=== PATIENT | female | born 1955 | race Two or more races ===

== ENCOUNTER → 2020-08-29 11:10 | Outpatient (BNVA) | payer OTHER, SELFPAY | PROVIDERS: PCP Internal Medicine; Referring Provider Internal Medicine; Visit Provider Dietitian, Registered | DX: Z76.89 Persons encountering health services in other specified circumstances (principal) ==

== ENCOUNTER 2020-09-28 12:53 | Outpatient (REF) | payer OTHER, SELFPAY | END 2020-09-28 12:54 | disposition home or self-care (01) | LOC: HO.LAB 12:53 | PROVIDERS: PCP Internal Medicine; Visit Provider Internal Medicine | DX: Z20.828 Contact with and (suspected) exposure to other viral communicable diseases (principal) | CPT/HCPCS: C9803; U0003 ==

== ENCOUNTER → 2020-12-04 12:40 | Outpatient (BNVA) | payer OTHER, SELFPAY | PROVIDERS: PCP Internal Medicine; Visit Provider Nurse Practitioner Gerontology | DX: E11.65 Type 2 diabetes mellitus with hyperglycemia (principal); E78.5 Hyperlipidemia, unspecified; I10 Essential (primary) hypertension | CPT/HCPCS: 82947; 99212 ==

== ENCOUNTER → 2020-12-29 12:22 | Outpatient (BNVA) | payer OTHER, SELFPAY | PROVIDERS: PCP Internal Medicine; Visit Provider Nurse Practitioner Gerontology | DX: E11.65 Type 2 diabetes mellitus with hyperglycemia (principal); E78.5 Hyperlipidemia, unspecified; I10 Essential (primary) hypertension; Z68.41 Body mass index [BMI] 40.0-44.9, adult; F17.200 Nicotine dependence, unspecified, uncomplicated; Z79.4 Long term (current) use of insulin; Z71.6 Tobacco abuse counseling; Z71.3 Dietary counseling and surveillance | CPT/HCPCS: 82947; 99212 ==

== ENCOUNTER 2021-01-16 10:32 | Outpatient (REF) | payer OTHER, SELFPAY ==
--- NOTE | ~2021-01-16 | MM_ITS ---
EXAMINATION: MM SCREENING DIGITAL BREAST TOMOSYNTHESIS, BILATERAL CLINICAL INFORMATION: Screening. Asymptomatic. The lifetime risk of breast cancer based on the Tyrer-Cuzick Model is 5%. COMPARISON: Mammography: 07/28/2019, 06/22/2018, 11/15/2016 TECHNIQUE: Digital breast tomosynthesis is performed in both the craniocaudal and mediolateral oblique views along with computer-aided detection (CAD). Synthesized 2D images are generated from the tomosynthesis. Additional bilateral CC views are provided. FINDINGS: The breasts are almost entirely fatty (ACR BI-RADS breast composition Category a). There are no significant masses, abnormal calcifications, or other abnormalities. Background stromal and fibroglandular densities are stable. The axilla and skin contours are unremarkable. MM/MM tomosynthesis screening BI IMPRESSION: No mammographic evidence of malignancy. ASSESSMENT: BI-RADS 1: Negative RECOMMENDATION: Routine annual mammography screening. This patient's information was entered into a reminder system with a target due date for their next mammogram.
== END 2021-01-16 10:33 | disposition home or self-care (01) ==
LOC: HO.MAMMO 10:32
PROVIDERS: PCP Internal Medicine; Visit Provider Internal Medicine
DX: Z12.31 Encounter for screening mammogram for malignant neoplasm of breast (principal)
CPT/HCPCS: 77063; 77067

== ENCOUNTER 2021-01-17 10:04 | Outpatient (REF) | payer OTHER, SELFPAY ==
[2021-01-17 10:58] LABS: Estimated Average Glucose 192 mg/dL; Hemoglobin A1c % 8.3 %
[2021-01-17 11:30] LABS: Alanine Aminotransferase 26 U/L (0-31); Albumin Level 4.4 g/dL (3.5-5.0); Alkaline Phosphatase 121 U/L (39-117); Anion Gap 18 (12-20); Aspartate Amino Transferase 23 U/L (5-31); Bilirubin Total 0.6 mg/dL (0.0-1.0); Blood Urea Nitrogen 34 mg/dL (9-16); Carbon Dioxide 30 mmol/L (22-29); Chloride 99 mmol/L (96-108); Cholesterol 197 mg/dL; Estimated Glomerular Filt Rate 37; Glucose Fasting 147 mg/dL (60-99); HDL Cholesterol 29 mg/dL; LDL Cholesterol Calculated 111 mg/dl; Potassium 4.5 mmol/L (3.3-5.1); Sodium 142 mmol/L (135-145); Total Protein 7.5 g/dL (6.5-8.0); Triglycerides 288 mg/dL
[2021-01-17 11:38] LABS: Vitamin D 25-OH Total 31.6 ng/mL (>30)
[2021-01-17 12:55] LABS: Creatinine Urine 233.28 mg/dL; Microalbum/Creatinine Ratio Ur 3.8 ug/mg cr
[2021-01-18 05:02] LABS: LDL Cholesterol Direct 126 mg/dL (<100)
[2021-01-19 12:12] LABS: PTT LA 32 sec (< OR = 40)
== END 2021-01-17 10:05 | disposition home or self-care (01) ==
LOC: HO.LAB 10:04
PROVIDERS: Nurse Practitioner Family; PCP Internal Medicine; Visit Provider Nurse Practitioner Gerontology
DX: Z01.818 Encounter for other preprocedural examination (principal); E11.65 Type 2 diabetes mellitus with hyperglycemia; E55.9 Vitamin D deficiency, unspecified
CPT/HCPCS: 36415; 80053; 80061; 82043; 82306; 83036; 83721; 85611; 85732

== ENCOUNTER 2021-01-23 12:44 | Outpatient (REF) | payer OTHER, SELFPAY ==
[2021-01-27 14:17] LABS: Alk.Phos Iso. Macrohepatic 0 % (<=0); Alk.Phos Isoenzymes Bone 23 % (28-66); Alk.Phos Isoenzymes Intest 14 % (1-24); Alk.Phos Isoenzymes Liver 63 % (25-69); Alk.Phos Isoenzymes Placental 0 % (<=0); Alk.Phos Isoenzymes Total 120 U/L (37-153)
== END 2021-01-23 12:45 | disposition home or self-care (01) ==
LOC: HO.LAB 12:44
PROVIDERS: PCP Internal Medicine; Visit Provider Nurse Practitioner Gerontology
DX: R74.8 Abnormal levels of other serum enzymes (principal)
CPT/HCPCS: 36415; 84080

== ENCOUNTER 2021-03-05 14:13 | Outpatient (REF) | payer OTHER, SELFPAY ==
[2021-03-05 13:35] VITALS: BP 161/77; PULSE 100; RESP 18; TEMP 36.6; O2SAT 97
[2021-03-05 13:43] VITALS: BMI 39.9
[2021-03-05 14:33] VITALS: BP 162/78; PULSE 100; RESP 20; O2SAT 96
== END 2021-03-05 14:14 | disposition home or self-care (01) ==
LOC: HO.MS 14:13
PROVIDERS: PCP Internal Medicine; Visit Provider Ophthalmology
PROC: (CPT 67840; principal; 2021-03-05 18:20)
DX: D23.111 Other benign neoplasm of skin of right upper eyelid, including canthus (principal); Z83.511 Family history of glaucoma; I10 Essential (primary) hypertension; E11.9 Type 2 diabetes mellitus without complications; J45.909 Unspecified asthma, uncomplicated; F17.210 Nicotine dependence, cigarettes, uncomplicated; Z79.84 Long term (current) use of oral hypoglycemic drugs; Z79.899 Other long term (current) drug therapy
CPT/HCPCS: 67840; 88305

== ENCOUNTER 2021-03-13 14:51 | Emergency (ER) | payer OTHER, SELFPAY ==
[2021-03-13 15:34] VITALS: BP 110/65; PULSE 97; RESP 17; TEMP 37.1; O2SAT 98; BMI 39.2
--- NOTE | 2021-03-13 16:04 | ED_ITS ---
HPI - General Adult General Chief complaint: General Medical Stated complaint: MULTI COMPLAINTS Time Seen by Provider: 03/13/21 16:04 Source: patient Mode of arrival: ambulatory Limitations: no limitations History of Present Illness HPI narrative: headache, neck and eye pain for 4 days. Denies fever but has chills Onset (ago): day(s) (4) Radiation: neck Severity: mild Pain Consistency: constant Related Data Home Medications Medication Instructions Recorded Confirmed albuterol sulfate 90 mcg/actuation 2 puff PO Q6H PRN 10/02/20 12/29/20 aerosol inhaler cholecalciferol (vitamin D3) 50 50 mcg PO DAILY 10/02/20 12/29/20 mcg (2,000 unit) tablet fenofibrate 54 mg tablet 54 mg PO DAILY 10/02/20 12/29/20 hydrochlorothiazide 25 mg tablet 25 mg PO DAILY 10/02/20 12/29/20 montelukast 10 mg tablet 10 mg PO DAILY 10/02/20 12/29/20 olmesartan 20 mg tablet 20 mg PO DAILY 12/04/20 12/29/20 prednisolone acetate 1 % eye drp OPHTHALMIC (EYE) ONCE ml 12/29/20 12/29/20 drops,suspension Previous Rx's Medication Instructions Recorded blood sugar diagnostic #50 ea 08/29/20 blood-glucose meter #1 ea 08/29/20 cyclobenzaprine 10 mg tablet 10 mg PO BEDTIME PRN 90 Days #90 10/03/20 tab albuterol sulfate 90 mcg/actuation 2 inh INHALATION Q4-6H PRN 30 Days 11/10/20 breath activated powder inhaler #1 ea insulin glargine 100 unit/mL (3 14 unit SUBCUT QPM 30 Days #15 ml 12/04/20 mL) subcutaneous pen metformin 500 mg tablet 500 mg PO BID #60 tab 12/04/20 pen needle, diabetic 32 gauge x #30 ea 12/04/20 atorvastatin 80 mg tablet 80 mg PO BEDTIME #30 tab 01/22/21 dulaglutide 1.5 mg/0.5 mL 1.5 mg SUBCUT QWEEK 28 Days #2 ml 01/23/21 subcutaneous pen injector naproxen 500 mg tablet 500 mg PO BID PRN #60 tab 02/09/21 meloxicam [Mobic] 15 mg PO DAILY #10 tab 03/13/21 Allergies Allergy/AdvReac Type Severity Reaction Status Date / Time amlodipine [AMLODIPINE] Allergy Unknown PALPITATION Verified 12/29/20 12:44 S lisinopril [LISINOPRIL] Allergy Unknown PALPITATIONS, Verified 12/29/20 12:44 palpitation Review of Systems Constitutional: Constitutional: Reports no additional constitutional complaints Eyes: Eyes: Reports no additional eye complaints ENT: Denies dizziness Cardiovascular: Cardiovascular: Reports no additional cardiovascular complaints Respiratory: Respiratory: Reports as per HPI Gastrointestinal: Gastrointestinal: Reports no additional gastrointestinal complaints Genitourinary: Genitourinary: Reports no additional female genitourinary complaints Musculoskeletal: Musculoskeletal: Reports no additional musculoskeletal complaints Integumentary/Breasts: Skin/Breast: Denies rash Neurologic: Reports system reviewed and no additional complaints, except as documented, Denies dizziness and Denies Sensory deficit (Neuro) Psychiatric: Psychiatric: Denies anxiety FOR[facility]LY [facility] Past Medical History Medical History Controlled diabetes mellitus without complication, without long-term current use of insulin Diabetes type 2, uncontrolled Essential hypertension Hyperlipidemia LDL goal <100 Hypovitaminosis D Mixed hyperlipidemia Pre-op exam Surgical History History of hernia repair History of myomectomy Family History Family History Father Medical history unknown Mother Hypertension Alzheimers disease Sister Hepatitis C Cirrhosis Sister Breast cancer Brother Diabetes Asthma Family/Other FH: mental illness Social History Social History Household Members: Family Alcohol intake: current Alcohol intake frequency: holidays/special occasions only Smoking Status: Current every day smoker Tobacco Type: Cigarette Packs Per Day: 1 Advance Directives: No Advance Directives Information Provided: Yes Patient : No Physical Exam Vital Signs: Vital Signs: Last Vital Signs Temp 98.7 F 03/13/21 15:34 Pulse 97 03/13/21 15:34 Resp 17 03/13/21 15:34 BP 110/65 03/13/21 15:34 Pulse Ox 98 03/13/21 15:34 Body Mass Index 39.2 Const: Other: obese female resting comfortably on her Iphone Nutritional Appearance: average body habitus Orientation/consciousness: oriented to person and patient oriented x3 Limitations: no limitations HENMT: Head: Yes normal to inspection Ears: external ears normal General nose exam: Normal external nose present Mouth: Normal oral and palatal mucosa present and oropharynx normal Throat: Yes posterior oropharynx normal Eyes: General: appearance normal, both eyes and all related structures Neck: Other: supple Neck: Yes normal visual inspection Chest: Chest palpation & inspection: normal inspection of the chest Resp: Auscultation: clear to auscultation bilaterally Cardio: Jugular venous distension: no JVD Rate: regular rate Rhythm: regular rhythm Heart sounds: S1 normal heart sound present and S2 normal heart sound present GI: Inspection: Yes normal to inspection Palpation (GI): Soft to palpation, nontender and No hepatosplenomegaly present Auscultation: normal bowel sounds : General: Yes no CVA tenderness Back/Spine/Pelvis: Back: no CVA tenderness Skin: General skin exam: no rashes or lesions noted Neuro: General: oriented to person and patient oriented x3 Cranial nerves: Yes CN's II-XII intact bilaterally Motor exam (neuro): 5/5 motor strength present throughout Sensory Exam: No Sensory deficit (Neuro) Extrem: General: Yes normal to inspection Psych: Appearance: grossly normal Discharge Plan Discharge Clinical Impression: Headache Qualifiers: Headache type: tension-type Headache chronicity pattern: chronic headache Intractability: intractable Qualified Code(s): G44.221 - Chronic tension-type headache, intractable Patient Disposition: Home, Self-Care Instructions: Tension Headache (ED) Prescriptions: New meloxicam [Mobic] 15 mg tablet 15 mg PO DAILY Qty: 10 RF: 0 No Action ProAir RespiClick 90 mcg/actuation aerosol powdr breath activated 2 inh inhalation Q4-6H PRN (Reason: shortness of breath or wheezing) 30 Days Qty: 1 RF: 6 atorvastatin 80 mg tablet 80 mg PO BEDTIME Qty: 30 RF: 6 Trulicity 1.5 mg/0.5 mL pen injector 1.5 mg subcut QWEEK 28 Days Qty: 2 RF: 1 naproxen 500 mg tablet 500 mg PO BID PRN (Reason: for pain) Qty: 60 RF: 3 cholecalciferol (vitamin D3) 50 mcg (2,000 unit) tablet 50 mcg PO DAILY RF: 0 albuterol sulfate 90 mcg/actuation HFA aerosol inhaler 2 puff PO Q6H PRNRF: 0 hydrochlorothiazide 25 mg tablet 25 mg PO DAILY RF: 0 montelukast 10 mg tablet 10 mg PO DAILY RF: 0 fenofibrate 54 mg tablet 54 mg PO DAILY RF: 0 cyclobenzaprine 10 mg tablet 10 mg PO BEDTIME PRN (Reason: muscle spasm) 90 Days Qty: 90 RF: 1 olmesartan 20 mg tablet 20 mg PO DAILY RF: 0 Lantus Solostar U-100 Insulin 100 unit/mL (3 mL) insulin pen 14 unit subcut QPM 30 Days Qty: 15 RF: 1 (DME) pen needle, diabetic [BD Ultra-Fine Audrey Pen Needle] 32 gauge x 5/32 needle See Rx Instructions .ROUTE .MEDSUPPLY Qty: 30 RF: 11 metformin 500 mg tablet 500 mg PO BID Qty: 60 RF: 3 (DME) blood-glucose meter [FreeStyle Lite Meter] Kit See Rx Instructions .ROUTE .MEDSUPPLY Qty: 1 RF: 0 (DME) FreeStyle Lite Strips Strip See Rx Instructions .ROUTE .MEDSUPPLY Qty: 50 RF: 11 prednisolone acetate 1 % drops,suspension ophthalmic (eye) ONCE RF: 0
[2021-03-13] MEDS: Ketorolac Tromethamine 60 MG/2 ML VIAL IM (16:23)
== END 2021-03-13 16:28 | disposition home or self-care (01) ==
PROVIDERS: Emergency Provider Emergency Medicine; PCP Internal Medicine
DX: G44.221 Chronic tension-type headache, intractable (principal); E11.22 Type 2 diabetes mellitus with diabetic chronic kidney disease; I12.9 Hypertensive chronic kidney disease with stage 1 through stage 4 chronic kidney disease, or unspecified chronic kidney disease; N18.9 Chronic kidney disease, unspecified; E78.2 Mixed hyperlipidemia; Z79.02 Long term (current) use of antithrombotics/antiplatelets; Z79.4 Long term (current) use of insulin; Z79.899 Other long term (current) drug therapy
CPT/HCPCS: 96372; 99283; 99284; J1885

== ENCOUNTER → 2021-04-04 11:16 | Outpatient (BNVA) | payer OTHER, SELFPAY | PROVIDERS: PCP Internal Medicine; Visit Provider Nurse Practitioner Gerontology | DX: E11.65 Type 2 diabetes mellitus with hyperglycemia (principal); E78.5 Hyperlipidemia, unspecified; I10 Essential (primary) hypertension | CPT/HCPCS: 82947; 99212 ==

== ENCOUNTER → 2021-05-25 10:57 | Outpatient (BNVA) | payer MEDICAID, SELFPAY | PROVIDERS: PCP Internal Medicine; Visit Provider Nurse Practitioner Gerontology | DX: E78.5 Hyperlipidemia, unspecified (principal); E11.42 Type 2 diabetes mellitus with diabetic polyneuropathy; I10 Essential (primary) hypertension; Z68.41 Body mass index [BMI] 40.0-44.9, adult | CPT/HCPCS: 82947; 99212 ==

== ENCOUNTER → 2021-09-27 13:28 | Outpatient (BNVA) | payer MEDICAID, SELFPAY | PROVIDERS: PCP Internal Medicine; Visit Provider Nurse Practitioner Gerontology | DX: E11.42 Type 2 diabetes mellitus with diabetic polyneuropathy (principal); E78.5 Hyperlipidemia, unspecified; E55.9 Vitamin D deficiency, unspecified; E66.09 Other obesity due to excess calories; I10 Essential (primary) hypertension | CPT/HCPCS: 82947; 83036; 99212 ==

== ENCOUNTER 2021-10-03 09:59 | Emergency (ER) | payer MEDICAID, SELFPAY ==
--- NOTE | ~2021-10-03 | XR_ITS ---
EXAMINATION: XR CHEST CLINICAL INFORMATION: Cough COMPARISON: 06/14/2020 TECHNIQUE: Frontal view of the chest was obtained. FINDINGS: The lungs are well expanded. There is no focal consolidation, edema, or effusion. No pneumothorax. The cardiomediastinal silhouette is within normal limits. No acute osseous abnormality. XR/XR chest 1V IMPRESSION: No acute pulmonary finding.
[2021-10-03 11:05] VITALS: BP 169/88; PULSE 94; RESP 18; TEMP 36.2; O2SAT 98; BMI 34.2
[2021-10-03 13:20] LABS: MANUAL DIFF FLAG NO
[2021-10-03 13:31] LABS: Basophils Absolute Auto 0.1 X10*3/uL (0.0-0.2); Basophils Percent Auto 0.4 % (0-2); Eosinophils Absolute Auto 0.4 X10*3/uL (0.0-0.4); Eosinophils Percent Auto 3.5 % (0-4); Hematocrit 41.2 % (37.0-47.0); Hemoglobin 13.9 g/dl (12.0-16.0); Imm Gran Abs Auto 0.06 X10*3/uL (0.00-0.03); Imm Gran Pct Auto 0.5 % (0.0-0.4); Lymphocytes Absolute Auto 3.4 X10*3/uL (1.2-4.9); Lymphocytes Percent Auto 30.2 % (20-40); Mean Corpuscular HGB Conc 33.7 g/dl (31.0-35.0); Mean Corpuscular Hemoglobin 28.9 pg (27.0-33.0); Mean Corpuscular Volume 85.7 fL (80.0-98.0); Mean Platelet Volume 10.2 fL (9.4-12.3); Monocytes Absolute Auto 0.9 X10*3/uL (0.1-1.2); Monocytes Percent Auto 7.9 % (2-11); Neutrophils Absolute Auto 6.5 x10*3/uL (2.0-8.3); Neutrophils Percent Auto 57.5 % (45-73); Platelet Count 244 X10*3/uL (160-400); Red Blood Count 4.81 X10*6/uL (4.20-5.50); White Blood Count 11.4 X10*3/uL (4.8-10.8)
[2021-10-03 13:35] LABS: Anion Gap 15 (12-20); Blood Urea Nitrogen 20 mg/dL (9-16); Calcium 10.3 mg/dL (8.4-10.2); Carbon Dioxide 25 mmol/L (22-29); Chloride 104 mmol/L (96-108); Creatinine Clr Calc Pharmacy 56.5; Estimated Glomerular Filt Rate 49; Glucose Random 101 mg/dL (60-115); Potassium 3.7 mmol/L (3.3-5.1); Sodium 140 mmol/L (135-145)
[2021-10-03 13:37] LABS: COVID-19 Test Negative (Negative); IDNOW Serial# 08D9AD1C
--- NOTE | 2021-10-03 15:27 | ED.GENADULT ---
HPI - General Adult General Chief complaint: General Medical Stated complaint: back pain/rib pain Time Seen by Provider: 10/03/21 15:24 Source: patient Mode of arrival: ambulatory History of Present Illness HPI narrative: 66-year-old female with a past medical history of diabetes, hypertension, hyperlipidemia, obesity, polyneuropathy, presenting to the ED complaining of diffuse body myalgias, back pain, neck pain, chest wall pain and knuckle pain x weeks. Denies known injury/trauma or fall. Denies fever, chills, SOB/CP, abdominal pain, nausea/vomiting, urinary incontinence/retention. Onset (ago): day(s) Related Data Home Medications Medication Instructions Recorded Confirmed prednisolone acetate 1 % eye drp OPHTHALMIC (EYE) ONCE ml 12/29/20 09/27/21 drops,suspension amitriptyline 10 mg tablet 10 mg PO BEDTIME 09/27/21 09/27/21 citalopram 10 mg tablet 10 mg PO DAILY 09/27/21 09/27/21 famotidine 20 mg tablet 20 mg PO DAILY 09/27/21 09/27/21 gabapentin 300 mg capsule 300 mg PO TID 09/27/21 09/27/21 prazosin 2 mg capsule 2 mg PO BEDTIME 09/27/21 09/27/21 propranolol 40 mg tablet 40 mg PO ONCE tab 09/27/21 09/27/21 zolpidem 5 mg tablet 5 mg PO BEDTIME PRN 09/27/21 09/27/21 Previous Rx's Medication Instructions Recorded blood-glucose meter (FreeStyle #1 ea 08/29/20 Lite Meter) albuterol sulfate 90 mcg/actuation 2 inh INHALATION Q4-6H PRN 30 Days 11/10/20 breath activated powder inhaler #1 ea (ProAir RespiClick) naproxen 500 mg tablet 500 mg PO BID PRN #60 tab 02/09/21 lancets 28 gauge (FreeStyle #100 ea 04/04/21 Lancets) montelukast 10 mg tablet 10 mg PO DAILY #30 tab 05/08/21 blood sugar diagnostic (FreeStyle #100 ea 07/09/21 Lite Strips) cholecalciferol (vitamin D3) 50 50 mcg PO DAILY 90 Days #90 tab 07/09/21 mcg (2,000 unit) tablet cyclobenzaprine 10 mg tablet 10 mg PO BEDTIME PRN 90 Days #90 07/09/21 tab pen needle, diabetic 32 gauge x #30 ea 07/09/21 (BD Ultra-Fine Audrey Pen Needle) gabapentin 100 mg capsule 100 mg PO DAILY #30 cap 08/21/21 metformin 500 mg tablet 500 mg PO BID #60 tab 09/04/21 olmesartan 20 mg tablet 20 mg PO DAILY #30 tab 09/27/21 rosuvastatin 40 mg tablet 40 mg PO DAILY #30 tab 10/02/21 acetaminophen 500 mg tablet 500 mg PO Q6H PRN #20 tab 10/03/21 (Tylenol Extra Strength) dulaglutide 3 mg/0.5 mL 3 mg (0.5 mL) SUBCUT QWEEK 28 Days 10/03/21 subcutaneous pen injector #2 ml (Trulicity) lidocaine 5 % topical patch 1 patch TOPICAL DAILY PRN #30 ea 10/03/21 (Lidoderm) MDD remove after 12 hours Allergies Allergy/AdvReac Type Severity Reaction Status Date / Time amlodipine [AMLODIPINE] Allergy Intermediate PALPITATION Verified 10/03/21 11:05 S lisinopril [LISINOPRIL] Allergy Intermediate PALPITATIONS, Verified 10/03/21 11:05 palpitation Review of Systems Review of Systems: Constitutional: No Fever, No Chills ENT/Mouth: No Ear Pain, No Nasal Congestion,No sore throat, No Rhinorrhea, No Swallowing Difficulty Cardiovascular: + Chest wall Pain, No SOB Respiratory: No Cough, No Sputum, No Wheezing Gastrointestinal: No Nausea, No Vomiting, No Abdominal pain Genitourinary: No Dysuria, No Urinary Frequency, No Hematuria, No Urinary Incontinence/retention, No Flank Pain Musculoskeletal: + joint pain, + Myalgias, No Joint Swelling Skin: No Skin Lesions, No rash Neuro: No Weakness, No Numbness, No Paresthesias Yes all other systems are reviewed and are negative [facility] Past Medical History Attestation statement: The following information was validated with the patient. Medical History COVID-19 Diabetes type 2, uncontrolled Essential hypertension Hyperlipidemia LDL goal <100 Hypovitaminosis D Mixed hyperlipidemia Obesity due to excess calories Pre-op exam Type 2 diabetes mellitus with diabetic polyneuropathy Surgical History History of hernia repair History of myomectomy Family History Family History Father Medical history unknown Mother Hypertension Alzheimers disease Sister Hepatitis C Cirrhosis Sister Breast cancer Brother Diabetes Asthma Family/Other FH: mental illness Social History Social History Household Members: Family Alcohol intake: current Alcohol intake frequency: holidays/special occasions only Patient Tobacco Use Status: Current everyday Tobacco user Cigarette Packs Per Day: 1 Advance Directives: No Advance Directives Information Provided: No Physical Exam Vital Signs: Vital Signs: Last Vital Signs Temp 97.2 F 10/03/21 11:05 Pulse 94 10/03/21 11:05 Resp 18 10/03/21 11:05 BP 169/88 H 10/03/21 11:05 Pulse Ox 98 10/03/21 11:05 BMI result Body Mass Index 34.2 Const: General: cooperative, healthy appearing and no acute distress Orientation/consciousness: patient oriented x3 Limitations: no limitations HENMT: Head: Yes normal to inspection Ears: hearing grossly normal bilaterally General nose exam: Normal external nose present Face and sinus: Yes normal facial exam Eyes: General: appearance normal, both eyes and all related structures EOM: EOMs intact bilaterally Neck: Neck: Yes normal visual inspection, Yes no meningeal signs and Yes supple Chest: Other: Diffuse bilateral chest wall ttp Chest palpation & inspection: normal inspection of the chest and no crepitus Resp: Effort & Inspection: normal respiratory effort Auscultation: clear to auscultation bilaterally, no rales, no rhonchi and no wheezes Cardio: Rate: regular rate Heart sounds: S1 normal heart sound present and S2 normal heart sound present GI: Inspection: Yes normal to inspection Palpation (GI): Soft to palpation, nontender, no guarding and not rigid : General: Yes no CVA tenderness Back/Spine/Pelvis: Other: No midline thoracic/lumbar spinous tenderness/step-off or deformity Back: no CVA tenderness Skin: Rashes: no rashes Wounds: no wounds Neuro: General: patient oriented x3, gait normal, tone normal, moves all extremities, no meningeal signs and no focal motor deficits Gait exam (Neuro): Normal gait present Motor exam (neuro): 5 motor strength present throughout and no tremor noted Extrem: Other: Diffuse joint tenderness to palpation. No appreciable deformity/erythema. No warmth General: Yes normal to inspection, Yes no joint enlargement and Yes no pedal edema Course Course Course Narrative: XR chest 1V IMPRESSION: No acute pulmonary finding. -1528--mild leukocytosis of 11.4, labs otherwise unremarkable -COVID-19 negative >> discussed results with patient. Patient is in a ruiz to be discharged at this time. Discussed she needs to follow-up with her PCP and with rheumatology for further workup. States she already takes Naproxen, Flexeril, Tylenol, and Tramadol at home with no relief. Medical Decision Making MDM Narrative Medical decision making narrative: 66-year-old female with a past medical history of diabetes, hypertension, hyperlipidemia, obesity, polyneuropathy, presenting to the ED complaining of diffuse body myalgias, back pain, neck pain, chest wall pain and knuckle pain x weeks. On exam vital signs stable, and 80/nontoxic, physical exam as above. Concern for COVID-19/viral illness vs arthritis vs ?Rhabdo or autoimmune etiology Plan: COVID-19 testing, labs, CXR Lab Data Result diagrams: 10/03/21 13:11 10/03/21 13:11 Labs: Lab Results 10/03/21 10/03/21 10/03/21 Range/Units 13:11 13:11 13:11 WBC 11.4 H (4.8-10.8) X10*3/uL RBC 4.81 (4.20-5.50) X10*6/uL Hgb 13.9 (12.0-16.0) g/dl Hct 41.2 (37.0-47.0) % MCV 85.7 (80.0-98.0) fL MCH 28.9 (27.0-33.0) pg MCHC 33.7 (31.0-35.0) g/dl RDW 14.0 (11.0-16.0) % Plt Count 244 (160-400) X10*3/uL MPV 10.2 (9.4-12.3) fL Immature Gran % (Auto) 0.5 H (0.0-0.4) % Neut % (Auto) 57.5 (45-73) % Lymph % (Auto) 30.2 (20-40) % [place] % (Auto) 7.9 (2-11) % Eos % (Auto) 3.5 (0-4) % Baso % (Auto) 0.4 (0-2) % Lymph # (Auto) 3.4 (1.2-4.9) X10*3/uL [place] # (Auto) 0.9 (0.1-1.2) X10*3/uL Eos # (Auto) 0.4 (0.0-0.4) X10*3/uL Baso # (Auto) 0.1 (0.0-0.2) X10*3/uL Abs Immat Gran (auto) 0.06 H (0.00-0.03) X10*3/uL Absolute Neuts (auto) 6.5 (2.0-8.3) x10*3/uL Absolute Nucleated RBC 0.000 (0.0-0.012) X10*3/uL Nucleated RBC % (auto) 0.0 (0.0-0.2) /100WBC Sodium 140 (135-145) mmol/L Potassium 3.7 (3.3-5.1) mmol/L Chloride 104 (96-108) mmol/L Carbon Dioxide 25 (22-29) mmol/L Anion Gap 15 (12-20) BUN 20 H (9-16) mg/dL Creatinine 1.12 (0.5-1.4) mg/dL Estim Creat Clear Calc 56.5 Estimated GFR 49 Random Glucose 101 (60-115) mg/dL Calcium 10.3 H (8.4-10.2) mg/dL COVID-19 (RICKEY) Negative (Negative) COVID-19 Clin Com See Note Discharge Plan Discharge Clinical Impression: Myalgia Patient Disposition: Home, Self-Care Instructions: Musculoskeletal Pain (ED) Additional Instructions: Your blood work was reassuring today in the emergency department Your COVID-19 was negative Her chest x-ray was negative Please follow-up with her doctor, please also follow-up with Rheumatology, continue all home prescribed medications if your symptoms persist or worsen you develop fevers, shortness of breath, or chest pain please return to the emergency department Prescriptions: New acetaminophen [Tylenol Extra Strength] 500 mg tablet 500 mg PO Q6H PRN (Reason: pain or fever) Qty: 20 RF: 0 lidocaine [Lidoderm] 5 % adhesive patch,medicated 1 patch topical DAILY MDD remove after 12 hours PRN (Reason: pain) Qty: 30 RF: 0 No Action ProAir RespiClick 90 mcg/actuation aerosol powdr breath activated 2 inh inhalation Q4-6H PRN (Reason: shortness of breath or wheezing) 30 Days Qty: 1 RF: 6 naproxen 500 mg tablet 500 mg PO BID PRN (Reason: for pain) Qty: 60 RF: 3 montelukast 10 mg tablet 10 mg PO DAILY Qty: 30 RF: 8 cyclobenzaprine 10 mg tablet 10 mg PO BEDTIME PRN (Reason: muscle spasm) 90 Days Qty: 90 RF: 1 (DME) FreeStyle Lite Strips Strip See Rx Instructions .ROUTE .MEDSUPPLY Qty: 100 RF: 11 cholecalciferol (vitamin D3) 50 mcg (2,000 unit) tablet 50 mcg PO DAILY 90 Days Qty: 90 RF: 1 (DME) pen needle, diabetic [BD Ultra-Fine Audrey Pen Needle] 32 gauge x 5/32 needle See Rx Instructions .ROUTE .MEDSUPPLY Qty: 30 RF: 11 gabapentin 100 mg capsule 100 mg PO DAILY Qty: 30 RF: 6 metformin 500 mg tablet 500 mg PO BID Qty: 60 RF: 4 rosuvastatin 40 mg tablet 40 mg PO DAILY Qty: 30 RF: 4 Trulicity 3 mg/0.5 mL pen injector 3 mg subcut QWEEK 28 Days Qty: 2 RF: 6 propranolol 40 mg tablet 40 mg PO ONCE RF: 0 citalopram 10 mg tablet 10 mg PO DAILY RF: 0 famotidine 20 mg tablet 20 mg PO DAILY RF: 0 prazosin 2 mg capsule 2 mg PO BEDTIME RF: 0 amitriptyline 10 mg tablet 10 mg PO BEDTIME RF: 0 zolpidem 5 mg tablet 5 mg PO BEDTIME PRNRF: 0 gabapentin 300 mg capsule 300 mg PO TID RF: 0 olmesartan 20 mg tablet 20 mg PO DAILY Qty: 30 RF: 11 (DME) blood-glucose meter [FreeStyle Lite Meter] Kit See Rx Instructions .ROUTE .MEDSUPPLY Qty: 1 RF: 0 prednisolone acetate 1 % drops,suspension ophthalmic (eye) ONCE RF: 0 (DME) lancets [FreeStyle Lancets] 28 gauge misc See Rx Instructions .ROUTE .MEDSUPPLY Qty: 100 RF: 11 Referrals: Cira Stuart MD [Physician] - 2 days Johanna Vasquez DO [Physician] - 2 days
[2021-10-03 16:53] LABS: Erythrocyte Sedimentation Rate 28 MM/HR (0-20)
== END 2021-10-03 16:18 | disposition home or self-care (01) ==
PROVIDERS: Physician Assistant; Emergency Provider Emergency Medicine Emergency Medical Services
DX: M79.10 Myalgia, unspecified site (principal); E11.9 Type 2 diabetes mellitus without complications; I10 Essential (primary) hypertension; Z20.822 Contact with and (suspected) exposure to COVID-19
CPT/HCPCS: 36415; 71045; 80048; 82550; 85025; 85652; 86140; 87635; 99283

== ENCOUNTER 2022-03-12 07:34 | Outpatient (REF) | payer MEDICARE, MEDICAID, SELFPAY ==
[2022-03-12 08:48] LABS: Alanine Aminotransferase 32 U/L (0-31); Albumin Level 3.9 g/dL (3.5-5.0); Alkaline Phosphatase 112 U/L (39-117); Anion Gap 11 (12-20); Aspartate Amino Transferase 22 U/L (5-31); Bilirubin Total 0.3 mg/dL (0.0-1.0); Blood Urea Nitrogen 17 mg/dL (9-16); Carbon Dioxide 32 mmol/L (22-29); Chloride 105 mmol/L (96-108); Cholesterol 230 mg/dL; Estimated Glomerular Filt Rate 48; Glucose Fasting 108 mg/dL (60-99); HDL Cholesterol 37 mg/dL; LDL Cholesterol Calculated 136 mg/dl; Potassium 4.4 mmol/L (3.3-5.1); Sodium 144 mmol/L (135-145); Total Protein 6.9 g/dL (6.5-8.0); Triglycerides 285 mg/dL
[2022-03-12 09:24] LABS: Creatinine Urine 123.25 mg/dL; Microalbum/Creatinine Ratio Ur 5.6 ug/mg cr
[2022-03-14 00:20] LABS: LDL Cholesterol Direct 170 mg/dL (<100)
== END 2022-03-12 07:35 | disposition home or self-care (01) ==
LOC: HO.LAB 07:34
PROVIDERS: Visit Provider Nurse Practitioner Gerontology
DX: E11.42 Type 2 diabetes mellitus with diabetic polyneuropathy (principal); E55.9 Vitamin D deficiency, unspecified
CPT/HCPCS: 36415; 80053; 80061; 82043; 82306; 83721

== ENCOUNTER → 2022-03-15 11:26 | Outpatient (BNVA) | payer MEDICARE, MEDICAID, SELFPAY | PROVIDERS: Visit Provider Nurse Practitioner Gerontology | DX: E11.42 Type 2 diabetes mellitus with diabetic polyneuropathy (principal); E78.5 Hyperlipidemia, unspecified; E55.9 Vitamin D deficiency, unspecified; E66.09 Other obesity due to excess calories; I10 Essential (primary) hypertension; Z79.84 Long term (current) use of oral hypoglycemic drugs; Z68.37 Body mass index [BMI] 37.0-37.9, adult | CPT/HCPCS: 82947; 83036; 99212 ==

== ENCOUNTER 2023-01-10 09:18 | Outpatient (REF) | payer OTHER, SELFPAY ==
[2023-01-10 11:05] LABS: MANUAL DIFF FLAG NO
[2023-01-10 11:51] LABS: Basophils Percent Auto 0.4 % (0-2); Eosinophils Absolute Auto 0.9 X10*3/uL (0.0-0.4); Eosinophils Percent Auto 8.2 % (0-4); Hematocrit 41.1 % (37.0-47.0); Hemoglobin 13.8 g/dl (12.0-16.0); Imm Gran Abs Auto 0.05 X10*3/uL (0.00-0.03); Imm Gran Pct Auto 0.4 % (0.0-0.4); Lymphocytes Absolute Auto 2.1 X10*3/uL (1.2-4.9); Lymphocytes Percent Auto 18.9 % (20-40); Mean Corpuscular HGB Conc 33.6 g/dl (31.0-35.0); Mean Corpuscular Hemoglobin 29.5 pg (27.0-33.0); Mean Corpuscular Volume 87.8 fL (80.0-98.0); Mean Platelet Volume 11.1 fL (9.4-12.3); Monocytes Absolute Auto 1.1 X10*3/uL (0.1-1.2); Monocytes Percent Auto 9.4 % (2-11); Neutrophils Percent Auto 62.7 % (45-73); Platelet Count 202 X10*3/uL (160-400); Red Blood Count 4.68 X10*6/uL (4.20-5.50); Red Cell Distribution Width 13.9 % (11.0-16.0); White Blood Count 11.2 X10*3/uL (4.8-10.8)
[2023-01-10 12:06] LABS: Estimated Average Glucose 114 mg/dL; Hemoglobin A1c % 5.6 %
[2023-01-10 12:31] LABS: Alanine Aminotransferase 24 U/L (0-31); Albumin Level 4.2 g/dL (3.5-5.0); Alkaline Phosphatase 103 U/L (39-117); Anion Gap 12 (12-20); Aspartate Amino Transferase 20 U/L (5-31); Bilirubin Total 0.6 mg/dL (0.0-1.0); Blood Urea Nitrogen 14 mg/dL (9-16); Calcium 9.3 mg/dL (8.4-10.2); Carbon Dioxide 30 mmol/L (22-29); Chloride 102 mmol/L (96-108); Estimated Glomerular Filt Rate 41; Glucose Random 123 mg/dL (60-115); Sodium 140 mmol/L (135-145); Total Protein 7.1 g/dL (6.5-8.0)
[2023-01-10 14:05] LABS: Amphetamine Screen Urine Not Detected (Not Detect); Barbiturates, Urine Not Detected (Not Detect); Benzodiazepines Screen Urine POSITIVE (Not Detect); Cannabinoid Screen Urine Not Detected (Not Detect); Cocaine Screen Urine Not Detected (Not Detect); Fentanyl, urine Not Detected (Not Detect); Opiate Screen Urine Not Detected (Not Detect); Phencyclidine Screen Urine Not Detected (Not Detect)
[2023-01-17 23:58] LABS: Cotinine, U 1672 ng/mL; Nicotine, U 6805 ng/mL
== END 2023-01-10 09:19 | disposition home or self-care (01) ==
LOC: HO.LAB 09:18
PROVIDERS: PCP Nurse Practitioner Family; Visit Provider Surgery
DX: E66.09 Other obesity due to excess calories (principal); E11.42 Type 2 diabetes mellitus with diabetic polyneuropathy; E11.65 Type 2 diabetes mellitus with hyperglycemia; R74.8 Abnormal levels of other serum enzymes; E11.22 Type 2 diabetes mellitus with diabetic chronic kidney disease; I12.9 Hypertensive chronic kidney disease with stage 1 through stage 4 chronic kidney disease, or unspecified chronic kidney disease; N18.9 Chronic kidney disease, unspecified; E78.2 Mixed hyperlipidemia; K43.2 Incisional hernia without obstruction or gangrene; F17.210 Nicotine dependence, cigarettes, uncomplicated; Z71.6 Tobacco abuse counseling; F10.90 Alcohol use, unspecified, uncomplicated; Z65.8 Other specified problems related to psychosocial circumstances; Z76.5 Malingerer [conscious simulation]; Z79.899 Other long term (current) drug therapy
CPT/HCPCS: 80053; 80307; 80323; 83036; 84134; 85025; 99202

== ENCOUNTER 2023-01-31 16:22 | Outpatient (REF) | payer OTHER, SELFPAY ==
--- NOTE | ~2023-01-31 | CT_ITS ---
EXAMINATION: CT ABDOMEN AND PELVIS WITHOUT CONTRAST CLINICAL INFORMATION: Incisional hernia. COMPARISON: CT abdomen and pelvis 01/16/2017. TECHNIQUE: Multidetector volumetric imaging was performed from the superior aspect of the liver through the pubic symphysis. Sagittal and coronal reformatted images were obtained on the technologist's workstation. This CT examination was performed using dose optimization techniques as appropriate, variously including the following: *Automated exposure control *Adjustment of mA and/or kV according to patient size (this includes techniques or standardized protocols for targeted exams where dose is matched to indication/reason for exam; i.e. extremities or head) *Use of iterative reconstruction technique DLP: 630 mGy-cm FINDINGS: LUNG BASES: The visualized lung bases are unremarkable. LIVER, GALLBLADDER, AND BILIARY TREE: The liver is normal in size, shape, and attenuation. No focal hepatic lesion or biliary ductal dilatation is present. Cholecystectomy. PANCREAS: No discrete pancreatic mass. No ductal dilatation. No focal atrophy. SPLEEN: Normal. ADRENAL GLANDS: No adrenal mass. KIDNEYS AND URETERS: The kidneys are normal in size, shape, and attenuation. No hydronephrosis, hydroureter, or calculi seen. No perinephric stranding. BLADDER: Unremarkable. GASTROINTESTINAL TRACT: Small hiatal hernia. The small bowel is normal in caliber. A short segment of small bowel is contained within the ventral hernia sac but there is no evidence of obstruction. The large bowel is normal in caliber. There is mild diverticulosis without evidence of diverticulitis. 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 ABDOMINAL WALL: The patient has undergone ventral hernia repair with mesh. Just above the mesh in the midline there is a fat-containing hernia with a fascial defect measuring 8 x 7 mm and a sac measuring 3.5 x 3.1 cm. This appears larger than the prior study. Along the right superolateral margin of the mesh there is a small bowel containing hernia with a fascial defect measuring 2.8 x 1.3 cm and a sac measuring 3.7 x 3.4 cm. This appears stable compared to the prior study. There may be additional small fascial defects along the incision. LYMPH NODES: No lymphadenopathy. VASCULAR: No aortic aneurysm. Mild aortoiliac atherosclerotic disease. PELVIC VISCERA: Suspect supracervical hysterectomy. OSSEOUS STRUCTURES: Degenerative changes in the spine. CT/CT abdomen pelvis wo IV con IMPRESSION: Two measurable ventral abdominal wall hernias along the superior margin of the mesh as above. Fleischner guidelines were followed.
== END 2023-01-31 16:23 | disposition home or self-care (01) ==
LOC: HO.CT 16:22
PROVIDERS: PCP Nurse Practitioner Family; Visit Provider Surgery
DX: K43.2 Incisional hernia without obstruction or gangrene (principal)
CPT/HCPCS: 74176

== ENCOUNTER → 2023-02-11 14:28 | Outpatient (BNVA) | payer OTHER, SELFPAY | PROVIDERS: PCP Nurse Practitioner Family; Visit Provider Surgery ==

== ENCOUNTER → 2023-02-12 13:17 | Outpatient (BNVA) | payer OTHER, SELFPAY | PROVIDERS: PCP Nurse Practitioner Family; Visit Provider Surgery | DX: K43.2 Incisional hernia without obstruction or gangrene (principal); E78.5 Hyperlipidemia, unspecified; E78.2 Mixed hyperlipidemia; E11.9 Type 2 diabetes mellitus without complications; F17.210 Nicotine dependence, cigarettes, uncomplicated | CPT/HCPCS: 99212 ==

== ENCOUNTER 2023-08-08 | Outpatient (REF) | payer OTHER, SELFPAY | END 2023-08-08 00:01 | disposition home or self-care (01) | LOC: CF | PROVIDERS: PCP Nurse Practitioner Family; Visit Provider Physician Assistant Medical | DX: F17.210 Nicotine dependence, cigarettes, uncomplicated (principal); F12.90 Cannabis use, unspecified, uncomplicated; Z71.6 Tobacco abuse counseling | CPT/HCPCS: G0296 ==

== ENCOUNTER 2023-09-19 14:59 | Outpatient (REF) | payer OTHER, SELFPAY | END 2023-09-19 15:00 | disposition home or self-care (01) | LOC: HO.MAMMO 14:59 | PROVIDERS: PCP Nurse Practitioner Family; Visit Provider Nurse Practitioner Family | DX: Z12.31 Encounter for screening mammogram for malignant neoplasm of breast (principal) | CPT/HCPCS: 77063; 77067 ==

== ENCOUNTER → 2023-09-19 15:00 | Outpatient (BNV) | payer OTHER, SELFPAY | PROVIDERS: PCP Nurse Practitioner Family; Visit Provider Radiology Diagnostic Radiology | DX: Z12.31 Encounter for screening mammogram for malignant neoplasm of breast (principal) | CPT/HCPCS: 77063; 77067 ==

== ENCOUNTER 2023-11-19 16:14 | Outpatient (REF) | payer OTHER, SELFPAY ==
--- NOTE | ~2023-11-19 | CT_ITS ---
EXAMINATION: CT CHEST SCREENING CLINICAL INFORMATION: 68-year-old current smoker with 52 pack year history COMPARISON: None available. TECHNIQUE: Multidetector volumetric CT imaging of the chest is performed without contrast using low dose technique. Additional 2D coronal and sagittal reformatted images and axial 3D maximum intensity projection (MIP) images are generated on the CT workstation. This CT examination was performed using dose optimization techniques as appropriate, variously including the following: *Automated exposure control *Adjustment of mA and/or kV according to patient size (this includes techniques or standardized protocols for targeted exams where dose is matched to indication/reason for exam; i.e. extremities or head) *Use of iterative reconstruction technique DLP: 75 mGy-cm FINDINGS: AERIAL SURVEY TECHNICIAN: No acute cardiopulmonary disease. LUNGS: Trachea and bronchi are patent. MEDIASTINUM: Unremarkable thyroid. Nonspecific mediastinal lymph nodes. No pathologic lymphadenopathy. Small hiatal hernia. Nonenlarged heart. No pericardial effusion. Atherosclerotic calcifications nonaneurysmal aorta. Nonenlarged pulmonary arteries. CORONARY ARTERY CALCIFICATION: Mild. PLEURA: 5 mm fissural lymph node, 6:243. There is no pleural effusion. No pleural mass or thickening. AXILLA: No lymphadenopathy. UPPER ABDOMEN: Unremarkable OSSEOUS STRUCTURES: Sternomanubrial osteophytes. Degenerative changes thoracic spine. CT/CT lung screening IMPRESSION: Unremarkable examination. ASSESSMENT: Lung-RADS category 1: Negative RECOMMENDATION: Routine annual low-dose CT screening in 12 months.
== END 2023-11-19 16:15 | disposition home or self-care (01) ==
LOC: HO.CT 16:14
PROVIDERS: PCP Nurse Practitioner Family; Visit Provider Physician Assistant Medical
DX: F17.210 Nicotine dependence, cigarettes, uncomplicated (principal)
CPT/HCPCS: 71271

== ENCOUNTER 2024-02-13 13:44 | Emergency (ER) | payer OTHER, SELFPAY ==
--- NOTE | ~2024-02-13 | XR_ITS ---
EXAMINATION: XR CHEST CLINICAL INFORMATION: Chest pain COMPARISON: 10/03/2021 TECHNIQUE: 2 views of the chest were obtained. FINDINGS: No significant abnormality is noted involving the heart, lungs, mediastinum, or soft tissues. Degenerative changes. XR/XR chest 2V IMPRESSION: No acute cardiopulmonary disease or interval change
--- NOTE | 2024-02-13 13:56 | ECG_ITS ---
Test Reason : sob Blood Pressure : / mmHG Vent. Rate : 078 BPM Atrial Rate : 078 BPM P-R Int : 170 ms QRS Dur : 090 ms QT Int : 384 ms P-R-T Axes : 070 003 036 degrees QTc Int : 437 ms Normal sinus rhythm Inferior infarct , age undetermined Abnormal ECG When compared with ECG of 12-JUN-2020 10:07, No significant change was found Referred By: Bernardo Valentino Electronically Signed By:KARINA CONTE
--- NOTE | 2024-02-13 13:59 | ED.GENADULT ---
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 According to EMS they were called because the patient has been experiencing worsening shortness of breath over the past month and chest pain. Patient however reports that her main concern is right leg pain that is been ongoing for the past 12 days with radiation from the back down to the leg. Patient reports that she has been experiencing shortness of breath over the past month associated with cough, runny nose and that over the past 2 days she is being having chest pain, not exertional, intermittent, exacerbated by respirations. Patient denies chills or fever. Patient denies bloody stools or urinary incontinence She reports that the pain in her thigh is 9/10 in severity and that she is being using NSAIDs at home. Reports mild chest pain at the time of examination. Per EMS patient was wheezing on arrival and received 1 DuoNeb EN route. Her vital signs on arrival and EN route showed hypertension with systolic blood pressure on 170s but otherwise unremarkable. Related Data Home Medications ?Medication ?Instructions ?Recorded ?Confirmed amitriptyline 10 mg tablet 10 mg PO BEDTIME 09/27/21 02/12/23 citalopram 10 mg tablet 10 mg PO DAILY 09/27/21 02/12/23 famotidine 20 mg tablet 20 mg PO DAILY 09/27/21 02/12/23 gabapentin 300 mg capsule 300 mg PO TID 09/27/21 02/12/23 prazosin 2 mg capsule 2 mg PO BEDTIME 09/27/21 02/12/23 propranolol 40 mg tablet 40 mg PO ONCE 09/27/21 02/12/23 zolpidem 5 mg tablet 5 mg PO BEDTIME PRN 09/27/21 02/12/23 Previous Rx's ?Medication ?Instructions ?Recorded albuterol sulfate 90 mcg/actuation 2 inh inhalation Q4-6H PRN 11/10/20 breath activated powder inhaler shortness of breath or wheezing 30 (ProAir RespiClick) days #1 ea naproxen 500 mg tablet 500 mg PO BID PRN for pain #60 tabs 02/09/21 cholecalciferol (vitamin D3) 50 50 mcg PO DAILY 90 days #90 tabs 07/09/21 mcg (2,000 unit) tablet acetaminophen 500 mg tablet 500 mg PO Q6H PRN pain or fever 10/03/21 (Tylenol Extra Strength) #20 tabs blood-glucose meter (FreeStyle #1 ea 11/27/21 Lite Meter kit) rosuvastatin 40 mg tablet 40 mg PO DAILY #30 tabs 03/15/22 lancets 28 gauge (FreeStyle #100 ea 04/17/22 Lancets) montelukast 10 mg tablet 10 mg PO DAILY #30 tabs 04/17/22 dulaglutide 3 mg/0.5 mL 3 mg (0.5 mL) subcut QWEEK 28 days 04/30/22 subcutaneous pen injector #2 mL ([employer]) blood-glucose meter (FreeStyle #1 ea 07/17/22 Lite Meter kit) olmesartan 20 mg tablet 20 mg PO DAILY #30 tabs 10/02/22 cyclobenzaprine 10 mg tablet 10 mg PO BEDTIME PRN muscle spasm 12/25/22 90 days #90 tabs blood sugar diagnostic (FreeStyle #100 ea 08/30/23 Lite Strips) Allergies Allergy/AdvReac Type Severity Reaction Status Date / Time amlodipine [AMLODIPINE] Allergy Intermediate PALPITATION Verified 02/13/24 14:52 S lisinopril [LISINOPRIL] Allergy Intermediate PALPITATIONS, Verified 02/13/24 14:52 palpitation Review of Systems Review of Systems: Yes all other systems are reviewed and are negative [facility] Past Medical History Medical History (Updated 02/13/24 @ 15:48 by Bernardo Valentino MD) Nicotine dependence, cigarettes, uncomplicated Obesity due to excess calories Type 2 diabetes mellitus with diabetic polyneuropathy Essential hypertension Hypovitaminosis D Mixed hyperlipidemia Surgical History (Updated 08/08/23 @ 11:39 by Danika Villalobos PA-C) History of hemorrhoidectomy History of colonoscopy History of hernia repair History of myomectomy Family History Family History Father Medical history unknown Mother Hypertension Alzheimers disease Sister Hepatitis C Cirrhosis Sister Breast cancer Brother Diabetes Asthma Family/Other FH: mental illness Social History Social History (Updated 08/08/23 @ 11:39 by Danika Villalobos PA-C) Household Members: Family Alcohol intake: current Alcohol intake frequency: holidays/special occasions only Patient Tobacco Use Status: Current everyday Tobacco user Tobacco use type: Cigarette Cigarette Packs Per Day: 1 Years Smoked: onset 17yo, 1ppd x 53yrs, 50pyh Advance Directives: No Advance Directives Information Provided: Yes Physical Exam ED Vital Signs: Vital Signs - 24 hr 02/13/24 14:50 Temperature 97.9 F Pulse Rate 75 Respiratory Rate 16 Blood Pressure 135/59 L Pulse Oximetry 97 Oxygen Delivery Method Room Air BMI result Body Mass Index 39.1 General: Alert, Not in Distress Skin: No rash, warm HEENT: Atraumatic, No Exudate or Pharyngeal Erythema Resp: mild wheezing bilaterally at end of expiration Cardio: Regular rate and Rhythm, Normal S1, S2 ABD: Abd soft, non tender, no guarding or rebound. Normal Bowel sounds. : No cva tenderness Neuro: Alert, oriented x4, PERRL Strenght 5/5 on all extremities Sensation is preserved in both lower and upper extremities Index to nose: normal Cranial Nerves II-XII grossly intact No dysarthria, or aphasia No neglet. Visual wiggins are normal bilaterally Psych: Cooperative, NO SI MSK: pain with straight leg raise on dinorah R side. Strenght is 5?5 on all extremity on saddle anesthesia Course Reevaluation(s) Reevaluation #1: Patient CBC is unremarkable, pending troponin Patient feels better able to ambulate in the emergency room. No chest pain at this time. Patient requests to be discharged against medical advice. 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 I explained to her that I would like to keep her until troponin is back to rule out cardiogenic source for symptoms however patient who has capacity, understands the risks, still would prefer to be discharged. Will DC patient home Time: 15:45 Medications Administered Discontinued Medications Generic Name Dose Route Start Last Admin Trade Name Freq PRN Reason Stop Dose Admin Acetaminophen 975 mg 02/13/24 13:56 02/13/24 15:33 Acetaminophen 325 Mg Tablet PO 02/13/24 13:57 975 mg ONCE ONE Administration Ketorolac Tromethamine 30 mg 02/13/24 15:14 02/13/24 15:33 Ketorolac Tromethamine 30 Mg/Ml Vial IM 02/13/24 15:15 30 mg ONCE ONE Administration Lidocaine 1 patch 02/13/24 13:56 02/13/24 15:42 Lidocaine 4 % Patch Adh..Patch TRANSDERMA 02/13/24 13:57 Not Given ONCE ONE Protocol Medical Decision Making Medical Decision Making [facility] Narrative: Patient presents emergency room for multiple complaints. Regarding her chest pain and shortness of breath it is possible that he has an asthma exacerbation, physical exam showed some wheezing at the end of expiration. Her vital signs at this time are stable and if lab work and workup is unremarkable I think she can be started on steroids for a few days As for the chest pain possible differential diagnosis include, pneumonia, less likely ACS. Plan EKG, troponin, CBC, BMP Chest x-ray As for the right leg pain likely musculoskeletal, no red flags for cauda equina, no trauma At this time I do not think imaging would ion exchange operator of the case. Likely sciatica Plan Analgesia and reassess Lab Data [facility] Lab Attestation statement: I reviewed the patient's lab results. CBC is unremarkable BNP and troponin are pending 02/13/24 15:23 02/13/24 15:23 Labs: Lab Results 02/13/24 Range/Units 15:23 WBC 6.9 (4.8-10.8) X10*3/uL RBC 4.28 (4.20-5.50) X10*6/uL Hgb 12.8 (12.0-16.0) g/dl Hct 37.8 (37.0-47.0) % MCV 88.3 (80.0-98.0) fL MCH 29.9 (27.0-33.0) pg MCHC 33.9 (31.0-35.0) g/dl RDW 13.4 (11.0-16.0) % Plt Count 172 (160-400) X10*3/uL MPV 11.0 (9.4-12.3) fL Immature Gran % (Auto) 0.3 (0.0-0.4) % Neut % (Auto) 46.3 (45-73) % Lymph % (Auto) 38.2 (20-40) % Jennings % (Auto) 7.8 (2-11) % Eos % (Auto) 6.8 H (0-4) % Baso % (Auto) 0.6 (0-2) % Lymph # (Auto) 2.6 (1.2-4.9) X10*3/uL Jennings # (Auto) 0.5 (0.1-1.2) X10*3/uL Eos # (Auto) 0.5 H (0.0-0.4) X10*3/uL Baso # (Auto) 0.0 (0.0-0.2) X10*3/uL Abs Immat Gran (auto) 0.02 (0.00-0.03) X10*3/uL Absolute Neuts (auto) 3.2 (2.0-8.3) x10*3/uL Absolute Nucleated RBC 0.000 (0.0-0.012) X10*3/uL Nucleated RBC % (auto) 0.0 (0.0-0.2) /100WBC Independent Interpretation I performed an independent interpretation of an: EKG (I personally reviewed the patient's EKG: No STEMI, sinus rhythm) and Plain X-Ray (Clear chest x-ray I personally reviewed and interpreted images) Discharge Plan Discharge Clinical Impression: Sciatic leg pain, Chest pain, Asthma Patient Disposition: Left Against Medical Advice Additional Instructions: Please return to the emergency room in case your symptoms worsen. At home for pain control you can use ibuprofen 400 mg up to 3 times a day for no longer than 5 days You can also use Lidoderm patch once a day Follow-up with your primary care physician within a week. Prescriptions: No Action ProAir RespiClick 90 mcg/actuation aerosol powdr breath activated 2 inh inhalation Q4-6H PRN (Reason: shortness of breath or wheezing) 30 Days Qty: 1 6RF naproxen 500 mg tablet 500 mg PO BID PRN (Reason: for pain) Qty: 60 3RF cholecalciferol (vitamin D3) 50 mcg (2,000 unit) tablet 50 mcg PO DAILY 90 Days Qty: 90 1RF (DME) blood-glucose meter [FreeStyle Lite Meter] Kit See Rx Instructions .ROUTE .MEDSUPPLY Qty: 1 0RF Rx Instructions: As directed (DME) lancets [FreeStyle Lancets] 28 gauge misc See Rx Instructions .ROUTE .MEDSUPPLY Qty: 100 11RF Rx Instructions: three time a day montelukast 10 mg tablet 10 mg PO DAILY Qty: 30 8RF Trulicity 3 mg/0.5 mL pen injector 3 mg subcut QWEEK 28 Days Qty: 2 6RF (DME) blood-glucose meter [FreeStyle Lite Meter] Kit See Rx Instructions .ROUTE .MEDSUPPLY Qty: 1 0RF Rx Instructions: As directed 3x/day olmesartan 20 mg tablet 20 mg PO DAILY Qty: 30 0RF cyclobenzaprine 10 mg tablet 10 mg PO BEDTIME PRN (Reason: muscle spasm) 90 Days Qty: 90 1RF (DME) FreeStyle Lite Strips Strip See Rx Instructions .ROUTE .MEDSUPPLY Qty: 100 11RF Rx Instructions: 3x/day acetaminophen [Tylenol Extra Strength] 500 mg tablet 500 mg PO Q6H PRN (Reason: pain or fever) Qty: 20 0RF propranolol 40 mg tablet 40 mg PO ONCE citalopram 10 mg tablet 10 mg PO DAILY famotidine 20 mg tablet 20 mg PO DAILY prazosin 2 mg capsule 2 mg PO BEDTIME amitriptyline 10 mg tablet 10 mg PO BEDTIME zolpidem 5 mg tablet 5 mg PO BEDTIME PRN gabapentin 300 mg capsule 300 mg PO TID rosuvastatin 40 mg tablet 40 mg PO DAILY Qty: 30 6RF Stand Alone Forms: Against Medical Advice Print Language: Sinhala
[2024-02-13 14:50] VITALS: BP 135/59; PULSE 75; RESP 16; TEMP 36.6; O2SAT 97; BMI 39.1
[2024-02-13 15:30] LABS: MANUAL DIFF FLAG NO
[2024-02-13 15:33] LABS: Basophils Percent Auto 0.6 % (0-2); Eosinophils Absolute Auto 0.5 X10*3/uL (0.0-0.4); Eosinophils Percent Auto 6.8 % (0-4); Hematocrit 37.8 % (37.0-47.0); Hemoglobin 12.8 g/dl (12.0-16.0); Imm Gran Abs Auto 0.02 X10*3/uL (0.00-0.03); Imm Gran Pct Auto 0.3 % (0.0-0.4); Lymphocytes Absolute Auto 2.6 X10*3/uL (1.2-4.9); Lymphocytes Percent Auto 38.2 % (20-40); Mean Corpuscular HGB Conc 33.9 g/dl (31.0-35.0); Mean Corpuscular Hemoglobin 29.9 pg (27.0-33.0); Mean Corpuscular Volume 88.3 fL (80.0-98.0); Monocytes Absolute Auto 0.5 X10*3/uL (0.1-1.2); Monocytes Percent Auto 7.8 % (2-11); Neutrophils Absolute Auto 3.2 x10*3/uL (2.0-8.3); Neutrophils Percent Auto 46.3 % (45-73); Platelet Count 172 X10*3/uL (160-400); Red Blood Count 4.28 X10*6/uL (4.20-5.50); Red Cell Distribution Width 13.4 % (11.0-16.0); White Blood Count 6.9 X10*3/uL (4.8-10.8)
[2024-02-13] MEDS: Acetaminophen 325 MG TABLET 975 MG PO (15:33)
[2024-02-13] MEDS: Ketorolac Tromethamine 30 MG/ML VIAL IM (15:33)
--- NOTE | 2024-02-13 15:53 | PC.NURSE ---
patient left AMA
[2024-02-13 15:57] LABS: Anion Gap 11 (12-20); Blood Urea Nitrogen 21 mg/dL (9-16); Calcium 9.7 mg/dL (8.4-10.2); Carbon Dioxide 27 mmol/L (22-29); Chloride 106 mmol/L (96-108); Creatinine Clr Calc Pharmacy 62.4; Estimated Glomerular Filt Rate 52; Glucose Random 105 mg/dL (60-115); Sodium 140 mmol/L (135-145)
[2024-02-13 16:12] LABS: Troponin-I High Sensitivity < 2.7 ng/L (<3.5-17.0)
[2024-02-13 16:21] LABS: Influenza A PCR NEGATIVE (Negative); Influenza B PCR NEGATIVE (Negative); Resp Syncy Virus RNA Qual PCR NEGATIVE (Negative); SARS COV2 PCR INHOUSE NEGATIVE (Negative)
== END 2024-02-13 15:53 | disposition left against medical advice (07) ==
PROVIDERS: Emergency Provider Student in an Organized Health Care Education/Training Program; PCP Nurse Practitioner Family
DX: R07.9 Chest pain, unspecified (principal); M54.31 Sciatica, right side; J45.909 Unspecified asthma, uncomplicated; R06.02 Shortness of breath; E11.22 Type 2 diabetes mellitus with diabetic chronic kidney disease; I12.9 Hypertensive chronic kidney disease with stage 1 through stage 4 chronic kidney disease, or unspecified chronic kidney disease; N18.9 Chronic kidney disease, unspecified
CPT/HCPCS: 0241U; 36415; 71046; 80048; 84484; 85025; 93005; 96372; 99283; 99284; J1885

== ENCOUNTER → 2024-02-13 13:56 | Outpatient (BNV) | payer OTHER, SELFPAY | PROVIDERS: Emergency Provider Student in an Organized Health Care Education/Training Program; PCP Nurse Practitioner Family; Visit Provider Internal Medicine | DX: R94.31 Abnormal electrocardiogram [ECG] [EKG] (principal); R06.02 Shortness of breath | CPT/HCPCS: 93010 ==

== ENCOUNTER 2024-02-16 12:57 | Outpatient (REF) | payer OTHER, SELFPAY ==
[2024-02-16 16:39] LABS: Alanine Aminotransferase 21 U/L (0-31); Albumin Level 4.8 g/dL (3.5-5.0); Alkaline Phosphatase 96 U/L (39-117); Anion Gap 14 (12-20); Aspartate Amino Transferase 25 U/L (5-31); Bilirubin Total 0.4 mg/dL (0.0-1.0); Blood Urea Nitrogen 18 mg/dL (9-16); Calcium 10.5 mg/dL (8.4-10.2); Carbon Dioxide 24 mmol/L (22-29); Chloride 107 mmol/L (96-108); Cholesterol 217 mg/dL (<200); Estimated Glomerular Filt Rate 51; Glucose Random 87 mg/dL (60-115); HDL Cholesterol 47 mg/dL (>40); LDL Cholesterol Calculated 137 mg/dL (<100); Potassium 4.3 mmol/L (3.3-5.1); Sodium 141 mmol/L (135-145); Total Protein 8.5 g/dL (6.5-8.0); Triglycerides 168 mg/dL (<150)
== END 2024-02-16 12:58 | disposition home or self-care (01) ==
LOC: HO.HHCL 12:57
PROVIDERS: Visit Provider Nurse Practitioner Family
DX: E11.00 Type 2 diabetes mellitus with hyperosmolarity without nonketotic hyperglycemic-hyperosmolar coma (NKHHC) (principal)
CPT/HCPCS: 36415; 80053; 80061

== ENCOUNTER 2024-03-10 06:09 | Emergency (ER) | payer OTHER, SELFPAY ==
[2024-03-10 06:13] VITALS: BP 160/100; PULSE 121; O2SAT 98
[2024-03-10 06:17] VITALS: BP 113/71; PULSE 106; RESP 18; TEMP 36.6; O2SAT 97; BMI 33.3
--- OUTSIDE RECORDS SUMMARY | 2024-03-10 11:31 | XMS_ITS | Continuity of Care Document ---
Author Organization [facility] Address [address] [place] [id number]- Care Team Providers Care Program Director Substance Abuse Name Role Phone Canelo CRANE, [place] Primary Care Physician [phone] [facility] [place] Date(s): 06/28/20 - 08/03/20 [facility] [address] [id number]- [facility] Attending Physician: Alessandra Mcleod MD Admitting Physician: Alessandra Mcleod MD Referring Physician: Brandt PEDRO MD, Antonio
--- OUTSIDE RECORDS SUMMARY | 2024-03-10 11:31 | XMS_ITS | Continuity of Care Document ---
Author Organization [facility] Address [address] [place] [id number]- Care Team Providers Care Equipment Planner Name Role Phone Juan Razo MD, Sonia [place] Primary Care Physician Encounter [facility] [place] Date(s): 11/29/20 - 11/29/[address] [address] Discharge Disposition: A-D/C Home Attending Physician: Ernst Porter MD Admitting Physician: Ernst Porter MD Referring Physician: Ernst Porter MD Allergies, Adverse Reactions, Alerts Substance Reaction Severity Status NKA Active Medications Albuterol (Eqv-ProAir HFA) Inhalation, Every 6 hours, 0 Refills, Maintenance, 11/20/20 17:51:00 EST, Partial fill upon patientrequest if the prescription is for a schedule II opioid drug. Start Date: 11/20/20 Status: Ordered atorvastatin 40 mg oral tablet 1 tablet = 40 mg, By Mouth, Daily, 0 Refills, Maintenance, 11/20/20 17:49:00 EST, Partial fill uponpatient request if the prescription is for a schedule II opioid drug. Start Date: 11/20/20 Status: Ordered cyclobenzaprine 10 mg oral tablet 10 mg, 1, tablet, By Mouth, Daily, Refills 0, Maintenance, 11/20/20 17:32:00 EST, Partial fill uponpatient request if the prescription is for a schedule II opioid drug. Start Date: 11/20/20 Status: Ordered fenofibrate 54 mg oral tablet 1 tablet = 54 mg, By Mouth, Daily, 0 Refills, Maintenance, 11/20/20 17:51:00 EST, Partial fill uponpatient request if the prescription is for a schedule II opioid drug. Start Date: 11/20/20 Status: Ordered hydrochlorothiazide 25 mg oral tablet 25 mg, 1, tablet, By Mouth, Daily, Refills 0, Maintenance, 11/20/20 17:18:00 EST, Partial fill uponpatient request if the prescription is for a schedule II opioid drug. Start Date: 11/20/20 Status: Ordered metFORMIN 500 mg oral tablet 1 tablet = 500 mg, By Mouth, Daily, 0 Refills, Maintenance, 11/20/20 17:30:00 EST, Partial fill upon patient request if the prescription is for a schedule II opioid drug. Start Date: 11/20/20 Status: Ordered naproxen 500 mg oral tablet 1 tablet = 500 mg, By Mouth, Daily, 0 Refills, Maintenance, 11/20/20 17:50:00 EST, Partial fill upon patient request if the prescription is for a schedule II opioid drug. Start Date: 11/20/20 Status: Ordered olmesartan 20 mg oral tablet 1 tablet = 20 mg, By Mouth, Daily, 0 Refills, Maintenance, 11/20/20 17:48:00 EST, Partial fill uponpatient request if the prescription is for a schedule II opioid drug. Start Date: 11/20/20 Status: Ordered ProAir HFA 90 mcg/inh inhalation aerosol 2 puffs, Inhalation, Every 6 hours, 0 Refills, Maintenance, 11/20/20 17:51:00 EST, Partial fill upon patient request if the prescription is for a schedule II opioid drug. Start Date: 11/20/20 Status: Ordered Singulair 10 mg oral tablet 10 mg, 1, tablet, By Mouth, Daily, Refills 0, Maintenance, 11/20/20 17:50:00 EST, Partial fill uponpatient request if the prescription is for a schedule II opioid drug. Start Date: 11/20/20 Status: Ordered Vitamin D3 By Mouth, Daily, 0 Refills, Maintenance, 11/20/20 17:48:00 EST, Partial fill upon patient request if the prescription is for a schedule II opioid drug. Start Date: 11/20/20 Status: Ordered Problem List Condition Effective Dates Status Health Status Inform ant Latent tuberculosis by blood test(Confirmed) 1 Active 1no show to TB clinic x 2- case closed Vital Signs Most recent to oldest [Reference Range]: 1 2 3 Height 165.10 cm (11/29/20 3:25 PM) 165.10 cm (11/20/20 6:14 PM) Weight 118.20 kg (11/29/20 3:25 PM) 118.20 kg (11/20/20 6:14 PM) Oxygen Saturation [94-100 %] 96 % (11/29/20 6:00 PM) 100 % (11/29/20 5:25 PM) 100 % (11/29/20 5:20 PM) Pulse Rate [55-90 bpm] 96 bpm *H* (11/29/20 3:25 PM) Body Mass Index [18.5-24.99] 43.36 *>HHI* (11/29/20 3:25 PM) 43.36 *>HHI* (11/20/20 6:14 PM) Blood Pressure [90-138/55-84 mm Hg] 160/89mm Hg *H* (11/29/20 6:00 PM) 159/110mm Hg *H* (11/29/20 5:25 PM) 153/75mm Hg *H* (11/29/20 5:20 PM) Respiratory Rate [16-30 br/min] 21 br/min (11/29/20 6:00 PM) 21 br/min (11/29/20 5:25 PM) 16 br/min (11/29/20 5:20 PM) Temperature [96.8-100.4 DegF] 97.1 DegF (11/29/20 6:00 PM) 97.0 DegF (11/29/20 3:25 PM) Liters per Minute 3 L/min (11/29/20 5:25 PM) 3 L/min (11/29/20 5:20 PM) Mode of Delivery (Oxygen) Room air (11/29/20 6:00 PM) Nasal cannula (11/29/20 5:25 PM) Nasal cannula (11/29/20 5:20 PM) Blood pressure sites Arm, right (11/29/20 6:00 PM) Temperature Route Temporal (11/29/20 6:00 PM) Femoral (11/29/20 3:25 PM) Dry Weight 117.3 kg (11/29/20 3:25 PM) 118.20 kg (11/20/20 6:14 PM) Weight Obtained Via Patient/family state d (11/20/20 6:14 PM) Dry Weight Obtained Via Standing scale (11/29/20 3:25 PM)
== END 2024-03-10 11:36 | disposition left against medical advice (07) ==
PROVIDERS: Emergency Provider Emergency Medicine
DX: R52 Pain, unspecified (principal); Z53.21 Procedure and treatment not carried out due to patient leaving prior to being seen by health care provider
CPT/HCPCS: 99281

== ENCOUNTER 2024-03-12 13:17 | Emergency (ER) | payer OTHER, SELFPAY ==
--- NOTE | 2024-03-12 13:47 | ED.GENADULT ---
HPI - General Adult General Chief complaint: Extremity Problem Stated complaint: R LEG PAIN Time Seen by Provider: 03/12/24 14:03 Related Data Home Medications ?Medication ?Instructions ?Recorded ?Confirmed amitriptyline 10 mg tablet 10 mg PO BEDTIME 09/27/21 02/12/23 citalopram 10 mg tablet 10 mg PO DAILY 09/27/21 02/12/23 famotidine 20 mg tablet 20 mg PO DAILY 09/27/21 02/12/23 gabapentin 300 mg capsule 300 mg PO TID 09/27/21 02/12/23 prazosin 2 mg capsule 2 mg PO BEDTIME 09/27/21 02/12/23 propranolol 40 mg tablet 40 mg PO ONCE 09/27/21 02/12/23 zolpidem 5 mg tablet 5 mg PO BEDTIME PRN 09/27/21 02/12/23 Previous Rx's ?Medication ?Instructions ?Recorded albuterol sulfate 90 mcg/actuation 2 inh inhalation Q4-6H PRN 11/10/20 breath activated powder inhaler shortness of breath or wheezing 30 (ProAir RespiClick) days #1 ea naproxen 500 mg tablet 500 mg PO BID PRN for pain #60 tabs 02/09/21 cholecalciferol (vitamin D3) 50 50 mcg PO DAILY 90 days #90 tabs 07/09/21 mcg (2,000 unit) tablet acetaminophen 500 mg tablet 500 mg PO Q6H PRN pain or fever 10/03/21 (Tylenol Extra Strength) #20 tabs blood-glucose meter (FreeStyle #1 ea 11/27/21 Lite Meter kit) rosuvastatin 40 mg tablet 40 mg PO DAILY #30 tabs 03/15/22 lancets 28 gauge (FreeStyle #100 ea 04/17/22 Lancets) montelukast 10 mg tablet 10 mg PO DAILY #30 tabs 04/17/22 dulaglutide 3 mg/0.5 mL 3 mg (0.5 mL) subcut QWEEK 28 days 04/30/22 subcutaneous pen injector #2 mL ([facility]) blood-glucose meter (FreeStyle #1 ea 07/17/22 Lite Meter kit) olmesartan 20 mg tablet 20 mg PO DAILY #30 tabs 10/02/22 cyclobenzaprine 10 mg tablet 10 mg PO BEDTIME PRN muscle spasm 12/25/22 90 days #90 tabs blood sugar diagnostic (FreeStyle #100 ea 08/30/23 Lite Strips) Allergies Allergy/AdvReac Type Severity Reaction Status Date / Time amlodipine [AMLODIPINE] Allergy Intermediate PALPITATION Verified 03/12/24 13:49 S lisinopril [LISINOPRIL] Allergy Intermediate PALPITATIONS, Verified 03/12/24 13:49 palpitation PMFSH Past Medical History Medical History (Updated 03/15/24 @ 15:47 by WILLIAM Soliz) Nicotine dependence, cigarettes, uncomplicated Obesity due to excess calories Type 2 diabetes mellitus with diabetic polyneuropathy Essential hypertension Hypovitaminosis D Mixed hyperlipidemia Surgical History (Updated 08/08/23 @ 11:39 by Danika Villalobos PA-C) History of hemorrhoidectomy History of colonoscopy History of hernia repair History of myomectomy Family History Family History Father Medical history unknown Mother Hypertension Alzheimers disease Sister Hepatitis C Cirrhosis Sister Breast cancer Brother Diabetes Asthma Family/Other FH: mental illness Social History Social History (Updated 08/08/23 @ 11:39 by Danika Villalobos PA-C) Household Members: Family Alcohol intake: current Alcohol intake frequency: holidays/special occasions only Patient Tobacco Use Status: Current everyday Tobacco user Tobacco use type: Cigarette Cigarette Packs Per Day: 1 Years Smoked: onset 17yo, 1ppd x 53yrs, 50pyh Advance Directives: No Do you have a plan to hurt others: No Plan Physical Exam ED Vital Signs: BMI result Body Mass Index 33.3 Course Course Course Narrative: This is an RME done by WILLIAM Tee: Additional HPI, ROS, PE not included below will be deferred to primary provider. 68 year old female presents w/ htn, hld, dm, nicotine dependence, obesity presents w/ r sided leg and r sided body pain x 2 months thinks its sciatica. Reports shes been wrapping her RLE in kerlex because its sensative to the sheets in her bed. Hasnt been able to see her PCP has been seen multiple times for this and noone helps Appearance: Alert.? Oriented X3.? No acute cardiopulmonary distress distress.?Grunting due to pain Head: Normocephalic, atraumatic, no step-offs or deformities Neck: Normal inspection.? Neck supple.? CVS: Pulses normal.? Respiratory: No respiratory distress.? Skin: ? Normal skin color. Extremities: Global weakness. No focal neuro deficitis. RLE wrapped in dressing reports her entire extremity hurts w/ palpation. Neuro: Oriented X 3.? No motor deficit.? No sensory deficit. Discharge Plan Discharge Clinical Impression: Eloped from emergency department Patient Disposition: Left W/O Completing Treatment Prescriptions: No Action ProAir RespiClick 90 mcg/actuation aerosol powdr breath activated 2 inh inhalation Q4-6H PRN (Reason: shortness of breath or wheezing) 30 Days Qty: 1 6RF naproxen 500 mg tablet 500 mg PO BID PRN (Reason: for pain) Qty: 60 3RF cholecalciferol (vitamin D3) 50 mcg (2,000 unit) tablet 50 mcg PO DAILY 90 Days Qty: 90 1RF (DME) blood-glucose meter [FreeStyle Lite Meter] Kit See Rx Instructions .ROUTE .MEDSUPPLY Qty: 1 0RF Rx Instructions: As directed (DME) lancets [FreeStyle Lancets] 28 gauge misc See Rx Instructions .ROUTE .MEDSUPPLY Qty: 100 11RF Rx Instructions: three time a day montelukast 10 mg tablet 10 mg PO DAILY Qty: 30 8RF Trulicity 3 mg/0.5 mL pen injector 3 mg subcut QWEEK 28 Days Qty: 2 6RF (DME) blood-glucose meter [FreeStyle Lite Meter] Kit See Rx Instructions .ROUTE .MEDSUPPLY Qty: 1 0RF Rx Instructions: As directed 3x/day olmesartan 20 mg tablet 20 mg PO DAILY Qty: 30 0RF cyclobenzaprine 10 mg tablet 10 mg PO BEDTIME PRN (Reason: muscle spasm) 90 Days Qty: 90 1RF (DME) FreeStyle Lite Strips Strip See Rx Instructions .ROUTE .MEDSUPPLY Qty: 100 11RF Rx Instructions: 3x/day acetaminophen [Tylenol Extra Strength] 500 mg tablet 500 mg PO Q6H PRN (Reason: pain or fever) Qty: 20 0RF propranolol 40 mg tablet 40 mg PO ONCE citalopram 10 mg tablet 10 mg PO DAILY famotidine 20 mg tablet 20 mg PO DAILY prazosin 2 mg capsule 2 mg PO BEDTIME amitriptyline 10 mg tablet 10 mg PO BEDTIME zolpidem 5 mg tablet 5 mg PO BEDTIME PRN gabapentin 300 mg capsule 300 mg PO TID rosuvastatin 40 mg tablet 40 mg PO DAILY Qty: 30 6RF Discharge Date/Time: 03/12/24 16:26
[2024-03-12 13:48] VITALS: BP 191/74; PULSE 94; RESP 18; TEMP 36.4; O2SAT 99; BMI 33.3
== END 2024-03-12 16:26 | disposition left against medical advice (07) ==
PROVIDERS: Emergency Provider Emergency Medicine
DX: M54.9 Dorsalgia, unspecified (principal); M79.604 Pain in right leg
CPT/HCPCS: 99281

== ENCOUNTER 2024-04-28 09:43 | Outpatient (REF) | payer OTHER, SELFPAY ==
--- NOTE | ~2024-04-28 | XR_ITS ---
EXAM: X-RAY CERVICAL SPINE X-RAY BILATERAL HIPS X-RAY LUMBAR SPINE CLINICAL INFORMATION: Pain neck, hips, back. COMPARISON: Cervical spine and lumbar 08/23/2016. TECHNIQUE: 3 views lumbar spine, 2 views of each hip, 3 view cervical spine. FINDINGS: Cervical spine: Diffuse demineralization. Bilateral cervical soft tissue calcifications, possibly vascular. Straightening of the normal cervical lordosis. There is radiopaque structure, likely an earring, which overlies and obscures a portion of C2. Severely limited visualization of C4-C5 disc space level as well as poor visualization of C5, C6 and C7 due to overlying bony and soft tissue structures. Minimal anterolisthesis of C2 on C3. Cervical spondylosis with loss of disc space height at C2-C3, C3-C4, and likely at C4-C5, allowing for limited visualization. Lumbar spine: Mild rightward curvature of the lumbar spine. Facet arthritis in the lower lumbar spine. Atherosclerotic aortoiliac calcifications. Surgical coils overlie the pelvis. Advanced multilevel lumbar spondylosis with multilevel loss of disc space height most notable at L4-L5 and L5-S1. Approximately 1.5 cm anterolisthesis of L4 on L5 likely spondylolysis. Bilateral hips: Bilateral hips: Diffuse demineralization. Moderate degenerative changes in the bilateral hips with joint space narrowing and hypertrophic change. Degenerative changes on limited images of the bilateral sacroiliac joints. XR/XR lumbar spine 2-3V IMPRESSION: 1. Multilevel cervical spondylosis, most notable at C2-C3, C3-C4 and likely at C4-C5. 2. Advanced multilevel lumbar spondylosis most notable at L4-L5 and L5-S1. 3. Moderate degenerative changes bilateral hips. 4. Diffuse demineralization. 5. Limited visualization particularly severe in the [id number] cervical spine as detailed above. Additional imaging with CT scan or MRI recommended if there is clinical concern for fracture or other underlying pathology.
--- NOTE | ~2024-04-28 | XR_ITS ---
EXAM: X-RAY CERVICAL SPINE X-RAY BILATERAL HIPS X-RAY LUMBAR SPINE CLINICAL INFORMATION: Pain neck, hips, back. COMPARISON: Cervical spine and lumbar 08/23/2016. TECHNIQUE: 3 views lumbar spine, 2 views of each hip, 3 view cervical spine. FINDINGS: Cervical spine: Diffuse demineralization. Bilateral cervical soft tissue calcifications, possibly vascular. Straightening of the normal cervical lordosis. There is radiopaque structure, likely an earring, which overlies and obscures a portion of C2. Severely limited visualization of C4-C5 disc space level as well as poor visualization of C5, C6 and C7 due to overlying bony and soft tissue structures. Minimal anterolisthesis of C2 on C3. Cervical spondylosis with loss of disc space height at C2-C3, C3-C4, and likely at C4-C5, allowing for limited visualization. Lumbar spine: Mild rightward curvature of the lumbar spine. Facet arthritis in the lower lumbar spine. Atherosclerotic aortoiliac calcifications. Surgical coils overlie the pelvis. Advanced multilevel lumbar spondylosis with multilevel loss of disc space height most notable at L4-L5 and L5-S1. Approximately 1.5 cm anterolisthesis of L4 on L5 likely spondylolysis. Bilateral hips: Bilateral hips: Diffuse demineralization. Moderate degenerative changes in the bilateral hips with joint space narrowing and hypertrophic change. Degenerative changes on limited images of the bilateral sacroiliac joints. XR/XR cervical spine 3V IMPRESSION: 1. Multilevel cervical spondylosis, most notable at C2-C3, C3-C4 and likely at C4-C5. 2. Advanced multilevel lumbar spondylosis most notable at L4-L5 and L5-S1. 3. Moderate degenerative changes bilateral hips. 4. Diffuse demineralization. 5. Limited visualization particularly severe in the [id number] cervical spine as detailed above. Additional imaging with CT scan or MRI recommended if there is clinical concern for fracture or other underlying pathology.
--- NOTE | ~2024-04-28 | XR_ITS ---
EXAM: X-RAY CERVICAL SPINE X-RAY BILATERAL HIPS X-RAY LUMBAR SPINE CLINICAL INFORMATION: Pain neck, hips, back. COMPARISON: Cervical spine and lumbar 08/23/2016. TECHNIQUE: 3 views lumbar spine, 2 views of each hip, 3 view cervical spine. FINDINGS: Cervical spine: Diffuse demineralization. Bilateral cervical soft tissue calcifications, possibly vascular. Straightening of the normal cervical lordosis. There is radiopaque structure, likely an earring, which overlies and obscures a portion of C2. Severely limited visualization of C4-C5 disc space level as well as poor visualization of C5, C6 and C7 due to overlying bony and soft tissue structures. Minimal anterolisthesis of C2 on C3. Cervical spondylosis with loss of disc space height at C2-C3, C3-C4, and likely at C4-C5, allowing for limited visualization. Lumbar spine: Mild rightward curvature of the lumbar spine. Facet arthritis in the lower lumbar spine. Atherosclerotic aortoiliac calcifications. Surgical coils overlie the pelvis. Advanced multilevel lumbar spondylosis with multilevel loss of disc space height most notable at L4-L5 and L5-S1. Approximately 1.5 cm anterolisthesis of L4 on L5 likely spondylolysis. Bilateral hips: Bilateral hips: Diffuse demineralization. Moderate degenerative changes in the bilateral hips with joint space narrowing and hypertrophic change. Degenerative changes on limited images of the bilateral sacroiliac joints. XR/XR hips DENG min 3V IMPRESSION: 1. Multilevel cervical spondylosis, most notable at C2-C3, C3-C4 and likely at C4-C5. 2. Advanced multilevel lumbar spondylosis most notable at L4-L5 and L5-S1. 3. Moderate degenerative changes bilateral hips. 4. Diffuse demineralization. 5. Limited visualization particularly severe in the [id number] cervical spine as detailed above. Additional imaging with CT scan or MRI recommended if there is clinical concern for fracture or other underlying pathology.
[2024-04-28 12:35] LABS: Rheumatoid Factor < 13.0 IU/mL (<15.0)
[2024-05-03 15:12] LABS: Anti Nuclear Antibody Screen NEGATIVE (NEGATIVE)
== END 2024-04-28 09:44 | disposition home or self-care (01) ==
LOC: HO.HOSX 09:43
PROVIDERS: Visit Provider Physical Medicine & Rehabilitation
DX: M79.18 Myalgia, other site (principal); M54.2 Cervicalgia; M54.41 Lumbago with sciatica, right side; G89.29 Other chronic pain; M54.16 Radiculopathy, lumbar region; M25.559 Pain in unspecified hip
CPT/HCPCS: 36415; 72040; 72100; 73522; 86038; 86431; 99202

== ENCOUNTER 2024-04-28 09:43 | Outpatient (AMB) | payer OTHER, SELFPAY ==
--- NOTE | 2024-04-28 09:45 | MHC.OFFVIS ---
Vital Signs 04/28/24 09:59 Height 5 ft 5 in Weight 200 lb BMI 33.3 Intake Visit Reasons: N/P lumbar radiculopathy. Intake Note: Sharita is a 68 year old female who presents today as a new patient with complaints of low back pain. Patient reports she has been having on going pains that started 3 months ago. She is having extreme pains, she states she feels like she has stabbing pains that radiates from her neck down to her lower back and into her legs and feet. She expresses her pain is so bad her blood pressure goes up and she states to sweat from the pain. She would like to lose weight and begin exercising but she is unable to due to her pains. 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 States Tylenol, Motrin, and topical gels did not provide relief. She has a history of falls due to feeling unstable with ambulation in the past but states she has no history of falling on her back. Material Hauler Required: Yes Material Hauler Language: Dev Ops Engineer Name: [id number] Allergies amlodipine [AMLODIPINE] Allergy (Intermediate, Verified 04/28/24 09:56) PALPITATIONS lisinopril [LISINOPRIL] Allergy (Intermediate, Verified 04/28/24 09:56) PALPITATIONS, palpitation Medication List - Last Reconciled 04/28/24 by Eloisa Fregoso MD acetaminophen (Tylenol Extra Strength) 500 mg PO Q6H PRN albuterol sulfate 90 mcg/actuation (ProAir RespiClick) 2 inhalations inhalation Q4-6H PRN 30 days amitriptyline 10 mg PO BEDTIME blood sugar diagnostic (FreeStyle Lite Strips) 3x/day blood-glucose meter (FreeStyle Lite Meter kit) As directed blood-glucose meter (FreeStyle Lite Meter kit) As directed 3x/day cholecalciferol (vitamin D3) 50 mcg PO DAILY 90 days citalopram 10 mg PO DAILY dulaglutide (Trulicity) 3 mg (0.5 mL) subcut QWEEK 28 days famotidine 20 mg PO DAILY lancets (FreeStyle Lancets) three time a day montelukast 10 mg PO DAILY naproxen 500 mg PO BID PRN olmesartan 20 mg PO DAILY prazosin 2 mg PO BEDTIME propranolol 40 mg PO ONCE rosuvastatin 40 mg PO DAILY zolpidem 5 mg PO BEDTIME PRN HPI Comments Details: History of diabetes, 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 Has been to ED twice at least this year. 03/12/24 presented with back and leg pain right sided but left before being seen. 02/13/24 presented/treated for asthma and complained of right leg pain. She confirms today that she is here for the same right leg pain. She says pain does not start in the same area. She says pain is most commonly on the right buttocks area, pointing to gluteus. She has neck pain as well. Right numbness and cramping on right arm and leg/foot. Feels weakness on right leg. Right arm also feels heavy. Left side would hurt if she lies down on that side. But denies weakness on left side. No PT yet. Medication list - gabapentin, flexeril. Gabapentin and flexeril caused side effects that she fell. I've taken these off from her list. She does take motrin, advil and alleve. She mentions nurse home visit, received some type of injection for pain. Back in [place], she was told history of cervical and lumbar disc, shoulder injury and bilateral CTS. [facility] Medical History (Updated 04/28/24 @ 10:39 by Eloisa Fregoso MD) Right lumbar radiculitis Back pain Neck pain Musculoskeletal pain Nicotine dependence, cigarettes, uncomplicated Obesity due to excess calories Type 2 diabetes mellitus with diabetic polyneuropathy Essential hypertension Hypovitaminosis D Mixed hyperlipidemia Surgical History History of hemorrhoidectomy History of colonoscopy History of hernia repair History of myomectomy Family History Father Medical history unknown Mother Hypertension Alzheimers disease Sister Hepatitis C Cirrhosis Sister Breast cancer Brother Diabetes Asthma Family/Other FH: mental illness Social History Household Members: Family Alcohol intake: current Alcohol intake frequency: holidays/special occasions only Patient Tobacco Use Status: Current everyday Tobacco user Tobacco use type: Cigarette Cigarette Packs Per Day: 1 Years Smoked: onset 17yo, 1ppd x 53yrs, 50pyh Current occupational status: employed 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 Patient was appropriately conversant and oriented. Good historian. MSK: Inspection reveals appropriate head and neck positioning. Cervical ROM was full. Spurling's sign negative. Bilateral shoulder, elbow and wrist ROM WNL. No ligamentous laxity or crepitance. No increased effusion. No specific abnormalities or instability found on inspection and palpation of the spine and extremities. Lumbar ROM was full. Most of her tenderness is over right SI joint, gluteus, greater trochanter. But also tender to touch on trapezius and quadratus lumborum. Strength is 5/5 in all muscle groups tested. No increased tone noted. Neurological: Neurologic examination of the upper and lower extremities was nonfocal with intact sensation, muscle stretch reflexes and without focal motor deficits . Rojas?s negative bilaterally. Babinski was down going bilaterally. Clonus was negative. Gait is non-antalgic without loss of balance. Results Reviewed Results Reviewed: I reviewed records from the following: ER notes Assessment & Plan Assessment & Plan (1) Musculoskeletal pain: Code(s): M79.18 - Myalgia, other site Category: Medical (2) Neck pain: Code(s): M54.2 - Cervicalgia Category: Medical (3) Back pain: Code(s): M54.9 - Dorsalgia, unspecified Category: Medical Qualifiers: Back pain location: low back pain Chronicity: chronic Sciatica presence: with sciatica Sciatica laterality: sciatica of right side Back pain laterality: right Qualified Code(s): M54.41 - Lumbago with sciatica, right side; G89.29 - Other chronic pain (4) Right lumbar radiculitis: Code(s): M54.16 - Radiculopathy, lumbar region Category: Medical Plan She has multiple pain areas, chronic, without signs of myelopathy or neurologic deficit. Appears to have right sided leg pain, suggestive of right L5-S1 distribution. She has history of DM, possiblyi has neuropathy, history of CTS as well. Been told to have disc herniation cervical and lumbar back in [place]. Will check xrays here, cervical, lumbar and hips/pelvis. Will check WANDER and RF due to multiple pain/joint pain. Referring to PT. Advised to avoid taking multiple NSAIDs as same time, discussed side effects/complications. However avoiding sedating medications as poor experience with gabapentin and flexeril. Assessment and plan discussed with patient, and patient was agreeable. All questions were answered thoroughly. Follow up 6 weeks. Eloisa Fregoso MD, FUENTES Board Certified, [place] Board [employer] Medicine and Rehabilitation (ABPMR) Board Certified, [place] Board [employer] Electrodiagnostic Medicine (ABEM) Orders: Orders WANDER Reflex Titer and Pattern Today M79.18 - Myalgia, other site Rheumatoid Factor Today M79.18 - Myalgia, other site PT Evaluation and Treatment Today M54.16 - Radiculopathy, lumbar region, M54.2 - Cervicalgia, M54.9 - Dorsalgia, unspecified, M79.18 - Myalgia, other site XR cervical spine 3V Today M54.2 - Cervicalgia XR lumbar spine 2-3V Today M54.9 - Dorsalgia, unspecified XR hips DENG min 3V Today M25.559 - Pain in unspecified hip Medications: Discontinued cyclobenzaprine Discontinued Reason: Patient Completed Course 10 mg PO BEDTIME PRN 90 tabs 1RF muscle spasm 90 days Coding Level of Care Code New Pt Level 4 (73872) Diagnoses Musculoskeletal pain M79.18 Neck pain M54.2 Chronic right-sided low back pain with right-sided sciatica M54.41; G89.29 Back pain location: low back pain Chronicity: chronic Sciatica presence: with sciatica Sciatica laterality: sciatica of right side Back pain laterality: right Right lumbar radiculitis M54.16
[2024-04-28 09:59] VITALS: BMI 33.3
== END 2024-04-28 10:36 | disposition home or self-care (01) ==
PROVIDERS: Visit Provider Physical Medicine & Rehabilitation
DX: M79.18 Myalgia, other site (principal); M54.2 Cervicalgia; M54.41 Lumbago with sciatica, right side; G89.29 Other chronic pain; M54.16 Radiculopathy, lumbar region
CPT/HCPCS: 99204

== ENCOUNTER 2024-06-03 11:29 | Outpatient (AMB) | payer OTHER, SELFPAY ==
--- NOTE | 2024-06-03 11:33 | A.OFFVIS_ITS ---
Vital Signs 06/03/24 11:48 Height 5 ft 5 in Weight 200 lb BMI 33.3 Intake Visit Reasons: OV - lumbar radiculopathy 6 wk f/u Intake Note: Sharita is a 68 year old female who presents to the office today for lumbar radiculopathy 6 week follow up. Lumbar spine, cervical spine, and hip xray done 04/28/24. Patient states she is having horrible pains in her spine that continues to radiate up her neck and now into her head. She is unable to sleep from her pains. She bought a special orthopedic pillow to help her try to sleep better. She has difficulty getting comfortable with it but states when she is able to get comfortable she gets some rest. She has tried tramadol and naproxen but finds no relief. She is unable to take too much medications due to stomach issues. Transportation Operations Manager Required: Yes Transportation Operations Manager Name: [id number] Allergies amlodipine [AMLODIPINE] Allergy (Intermediate, Verified 06/03/24 11:44) PALPITATIONS lisinopril [LISINOPRIL] Allergy (Intermediate, Verified 06/03/24 11:44) PALPITATIONS, palpitation Medication List - Last Reconciled 06/03/24 by Eloisa Fregoso MD acetaminophen (Tylenol Extra Strength) 500 mg PO Q6H PRN albuterol sulfate 90 mcg/actuation (ProAir RespiClick) 2 inhalations inhalation Q4-6H PRN 30 days amitriptyline 10 mg PO BEDTIME blood sugar diagnostic (FreeStyle Lite Strips) 3x/day blood-glucose meter (FreeStyle Lite Meter kit) As directed blood-glucose meter (FreeStyle Lite Meter kit) As directed 3x/day cholecalciferol (vitamin D3) 50 mcg PO DAILY 90 days citalopram 10 mg PO DAILY dulaglutide (Trulicity) 3 mg (0.5 mL) subcut QWEEK 28 days famotidine 20 mg PO DAILY lancets (FreeStyle Lancets) three time a day montelukast 10 mg PO DAILY naproxen 500 mg PO BID PRN olmesartan 20 mg PO DAILY prazosin 2 mg PO BEDTIME propranolol 40 mg PO ONCE rosuvastatin 40 mg PO DAILY zolpidem 5 mg PO BEDTIME PRN HPI Comments Details: History of diabetes, 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 Has been to ED twice at least this year. 03/12/24 presented with back and leg pain right sided but left before being seen. 02/13/24 presented/treated for asthma and complained of right leg pain. She confirms today that she is here for the same right leg pain. She says pain does not start in the same area. She says pain is most commonly on the right buttocks area, pointing to gluteus. She has neck pain as well. Right numbness and cramping on right arm and leg/foot. Feels weakness on right leg. Right arm also feels heavy. Left side would hurt if she lies down on that side. But denies weakness on left side. No PT yet. Medication list - gabapentin, flexeril. Gabapentin and flexeril caused side effects that she fell. I've taken these off from her list. She does take motrin, advil and alleve. She mentions nurse home visit, received some type of injection for pain. Back in [place], she was told history of cervical and lumbar disc, shoulder injury and bilateral CTS. Xrays done in the office did show cervical and lumbar spondylosis; hip DJD. WANDER and RF were both negative. She has not gone to PT since last visit because her mother last month. I asked her today to prioritize where her pain is the worst. She says the worst issue is the right leg pain. But when she asked where it stems from, she says it starts from neck pain. [facility] Medical History Right lumbar radiculitis Back pain Neck pain Musculoskeletal pain Nicotine dependence, cigarettes, uncomplicated Obesity due to excess calories Type 2 diabetes mellitus with diabetic polyneuropathy Essential hypertension Hypovitaminosis D Mixed hyperlipidemia Surgical History History of hemorrhoidectomy History of colonoscopy History of hernia repair History of myomectomy Family History Father Medical history unknown Mother Hypertension Alzheimers disease Sister Hepatitis C Cirrhosis Sister Breast cancer Brother Diabetes Asthma Family/Other FH: mental illness Social History Household Members: Family Alcohol intake: current Alcohol intake frequency: holidays/special occasions only Patient Tobacco Use Status: Current everyday Tobacco user Tobacco use type: Cigarette Cigarette Packs Per Day: 1 Years Smoked: onset 17yo, 1ppd x 53yrs, 50pyh Current occupational status: employed 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 Patient was appropriately conversant and oriented. Good historian. MSK: Inspection reveals appropriate head and neck positioning. Diffusely tender to palpation upper and lower back. Cervical ROM was full. Spurling's sign ? Indicates pain both sides. Strength is 5/5 in all muscle groups tested. No increased tone noted. Neurological: Neurologic examination of the upper and lower extremities was nonfocal with intact sensation, muscle stretch reflexes and without focal motor deficits . Rojas?s negative bilaterally. Babinski was down going bilaterally. Clonus was negative. Gait is antalgic without loss of balance. Results Reviewed Results Reviewed: Ordering Physician: Eloisa Banerjee Date of Service: 04/28/24 Procedure(s): XR lumbar spine 2-3V Accession Number(s): [id number] cc: Physician,Unknown ; Eloisa Banerjee~ EXAM: X-RAY CERVICAL SPINE X-RAY BILATERAL HIPS X-RAY LUMBAR SPINE CLINICAL INFORMATION: Pain neck, hips, back. COMPARISON: Cervical spine and lumbar 08/23/2016. TECHNIQUE: 3 views lumbar spine, 2 views of each hip, 3 view cervical spine. FINDINGS: Cervical spine: Diffuse demineralization. Bilateral cervical soft tissue calcifications, possibly vascular. Straightening of the normal cervical lordosis. There is radiopaque structure, likely an earring, which overlies and obscures a portion of C2. Severely limited visualization of C4-C5 disc space level as well as poor visualization of C5, C6 and C7 due to overlying bony and soft tissue structures. Minimal anterolisthesis of C2 on C3. Cervical spondylosis with loss of disc space height at C2-C3, C3-C4, and likely at C4-C5, allowing for limited visualization. Lumbar spine: Mild rightward curvature of the lumbar spine. Facet arthritis in the lower lumbar spine. Atherosclerotic aortoiliac calcifications. Surgical coils overlie the pelvis. Advanced multilevel lumbar spondylosis with multilevel loss of disc space height most notable at L4-L5 and L5-S1. Approximately 1.5 cm anterolisthesis of L4 on L5 likely spondylolysis. Bilateral hips: Bilateral hips: Diffuse demineralization. Moderate degenerative changes in the bilateral hips with joint space narrowing and hypertrophic change. Degenerative changes on limited images of the bilateral sacroiliac joints. XR/XR lumbar spine 2-3V IMPRESSION: 1. Multilevel cervical spondylosis, most notable at C2-C3, C3-C4 and likely at C4-C5. 2. Advanced multilevel lumbar spondylosis most notable at L4-L5 and L5-S1. 3. Moderate degenerative changes bilateral hips. 4. Diffuse demineralization. 5. Limited visualization particularly severe in the [id number]-[id number]-dhanm cervical spine as detailed above. Additional imaging with CT scan or MRI recommended if there is clinical concern for fracture or other underlying pathology. Assessment & Plan Assessment & Plan (1) Right lumbar radiculitis: Code(s): M54.16 - Radiculopathy, lumbar region Category: Medical (2) Degenerative joint disease of right hip: Code(s): M16.11 - Unilateral primary osteoarthritis, right hip Category: Medical Qualifiers: Osteoarthritis type: primary Qualified Code(s): M16.11 - Unilateral primary osteoarthritis, right hip (3) Neck pain: Code(s): M54.2 - Cervicalgia Category: Medical (4) Back pain: Code(s): M54.9 - Dorsalgia, unspecified Category: Medical Qualifiers: Back pain location: low back pain Chronicity: chronic Back pain laterality: right Sciatica presence: with sciatica Sciatica laterality: sciatica of right side Qualified Code(s): M54.41 - Lumbago with sciatica, right side; G89.29 - Other chronic pain Plan Diffuse pain, chronic, but I think we can localize to at least 2 pain generators. 1. referring to orthopedics for consideration of hip replacement 2. obtaining cervical MRI to rule out spinal stenosis that could be causing the right arm and leg paresthesias and pain 3. she is looking for chronic pain medication management which I am not able to do for her. She has requested referral to pain management. Assessment and plan discussed with patient, and patient was agreeable. All questions were answered thoroughly. Eloisa Fregoso MD, FUENTES Board Certified, [place] Board [employer] and Rehabilitation (ABPMR) Board Certified, [place] Board [employer] Electrodiagnostic [employer] (ABEM) Orders: Orders MR cervical spine wo con Today M54.12 - Radiculopathy, cervical region Referrals Pain Management Referral G89.29 - Other chronic pain, M16.11 - Unilateral primary osteoarthritis, right hip, M54.16 - Radiculopathy, lumbar region, M54.2 - Cervicalgia, M54.41 - Lumbago with sciatica, right side Coding Level of Care Code Est Pt Level 4 (15597) Diagnoses Right lumbar radiculitis M54.16 Primary osteoarthritis of right hip M16.11 Osteoarthritis type: primary Neck pain M54.2 Chronic right-sided low back pain with right-sided sciatica M54.41; G89.29 Back pain location: low back pain Chronicity: chronic Back pain laterality: right Sciatica presence: with sciatica Sciatica laterality: sciatica of right side
[2024-06-03 11:48] VITALS: BMI 33.3
== END 2024-06-03 12:05 | disposition home or self-care (01) ==
PROVIDERS: Visit Provider Physical Medicine & Rehabilitation
DX: M54.16 Radiculopathy, lumbar region (principal); M16.11 Unilateral primary osteoarthritis, right hip; M54.2 Cervicalgia; M54.41 Lumbago with sciatica, right side; G89.29 Other chronic pain
CPT/HCPCS: 99214

== ENCOUNTER → 2024-06-03 11:29 | Outpatient (BNVA) | payer OTHER, SELFPAY | PROVIDERS: Visit Provider Physical Medicine & Rehabilitation | DX: M54.16 Radiculopathy, lumbar region (principal); M16.11 Unilateral primary osteoarthritis, right hip; M54.2 Cervicalgia; M54.41 Lumbago with sciatica, right side; G89.29 Other chronic pain | CPT/HCPCS: 99212 ==

== ENCOUNTER 2024-06-11 10:20 | Outpatient (REF) | payer OTHER, SELFPAY ==
[2024-06-13 22:09] LABS: TS Negative Control Passed; TS Panel A 2; TS Panel B 0; TS Positive Control Passed; TSpotTB Negative (Negative)
== END 2024-06-11 10:21 | disposition home or self-care (01) ==
LOC: HO.HHCL 10:20
PROVIDERS: Visit Provider Nurse Practitioner Family
DX: Z13.89 Encounter for screening for other disorder (principal)
CPT/HCPCS: 36415; 86481

== ENCOUNTER 2024-06-22 13:24 | Outpatient (AMB) | payer OTHER, SELFPAY ==
--- NOTE | 2024-06-22 13:26 | MHC.OFFVIS ---
Vital Signs 06/22/24 13:33 Height 5 ft 5 in Weight 220 lb BMI 36.6 BP 140/93 H Blood Pressure Location Rt brachial Position Sitting Pulse 92 Pulse Source Pulse Oximeter Pulse Oximetry (%) 97 Oxygen Delivery Method Room Air Intake Visit Reasons: RIGHT HIP PAIN Intake Note: Pain today 06/05 Software Engineer Developer Required: Yes Software Engineer Developer Language: Monorail Operator Services: Software Engineer Developer Present Software Engineer Developer Name: Sandra Accompanied by: Self / Same As Patient Allergies amlodipine [AMLODIPINE] Allergy (Intermediate, Verified 06/22/24 13:29) PALPITATIONS lisinopril [LISINOPRIL] Allergy (Intermediate, Verified 06/22/24 13:29) PALPITATIONS, palpitation HPI HPI RIGHT HIP PAIN: Details: Patient is a 68 years old Mohawk speaking female with a history of diabetes, 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 Denies any recent trauma, injury or falls. She was referred to our office by a Physiatry provider for potential medical management for chronic low back pain and right hip pain. Back pain is axial and easily reproduced with lumbar extension and minimally reproduced his forward flexion or bending. Patient reports back pain radiates to her lateral hips and right groin. Patient has significant right hip pain with range of motion, weight-bearing or movements. We have reviewed her most recent imaging and this is noted below. I have informed patient I do not offer opioid program at this time. Patient also reports risky behaviors of participating in frequent marijuana vaping parties with her friends and states taking taking 4 tablets of neighbors oxycodone which provided her significant pain relief. Patient reports she is not aware if her friends are obtaining marijuana at local dispensaries or streets and continues to use it as this provides her good sleep and some pain relief. She also smokes 1 pack a day of cigarettes and is not interested or motivated to quit at this time. Patient denies previous spine or hip surgery. She reports she received an injection by [facility] staff in her right lateral hip about a month ago with minimal pain relief. Patient is very hesitant to worse interventional treatments but will consider right hip intra-articular steroidal injection under sedation. She is also interested to pursue physical therapy after right hip injection. Pain affects her daily activities and functioning, mobility, sleep and social interactions. Denies any fever, chills, abdominal pain, footdrop, weakness, bladder or bowel dysfunction or saddle anesthesia. Location: Right hip, lower back pain Duration: Chronic pain for many years Characteristics of symptom or complaint: Aching, sharp, sore, heavy, stabbing, shooting, throbbing Aggravating or associated factors: Weight-bearing, changing positions, walking, standing, sleeping on R side Relieving factors: all pills, neighbor's oxycodone, marijuana Treatment: Hip injection [facility] Medical History Right lumbar radiculitis Back pain Neck pain Musculoskeletal pain Nicotine dependence, cigarettes, uncomplicated Obesity due to excess calories Type 2 diabetes mellitus with diabetic polyneuropathy Essential hypertension Hypovitaminosis D Mixed hyperlipidemia Surgical History History of hemorrhoidectomy History of colonoscopy History of hernia repair History of myomectomy Family History Father Medical history unknown Mother Hypertension Alzheimers disease Sister Hepatitis C Cirrhosis Sister Breast cancer Brother Diabetes Asthma Family/Other FH: mental illness Social History (Updated 06/22/24 @ 13:35 by Leelee Lopez) Household Members: Family Alcohol intake: current Alcohol intake frequency: a few times a month Patient Tobacco Use Status: Current everyday Tobacco user Tobacco use type: Cigarette Cigarette Packs Per Day: 1 Years Smoked: onset 17yo, 1ppd x 53yrs, 50pyh Current occupational status: employed Current occupation: [employer] Review of Systems Const All systems reviewed & are unremarkable except as noted in HPI and below Physical Exam Vital Signs: Last Vital Signs Pulse 92 06/22/24 13:33 BP 140/93 H 06/22/24 13:33 Pulse Ox 97 06/22/24 13:33 Oxygen Delivery Method Room Air 06/22/24 13:33 BMI result Body Mass Index 36.6 General: Appears afebrile. No acute distress. Alert and oriented. Mood and affect appropriate. Follows and participates in conversation appropriately. Respiratory effort is unlabored. No cough. Able to transition from sit to stand unassisted. Ambulates with bilaterally normal heel strike and toe off. General: Yes no CVA tenderness Back/Spine/Pelvis Other: Limited lumbar ROM due to pain. Antalgic gait with mild limping. Lumbar extension reproduces significant pain, bending forward reproduces mild symptoms. Demonstrates 5/5 left and 4/5 right due to pain strength of quadriceps bilaterally as well as flexion/dorsiflexion of bilateral feet against resistance. 2+ pedal pulses bilaterally. Seated straight leg rise with dorsiflexion negative bilaterally. +1 patellar and achilles reflexes bilaterally. Facet loading test positive bilaterally. Limited Everett's test reproduces bilateral hip and lower back pain. Right groin pain with I/E right hip rotations, no groin pain on the left. Valsalva maneuver negative. Back: no CVA tenderness Cervical Spine: loss of normal cervical lordosis, cervical muscular tenderness, pain with cervical ROM and No Cervical spine tenderness Thoracic/Lumbar Spine: thoracic and lumbar spine normal to inspection, No Thoracic/lumbar spine scar(s), Lasegue's sign negative, straight leg raise negative bilaterally, pain with thoraco-lumbar ROM, paraspinal muscle tenderness, thoraco-lumbar ROM limited, No thoracic spinal tenderness and lumbar spinal tenderness (L3-S1) Sacroiliac joints: bilaterally tender to palpation Results Reviewed Results Reviewed: X-RAY CERVICAL SPINE X-RAY BILATERAL HIPS X-RAY LUMBAR SPINE 04/28/24 CLINICAL INFORMATION: Pain neck, hips, back. COMPARISON: Cervical spine and lumbar 08/23/2016. FINDINGS: Cervical spine: Diffuse demineralization. Bilateral cervical soft tissue calcifications, possibly vascular. Straightening of the normal cervical lordosis. There is radiopaque structure, likely an earring, which overlies and obscures a portion of C2. Severely limited visualization of C4-C5 disc space level as well as poor visualization of C5, C6 and C7 due to overlying bony and soft tissue structures. Minimal anterolisthesis of C2 on C3. Cervical spondylosis with loss of disc space height at C2-C3, C3-C4, and likely at C4-C5, allowing for limited visualization. Lumbar spine: Mild rightward curvature of the lumbar spine. Facet arthritis in the lower lumbar spine. Atherosclerotic aortoiliac calcifications. Surgical coils overlie the pelvis. Advanced multilevel lumbar spondylosis with multilevel loss of disc space height most notable at L4-L5 and L5-S1. Approximately 1.5 cm anterolisthesis of L4 on L5 likely spondylolysis. Bilateral hips: Bilateral hips: Diffuse demineralization. Moderate degenerative changes in the bilateral hips with joint space narrowing and hypertrophic change. Degenerative changes on limited images of the bilateral sacroiliac joints. IMPRESSION: 1. Multilevel cervical spondylosis, most notable at C2-C3, C3-C4 and likely at C4-C5. 2. Advanced multilevel lumbar spondylosis most notable at L4-L5 and L5-S1. 3. Moderate degenerative changes bilateral hips. 4. Diffuse demineralization. 5. Limited visualization particularly severe in the [id number] cervical spine as detailed above. Additional imaging with CT scan or MRI recommended if there is clinical concern for fracture or other underlying pathology. Assessment & Plan Assessment & Plan (1) Degenerative joint disease of right hip: Code(s): M16.11 - Unilateral primary osteoarthritis, right hip Category: Medical Qualifiers: Osteoarthritis type: primary Qualified Code(s): M16.11 - Unilateral primary osteoarthritis, right hip (2) Right lumbar radiculitis: Code(s): M54.16 - Radiculopathy, lumbar region Category: Medical (3) Musculoskeletal pain: Code(s): M79.18 - Myalgia, other site Category: Medical (4) Neck pain: Code(s): M54.2 - Cervicalgia Category: Medical (5) Right hip pain: Code(s): M25.551 - Pain in right hip Category: Medical (6) Current tobacco use: Code(s): Z72.0 - Tobacco use Category: Social Hx (7) Lumbosacral spondylosis: Code(s): M47.817 - Spondylosis without myelopathy or radiculopathy, lumbosacral region Category: Medical (8) Sacroiliitis: Code(s): M46.1 - Sacroiliitis, not elsewhere classified Category: Medical Plan Schedule right intra-articular hip steroidal injection under sedation and fluoroscopy. Expectations, risks and benefits were reviewed. Patient is aware she will be contacted to schedule this procedure. We also discussed interventional treatments for facetogenic, discogenic low back pain and sacroiliac joint pain. Patient is not interested in diagnostic local injections in her back due to significant needle phobia. Patient encouraged to start physical therapy after right hip injection. Script provided today. Script provided for topical applications for lower back, neck and hip painful areas. I have informed patient I do not offer opioid program at this time. Patient is aware of potential medical and legal risks with street marijuana use and will verify with her friends that they are obtaining marijuana from local dispensaries. She is encouraged to quit smoking or decrease current consumption of tobacco use. Patient reports she is not motivated or interested to quit smoking at this time. All questions and concerns have been answered and patient agreed with the treatment plan. Follow-up after an injection and sooner as needed. Orders: Orders PT Evaluation and Treatment 06/22/24 G89.29 - Other chronic pain, M16.11 - Unilateral primary osteoarthritis, right hip, M25.551 - Pain in right hip, M54.16 - Radiculopathy, lumbar region, M54.2 - Cervicalgia, M54.41 - Lumbago with sciatica, right side, M79.18 - Myalgia, other site Medications: New diclofenac sodium 1% (Arthritis Pain (diclofenac)) 4 grams topical QID 100 grams 0RF pain G89.29 - Other chronic pain, M25.551 - Pain in right hip, M54.2 - Cervicalgia, M54.41 - Lumbago with sciatica, right side camphor-methyl salicyl-menthol 3.1-15-10 % (Salonpas Deep Relieving) 1 ea topical BID 30 days 78 grams 1RF pain G89.29 - Other chronic pain, M54.2 - Cervicalgia, M54.41 - Lumbago with sciatica, right side Coding Level of Care Code New Pt Level 4 (17281) Diagnoses Primary osteoarthritis of right hip M16.11 Osteoarthritis type: primary Right lumbar radiculitis M54.16 Musculoskeletal pain M79.18 Neck pain M54.2 Right hip pain M25.551 Current tobacco use Z72.0 Lumbosacral spondylosis M47.817 Sacroiliitis M46.1
[2024-06-22 13:33] VITALS: BP 140/93; PULSE 92; O2SAT 97; BMI 36.6
== END 2024-06-22 13:55 | disposition home or self-care (01) ==
PROVIDERS: Referring Provider Physical Medicine & Rehabilitation; Visit Provider Nurse Practitioner Family
DX: M16.11 Unilateral primary osteoarthritis, right hip (principal); M54.16 Radiculopathy, lumbar region; M79.18 Myalgia, other site; M54.2 Cervicalgia; M25.551 Pain in right hip; Z72.0 Tobacco use; M47.817 Spondylosis without myelopathy or radiculopathy, lumbosacral region; M46.1 Sacroiliitis, not elsewhere classified
CPT/HCPCS: 99204

== ENCOUNTER → 2024-06-22 13:24 | Outpatient (BNVA) | payer OTHER, SELFPAY | PROVIDERS: Referring Provider Physical Medicine & Rehabilitation; Visit Provider Nurse Practitioner Family | DX: M16.11 Unilateral primary osteoarthritis, right hip (principal); M47.817 Spondylosis without myelopathy or radiculopathy, lumbosacral region; M54.16 Radiculopathy, lumbar region; M79.18 Myalgia, other site; M54.2 Cervicalgia; M46.1 Sacroiliitis, not elsewhere classified; G89.29 Other chronic pain; E66.9 Obesity, unspecified | CPT/HCPCS: 99202 ==

== ENCOUNTER 2024-08-13 12:34 | Outpatient (RCR) | payer OTHER, SELFPAY ==
[2024-08-13 12:57] VITALS: BP 166/79; PULSE 92
--- NOTE | 2024-08-13 14:13 | MHC.PT.EP ---
[facility] [place] Office [place] Office [place] Office [address] [phone] F: [phone] F: [phone] F: [phone] F: [phone] Physical Therapy Plan of Care Date of Evaluation: 08/13/24 Date of Surgery: NA Diagnosis: Unilateral primary OA of R hip, lumbago with sciatica, R side Other chronic pain Assessment: Sharita is a 69 year old female who is referred to PT for Unilateral primary OA of R hip, lumbago with sciatica, R side, other chronic pain . She reports of having h/o pain in multiple parts of her body for several years however her back has been hurting her more. She reports of having several falls of unknown origin. On PT examination she presents with TTP all over lumbar paraspinals and spinous process, 10/10 constant pain which is worse with prolonged sitting, standing and walking, decreased trunk ROM, decreased B hip ROM, decreased muscle strength, altered posture, and gait. She lives alone and is independent with ADLS but has pain with them. She is unemployed. She would benefit from skilled PT to address the aforementioned impairments and improve tolerance to functional activities. Frequency and Duration: The patient will be seen 2/week for 4 weeks Short Term Goals: 1. Pt will demonstrate initiation of HEP in 2 weeks. 2. Pt will have 50% decrease in pain in her back which will enable her to sleep through the night in 3 weeks [facility] Goals: 1. Pt will be able to move her trunk through full plane of motion with a pain no more than 3/10 which will enable her to dress her lower body in 4 weeks. 2. Pt will be independent with HEP for symptom management and maintenance following d/c in 4 weeks. Treatment Plan: Modalities to reduce pain, spasms and effusion. Manual therapy to restore motion and function. Therapeutic exercise to improve strength and flexibility. Neuromuscular re-education for posture and balance. Therapeutic activities to return to functional activities of daily living. Electronically signed by: Karen Cisse PT DPT Please sign and return to therapist. Thank you for your referral.
--- NOTE | 2024-08-23 13:49 | MHC.PT.DC ---
[facility] [place] Office [place] Office [place] Office [address] Dian Torres [address] [phone] F: [phone] F: [phone] F: [phone] F: [phone] Physical Therapy Discharge Report Diagnosis: Unilateral primary OA of R hip, lumbago with sciatica, R side Other chronic pain Date of Surgery: NA Date of Evaluation: 08/13/24 Date of Discharge: 08/23/24 Treatments to Date: 1 Cancellations to Date: 0 No Shows to Date: 2 Discharge Status: Visit Non-compliance Discharge Summary: Sharita made only 2 appointments after evaluation and no showed for both of them. She is therefore being d/c from PT. Electronically signed by: Karen Cisse PT DPT Please sign and return to therapist. Thank you for your referral.
== END 2024-08-23 13:50 | disposition home or self-care (01) ==
LOC: HO.PT 12:34
PROVIDERS: PCP Internal Medicine; Visit Provider Nurse Practitioner Family
DX: M16.11 Unilateral primary osteoarthritis, right hip (principal); M54.41 Lumbago with sciatica, right side; G89.29 Other chronic pain
CPT/HCPCS: 97110; 97162

== ENCOUNTER 2024-08-13 14:11 | Outpatient (AMB) | payer MEDICARE, MEDICAID, SELFPAY ==
[2024-08-13 14:21] VITALS: BP 138/88; PULSE 100; O2SAT 97; BMI 39.4
--- NOTE | 2024-08-13 14:21 | A.OFFVIS_ITS ---
Vital Signs 08/13/24 14:21 Height 5 ft 5 in Weight 236 lb 15.951 oz BMI 39.4 BP 138/88 Blood Pressure Location Lt brachial Position Sitting Pulse 100 Pulse Source Doppler Pulse Oximetry (%) 97 Oxygen Delivery Method Room Air Intake Visit Reasons: asthma Tax Services Specialist Required: Yes Tax Services Specialist Name: Jaja Ashley Rafael Allergies amlodipine [AMLODIPINE] Allergy (Intermediate, Verified 08/13/24 14:28) PALPITATIONS lisinopril [LISINOPRIL] Allergy (Intermediate, Verified 08/13/24 14:28) PALPITATIONS, palpitation HPI HPI asthma: Details: 69-year-old lady, active 30+ pack-year smoker with underlying likely COPD referred for pulmonary evaluation. Patient does complain of sensation or chest tightness. She is only using albuterol MDI. Patient is also complaining of right-sided musculoskeletal chest pain. She was evaluated by pain management and is not interested in further procedures. Patient does have family history of lung cancer in her maternal aunt who was a heavy smoker. Patient did have lung cancer screening CT chest in October of 2023 that did not show worrisome pulmonary nodules. [facility] Medical History Right lumbar radiculitis Back pain Neck pain Musculoskeletal pain Nicotine dependence, cigarettes, uncomplicated Obesity due to excess calories Type 2 diabetes mellitus with diabetic polyneuropathy Essential hypertension Hypovitaminosis D Mixed hyperlipidemia Surgical History History of hemorrhoidectomy History of colonoscopy History of hernia repair History of myomectomy Family History Father Medical history unknown Mother Hypertension Alzheimers disease Sister Hepatitis C Cirrhosis Sister Breast cancer Brother Diabetes Asthma Family/Other FH: mental illness Social History Household Members: Family Alcohol intake: current Alcohol intake frequency: a few times a month Patient Tobacco Use Status: Current everyday Tobacco user Tobacco use type: Cigarette Cigarette Packs Per Day: 1 Years Smoked: onset 17yo, 1ppd x 53yrs, 50pyh Current occupational status: employed Current occupation: [employer] Review of Systems Const Denies daytime sleepiness, Denies excessive sweating, Denies fatigue, Denies fever(s), Denies lethargy, Denies malaise, Denies night sweats, Denies snoring and Denies weight loss Eyes Denies blurry vision and Denies itchy eyes ENT Denies nasal congestion, Denies post nasal drip, Denies sinus pain, Denies sinus pressure and Denies other ( Thrush) Card Denies chest pain, Denies pedal edema, Denies dyspnea, Reports dyspnea on exertion, Denies orthopnea and Denies paroxysmal nocturnal dyspnea Resp Denies cough, Denies hemoptysis, Denies excessive phlegm production, Denies dyspnea, Reports dyspnea on exertion, Denies snoring and Denies wheezing GI Denies abdominal pain and Denies heartburn Musc Denies myalgias, Denies arthralgias and Denies joint swelling Skin/Breast Denies rash Neuro Denies memory loss and Denies seizure-like activity Psych Denies abnormal sleep pattern, Denies anxiety and Denies memory loss Endo Denies excessive sweating, Denies fatigue and Denies heat intolerance Kike/Lymph Denies easy bruising Aller/Immun Denies itchy eyes, Denies seasonal rhinorrhea and Denies wheezing Physical Exam Vital Signs: Last Vital Signs Pulse 100 08/13/24 14:21 BP 138/88 08/13/24 14:21 Pulse Ox 97 08/13/24 14:21 Oxygen Delivery Method Room Air 08/13/24 14:21 BMI result Body Mass Index 39.4 Const General: no acute distress and alert Nutritional Appearance: obese Orientation/consciousness: Other orientation findings ( oriented) HEENT Head: Yes atraumatic Eyes General: appearance normal, both eyes and all related structures Sclerae: sclerae normal EOM: EOMs intact bilaterally Neck Neck: Yes supple Lymphatic: no lymphadenopathy noted Resp Effort & Inspection: normal respiratory effort and no use of accessory muscles Auscultation: clear to auscultation bilaterally Cardio Rate: regular rate Rhythm: regular rhythm Heart sounds: no gallops, no murmurs and no rubs Skin General skin exam: other ( warm) Extrem General: No clubbing, No cyanosis and No edema Assessment & Plan Assessment & Plan (1) COPD (chronic obstructive pulmonary disease): Code(s): J44.9 - Chronic obstructive pulmonary disease, unspecified Category: Medical Plan: Likely underlying COPD suboptimally controlled on albuterol MDI. Will start on Anoro and obtain full PFT. (2) Nicotine dependence, cigarettes, uncomplicated: Comment: (current smoker - onset 17yo, 1ppd x 53yrs, 50pyh) Code(s): F17.210 - Nicotine dependence, cigarettes, uncomplicated Category: Medical Plan: Continue lung cancer screening, next CT chest is ordered for October of 2024. Orders: Orders CT lung screening 11/13/24 F17.210 - Nicotine dependence, cigarettes, uncomplicated PFT pulmonary function test Today J44.9 - Chronic obstructive pulmonary disease, unspecified Medications: New umeclidinium-vilanterol 62.5-25 mcg/actuation (Anoro Ellipta) 1 inh inhalation DAILY 1 ea 6RF Coding Level of Care Code New Pt Level 4 (81794) Diagnoses COPD (chronic obstructive pulmonary disease) J44.9 Nicotine dependence, cigarettes, uncomplicated F17.210
== END 2024-08-13 14:45 | disposition home or self-care (01) ==
PROVIDERS: PCP Nurse Practitioner Family; Visit Provider Internal Medicine Pulmonary Disease
DX: J44.9 Chronic obstructive pulmonary disease, unspecified (principal); F17.210 Nicotine dependence, cigarettes, uncomplicated
CPT/HCPCS: 99204

== ENCOUNTER → 2024-08-13 14:11 | Outpatient (BNVA) | payer MEDICARE, OTHER, SELFPAY | PROVIDERS: PCP Nurse Practitioner Family; Visit Provider Internal Medicine Pulmonary Disease | DX: J44.9 Chronic obstructive pulmonary disease, unspecified (principal); F17.210 Nicotine dependence, cigarettes, uncomplicated | CPT/HCPCS: 99202 ==

== ENCOUNTER 2024-10-08 13:45 | Outpatient (AMB) | payer OTHER, SELFPAY ==
--- NOTE | 2024-10-08 13:47 | A.OFFVIS_ITS ---
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 She was initially seen in our office in the past for right hip pain and was scheduled for right hip steroid injection and formal physical therapy. Unfortunately patient was no-show for hip injection and attended only 1 session at PT. Denies any recent trauma, injury or falls. Today she endorses axial low back pain and right hip pain. She reports physical therapy was not helpful and increased pain with exercises. Pain increases with movements, ADLs, walking, bending and changing positions during sleep. Pain has been resistant to conservative treatments including opioid and nonopioid medication, topical applications, heat therapy, activity modifications and attempted PT. Patient is willing to proceed with right hip injection under sedation and subsequently plan for diagnostic lumbar medial branch blocks to address axial low back. Denies any fever or chills, cough, dizziness, bladder or bowel dysfunction or saddle anesthesia. Reports intermittent right lower extremity weakness due to pain. 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 Denies any recent trauma, injury or falls. She was referred to our office by a Physiatry provider for potential medical management for chronic low back pain and right hip pain. Back pain is axial and easily reproduced with lumbar extension and minimally reproduced his forward flexion or bending. Patient reports back pain radiates to her lateral hips and right groin. Patient has significant right hip pain with range of motion, weight-bearing or movements. We have reviewed her most recent imaging and this is noted below. I have informed patient I do not offer opioid program at this time. Patient also reports risky behaviors of participating in frequent marijuana vaping parties with her friends and states taking taking 4 tablets of neighbors oxycodone which provided her significant pain relief. Patient reports she is not aware if her friends are obtaining marijuana at local dispensaries or streets and continues to use it as this provides her good sleep and some pain relief. She also smokes 1 pack a day of cigarettes and is not interested or motivated to quit at this time. Patient denies previous spine or hip surgery. She reports she received an injection by [facility] staff in her right lateral hip about a month ago with minimal pain relief. Patient is very hesitant to worse interventional treatments but will consider right hip intra-articular steroidal injection under sedation. She is also interested to pursue physical therapy after right hip injection. Pain affects her daily activities and functioning, mobility, sleep and social interactions. Denies any fever, chills, abdominal pain, footdrop, weakness, bladder or bowel dysfunction or saddle anesthesia. Location: Right hip, lower back pain Duration: Chronic pain for many years Characteristics of symptom or complaint: Aching, sharp, sore, heavy, stabbing, shooting, throbbing Aggravating or associated factors: Weight-bearing, changing positions, walking, standing, sleeping on R side Relieving factors: all pills, neighbor's oxycodone, marijuana Treatment: Hip injection [facility] Medical History Right lumbar radiculitis Back pain Neck pain Musculoskeletal pain Nicotine dependence, cigarettes, uncomplicated Obesity due to excess calories Type 2 diabetes mellitus with diabetic polyneuropathy Essential hypertension Hypovitaminosis D Mixed hyperlipidemia Surgical History History of hemorrhoidectomy History of colonoscopy History of hernia repair History of myomectomy Family History Father Medical history unknown Mother Hypertension Alzheimers disease Sister Hepatitis C Cirrhosis Sister Breast cancer Brother Diabetes Asthma Family/Other FH: mental illness Social History Household Members: Family Alcohol intake: current Alcohol intake frequency: a few times a month Patient Tobacco Use Status: Current everyday Tobacco user Tobacco use type: Cigarette Cigarette Packs Per Day: 1 Years Smoked: onset 17yo, 1ppd x 53yrs, 50pyh Current occupational status: employed 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 Alert and oriented. Mood and affect appropriate. Follows and participates in conversation appropriately. Respiratory effort is unlabored. No cough. Able to transition from sit to stand unassisted. Ambulates with bilaterally normal heel strike and toe off, increased pain on the right due to hip pain. General: Yes no CVA tenderness Back/Spine/Pelvis Other: Limited lumbar ROM due to pain. Antalgic gait with mild limping. Lumbar extension reproduces significant pain, bending forward reproduces mild symptoms. Demonstrates 5/5 left and 4/5 right due to pain strength of quadriceps bilaterally as well as flexion/dorsiflexion of bilateral feet against resistance. 2+ pedal pulses bilaterally. Seated straight leg rise with dorsiflexion negative bilaterally. +1 patellar and achilles reflexes bilaterally. Facet loading test positive bilaterally. Limited Everett's test reproduces bilateral hip and lower back pain. Moderate right groin pain with I/E right hip rotations, no groin pain on the left. Valsalva maneuver negative. Back: no CVA tenderness Cervical Spine: loss of normal cervical lordosis, cervical muscular tenderness, pain with cervical ROM and No Cervical spine tenderness Thoracic/Lumbar Spine: thoracic and lumbar spine normal to inspection, No Thoracic/lumbar spine scar(s), Lasegue's sign negative, straight leg raise negative bilaterally, pain with thoraco-lumbar ROM, paraspinal muscle tenderness, thoraco-lumbar ROM limited, No thoracic spinal tenderness and lumbar spinal tenderness (L3-S1) Pelvis: no buttock tenderness Sacroiliac joints: bilaterally tender to palpation Extrem General: Yes capillary refill normal, Yes no clubbing, cyanosis or edema and Yes no calf tenderness Results Reviewed Results Reviewed: X-RAY CERVICAL SPINE X-RAY BILATERAL HIPS X-RAY LUMBAR SPINE 04/28/24 CLINICAL INFORMATION: Pain neck, hips, back. COMPARISON: Cervical spine and lumbar 08/23/2016. FINDINGS: Cervical spine: Diffuse demineralization. Bilateral cervical soft tissue calcifications, possibly vascular. Straightening of the normal cervical lordosis. There is radiopaque structure, likely an earring, which overlies and obscures a portion of C2. Severely limited visualization of C4-C5 disc space level as well as poor visualization of C5, C6 and C7 due to overlying bony and soft tissue structures. Minimal anterolisthesis of C2 on C3. Cervical spondylosis with loss of disc space height at C2-C3, C3-C4, and likely at C4-C5, allowing for limited visualization. Lumbar spine: Mild rightward curvature of the lumbar spine. Facet arthritis in the lower lumbar spine. Atherosclerotic aortoiliac calcifications. Surgical coils overlie the pelvis. Advanced multilevel lumbar spondylosis with multilevel loss of disc space height most notable at L4-L5 and L5-S1. Approximately 1.5 cm anterolisthesis of L4 on L5 likely spondylolysis. Bilateral hips: Bilateral hips: Diffuse demineralization. Moderate degenerative changes in the bilateral hips with joint space narrowing and hypertrophic change. Degenerative changes on limited images of the bilateral sacroiliac joints. IMPRESSION: 1. Multilevel cervical spondylosis, most notable at C2-C3, C3-C4 and likely at C4-C5. 2. Advanced multilevel lumbar spondylosis most notable at L4-L5 and L5-S1. 3. Moderate degenerative changes bilateral hips. 4. Diffuse demineralization. 5. Limited visualization particularly severe in the [id number] cervical spine as detailed above. Additional imaging with CT scan or MRI recommended if there is clinical concern for fracture or other underlying pathology. Assessment & Plan Assessment & Plan (1) Degenerative joint disease of right hip: Code(s): M16.11 - Unilateral primary osteoarthritis, right hip Category: Medical Qualifiers: Osteoarthritis type: primary Qualified Code(s): M16.11 - Unilateral primary osteoarthritis, right hip (2) Musculoskeletal pain: Code(s): M79.18 - Myalgia, other site Category: Medical (3) Right hip pain: Code(s): M25.551 - Pain in right hip Category: Medical (4) Lumbosacral spondylosis: Code(s): M47.817 - Spondylosis without myelopathy or radiculopathy, lumbosacral region Category: Medical (5) Sacroiliitis: Code(s): M46.1 - Sacroiliitis, not elsewhere classified Category: Medical Plan Reschedule right intra-articular hip steroidal injection under sedation and fluoroscopy. Expectations, risks and benefits were reviewed. Patient is aware she will be contacted to schedule this procedure. We also discussed interventional treatments for facetogenic, discogenic low back pain and sacroiliac joint pain. Subsequently schedule bilateral diagnostic L3- L4 DR L5 MBB with local and fluoroscopy for potential Sprint PNS trial or RFA procedures. Expectations, risks and benefits were reviewed. All questions and concerns have been answered and patient agreed with the treatment plan. Follow-up after an injection and sooner as needed. Coding Level of Care Code Est Pt Level 4 (62150) Complex EM visit Add On G2211 Diagnoses Primary osteoarthritis of right hip M16.11 Osteoarthritis type: primary Musculoskeletal pain M79.18 Right hip pain M25.551 Lumbosacral spondylosis M47.817 Sacroiliitis M46.1
--- OUTSIDE RECORDS SUMMARY | 2024-10-08 13:48 | XMS_ITS | Data Portability ---
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 I have reviewed and agree with the Assessment and Plan as documented by the Cut Off Man. We discussed the diagnostic uncertainty of home visits and the risk associated with this.. The patient given the opportunity to ask questions via Azerbaijani language phone licensed mortgage loan officer. Advised has mutliple complicated very serious complaints that need w/u beyond the scope of this service to r/o CVA/ACS/spinal cord compression/ also expressed concern that she has had far too much NSAIDS- could cause internal bleeding, we have nothing to treat her pain, since more nsaid incl. ketorolac would be dangerous here. Patient takes care of her 89 year old mother - cannot leave her. She verbalized understanding on the risks -he eventually calling someone to care for mother. She wanted to know how long she would have to stay in the hospital- advised cannot say depends on what the ER w/u reveals Advised to go in to ER as soon as she can arrange care for her mother if develops any worsening of symptoms to call 911 to- verbalized understanding of instructions-found a friend to come over to care for her mother agreed to be transported by EMS to [facility]. Report called to their ER by myself. [email or web address] Not available 02/14/2024 21:45:27 02/17/2024 02/17/2024 As noted, we umu curtis called to see this patient regarding concerns of chest pain x 5-6d, right hip pain radiating to leg x 3d and patient requesting re-evaluation 68 yo F with pmhx notable htn, dm, seen on 02/13/24 with [facility] visit and also seen in [facility] ED with 5-6d of intermittent chest pressure and also with right hip pain radiating to right leg x 3d. She declined hospital admission because her mother lives with her, is bedbound and there is no one else to care for her mom Describes the chest discomfort as tightness and pressure that is intermittent and lasts appx 1 hour, no clear exacerbating factors. +sob with the pain; no leg swelling; no orthopnea per report; no cough; no fevers; no uri sxs. She is also reporting right low back pain radiating into right hip and down to below the knee, using tylenol, no preceding trauma, no leg numbness or weakness, no bowel or bladder incontinence. She does void frequently but is drinking a lot of water. No abd pain She went to [facility] yesterday and had labwork done (results unknown). [facility] visit on 02/12 with EKG (no ischemic changes), POC BMP and H/H, udip (neg) Evaluation in the field was performed by my polishing wheel repairer colleague, as noted above, I provided real-time direction and supervision for this visit. Vitals reviewed. hypertensive The evaluation revealed: appears uncomfortable from her right low back pain she is able to ambulate without assistance and no gait ataxia lungs clear per medic exam rrr abd soft, nd, nt BOND; able to range her hip but with pain; no shortening or rotation no motor deficits of LEs Impression: ___ 1. Stuttering chest pain with dyspnea x 5d Concern for ACS given PMHx risk factors. Lower clinical suspicion for PE, TAD, PNA Had a length d/w patient regarding recommendations to go to ED for ACS rule out. She cannot go at this moment but is agreeable to go to [facility] ED at 4p when [employer]EL [employer]ER is due to arrive to look after her mother 2. Right low back/hip pain, lumbar radicular sxs in ddx, lower clinical suspicion for bony issue Patient is agreeable to go to [facility] ED at 4p when STEEL HANGER arrives for her mom and may benefit from xrays 3. HTN, h/o essential htn but more elevated SBP. Had Cr 1.2 on labs from 02/12. No new cardiac, resp or neuro sxs since 02/12. Will need additional labs when she goes to ED later today Plan: EKG to rule out any STEMI while awaiting arrival of [employer] for her to go to [facility] ED EKG w/o acute changes c/w prior from 02/12 I did discuss risks of not getting seen right away Primary care, consider whether there is any additional services to help with care of patient's mom at home. Strongly advised patient to go to ED as soon as STEEL HANGER arrives at 4pm today, but this has been a barrier in her going to the ED for her 5-6d of cp, sob Disposition: We discussed the situation and I recommended referral to the emergency department. This was based on stuttering chest pain and sob. Patient will be going to [facility] ED once [employer] [facility]ER arrives to look after her mom at 4p Not available 02/17/2024 14:48:25 03/03/2024 03/03/2024 As noted, we umu e called to see this patient regarding concerns of right low back pain with radiation into right lower extremity 68 yo F with h/o prior lumbago with sciatica, being seen for 2 weeks of atraumatic right low back pain and pain radiating into right leg down to her foot. Also endorsing numbness into foot. Using motrin prn for pain with mild relief. No urinary sxs. No bowel sxs. No leg weakness. No abd pain. Able to ambulate. [facility] Pt seen at ER 2 weeks ago but pt unable to stay for admission. Evaluation in the field was performed by my polishing wheel repairer colleague, as noted above, I provided real-time direction and supervision for this visit. The evaluation revealed in nad; no rashes, no midline TLS tenderness, abd soft, nd, nt; FROM of lower extremities; able to ambulate (favoring left side); sensation and motor of LEs grossly intact Impression: ___ Recurrent right lumbago with sciatica No motor deficits on exam No suggestion of bony issue involving hip Low clinical suspicion for intra-abd process Plan: ___ Medication list does include gabapentin 300mg tid but she has not taken it for 1 year Advised her to restart (Rx for #30 sent to pharmacy). 300mg qhs and then increase to bid and then tid Continue with alternating tylenol/ibuprofen prn in addition to gabapentin PCP follow up Primary care, consider physical therapy and or pain clinic referral for patient for her chronic right sided lumbago with sciatica. I did add gabapentin today (had worked previously) and advised to add this to OTC analgesics Disposition: We discussed the diagnostic uncertainty of home visits and the risk associated with this. In this case, the patient and I felt this to be an acceptable and reasonable amount of risk given the benefit of avoiding an ED visit. We discussed the need to seek care urgently/emergentl y in the setting of any new or worsening serious symptoms, particularly bowel or bladder issues, abdominal pain, severe pain, leg weakness, can't walk, other acute concerns Not available 03/03/2024 15:58:33 Plan of Treatment Reminders Order Date Submit Date Provider Last Modified By Organization Details Last Modified Time Details Appointments None recorded. Lab urinalysis, dipstick 2023 024 [email or web address] 0 [facility], [address] [place] [address], [id number], 13:14:48 BMP, serum or plasma 2023 024 [email or web address] 0 [facility], [address] [place] [address], [address], 13:14:23 Referral None recorded. Procedures None recorded. Surgeries None recorded. Imaging electrocard iogram 2023 024 [email or web address] 0 [facility], [address] [place] [address], [address], 13:06:57 electrocard iogram 2023 024 [facility] [address] [place] [address], [address], 4 05:00:48 Medication Orders gabapentin 300 mg capsule 2023 024 [id number], [address] [place], [address], 15:59:23 ketorolac 30 mg/mL injection solution 2023 024 [email or web address] [id number], [address] [place], [address], 15:59:19 Patient TargetsNo targets recorded. Patient InstructionsNo instructions recorded. Reason for Referral None Reported. Results Created Date Observation Date Name Description Value Unit Range Abnormal Flag Note LastModifiedBy Organization Detail LastModifiedTime 02/13/2002/13/2024 BMP, serum or plasm a BUN 21 Not Available [facility] - [facility] [address], [address], 02/13/2024 12:49:16 02/13/20 24 02/13/2024 BMP, serum or plasm a Ca I ca 1.3 Not Available Main - [address], [address], 02/13/2024 12:49:16 02/13/20 24 02/13/2024 BMP, serum or plasm a CI- 101 Not Available Main - [facility] [address], [address], 02/13/2024 12:49:16 02/13/20 24 02/13/2024 BMP, serum or plasm a CRE 1.2 Not Available Main - [facility] [address], [address], 02/13/2024 12:49:16 02/13/20 24 02/13/2024 BMP, serum or plasm a GLU 101 Not Available Main - [facility] [address], [address], 02/13/2024 12:49:16 02/13/20 24 02/13/2024 BMP, serum or plasm a K+ 4 Not Available Main - [facility] [address], [address], 02/13/2024 12:49:16 02/13/20 24 02/13/2024 BMP, serum or plasm a Na+ 139 Not Available [facility] - [facility] sharon [address] [place] [address], [address], 02/13/2024 12:49:16 02/13/20 24 02/13/2024 BMP, serum or plasm a tCO2 26 Not Available Main - [facility] [address], [address], 02/13/2024 12:49:16 02/13/20 24 02/13/2024 urina lysis , dipst ick Leukocytes Negati ve Not Available [facility] - [facility] [address] [place] [address], [address], 02/13/2024 12:48:07 02/13/20 24 02/13/2024 urina lysis , dipst ick Nitrite negati ve Not Available [facility] - [facility] [address] [place] [address], [address], 02/13/2024 12:48:07 02/13/20 24 02/13/2024 urina lysis , dipst ick Urobilinogen Negati ve Not Available [facility] - [facility] [address] [place] [address], [address], 02/13/2024 12:48:07 02/13/20 24 02/13/2024 urina lysis , dipst ick Protein Negati ve Not Available [facility] - [facility] [address] [place] [address], [address], 02/13/2024 12:48:07 02/13/20 24 02/13/2024 urina lysis , dipst ick pH 5 Not Available Main - [facility] [address], [address], 02/13/2024 12:48:07 02/13/20 24 02/13/2024 urina lysis , dipst ick Blood Negati ve Not Available Main - [facility] [address] [place] [address], [address], 02/13/2024 12:48:07 02/13/20 24 02/13/2024 urina lysis , dipst ick Specific [place] 1.020 Not Available [facility] - [facility] [address] [place] [address], [address] [place] [address], 02/13/2024 12:48:07 02/13/20 24 02/13/2024 urina lysis , dipst ick Ketone Negati ve Not Available [facility] - [facility] [address] [place] [address], [address] [place] [address], 02/13/2024 12:48:07 02/13/20 24 02/13/2024 urina lysis , dipst ick Bilirubin Negati ve Not Available Main - [facility] ed [address] [place] [address], [address] [place] [address], 02/13/2024 12:48:07 02/13/20 24 02/13/2024 urina lysis , dipst ick Glucose Negati ve Not Available Main - [facility] ed [address] [place] [address], [address] [place] [address], 02/13/2024 12:48:07 02/13/20 24 02/13/2024 urina lysis , dipst ick Appearance clear Not Available [facility] [address] [place] [address], [address] [place] [address], 02/13/2024 12:48:07 02/13/20 24 02/13/2024 urina lysis , dipst ick Color concen trated Not Available [facility] - [facility] [address] [place] [address], [address], 02/13/2024 12:48:07 02/13/20 24 02/13/2024 elect rocar diogr am No observ ation record ed. [facility] - [facility] [address] [place] [address], [address], 02/13/2024 13:06:41 02/17/20 24 02/18/2024 elect rocar diogr am No observ ation record ed. [email or web address] [facility] - [facility] [address] [place] [address], [phone], 02/18/2024 09:49:06 Result Notes None recorded. Procedures Surgical History None recorded. Imaging Results Imaging Date Name Status LastModified by Organization Details LastModified Time 02/13/2024 electrocardiogram completed [email or web address] [address], [address], 02/13/2024 13:06:41 02/18/2024 electrocardiogram completed [email or web address] [address], [address], 02/18/2024 09:49:06 Procedure Notes None recorded. Medical Equipment None Reported. Allergies Allergen ID Allergen Name Allergen Category Reaction Reaction Severity Criticality Documentation Date Start Date Code Code System Note Provider Name and Address Organization Details Recorded Time 494 lisinopri l medicatio n Not available Not available Not available 02/14/2024 24813 RxNorm Amy Davenport MD [address] [place] [address],[address], [place], [address] [place] [address] [employer] 21:25:02 Medications Name Sig Start Date Stop Date Status Note LastModified by Organization Details LastModified Time cyclobenzapr ine 10 mg tablet TAKE 1 TABLET BY MOUTH THREE TIMES A DAY FOR 10 DAYS active Not Available Not Available Not Available cetirizine 10 mg tablet TAKE 1 TABLET BY MOUTH EVERY DAY IN THE MORNING active Not Available Not Available No t Available doxepin 25 mg capsule TAKE 1 CAPSULE BY MOUTH EVERY DAY AT NIGHT active Not Available Not Available No t Available amlodipine 2.5 mg tablet TAKE 2 TABLETS BY MOUTH EVERY MORNING active Not Available Not Available No t Available propranolol 40 mg tablet TAKE 1 TABLET BY MOUTH EVERY DAY IN THE MORNING active Not Available Not Available No t Available benzonatate 100 mg capsule PLEASE SEE ATTACHED FOR DETAILED DIRECTIONS active Not Available Not Available N ot Available gabapentin 300 mg capsule TAKE 1 CAPSULE BY MOUTH THREE TIMES A DAY active Not Available Not Available Not Available sertraline 25 mg tablet TAKE 1 TABLET BY MOUTH EVERY DAY active Not Available Not Available No t Available montelukast 10 mg tablet TAKE 1 TABLET BY MOUTH EVERY DAY active Not Available Not Available No t Available alprazolam 2 mg tablet TAKE 1 TABLET BY MOUTH AT BEDTIME NEEDED FOR ANXIETY active Not Available Not Available No t Available zolpidem 10 mg tablet TAKE 1 TABLET BY MOUTH AT BEDTIME NEEDED FOR SLEEP active Not Available Not Available No t Available clotrimazole 1 % topical cream APPLY TOPICALLY 2 TIMES DAILY. FOR 2-3 WEEKS active Not Available Not Available No t Available prazosin 2 mg capsule TAKE 1 CAPSULE BY MOUTH AT BEDTIME active Not Available Not Available No t Available naproxen 500 mg tablet TAKE 1 TABLET (500 MG) BY MOUTH WITH BREAKFAST AND WITH EVENING MEAL active Not Available Not Available No t Available Ventolin HFA 90 mcg/actuatio n aerosol inhaler INHALE 2 PUFFS BY MOUTH EVERY 4 HOURS NEEDED FOR WHEEZE active Not Available Not Available No t Available olmesartan 20 mg tablet TAKE 1 TABLET BY MOUTH EVERY DAY IN THE MORNING active Not Available Not Available No t Available rosuvastatin 40 mg tablet TAKE 1 TABLET BY MOUTH AT BEDTIME active Not Available Not Available No t Available duloxetine 30 mg capsule,caitlin yed release TAKE 1 CAPSULE BY MOUTH TWICE A DAY active Not Available Not Available No t Available varenicline 1 mg tablet TAKE 1 TAB TWICE DAILY WITH FULL GLASS OF WATER. active Not Available Not Available No t Available varenicline 0.5 mg tablet PLEASE SEE ATTACHED FOR DETAILED DIRECTIONS active Not Available Not Available N ot Available FreeStyle Lite Meter kit USE DIRECTED 3 TIMES A DAY active Not Available Not Available Not Available ketorolac 30 mg/mL injection solution Inject 30 mg. 2023 active Not Available Not Available Not Avai lable OneTouch Ultra2 Meter USE TO TEST BLOOD SUGAR THREE TIMES A DAY active Not Available Not Available No t Available OneTouch Delica Plus Lancet 33 gauge USE TO TEST BLOOD SUGAR THREE TIMES A DAY active Not Available Not Available No t Available Trulicity 3 mg/0.5 mL subcutaneous pen injector INJECT 3 MG SUBCUTANEOU SLY WEEKLY active Not Available Not Available N ot Available Trulicity 4.5 mg/0.5 mL subcutaneous pen injector INJECT 4.5 MG SUBCUTANEOU SLY ONE TIME PER WEEK active Not Available Not Available No t Available Vitals Date Recorded Body height Body weight Respiratory rate Body temperature Heart rate Oxygen saturation Oxygen saturation in Arterial blood by Pulse oximetry Systolic blood pressure Diastolic blood pressure Provider Name and Address Organization Details Last Updated DateTime 4 165.1 cm 937254. 16 g 18 /min 98.3 [degF] 70 /min 99 % 99 % 133 mm[Hg] 71 mm[Hg] Not Available [employer] 4 14:39:06 Date Recorded Oxygen saturation Oxygen saturation in Arterial blood by Pulse oximetry Heart rate Respiratory rate Body temperature Systolic blood pressure Diastolic blood pressure Provider Name and Address Organization Details Last Updated DateTime 99 % 99 % 93 /min 18 /min 98.9 [degF] 202 mm[Hg] 92 mm[Hg] Not Available [employer] 14:03:30 Date Recorded Body height Oxygen saturation Oxygen saturation in Arterial blood by Pulse oximetry Body temperature Body weight Respiratory rate Heart rate Systolic blood pressure Diastolic blood pressure Provider Name and Address Organization Details Last Updated DateTime 162.56 cm 98 % 98 % 98.4 [degF] 332650 g 18 /min 90 /min 162 mm[Hg] 88 mm[Hg] Not Available [employer] 15:40:57 Social History None recorded. Functional Status None recorded. Mental Status None recorded. Family History Nothing Reported. Medical History No medical history recorded. Gynecological HistoryNo gynecological history recorded. Obstetrics History GPAL:G 0 P 0 0 0 0 Past Encounters Encounter ID Performer Location Encounter Start Date Encounter Closed Date Diagnosis/Indication Diagnosis SNOMED-CT Code Diagnosis ICD10 Code [id number] Amy Davenport MD [facility] [address] [place] [phone] 02/13/2024 12:43:15 02/15/2024 14:51:39 Chest pain 77982128 R07.9 Urinary symptoms 7318094 08 R39.9 Headache 39636980 R51.9 Lumbago with sciatica 20 6919867 M54.40 [id number] NIKKI LACKEY MD [facility] [address] [place] [phone] 02/17/2024 14:01:51 02/17/2024 15:25:01 Essential hypertension 17015724 I10 Chest pain 67972595 R07. 9 Hip pain 51804276 M25.55 [id number] NIKKI LACKEY MD [facility] - [facility] [address] [place] [id number] 03/03/2024 15:33:59 03/03/2024 16:26:08 Lumbago with sciatica 499851615 M54.41 [id number] Efrem Romero MD [facility] [address] [place] [id number] 03/12/2024 18:46:33 03/13/2024 12:07:48 Mechanical low back pain 491229571 M54.50 Health Concerns Section Related Observation LastModified by Organization Detai ls LastModified Time None Recorded Concern Status LastModified by Organization Details LastModified Time None Recorded Advance Directives Directive None Recorded Payers Encounter Date Sequence Insurance Name Policy Number Policy Giron Covered Member ID Giron Member ID Guarantor Name 02/13/2024 1 [facility] AFTER 2023 - MEDICARE [place]VANTAGE [place]MEDICARE REPLACEMENT/ADV ANTAGE - PPO) Sharita Montez [id number] Sharita Montez 02/17/2024 1 [facility] ON OR AFTER 2023 - DUAL ELIGIBLE - LONG TERM OPTIONS AND ONE CARE (MEDICARE REPLACEMENT/ADV ANTAGE - HMO) Sharita Montez [id number] Sharita Montez 03/03/2024 1 [employer] [facility] - DOS ON OR AFTER 2023 - DUAL ELIGIBLE - LONG TERM OPTIONS AND ONE CARE (MEDICARE REPLACEMENT/ADV ANTAGE - HMO) Sharita Montez [id number] Sharita Montez 03/12/2024 1 [employer] [facility] - DOS ON OR AFTER 2023 - DUAL ELIGIBLE - LONG TERM OPTIONS AND ONE CARE (MEDICARE REPLACEMENT/ADV ANTAGE - HMO) Sharita Montez [id number] Sharita Montez Notes Date Note Type Note Provider Name and Address Organization Details Recorded Time 02/13/2024 text/html HPI: Call to Sharita Montez, reports having right leg pain from hip down x 3 days. Per pt pain with movement. Per pt also having lower back pain. Pt having foul odor to urine and urinary frequency. Pt denies any fever. Per pt having BS WNL. Pt states pain comes and goes. Per pt using OTC pain relievers PRN. Pt advised of disposition, agrees to [facility] vs [facility] for exam. [facility] referral placed. Pt to follow up with office pRN per [facility] recommendations. .................. .................. .................. .................. .................. .................. .................. ............... [facility] Nurse Triage Notes (Ernestina Jackman): Comments: HPI reviewed. SEGMD: Patient with PMH pertinent for but not limited to glaucoma, migraines, DM, HPL, hypertension, asthma, with multiple complaints. In addition to possible UTI symptoms above, she complains of 10 to 12 days of increasing low back pain right buttock pain radiating down her right leg that has been increasing for the past 3 to 4 days with urinary incontinence and bowel incontinence and intermittent bilateral leg numbness, worse on the right. She is also complaining of 3 to 4 days of severe frontal headache different from her usual migraines-feeling like her eyes are going to pop out of her head but no acute vision changes- dizziness with standing,acuteches t pressure, shortness of breath and nausea. She started taking her prescription Naprosyn for 3 days then switched for the last 5 to 7 days of ibuprofen 800 mg every 6-8 hours followed by OTC Motrin twice a day not realizing it with same medication. She denies any black or bloody stools............ .................. .................. .................. .................. .................. .................. .................. .... Cut Off Man Note From Carlota El: Sent to a call for a pt complaining of right hip/leg pain. [facility] arrives on scene, pt is alert and oriented, airway is patent. Pt has a steady gait. Pt speaks Azerbaijani and licensed mortgage loan officer line used during visit. Pt complains of sciatic pain from right buttocks, radiating down right leg, x 10-12 days, worsening each day. Pt took Tylenol, Flexeril, and Naproxen for 3-4 days with no relief, then states she changed to Ibuprofen 800mg q6-8hrs and Motrin 800mg BID for approx 5-7 days. Pt states she didn't know Motrin and Ibuprofen were the same. Pt also complains of frontal headache, eye pressure, dizziness when standing/ambulatin g, chest pain, sob, nausea, bilateral lower quadrant abd pain, foul-smelling urine, bowel and bladder incontinence, and numbness/tingling in both legs (worse on right) x 3-4 days. Chest pain is described as intermittent chest pressure, not positionally dependent. Pt states she has baseline blurry vision, and history of glaucoma. Pt states her head hurts so bad she feels like her eyes will pop out. Pt states she has been eating/drinking normally. Pt denies vomiting, diarrhea, black/bloody stool, dysuria, hematuria, fever, or loc. BP:133/71, P:70, RR:18, SpO2:99% RA, T:98.3; Head: no deformities; pupils: PERRL, eyes: no redness/bulging noted; Lung sounds: clear bilaterally; Abdomen: soft, LLQ tenderness, no distention; Back: unremarkable; Extremities: numbness/tingling bilaterally in lower legs; no motor deficits; Skin: pink,warm, dry; Urine sample obtained; urine dip: uploaded to [employer]; [facility] and order BMP and 12 lead ECG. IV access and venous blood draw performed; Istat Chem8+ results and 12 lead ECG: uploaded to [employer]. While speaking with [facility] via licensed mortgage loan officer pt states she has had bad headaches in the past, but this one is different because she is having neck pain as well. [facility] advises pt to be transported to ED. Pt initially states she can't go to ED because she needs to take care of her mother, but calls contacts to have someone take care of pt's mother while she goes to ED. Pt agrees to transport and requests transport to [facility] ED. [facility] Hospital[facility] 911 called and pt care is transferred to [facility]. Pt is transported [facility] via [facility]. .................. .................. .................. .................. .................. .................. .................. ............... Disposition: Fulfilled Amy Davenport MD [address] [place] [address],[address], [place], [phone], [facility] [employer] 02/14/2024 21:47:12 02/17/2024 text/html CRC Nurse Triage Notes (Kelly Mccarthy): Reason For Request: Mbr seen on 02/13/24 and looking for a revisit Call to Sharita Montez, reports having right leg pain from hip down x 3 days. Per pt pain with movement. Per pt also having lower back pain. Pt having foul odor to urine and urinary frequency. Pt denies any fever. Per pt having BS WNL. Pt states pain comes and goes. Per pt using OTC pain relievers PRN. [facility] of [facility]. instED referral placed. Pt to follow up with office pRN per instED recommendations. Patient Reports: Shortness of Breath Denies: Unable to speak in full sentences without distress Chief Complaints: UTI/Pyelonephritis , Pain PMH: Hypertension, Diabetes Allergies: Unknown Comments: Spoke w/ member with manager travel member [place] c/o chest pain, ongoing always there it does get worse at times and then she feels SOB, chest feels sore but unable to state if the pain is reproducible, hx of this chest pain and c/o same symptom on 02/12- went to [facility], left because she did not have anyone to watch her mom who is 89 and has Dementia- the member is waiting on the [facility] results, the [facility] wanted to admit her for it seems like a possible OH or r/o OH but pt refused. Advised member that she should go to the ED and be evaluated further, she said she can't leave her mother and the [facility] can't watch her either, she has no family. Advised the [facility] may suggest going to the ED anyway but I will process referral . Tai BAILEY .................. .................. .................. .................. .................. .................. .................. ............... Cut Off Man Note From Krzysztof Cullen: Dispatched to the call address for the female with pain. Pt states she has had chest pain on and off for 5-6 days now and has right sided hip pain that radiates down to her knee. Pt states she was seen by [facility] on the and was sent to the ED. She advises they wanted to admit her to the hospital but she left AMA due to having no one else to care for her mother. Pt went to the clinic yesterday for the same complaints. They delbert blood and did an ECG but she does not know the results. Pt states she is not against going to the ED but she has no one to care for her mother. She states she will go back to the ED for testing but will not be admitted. Pt was found opening door, CAOx4, airway open and patent, breathing non labored, able to speak in full sentences, -JVD, -HEENT, skin PWD with good turgor, abd soft non tender/distended, pupils PERRL, abd soft non tender/distended, mucous membranes pink and moist, A-febrile, right hip -DCABTLS -erythema. [facility] consulted. 12 lead non diagnostic for STEMI and NSR. Pt stated she would go to the ED when the [employer] got there to care for her mother (approx 1600). Red flags discussed. ALL times are apprx. .................. .................. .................. .................. .................. .................. .................. ............... Disposition: Fulfilled NIKKI LACKEY MD [address] [place] [address],[address], [place], [phone], [employer] 02/17/2024 14:48:41 03/03/2024 text/html HPI: Call returned to [facility] to triage below. Reports having back pain and right leg pain . Pt also endorses numbness on foot x 2 week. Pt using Motrin and aleve PRN for pain. No urinary sx. Pt seen at ER 2 weeks ago but pt unable to stay for admission. Per pt unable to come into office. Agrees to [facility] for evaluation. .................. .................. .................. .................. .................. .................. .................. ............... CRC Nurse Triage Notes (Ernestina Jackman): Comments: HPI reviewed. No further information required to process visit. .................. .................. .................. .................. .................. .................. .................. ............... Cut Off Man Note From Lenny Lynne: Patient conscious alert and oriented times three answers door with an uneven limping gait favoring left side. Patient complains of right lower back pain radiates to right foot times two weeks. Patient states in similar to previous sciatica. Patient says she stopped taking gabapentin more than a year ago. Patient denies any urinary symptoms or any other pain or complaints. Patient pink warm and dry secondary exam unremarkable. Abdomen soft nontender negative CVA tenderness. Good CSM negative swelling or discoloration. [facility] advises he will prescribe gabapentin to patient? s local pharmacy and orders Toradol 30 mg IM. Administered as noted red flags, and patient education discussed patient encouraged to follow up with PCP .................. .................. .................. .................. .................. .................. .................. ............... Disposition: Fulfilled NIKKI LACKEY MD [address] [facility],[address], [place], [phone], [employer] 03/03/2024 16:20:16 03/12/2024 text/html HPI: Patient with history of Lumbar Radiculopathy. Went to ED but is unable to wait as she is having significant pain. called in Flexeril earlier today but has not started this medication yet. .................. .................. .................. .................. .................. .................. .................. ............... CRC Nurse Triage Notes (Kelly Mccarthy): Comments: Reviewed no further info needed. [facility] visit on [facility] for similar symptoms Efrem Romero MD [address] [facility],[address], [place], [phone], [employer] 03/12/2024 18:51:40 OBGyn Episode No OBEpisode recorded.
[2024-10-08 13:53] VITALS: BP 190/91; PULSE 103; O2SAT 96; BMI 38.8
[2024-10-08 14:19] VITALS: BP 171/98
== END 2024-10-08 14:18 | disposition home or self-care (01) ==
PROVIDERS: PCP Internal Medicine; Visit Provider Nurse Practitioner Family
DX: M16.11 Unilateral primary osteoarthritis, right hip (principal); M79.18 Myalgia, other site; M25.551 Pain in right hip; M47.817 Spondylosis without myelopathy or radiculopathy, lumbosacral region; M46.1 Sacroiliitis, not elsewhere classified
CPT/HCPCS: 99214; G2211

== ENCOUNTER → 2024-10-08 13:45 | Outpatient (BNVA) | payer OTHER, SELFPAY | PROVIDERS: PCP Internal Medicine; Visit Provider Nurse Practitioner Family | DX: M16.11 Unilateral primary osteoarthritis, right hip (principal); M79.18 Myalgia, other site; M25.551 Pain in right hip; M47.817 Spondylosis without myelopathy or radiculopathy, lumbosacral region; M46.1 Sacroiliitis, not elsewhere classified; E11.22 Type 2 diabetes mellitus with diabetic chronic kidney disease; N18.9 Chronic kidney disease, unspecified; E66.9 Obesity, unspecified; Z68.38 Body mass index [BMI] 38.0-38.9, adult | CPT/HCPCS: 99212 ==

== ENCOUNTER 2024-10-14 11:59 | Outpatient (REF) | payer OTHER, SELFPAY ==
--- OUTSIDE RECORDS SUMMARY | 2024-10-14 12:02 | XMS_ITS | Data Portability ---
Author Organization [facility] Address [address] [place] [address] Care Team Providers Care Administrative Liaison Name Role Phone HIM CCA OTHER Assessment Encounter Date Assessment Date Assessment LastModified by Organization Details LastModified Time 02/13/2024 02/13/2024 I provided real -time medical direction via phone for this encounter, and was available for additional phone based assistance as needed. I have reviewed and agree with the Assessment and Plan as documented by the Welding Machine Operator [employer]. We discussed the diagnostic uncertainty of home visits and the risk associated with this.. 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 Advised has mutliple complicated very serious complaints [...] agreed to be transported by EMS to [facility]. Report called to their ER by myself. [email or web address] Not available 02/14/2024 21:45:27 02/17/2024 02/17/2024 As noted, we umu curtis called to see this patient regarding concerns of chest pain x 5-6d, right hip pain radiating to leg x 3d and patient requesting re-evaluation 68 yo F with pmhx notable htn, dm, seen on 02/13/24 with [facility] visit and also seen in [facility] ED with 5-6d of intermittent chest pressure [...] water. No abd pain She went to [facility] yesterday and had labwork done (results unknown). inst[facility] visit on 02/12 with EKG (no ischemic changes), POC BMP and H/H, udip (neg) Evaluation in the field was performed by my fur vault attendant colleague, as noted above, I provided real-time [...] moment but is agreeable to go to [facility] ED at 4p when DATA WAREHOUSE ARCHITECT is due to arrive to look after her mother 2. Right low back/hip pain, lumbar radicular sxs in ddx, lower clinical suspicion for bony issue Patient is agreeable to go to [facility] ED at 4p when DATA WAREHOUSE ARCHITECT arrives for her mom and may benefit from xrays 3. HTN, h/o essential htn but more elevated SBP. Had Cr 1.2 on labs from 02/12. No new cardiac, resp or neuro sxs since 02/12. Will need additional labs when she goes to ED later today Plan: EKG to rule out any STEMI while awaiting arrival of DATA WAREHOUSE ARCHITECT for her to go to [facility] ED EKG w/o acute changes c/w prior from 02/12 I did discuss risks of not getting seen right away Primary care, consider whether there is any additional services to help with care of patient's mom at home. Strongly advised patient to go to ED as soon as DATA WAREHOUSE ARCHITECT arrives at 4pm today, but this has been a barrier in her going to the ED for her 5-6d of cp, sob Disposition: We discussed the situation and I recommended referral to the emergency department. This was based on stuttering chest pain and sob. Patient will be going to [facility] ED once DATA WAREHOUSE ARCHITECT arrives to look after her mom at [...] to ambulate. [facility] Pt seen at ER 2 weeks ago but pt unable to stay for admission. Evaluation in the field was performed by my fur vault attendant colleague, as noted above, I provided real-time [...] 2023 024 [email or web address] 0 Main - [facility], [address] [place] [address], [id number], 13:14:48 BMP, serum or plasma 2023 024 [email or web address] 0 [facility], [address] [place] [address], [phone], 13:14:23 Referral None recorded. Procedures None recorded. Surgeries None recorded. Imaging electrocard iogram 2023 024 [email or web address] Main - [facility], [address] [place] [address], [address], 13:06:57 [facility]card iogram 2023 [facility] [address] [place] [address], [address], 4 05:00:48 Medication Orders gabapentin 300 mg capsule 2023 024 [id number], [address] [place], [address], 15:59:23 ketorolac 30 mg/mL injection solution 2023 024 [email or web address] [id number], [address] [place], [address], 15:59:19 Patient TargetsNo targets recorded. Patient InstructionsNo instructions recorded. Reason for Referral None Reported. Results Created Date Observation Date Name Description Value Unit Range Abnormal Flag Note LastModifiedBy Organization Detail LastModifiedTime 02/13/2002/13/2024 BMP, serum or plasm a BUN 21 Not Available Main - [facility] [address], [address], 02/13/2024 12:49:16 02/13/20 24 02/13/2024 BMP, serum or plasm a Ca I ca 1.3 Not Available Main - [address], [address], 02/13/2024 12:49:16 02/13/20 24 02/13/2024 BMP, serum or plasm a CI- 101 Not Available Main - [facility] [address], [address], 02/13/2024 12:49:16 02/13/20 24 02/13/2024 BMP, serum or plasm a CRE 1.2 Not Available Main - [facility] [address], [address], 02/13/2024 12:49:16 02/13/20 24 02/13/2024 BMP, serum or plasm a GLU 101 Not Available Main - [facility] [address], [address], 02/13/2024 12:49:16 02/13/20 24 02/13/2024 BMP, serum or plasm a K+ 4 Not Available Main - [facility] [address], [address], 02/13/2024 12:49:16 02/13/20 24 02/13/2024 BMP, serum or plasm a Na+ 139 Not Available Main - [facility] sharon [address] [place] [address], [address], 02/13/2024 12:49:16 02/13/20 24 02/13/2024 BMP, serum or plasm a tCO2 26 Not Available Main - [facility] [address], [address], 02/13/2024 12:49:16 02/13/20 24 02/13/2024 urina lysis , dipst ick Leukocytes Negati ve Not Available Main - [facility] [address] [place] [address], [address], 02/13/2024 12:48:07 02/13/20 24 02/13/2024 urina lysis , dipst ick Nitrite negati ve Not Available Main - [facility] [address] [place] [address], [address], 02/13/2024 12:48:07 02/13/20 24 02/13/2024 urina lysis , dipst ick Urobilinogen Negati ve Not Available Main - [facility] [address] [place] [address], [address], 02/13/2024 12:48:07 02/13/20 24 02/13/2024 urina lysis , dipst ick Protein Negati ve Not Available Main - [facility] [address] [place] [address], [address], 02/13/2024 12:48:07 02/13/20 24 02/13/2024 urina lysis , dipst ick pH 5 Not Available Main - [facility] [address], [address], 02/13/2024 12:48:07 02/13/20 24 02/13/2024 urina lysis , dipst ick Blood Negati ve Not Available Main - [facility] [address] [place] [address], [address], 02/13/2024 12:48:07 02/13/20 24 02/13/2024 urina lysis , dipst ick Specific Kenedy 1.020 Not Available Main - [facility] [address] [place] [address], [address] [place] [address], 02/13/2024 12:48:07 02/13/20 24 02/13/2024 urina lysis , dipst ick Ketone Negati ve Not Available Main - [facility] [address] [place] [address], [address] [place] [address], 02/13/2024 12:48:07 02/13/20 24 02/13/2024 urina lysis , dipst ick Bilirubin Negati ve Not Available Main - [facility] [address] [place] [address], [address] [place] [place] [address], 02/13/2024 12:48:07 02/13/20 24 02/13/2024 urina lysis , dipst ick Glucose Negati ve Not Available Main - [facility] [address] [place] [address], [address] [place] [address], 02/13/2024 12:48:07 02/13/20 24 02/13/2024 urina lysis , dipst ick Appearance clear Not Available Main - [facility] [address] [place] [address], [address] [place] [address], 02/13/2024 12:48:07 02/13/20 24 02/13/2024 urina lysis , dipst ick Color concen trated Not Available Main - [facility] [address] [place] [address], [address], 02/13/2024 12:48:07 02/13/20 24 02/13/2024 elect rocar diogr am No observ ation record ed. [email or web address] Main - [facility] [address] [place] [address], [address], 02/13/2024 13:06:41 02/17/20 24 02/18/2024 elect rocar diogr am No observ ation record ed. [email or web address] Main - [facility] [address] [place] [address], [address], 02/18/2024 09:49:06 Result Notes None recorded. Procedures Surgical History None recorded. Imaging Results Imaging Date Name Status LastModified by Organization Details LastModified Time 02/13/2024 electrocardiogram completed [email or web address] [address], [address], 02/13/2024 13:06:41 02/18/2024 electrocardiogram completed [email or web address] [address], [address], 02/18/2024 09:49:06 Procedure Notes None recorded. Medical Equipment None Reported. Allergies Allergen ID Allergen Name Allergen Category Reaction Reaction Severity Criticality Documentation Date Start Date Code Code System Note Provider Name and Address Organization Details Recorded Time 4941 lisinopri l medicatio n Not available Not available Not available 02/14/2024 48093 RxNorm Amy Davenport MD [address] [place] [address],[address], [place], [address] [place] [address] [employer] 21:25:02 Medications Name Sig Start Date Stop [...] Available Not Available No t Available varenicline tartrate 1 mg tablet TAKE 1 TAB TWICE DAILY WITH FULL GLASS OF WATER. active Not Available Not Available No t Available varenicline tartrate 0.5 mg tablet PLEASE SEE ATTACHED FOR [...] Details Last Updated DateTime 4 165.1 cm 839003. 16 g 18 /min 98.3 [degF] 70 /min 99 % 99 % 133 mm[Hg] 71 mm[Hg] Not Available [employer] production 4 14:39:06 Date Recorded Oxygen saturation Oxygen saturation in Arterial blood by Pulse oximetry Heart rate Respiratory rate Body temperature Systolic blood pressure Diastolic blood pressure Provider Name and Address Organization Details Last Updated DateTime 99 % 99 % 93 /min 18 /min 98.9 [degF] 202 mm[Hg] 92 mm[Hg] Not Available [employer] 14:03:30 Date Recorded Body height Oxygen saturation Oxygen saturation in Arterial blood by Pulse oximetry Body temperature Body weight Respiratory rate Heart rate Systolic blood pressure Diastolic blood pressure Provider Name and Address Organization Details Last Updated DateTime 4 162.56 cm 98 % 98 % 98.4 [degF] 518549 g 18 /min 90 /min 162 mm[Hg] 88 mm[Hg] Not Available [employer] - 15:40:57 Social History None recorded. Functional Status None recorded. Mental Status None recorded. Family History Nothing Reported. Medical History No medical history recorded. Gynecological HistoryNo gynecological history recorded. Obstetrics History GPAL:G 0 P 0 0 0 0 Past Encounters Encounter ID Performer Location Encounter Start Date Encounter Closed Date Diagnosis/Indication Diagnosis SNOMED-CT Code Diagnosis ICD10 Code [id number] Amy Davenport MD [facility] - [facility] [address] [place] [phone] 02/13/2024 12:43:15 02/15/2024 14:51:39 Chest pain 84396700 R07.9 Urinary symptoms 1619784 08 R39.9 Headache 01297381 R51.9 Lumbago with sciatica 20 3436954 M54.40 [id number] NIKKI LACKEY MD [facility] - [facility] [address] [place] [phone] 02/17/2024 14:01:51 02/17/2024 15:25:01 Essential hypertension 06539905 I10 Chest pain 68094267 R07. 9 Hip pain 60137833 M25.55 9 [id number] NIKKI LACKEY MD [facility] - [facility] [address] [place] [phone] 03/03/2024 15:33:59 03/03/2024 16:26:08 Lumbago with sciatica 536988514 M54.41 [id number] Efrem Romero MD [facility] - [facility] [address] [place] [phone] 03/12/2024 18:46:33 03/13/2024 12:07:48 Mechanical low back pain 839478560 M54.50 Health Concerns Section Related Observation LastModified by Organization Detai ls LastModified Time None Recorded Concern Status LastModified by Organization Details LastModified Time None Recorded Advance Directives Directive None Recorded Payers Encounter Date Sequence Insurance Name Policy Number Policy Giron Covered Member ID Giron Member ID Guarantor Name 02/13/2024 1 [facility] DOS ON OR AFTER 2023 - MEDICARE ADVANTAGE [place] (MEDICARE REPLACEMENT/ADV ANTAGE - PPO) Sharita Montez [id number] Sharita Montez 02/17/2024 1 [employer] [facility] - DOS ON OR AFTER 2023 - DUAL ELIGIBLE - FPC OPTIONS AND ONE CARE (MEDICARE REPLACEMENT/ADV ANTAGE - HMO) Sharita Montez [id number] Sharita Montez 03/03/2024 1 [employer] [facility] - DOS ON OR AFTER 2023 - DUAL ELIGIBLE - FPC OPTIONS AND ONE CARE (MEDICARE REPLACEMENT/ADV ANTAGE - HMO) Sharita Montez [id number] Sharita Montez 03/12/2024 1 [employer] [facility] - DOS ON OR AFTER 2023 - DUAL ELIGIBLE - FPC OPTIONS AND ONE CARE (MEDICARE REPLACEMENT/ADV ANTAGE - HMO) Sharita Montez [id number] Sharita Velez Notes Date Note Type Note Provider Name [...] .................. .................. .................. .................. .................. .................. .... Welding Machine [employer] Note From Carlota El: Sent to a call for a pt complaining of right hip/leg pain. [facility] arrives on scene, pt is alert and oriented, airway is patent. Pt has a steady gait. Pt speaks Swedish and local company intermodal truck driver line used during visit. Pt complains of [...] Urine sample obtained; urine dip: uploaded to [employer]; [facility] consulted and order BMP and 12 lead ECG. IV access and venous blood draw performed; Istat Chem8+ results and 12 lead ECG: uploaded to [employer]. While speaking with [facility] via local company intermodal truck driver pt states she has had bad headaches in the past, but this one is different because she is having neck pain as well. [facility] advises pt to be transported to ED. Pt initially states she can't go to ED because she needs to take care of her mother, but calls contacts to have someone take care of pt's mother while she goes to ED. Pt agrees to transport and requests transport to [facility] ED. [facility] [place] report to [facility]. 911 called and pt care is transferred to [facility]. Pt is transported to [facility] ED via [facility]. .................. .................. .................. .................. .................. .................. .................. ............... Disposition: Fulfilled Amy Davenport MD [address] [place] [address],[address], [place], [address], [facility] [employer] 02/14/2024 21:47:12 02/17/2024 text/html CRC Nurse Triage [...] advised of disposition, agrees to [facility] vs [facility] for exam. [facility] referral placed. Pt to follow up with office pRN per [facility] recommendations. Patient Reports: Shortness of Breath Denies: Unable to speak in full sentences without distress Chief Complaints: UTI/Pyelonephritis , Pain PMH: Hypertension, Diabetes Allergies: Unknown Comments: Spoke w/ member with shoulder joiner [place], c/o chest pain, ongoing always there it does get worse at times and then she feels SOB, chest feels sore but unable to state if the pain is reproducible, hx of this chest pain and c/o same symptom on 02/12- went to [facility], left because she did not have anyone to watch her mom who is 89 and has Dementia- the member is waiting on the [facility] results, the [facility] wanted to admit her for it seems like a possible [place] or r/o [place] but pt refused. Advised member that she should go to the ED and be evaluated further, she said she can't leave her mother and the [facility] can't watch her either, she has no family. Advised the [facility] may suggest going to the ED anyway but I will process referral . Tai BAILEY .................. .................. .................. .................. .................. .................. .................. ............... Welding Machine [employer] Note From Krzysztof Cullen: Dispatched to the call address for the female with pain. Pt states she has had chest pain on and off for 5-6 days now and has right sided hip pain that radiates down to her knee. Pt [facility] and was sent to the [...] would go to the ED when the DATA WAREHOUSE ARCHITECT got there to care for her mother (approx 1600). Red flags discussed. ALL times are apprx. .................. .................. .................. .................. .................. .................. .................. ............... Disposition: Fulfilled NIKKI LACKEY MD [address] [place] [address],[address], [place], [address], [employer] 02/17/2024 14:48:41 03/03/2024 text/html HPI: Call returned to [facility] to triage below. Reports having back pain and right leg pain . Pt also endorses numbness on foot x 2 week. Pt using Motrin and aleve PRN for pain. No urinary sx. Pt seen at ER 2 weeks ago but pt unable to stay for admission. Per pt unable to come into office. Agrees to [facility] for evaluation. .................. .................. .................. .................. .................. .................. .................. ............... [facility] Nurse Triage Notes (Ernestina Jackman): Comments: HPI reviewed. No further information required to process visit. .................. .................. .................. .................. .................. .................. .................. ............... Welding Machine Operator [employer] Note From Lenny Lynne: Patient conscious alert [...] tenderness. Good CSM negative swelling or discoloration. [facility] advises he will prescribe gabapentin to patient? s local pharmacy and orders Toradol 30 mg IM. Administered as noted red flags, and patient education discussed patient encouraged to follow up with PCP .................. .................. .................. .................. .................. .................. .................. ............... Disposition: Fulfilled NIKKI LACKEY MD [address] [facility],[address], [place], [address], [employer] 03/03/2024 16:20:16 03/12/2024 text/html HPI: Patient with history of Lumbar Radiculopathy. Went to ED but is unable to wait as she is having significant pain. called in Flexeril earlier today but has not started this medication yet. .................. .................. .................. .................. .................. .................. .................. ............... [facility] Nurse Triage Notes (Kelly Mccarthy): Comments: Reviewed no further info needed. [facility] on [facility] for similar symptoms Efrem Romero MD [address] [place] [address],[address], [place], [address], [facility] 03/12/2024 18:51:40 OBGyn Episode No OBEpisode recorded.
[2024-10-14 13:43] LABS: Anion Gap 13 (12-20); Blood Urea Nitrogen 20 mg/dL (9-16); Carbon Dioxide 26 mmol/L (22-29); Chloride 107 mmol/L (96-108); Estimated Glomerular Filt Rate 55; Glucose Random 101 mg/dL (60-115); Sodium 142 mmol/L (135-145)
[2024-10-17 16:24] LABS: TS Negative Control Passed; TS Panel A 0; TS Panel B 0; TS Positive Control Passed; TSpotTB Negative (Negative)
== END 2024-10-14 12:00 | disposition home or self-care (01) ==
LOC: HO.HHCL 11:59
PROVIDERS: Internal Medicine; Visit Provider Nurse Practitioner Family
DX: I10 Essential (primary) hypertension (principal)
CPT/HCPCS: 36415; 80048; 86481

== ENCOUNTER 2024-11-04 14:02 | Outpatient (REF) | payer OTHER, SELFPAY ==
--- NOTE | 2024-11-04 14:05 | PFT_ITS ---
Flows: FEV1: 85 % of predicted at 1.98 L FVC: 86 % of predicted at 2.58 L FEV1/FVC: 77 % Bronchodilator response: Absent Volumes: Total lung capacity: 79 % of predicted at 4.09 L Residual volume: 76 % of predicted at 1.51 L Slow vital capacity: 81 % of predicted at 2.58 L Expiratory reserve volume: 21 % of predicted at 0.17 L Diffusion capacity: Normal Impression: Mild restrictive ventilatory defect with no bronchodilator response. Decreased expiratory reserve volume suggests extrathoracic restriction likely secondary to abdominal obesity. MTDD
== END 2024-11-04 14:03 | disposition home or self-care (01) ==
LOC: HO.RESP 14:02
PROVIDERS: PCP Internal Medicine; Visit Provider Internal Medicine Pulmonary Disease
DX: J44.9 Chronic obstructive pulmonary disease, unspecified (principal)
CPT/HCPCS: 94010; 94640; 94727; 94729

== ENCOUNTER → 2024-11-04 14:05 | Outpatient (BNV) | payer OTHER, SELFPAY | PROVIDERS: PCP Internal Medicine; Visit Provider Internal Medicine Pulmonary Disease | DX: J44.9 Chronic obstructive pulmonary disease, unspecified (principal) | CPT/HCPCS: 94060; 94727; 94729 ==

== ENCOUNTER 2024-11-10 12:47 | Outpatient (REF) | payer OTHER, SELFPAY ==
--- NOTE | ~2024-11-10 | CT_ITS ---
CLINICAL HISTORY: F17.210 - Nicotine dependence, cigarettes, uncomplicated CT lung cancer screening (LDCT) Comparison: None Technique: Axial CT images of the chest using low-dose technique. Referring provider counseled the patient on shared decision-making for LDCT screening. Additional counseling was provided on smoking cessation. Effective radiation dose total: DLP 57.4 mGycm, CTDIvol 2 mGy. Findings: Lung screening specific: 3 mm nodule along the minor fissure, within the right middle lobe on axial 212. Incidental pulmonary findings: Mild airway thickening and subpleural reticulation. Non pulmonary incidental findings: Coronary artery calcifications: Mild Limited upper abdomen: Unremarkable Other: None Impression: LungRADS 2 - Benign Appearance: Continue annual screening with low dose Chest CT in 12 months. ##L2# Category 1: Normal; continue annual screening Category 2: Benign appearance or behavior, continue annual screening Category 3: Probably benign, [address] recommended Category 4A: Suspicious, [address] recommended; may consider PET/CT Category 4B: Suspicious, Additional diagnostics and/or tissue sampling recommended Category 4X: Suspicious, Additional diagnostics and/or tissue sampling recommended Category 0: Recalls (incomplete screen due to Incomplete coverage, Noise, Respiratory motion, Expiration, Obscured by acute abnormality) This document has been electronically signed by: Danis Chinchilla MD on 11/11/2024 09:55:45
== END 2024-11-10 12:48 | disposition home or self-care (01) ==
LOC: HO.CT 12:47
PROVIDERS: PCP Internal Medicine; Visit Provider Internal Medicine Pulmonary Disease
DX: Z12.2 Encounter for screening for malignant neoplasm of respiratory organs (principal); F17.210 Nicotine dependence, cigarettes, uncomplicated
CPT/HCPCS: 71271

== ENCOUNTER → 2024-11-10 12:49 | Outpatient (BNV) | payer OTHER, SELFPAY | PROVIDERS: PCP Internal Medicine; Visit Provider Radiology Vascular & Interventional Radiology | DX: F17.210 Nicotine dependence, cigarettes, uncomplicated (principal) | CPT/HCPCS: 71271 ==

== ENCOUNTER 2024-11-19 10:04 | Outpatient (REF) | payer OTHER, SELFPAY ==
--- OUTSIDE RECORDS SUMMARY | 2024-11-19 11:11 | XMS_ITS | Data Portability ---
Author Organization [employer] [employer] Address [address] [place] [address] Care Team Providers Care Buttonhole Marker Name Role Phone HIM CCA OTHER Assessment Encounter Date Assessment Date Assessment LastModified by Organization Details LastModified Time 02/13/2024 02/13/2024 I provided real -time medical direction via phone for this encounter, and was available for additional phone based assistance as needed. I have reviewed and agree with the Assessment and Plan as documented by the Expediter Service Order. We discussed the diagnostic uncertainty of home visits and the risk associated with this.. The patient given the opportunity to ask questions via [place] language phone complex care nurse. Advised has mutliple complicated very serious complaints [...] agreed to be transported by EMS to [facility]. Report called to their ER by myself. [email or web address] Not available 02/14/2024 21:45:27 02/17/2024 02/17/2024 As noted, we umu curtis called to see this patient regarding concerns of chest pain x 5-6d, right hip pain radiating to leg x 3d and patient requesting re-evaluation 68 yo F with pmhx notable htn, dm, seen on 02/13/24 with [facility] visit and also seen in [facility] ED with 5-6d of intermittent chest [...] water. No abd pain She went to [facility] yesterday and had labwork done (results unknown). [facility] visit on 02/12 with EKG (no ischemic changes), POC BMP and H/H, udip (neg) Evaluation in the field was performed by my product development scientist colleague, as noted above, I provided real-time [...] moment but is agreeable to go to [facility] ED at 4p when STOCK SHIPPER is due to arrive to look after her mother 2. Right low back/hip pain, lumbar radicular sxs in ddx, lower clinical suspicion for bony issue Patient is agreeable to go to [facility] ED at 4p when STOCK SHIPPER arrives for her mom and may benefit from xrays 3. HTN, h/o essential htn but more elevated SBP. Had Cr 1.2 on labs from 02/12. No new cardiac, resp or neuro sxs since 02/12. Will need additional labs when she goes to ED later today Plan: EKG to rule out any STEMI while awaiting arrival of STOCK SHIPPER for her to go to [facility] ED EKG w/o acute changes c/w prior from 02/12 I did discuss risks of not getting seen right away Primary care, consider whether there is any additional services to help with care of patient's mom at home. Strongly advised patient to go to ED as soon as STOCK SHIPPER arrives at 4pm today, but this has been a barrier in her going to the ED for her 5-6d of cp, sob Disposition: We discussed the situation and I recommended referral to the emergency department. This was based on stuttering chest pain and sob. Patient will be going to [facility] ED once STOCK SHIPPER arrives to look after her mom at [...] to ambulate. [facility] Pt seen at ER 2 weeks ago but pt unable to stay for admission. Evaluation in the field was performed by my product development scientist colleague, as noted above, I provided real-time [...] 2023 024 [email or web address] Main - [facility], [address] [place] [address], [address], 13:14:48 BMP, serum or plasma 2023 024 [email or web address] 0 [facility] [address] [place] [address], [address], 13:14:23 Referral None recorded. Procedures None recorded. Surgeries None recorded. Imaging electrocard iogram 2023 024 [email or web address] [facility] [address] [place] [address], [address], 13:06:57 [facility]card [facility] [address] [place] [address], [address], 4 05:00:48 Medication Orders gabapentin [address] [id number], [address] [place], [address], 15:59:23 ketorolac 30 mg/mL injection solution 2023 024 [email or web address] [id number], [address] [place], [address], 15:59:19 Patient TargetsNo targets recorded. Patient InstructionsNo instructions recorded. Reason for Referral None Reported. Results Created Date Observation Date Name Description Value Unit Range Abnormal Flag Note LastModifiedBy Organization Detail LastModifiedTime 02/13/2002/13/2024 BMP, serum or plasm a BUN 21 Not Available Main - [facility] [address], [address], 02/13/2024 12:49:16 02/13/20 24 02/13/2024 BMP, serum or plasm a Ca I ca 1.3 Not Available Main - [address], [address], 02/13/2024 12:49:16 02/13/20 24 02/13/2024 BMP, serum or plasm a CI- 101 Not Available Main - [facility] [address], [address], 02/13/2024 12:49:16 02/13/20 24 02/13/2024 BMP, serum or plasm a CRE 1.2 Not Available Main - [facility] [address], [address], 02/13/2024 12:49:16 02/13/20 24 02/13/2024 BMP, serum or plasm a GLU 101 Not Available Main - [facility] [address], [address], 02/13/2024 12:49:16 02/13/20 24 02/13/2024 BMP, serum or plasm a K+ 4 Not Available Main - [facility] [address], [address], 02/13/2024 12:49:16 02/13/20 24 02/13/2024 BMP, serum or plasm a Na+ 139 Not Available Main - Ins sharon [address] [place] [address], [address], 02/13/2024 12:49:16 02/13/20 24 02/13/2024 BMP, serum or plasm a tCO2 26 Not Available Main - [facility] [address], [address], 02/13/2024 12:49:16 02/13/20 24 02/13/2024 urina lysis , dipst ick Leukocytes Negati ve Not Available Main - [facility] [address] [place] [address], [address], 02/13/2024 12:48:07 02/13/20 24 02/13/2024 urina lysis , dipst ick Nitrite negati ve Not Available Main - [facility] [address] [place] [address], [address], 02/13/2024 12:48:07 02/13/20 24 02/13/2024 urina lysis , dipst ick Urobilinogen Negati ve Not Available Main - [facility] [address] [place] [address], [address], 02/13/2024 12:48:07 02/13/20 24 02/13/2024 urina lysis , dipst ick Protein Negati ve Not Available Main - [facility] [address] [place] [address], [address], 02/13/2024 12:48:07 02/13/20 24 02/13/2024 urina lysis , dipst ick pH 5 Not Available Main - [facility] [address], [address], 02/13/2024 12:48:07 02/13/20 24 02/13/2024 urina lysis , dipst ick Blood Negati ve Not Available Main - [facility] [address] [place] [address], [address], 02/13/2024 12:48:07 02/13/20 24 02/13/2024 urina lysis , dipst ick Specific [place] 1.020 Not Available Main - [facility] [address] [place] [address], [address] [place] [address], 02/13/2024 12:48:07 02/13/20 24 02/13/2024 urina lysis , dipst ick Ketone Negati ve Not Available Main - [facility] [address] [place] [address], [address] [place] [address], 02/13/2024 12:48:07 02/13/20 24 02/13/2024 urina lysis , dipst ick Bilirubin Negati ve Not Available Main - [facility] [address] [place] [address], [address] [place] [address], 02/13/2024 12:48:07 02/13/20 24 02/13/2024 urina lysis , dipst ick Glucose Negati ve Not Available Main - [facility] [address] [place] [address], [address] [place] [address], 02/13/2024 12:48:07 02/13/20 24 02/13/2024 urina lysis , dipst ick Appearance clear Not Available [facility] [address] [place] [address], [address] [place] [address], 02/13/2024 12:48:07 02/13/20 24 02/13/2024 urina lysis , dipst ick Color concen trated Not Available Main - [facility] [address] [place] [address], [address], 02/13/2024 12:48:07 02/13/20 24 02/13/2024 elect rocar diogr am No observ ation record ed. [email or web address] Main - [facility] [address] [place] [address], [address], 02/13/2024 13:06:41 02/17/20 24 02/18/2024 elect rocar diogr am No observ ation record ed. [email or web address] Main - [facility] [address] [place] [address], [address], 02/18/2024 09:49:06 Result Notes None recorded. Procedures Surgical History None recorded. Imaging Results Imaging Date Name Status LastModified by Organization Details LastModified Time 02/13/2024 electrocardiogram completed [email or web address] [address], [address], 02/13/2024 13:06:41 02/18/2024 electrocardiogram completed [email or web address] [address], [address], 02/18/2024 09:49:06 Procedure Notes None recorded. Medical Equipment None Reported. Allergies Allergen ID Allergen Name Allergen Category Reaction Reaction Severity Criticality Documentation Date Start Date Code Code System Note Provider Name and Address Organization Details Recorded Time 4949 lisinopri l medicatio n Not available Not available Not available 02/14/2024 79720 RxNorm Amy Davenport MD [address] [place] [address],[address], [place], [address] [place] [address] [employer] 21:25:02 Medications Name Sig Start Date Stop [...] Details Last Updated DateTime 4 165.1 cm 404341. 16 g 18 /min 98.3 [degF] 70 /min 99 % 99 % 133 mm[Hg] 71 mm[Hg] Not Available [employer] - production 4 14:39:06 Date Recorded Oxygen saturation Oxygen saturation in Arterial blood by Pulse oximetry Heart rate Respiratory rate Body temperature Systolic blood pressure Diastolic blood pressure Provider Name and Address Organization Details Last Updated DateTime 4 99 % 99 % 93 /min 18 /min 98.9 [degF] 202 mm[Hg] 92 mm[Hg] Not Available [employer] 4 14:03:30 Date Recorded Body height Oxygen saturation Oxygen saturation in Arterial blood by Pulse oximetry Body temperature Body weight Respiratory rate Heart rate Systolic blood pressure Diastolic blood pressure Provider Name and Address Organization Details Last Updated DateTime 4 162.56 cm 98 % 98 % 98.4 [degF] 700935 g 18 /min 90 /min 162 mm[Hg] 88 mm[Hg] Not Available [employer] - 15:40:57 Social History None recorded. Functional Status None recorded. Mental Status None recorded. Family History Nothing Reported. Medical History No medical history recorded. Gynecological HistoryNo gynecological history recorded. Obstetrics History GPAL:G 0 P 0 0 0 0 Past Encounters Encounter ID Performer Location Encounter Start Date Encounter Closed Date Diagnosis/Indication Diagnosis SNOMED-CT Code Diagnosis ICD10 Code Diagnosis Note [id number] Amy Davenport MD [facility] - [facility] [address] [place] [phone] 02/13/2024 12:43:15 02/15/2024 14:51:39 Chest pain 37860113 R07.9 advised ekg not completely normal cannot tell if acute needs further cardiac w/u than can be accomplish ed at home. Urinary symptoms 6535016 08 R39.9 Headache 48245095 R51.9 Not hypertensi ve, hx migraines but has new dizziness and neck pain needs CT of the brain to r/o bleed Lumbago with sciatica 20 1828038 M54.40 with new incontinen ce of bladder/rick [place] [id number] NIKKI LACKEY MD Main - [facility] [address] [place] [id number] 02/17/2024 14:01:51 02/17/2024 15:25:01 Essential hypertension 22905325 I10 Chest pain 81117204 R07. 9 Hip pain 23070311 M25.55 9 [id number] NIKKI LACKEY MD Main - [facility] [address] [place] [id number] 03/03/2024 15:33:59 03/03/2024 16:26:08 Lumbago with sciatica 911171156 M54.41 [id number] Efrem Romero MD Main - [facility] [address] [place] [id number] 03/12/2024 18:46:33 03/13/2024 12:07:48 Mechanical low back pain 518336620 M54.50 This 68-year-ol d female has had persistent lower back pain with negative imaging. Her PCP prescribed Neurontin, but she hasn't been taking it. She is requesting a Toradol injection, as that has worked in the past. I ordered Toradol 30 mg IM. I explained that she needs to take her prescribed medication s and that Toradol cannot be a frequent option. The patient agreed with this plan. Health Concerns Section Related Observation LastModified by Organization Detai ls LastModified Time None Recorded Concern Status LastModified by Organization Details LastModified Time None Recorded Advance Directives Directive None Recorded Payers Encounter Date Sequence Insurance Name Policy Number Policy Giron Covered Member ID Giron Member ID Guarantor Name 02/13/2024 1 [facility] - DOS ON OR AFTER 2023 - MEDICARE ADVANTAGE [place] (MEDICARE REPLACEMENT/ADV ANTAGE - PPO) Sharita Montez [id number] Sharita Montez 02/17/2024 1 [facility] [employer] - DOS ON OR AFTER 2023 - DUAL ELIGIBLE - DETENTION OPTIONS AND ONE CARE (MEDICARE REPLACEMENT/ADV ANTAGE - HMO) Sharita Montez [id number] Sharita Montez 03/03/2024 1 [facility] [employer] - DOS ON OR AFTER 2023 - DUAL ELIGIBLE - DETENTION OPTIONS AND ONE CARE (MEDICARE REPLACEMENT/ADV ANTAGE - HMO) Sharita Montez [id number] Sharita Montez 03/12/2024 1 [facility] - DOS ON OR AFTER 2023 - DUAL ELIGIBLE - DETENTION OPTIONS AND ONE CARE (MEDICARE REPLACEMENT/ADV ANTAGE - HMO) Sharita Montez [id number] Sharita Montez Notes Date Note Type Note [...] .................. .................. .................. .................. .................. .................. .... Expediter Service Order Note From Carlota El: Sent to a call for a pt complaining of right hip/leg pain. [facility] arrives on scene, pt is alert and oriented, airway is patent. Pt has a steady gait. Pt speaks [place] and complex care nurse line used during visit. Pt complains of [...] Urine sample obtained; urine dip: uploaded to [employer]; [facility] consulted and order BMP and 12 lead ECG. IV access and venous blood draw performed; Istat Chem8+ results and 12 lead ECG: uploaded to [employer]. While speaking with [facility] via complex care nurse pt states she has had bad headaches in the past, but this one is different because she is having neck pain as well. [facility] advises pt to be transported to ED. Pt initially states she can't go to ED because she needs to take care of her mother, but calls contacts to have someone take care of pt's mother while she goes to ED. Pt agrees to transport and requests transport to [facility] ED. [facility] calls report to [facility]. 911 called and pt care is transferred to [facility]. Pt is transported to [facility] ED via [facility]. .................. .................. .................. .................. .................. .................. .................. ............... Disposition: Fulfilled Amy Davenport MD [address] [facility],[address], [place], [address], [employer] 02/14/2024 21:47:12 02/17/2024 text/html CRC Nurse Triage [...] PRN. Pt advised of disposition, agrees to [facility] vs [facility] up with [facility] Patient Reports: Shortness of Breath Denies: Unable to speak in full sentences without distress Chief Complaints: UTI/Pyelonephritis , Pain PMH: Hypertension, Diabetes Allergies: Unknown Comments: Spoke w/ member with road traffic controller [place], member c/o chest pain, ongoing always there it does get worse at times and then she feels SOB, chest feels sore but unable to state if the pain is reproducible, hx of this chest pain and c/o same symptom on 02/12- went to [facility], left because she did not have anyone to watch her mom who is 89 and has Dementia- the member is waiting on the [facility] results, the [facility] wanted to admit her for it seems like a possible VT or r/o VT but pt refused. Advised member that she should go to the ED and be evaluated further, she said she can't leave her mother and the STOCK SHIPPER can't watch her either, she has no family. Advised the [facility] may suggest going to the ED anyway but I will process referral . Tai BAILEY .................. .................. .................. .................. .................. .................. .................. ............... Expediter Service Order Note From Krzysztof Cullen: Dispatched to the call address for the female with pain. Pt states she has had chest pain on and off for 5-6 days now and has right sided hip pain that radiates down to her knee. Pt states she was seen by [facility] on the and was sent to the [...] would go to the ED when the STOCK SHIPPER got there to care for her mother (approx 1600). Red flags discussed. ALL times are apprx. .................. .................. .................. .................. .................. .................. .................. ............... Disposition: Fulfilled NIKKI LACKEY MD [address] [facility],[address], [place], [address], [employer] 02/17/2024 14:48:41 03/03/2024 text/html HPI: Call returned to [facility] to triage below. Reports having back pain and right leg pain . Pt also endorses numbness on foot x 2 week. Pt using Motrin and aleve PRN for pain. No urinary sx. Pt seen at ER 2 weeks ago but pt unable to stay for admission. Per pt unable to come into office. Agrees to [employer] for evaluation. .................. .................. .................. .................. .................. .................. .................. ............... CRC Nurse Triage Notes (Ernestina Jackman): Comments: HPI reviewed. No further information required to process visit. .................. .................. .................. .................. .................. .................. .................. ............... Expediter Service Order Note From Lenny Lynne: Patient conscious alert [...] Good CSM negative swelling or discoloration. [facility] advises he will prescribe gabapentin to patient? s local pharmacy and orders Toradol 30 mg IM. Administered as noted red flags, and patient education discussed patient encouraged to follow up with PCP .................. .................. .................. .................. .................. .................. .................. ............... Disposition: Fulfilled NIKKI LACKEY MD [address] [facility],[address], [place], [address], [employer] 03/03/2024 16:20:16 03/12/2024 text/html HPI: Patient with history of Lumbar Radiculopathy. Went to ED but is unable to wait as she is having significant pain. called in Flexeril earlier today but has not started this medication yet. .................. .................. .................. .................. .................. .................. .................. ............... CRC Nurse Triage Notes (Kelly Mccarthy): Comments: Reviewed no further info needed. Hpatterson RNnoted [facility]ST[facility] visit on 03/03 for similar symptoms Efrem Romero MD [address] [facility],[address], [place], [address], [employer] 03/12/2024 18:51:40 OBGyn Episode No OBEpisode recorded.
[2024-11-19 11:59] LABS: Amphetamine Screen Urine Not Detected (Not Detect); Barbiturates, Urine Not Detected (Not Detect); Benzodiazepines Screen Urine POSITIVE (Not Detect); Cocaine Screen Urine Not Detected (Not Detect); Opiate Screen Urine Not Detected (Not Detect); Phencyclidine Screen Urine Not Detected (Not Detect)
[2024-11-19 12:00] LABS: Buprenorphine Scr Not Detected (Not Detect); Cannabinoid Screen Urine POSITIVE (Not Detect); Fentanyl, urine Not Detected (Not Detect); Methadone Screen, Urine Not Detected (Not Detect); Oxycodone Screen Urine Positive (Not Detect)
[2024-11-19 13:52] LABS: Alanine Aminotransferase 41 U/L (0-31); Albumin Level 4.1 g/dL (3.5-5.0); Anion Gap 14 (12-20); Aspartate Amino Transferase 23 U/L (5-31); Bilirubin Direct < 0.2 mg/dL (0.0-0.5); Bilirubin Total 0.2 mg/dL (0.0-1.0); Blood Urea Nitrogen 15 mg/dL (9-16); Calcium 9.8 mg/dL (8.4-10.2); Carbon Dioxide 26 mmol/L (22-29); Chloride 106 mmol/L (96-108); Cholesterol 200 mg/dL (<200); Estimated Glomerular Filt Rate 53; Glucose Random 122 mg/dL (60-115); HDL Cholesterol 37 mg/dL (>40); LDL Cholesterol Calculated 112 mg/dL (<100); Potassium 3.7 mmol/L (3.3-5.1); Sodium 142 mmol/L (135-145); Total Protein 7.5 g/dL (6.5-8.0); Triglycerides 257 mg/dL (<150)
[2024-11-19 14:18] LABS: Alkaline Phosphatase 127 U/L (39-117)
== END 2024-11-19 10:05 | disposition home or self-care (01) ==
LOC: HO.HHCL 10:04
PROVIDERS: PCP Registered Nurse; Visit Provider Internal Medicine
DX: I10 Essential (primary) hypertension (principal); F41.9 Anxiety disorder, unspecified; E78.2 Mixed hyperlipidemia
CPT/HCPCS: 36415; 80048; 80061; 80076; 80307

== ENCOUNTER 2024-11-26 14:40 | Outpatient (AMB) | payer OTHER, SELFPAY ==
--- OUTSIDE RECORDS SUMMARY | 2024-11-26 14:42 | XMS_ITS | Data Portability ---
Author Organization [facility] Address [address] [place] [address] Care Team Providers Care Radarman Name Role Phone HIM CCA OTHER Assessment Encounter Date Assessment Date Assessment LastModified by Organization Details LastModified Time 02/13/2024 02/13/2024 I provided real -time medical direction via phone for this encounter, and was available for additional phone based assistance as needed. I have reviewed and agree with the Assessment and Plan as documented by the Double Reamer Operator. We discussed the diagnostic uncertainty of home visits and the risk associated with this.. The patient given the opportunity to ask questions via Tristanian language phone residential child care counselor. Advised has mutliple complicated very serious complaints [...] agreed to be transported by EMS to [facility]. Report called to their ER by myself. [email or web address] Not available 02/14/2024 21:45:27 02/17/2024 02/17/2024 As noted, we umu curtis called to see this patient regarding concerns of chest pain x 5-6d, right hip pain radiating to leg x 3d and patient requesting re-evaluation 68 yo F with pmhx notable htn, dm, seen on 02/13/24 with inst[facility] visit and also seen in [facility] ED with 5-6d of intermittent chest [...] water. No abd pain She went to [facility] yesterday and had labwork done (results unknown). [facility] visit on 02/12 with EKG (no ischemic changes), POC BMP and H/H, udip (neg) Evaluation in the field was performed by my mimeographer colleague, as noted above, I provided real-time [...] moment but is agreeable to go to [facility] ED at 4p when [employer] is due to arrive to look after her mother 2. Right low back/hip pain, lumbar radicular sxs in ddx, lower clinical suspicion for bony issue Patient is agreeable to go to [facility] ED at 4p when [employer] arrives for her mom and may benefit from xrays 3. HTN, h/o essential htn but more elevated SBP. Had Cr 1.2 on labs from 02/12. No new cardiac, resp or neuro sxs since 02/12. Will need additional labs when she goes to ED later today Plan: EKG to rule out any STEMI while awaiting arrival of [employer] for her to go to [facility] ED EKG w/o acute changes c/w prior from 02/12 I did discuss risks of not getting seen right away Primary care, consider whether there is any additional services to help with care of patient's mom at home. Strongly advised patient to go to ED as soon as [employer] arrives at 4pm today, but this has been a barrier in her going to the ED for her 5-6d of cp, sob Disposition: We discussed the situation and I recommended referral to the emergency department. This was based on stuttering chest pain and sob. Patient will be going to [facility] ED once [employer] arrives to look after her mom at [...] in the field was performed by my mimeographer colleague, as noted above, I provided real-time [...] 2023 024 [email or web address] 0 Main - [facility], [address] [place] [address], [id number], 13:14:48 BMP, serum or plasma 2023 024 [email or web address] 0 [facility], [address] [place] [address], [address], 13:14:23 Referral None recorded. Procedures None recorded. Surgeries None recorded. Imaging electrocard iogram 2023 024 [email or web address] 0 [facility], [address] [place] [address], [address], 13:06:57 [facility] iogram 20[facility] [address] [place] [address], [address], 4 05:00:48 Medication Orders gabapentin 300 mg capsule 2023 024 [id number], [address] [place], [address], 15:59:23 ketorolac 30 mg/mL injection solution 2023 024 [email or web address] [id number], [address] [place], [address], 15:59:19 Patient TargetsNo targets recorded. Patient InstructionsNo instructions recorded. Reason for Referral None Reported. Results Created Date Observation Date Name Description Value Unit Range Abnormal Flag Note LastModifiedBy Organization Detail LastModifiedTime 02/13/2002/13/2024 BMP, serum or plasm a BUN 21 Not Available Main - [facility] [address], [address], 02/13/2024 12:49:16 02/13/20 24 02/13/2024 BMP, serum or plasm a Ca I ca 1.3 Not Available Main - [address], [address], 02/13/2024 12:49:16 02/13/20 24 02/13/2024 BMP, serum or plasm a CI- 101 Not Available Main - [facility] [address], [address], 02/13/2024 12:49:16 02/13/20 24 02/13/2024 BMP, serum or plasm a CRE 1.2 Not Available Main - [facility] [address], [address], 02/13/2024 12:49:16 02/13/20 24 02/13/2024 BMP, serum or plasm a GLU 101 Not Available Main - [facility] [address], [address], 02/13/2024 12:49:16 02/13/20 24 02/13/2024 BMP, serum or plasm a K+ 4 Not Available Main - [facility] [address], [address], 02/13/2024 12:49:16 02/13/20 24 02/13/2024 BMP, serum or plasm a Na+ 139 Not Available Main - Ins sharon [address] [place] [address], [address], 02/13/2024 12:49:16 02/13/20 24 02/13/2024 BMP, serum or plasm a tCO2 26 Not Available Main - [facility] [address], [address], 02/13/2024 12:49:16 02/13/20 24 02/13/2024 urina lysis , dipst ick Leukocytes Negati ve Not Available Main - Inst [facility] [address] [place] [address], [address], 02/13/2024 12:48:07 02/13/20 24 02/13/2024 urina lysis , dipst ick Nitrite negati ve Not Available Main - [facility] [address] [place] [address], [address], 02/13/2024 12:48:07 02/13/20 24 02/13/2024 urina lysis , dipst ick Urobilinogen Negati ve Not Available Main - [facility] [address] [place] [address], [address], 02/13/2024 12:48:07 02/13/20 24 02/13/2024 urina lysis , dipst ick Protein Negati ve Not Available Main - [facility] [address] [place] [address], [address], 02/13/2024 12:48:07 02/13/20 24 02/13/2024 urina lysis , dipst ick pH 5 Not Available Main - [facility] [address], [address], 02/13/2024 12:48:07 02/13/20 24 02/13/2024 urina lysis , dipst ick Blood Negati ve Not Available Main - Inst [facility] [address] [place] [address], [address], 02/13/2024 12:48:07 02/13/20 24 02/13/2024 urina lysis , dipst ick Specific [place] 1.020 Not Available Main - [facility] [address] [place] [address], [address] [place] [address], 02/13/2024 12:48:07 02/13/20 24 02/13/2024 urina lysis , dipst ick Ketone Negati ve Not Available Main - Inst [facility] [address] [place] [address], [address] [place] [address], 02/13/2024 12:48:07 02/13/20 24 02/13/2024 urina lysis , dipst ick Bilirubin Negati ve Not Available [facility] [address] [place] [address], [address] [place] [address], 02/13/2024 12:48:07 02/13/20 24 02/13/2024 urina lysis , dipst ick Glucose Negati ve Not Available [facility] [address] [place] [address], [address] [place] [address], 02/13/2024 12:48:07 02/13/20 24 02/13/2024 urina lysis , dipst ick Appearance clear Not Available [facility] [address] [place] [address], [address] [place] [address], 02/13/2024 12:48:07 02/13/20 24 02/13/2024 urina lysis , dipst ick Color concen trated Not Available Main - [facility] [address] [place] [address], [address], 02/13/2024 12:48:07 02/13/20 24 02/13/2024 elect rocar diogr am No observ ation record ed. [email or web address] Main - [facility] [address] [place] [address], [address], 02/13/2024 13:06:41 02/17/20 24 02/18/2024 elect rocar diogr am No observ ation record ed. [email or web address] Main - [facility] [address] [place] [address], [address], 02/18/2024 09:49:06 Result Notes None recorded. Procedures Surgical History None recorded. Imaging Results Imaging Date Name Status LastModified by Organization Details LastModified Time 02/13/2024 electrocardiogram completed [address], [address], 02/13/2024 13:06:41 02/18/2024 electrocardiogram completed [email or web address] [address], [address], 02/18/2024 09:49:06 Procedure Notes None recorded. Medical Equipment None Reported. Allergies Allergen ID Allergen Name Allergen Category Reaction Reaction Severity Criticality Documentation Date Start Date Code Code System Note Provider Name and Address Organization Details Recorded Time 4940 lisinopri l medicatio n Not available Not available Not available 02/14/2024 73707 RxNorm Amy Davenport MD [address] [place] [address],[address], [place], [address] [place] [address] [employer] 21:25:02 Medications Name Sig Start Date Stop [...] Details Last Updated DateTime 4 165.1 cm 477751. 16 g 18 /min 98.3 [degF] 70 /min 99 % 99 % 133 mm[Hg] 71 mm[Hg] Not Available [employer] - production 4 14:39:06 Date Recorded Oxygen saturation Oxygen saturation in Arterial blood by Pulse oximetry Heart rate Respiratory rate Body temperature Systolic blood pressure Diastolic blood pressure Provider Name and Address Organization Details Last Updated DateTime 99 % 99 % 93 /min 18 /min 98.9 [degF] 202 mm[Hg] 92 mm[Hg] Not Available [employer] - production 14:03:30 Date Recorded Body height Body temperature Respiratory rate Heart rate Systolic blood pressure Diastolic blood pressure Provider Name and Address Organization Details Last Updated DateTime 162.56 cm 98.4 [degF] 18 /min 90 /min 162 mm[Hg] 88 mm[Hg] Not Available [employer] 15:40:57 Date Recorded Oxygen saturation Oxygen saturation in Arterial blood by Pulse oximetry Body weight Provider Name and Address Organization Details Last Updated DateTime 03/03/2024 98 % 98 % 692567 g Not Available [employer] 03/03/2024 15:40:56 Social History None recorded. Functional Status None recorded. Mental Status None recorded. Family History Nothing Reported. Medical History No medical history recorded. Gynecological HistoryNo gynecological history recorded. Obstetrics History GPAL:G 0 P 0 0 0 0 Past Encounters Encounter ID Performer Location Encounter Start Date Encounter Closed Date Diagnosis/Indication Diagnosis SNOMED-CT Code Diagnosis ICD10 Code Diagnosis Note [id number] Amy Davenport MD Main - [facility] [address] [place] [phone] 02/13/2024 12:43:15 02/15/2024 14:51:39 Chest pain 03659335 R07.9 advised ekg not completely normal cannot tell if acute needs further cardiac w/u than can be accomplish ed at home. Urinary symptoms 5308504 08 R39.9 Headache 85621801 R51.9 Not hypertensi ve, hx migraines but has new dizziness and neck pain needs CT of the brain to r/o bleed Lumbago with sciatica 20 2723561 M54.40 with new incontinen ce of bladder/rick wel [place] [id number] NIKKI LACKEY MD Main - [facility] [address] [place] [phone] 02/17/2024 14:01:51 02/17/2024 15:25:01 Essential hypertension 48878204 I10 Chest pain 11245356 R07. 9 Hip pain 53388434 M25.55 9 [id number] NIKKI LACKEY MD Main - [facility] [address] [place] [phone] 03/03/2024 15:33:59 03/03/2024 16:26:08 Lumbago with sciatica 107128309 M54.41 [id number] Efrem Romero MD Main - [facility] [address] [place] [phone] 03/12/2024 18:46:33 03/13/2024 12:07:48 Mechanical low back pain 024629271 M54.50 This 68-year-ol d female has had [...] Giron Member ID Guarantor Name 02/13/2024 1 [facility] - DOS ON OR AFTER 2023 - MEDICARE ADVANTAGE [place] (MEDICARE REPLACEMENT/ADV ANTAGE - PPO) Sharita Montez [id number] Sharita Montez 02/17/2024 1 [facility] - DOS ON OR AFTER 2023 - DUAL ELIGIBLE - LONG TERM OPTIONS AND ONE CARE (MEDICARE REPLACEMENT/ADV ANTAGE - HMO) Sharita Montez [id number] Sharita Montez 03/03/2024 1 [facility] ALL[facility] - DOS ON OR AFTER 2023 - DUAL ELIGIBLE - LONG TERM OPTIONS AND ONE CARE (MEDICARE REPLACEMENT/ADV ANTAGE - HMO) Sharita Montez [id number] Sharita Montez 03/12/2024 1 [facility] - DOS ON OR AFTER 2023 - DUAL ELIGIBLE - LONG TERM OPTIONS AND ONE CARE (MEDICARE REPLACEMENT/ADV ANTAGE - HMO) Sharita Montez [id number] Sharita Montez Notes Date Note Type Note [...] advised of disposition, agrees to [facility] vs [facility] for exam. [facility] referral placed. Pt to [...] .................. .................. .................. .................. .................. .................. .... Double Reamer Operator Note From Carlota El: Sent to a call for a pt complaining of right hip/leg pain. SC8 arrives on scene, pt is alert and oriented, airway is patent. Pt has a steady gait. Pt speaks Tristanian and residential child care counselor line used during visit. Pt complains of [...] Urine sample obtained; urine dip: uploaded to [employer]; [facility] consulted and order BMP and 12 lead ECG. IV access and venous blood draw performed; Istat Chem8+ results and 12 lead ECG: uploaded to [employer]. While speaking with [facility] via residential child care counselor pt states she has had bad headaches in the past, but this one is different because she is having neck pain as well. [facility] advises pt to be transported to ED. Pt initially states she can't go to ED because she needs to take care of her mother, but calls contacts to have someone take care of pt's mother while she goes to ED. Pt agrees to transport and requests transport to [facility] ED. [facility] calls report to [facility]. 911 called and pt care is transferred to [facility]. Pt is transported to [facility] ED via [facility]. .................. .................. .................. .................. .................. .................. .................. ............... Disposition: Fulfilled Amy Davenport MD [address] [facility],[address], [place], [address], [facility] [employer] 02/14/2024 21:47:12 02/17/2024 text/html CRC Nurse Triage [...] advised of disposition, agrees to [facility] vs [facility] for exam. [facility] referral placed. Pt to follow up with office pRN per inst[facility] recommendations. Patient Reports: Shortness of Breath Denies: Unable to speak in full sentences without distress Chief Complaints: UTI/Pyelonephritis , Pain PMH: Hypertension, Diabetes Allergies: Unknown Comments: Spoke w/ member with record producer member [place] c/o chest pain, ongoing always there it does get worse at times and then she feels SOB, chest feels sore but unable to state if the pain is reproducible, hx of this chest pain and c/o same symptom on 02/12- went to [facility], left because she did not have anyone to watch her mom who is 89 and has Dementia- the member is waiting on the [facility] results, the [facility] wanted to admit her for it seems like a possible OK or r/o OK but pt refused. Advised member that she should go to the ED and be evaluated further, she said she can't leave her mother and the [employer] can't watch her either, she has no family. Advised the [facility] may suggest going to the ED anyway but I will process referral . Tai BAILEY .................. .................. .................. .................. .................. .................. .................. ............... Double Reamer Operator Note From Krzysztof Cullen: Dispatched to the call address for the female with pain. Pt states she has had chest pain on and off for 5-6 days now and has right sided hip pain that radiates down to her knee. Pt states she was seen by Rafy on the and was sent to the [...] would go to the ED when the [employer] got there to care for her mother (approx 1600). Red flags discussed. ALL times are apprx. .................. .................. .................. .................. .................. .................. .................. ............... Disposition: Fulfilled NIKKI LACKEY MD [address] [facility],[address], [place], [address], [facility] [employer] 02/17/2024 14:48:41 03/03/2024 text/html HPI: Call returned to [facility] to triage below. Reports having back pain and right leg pain . Pt also endorses numbness on foot x 2 week. Pt using Motrin and aleve PRN for pain. No urinary sx. Pt seen at ER 2 weeks ago but pt unable to stay for admission. Per pt unable to come into office. Agrees to [facility] for evaluation. .................. .................. .................. .................. .................. .................. .................. ............... CRC Nurse Triage Notes (Ernestina Jackman): Comments: HPI reviewed. No further information required to process visit. .................. .................. .................. .................. .................. .................. .................. ............... Double Reamer Operator Note From Lenny Lynne: Patient conscious alert [...] tenderness. Good CSM negative swelling or discoloration. [facility] advises he will prescribe gabapentin to patient? s local pharmacy and orders Toradol 30 mg IM. Administered as noted red flags, and patient education discussed patient encouraged to follow up with PCP .................. .................. .................. .................. .................. .................. .................. ............... Disposition: Fulfilled NIKKI LACKEY MD [address] [facility],[address] [facility], [place], [address], [facility] 03/03/2024 16:20:16 03/12/2024 text/html HPI: Patient with history of Lumbar Radiculopathy. Went to ED but is unable to wait as she is having significant pain. called in Flexeril earlier today but has not started this medication yet. .................. .................. .................. .................. .................. .................. .................. ............... CRC Nurse Triage Notes (Kelly Mccarthy): Comments: Reviewed no further info needed. Hpatterson RNnoted INST visit on 03/03 for similar symptoms Efrem Romero MD [address] [facility],[address] [facility], [place], [address], [facility] 03/12/2024 18:51:40 OBGyn Episode No OBEpisode recorded.
--- OUTSIDE RECORDS SUMMARY | 2024-11-26 14:42 | XMS_ITS | Encounter Summary ---
Author Organization [employer] Address [address] [facility] [address] [place] [address] Care Team Providers Care Pattern Hanger Name Role Phone Minerva Barraza Primary Care Provider + Rena Henriquez MD Primary Care Provide r Krystal Joyner PharmD Unavailable [phone] Reason for Visit * Reason Onset Date Comments Med Refill 08/19/2023 Encounter Details Date Type Department Care Team (Late st Contact Info) Description 08/19/2023 Telephone [facility] MEDICINE [address], [place] [phone] Minerva Barraza FNP [address], [place] [phone] Med Refill Social History Tobacco Use Types Packs/Day Years Used Date Smoking Tobacco: Every Day Cigarettes 1 30 Passive Smoke Exposure: Current Smokeless Tobacco: Never Alcohol Use Standard Drinks/Week Comments Not Currently 0 (1 standard drink = 0.6 oz pur e alcohol) Depression Answer Date Recorded Patient Health Questionnaire-9 Score 16 05/19/2023 Housing Stability Answer Date Recorded What is your housing situation today? I have ammypiedad mustafa 08/14/[address] you li ve. Do you have problems with any of the following? None of the above 08/14/2023 Food Insecurity Answer Date Recorded Within the past 12 months, y ou worried that your food would run out before you got money to buy more: Never True 08/14/2023 Within the past 12 months,th e food you bought just didn't last and you didn't have enough money to get more: Never True Transportation Answer Date Recorded In the past 12 months, has l ack of transportation kept you from medical appts, meetings, work or from getting things needed for daily living? No 08/14/2023 Utilities Answer Date Recorded In the past 12 months, has t he electric, gas, oil or water company threatened to shut off services in your home? No 08/14/2023 Depression Answer Date Recorded Patient Health Questionnaire-2 Score 2 05/19/2023 Comments Unknown Sex and Gender Information Value Date Recorded Sex Assigned at Female 08/26/2022 10:35 AM EDT Legal Sex Female 10:35 AM EDT Gender Identity Female 08/26/2022 10:35 AM EDT Sexual Orientation Straight 08/26/2022 10 :35 AM EDT documented as of this encounter Miscellaneous Notes * Telephone Encounter - Jaja Villa LPN - 08/20/2023 8:53 AM EDT Medication pended to PCP. * Telephone Encounter - Jose Bowles - 08/19/2023 4:27 PM EDT Tc from patient requesting a med refill for medication zolpidem (Ambien) [address] Barraza documented in this encounter Plan of Treatment Upcoming Encounters Date Type Department Care Team (Late st Contact Info) Description 12/02/2024 9:30 AM EST Office Visit [facility] ADULT DENTAL [address] [place] [address] Kavitha Graham, DDS [address] [place] [address] 12/21/2024 1:45 PM EST Office Visit [facility] MEDICINE [address] [place] [address] Rena Henriquez MD [address] [place] [address] 01/24/2025 1:30 PM EDT Clinical Support [facility] [address] [place] [address] Matilda Chisholm, LEO documented as of this encounter Visit Diagnoses Not on filedocumented in this encounter Additional Health Concerns Assessment Noted Time PHQ-9 Depression Total Score: 16 05/19/ 023 10:31 AM EDT documented as of this encounter Care Teams Pattern Hanger Relationship Specialty Start Date End Date Minerva Barraza FNP [address] [place] [phone] PCP - General Family Medicine 07/29/22 06/22/24 Rena Henriquez MD [address] [place] [phone] PCP - General Internal Medicine 06/23/24 Krystal Joyner, DamionD [address] [place] [address] Pharmacist Internal Medicine 10/15/24 documented as of this encounter
--- OUTSIDE RECORDS SUMMARY | 2024-11-26 14:42 | XMS_ITS | Encounter Summary ---
Author Organization [employer] Address [address] [facility] 7[address] [place] [address] Care Team Providers Care Field Laboratory Operator Name Role Phone Minerva Barraza Primary Care Provider [phone] Rena Henriquez MD Primary Care Provide r Krystal Joyner PharmD Unavailable [phone] Reason for Visit * Reason Comments Med Refill Encounter Details Date Type Department Care Team (Late st Contact Info) Description 08/30/2023 Refill [facility] [address], [place] [phone] Minerva Barraza FNP [address], [place] [phone] Mild intermittent asthma without complication Social History Tobacco Use Types Packs/Day Years Used Date Smoking Tobacco: Every Day Cigarettes 1 30 Passive Smoke Exposure: Current Smokeless Tobacco: Never Alcohol Use Standard Drinks/Week Comments Not Currently 0 (1 standard drink = 0.6 oz pur e alcohol) Depression Answer Date Recorded Patient Health Questionnaire-9 Score 16 05/19/2023 Housing Stability Answer Date Recorded What is your housing situation today? I have ammy mustafa 08/14/[address] you [...] AM EDT documented as of this encounter Plan of Treatment Upcoming Encounters Date Type Department Care Team (Late st Contact Info) Description 12/02/2024 9:30 AM EST Office Visit [facility] [address] [place] [phone] Kavitha Graham DDS [address] [place] [address] 12/21/2024 1:45 PM EST Office Visit [facility] [address] [place] [address] Rena Henriquez MD [address] [place] [address] 01/24/2025 1:30 PM EDT Clinical Support [facility] [address] [place] [address] Matilda Chisholm RN documented as of this encounter Visit Diagnoses Diagnosis Mild intermittent asthma without complication documented in this encounter Additional Health Concerns Assessment Noted Time PHQ-9 Depression Total Score: 16 023 10:31 AM EDT documented as of this encounter Care Teams Field Laboratory Operator Relationship Specialty Start Date End Date Minerva Barraza FNP [address] [place] [address] PCP - General Family Medicine 07/29/22 06/22/24 Rena Henriquez MD [address] [place] [address] PCP - General Internal Medicine 06/23/24 Krystal Joyner, DamionD [address] [place] [address] Pharmacist Internal Medicine 10/15/24 documented as of this encounter
--- OUTSIDE RECORDS SUMMARY | 2024-11-26 14:42 | XMS_ITS | Clinical Summary ---
Author Organization [facility] Address [address] [place] [address] Phone Care Team Providers Care Data Designer Name Role Phone Stefany Onofre MD Primary Care Provider [phone] Allergies Active Allergy Reactions Criticality Noted Date Comments Amlodipine Palpitations Low 03/29/2021 Lisinopril Palpitations Low 03/29/2021 Medications ALBUTEROL IN Inhale Active albuterol HFA (PROVENTIL HFA;VENTOLIN HFA) 108 (90 Base) MCG/ACT inhaler Inhale 2 puffs every 6 (six) hours if needed for wheezing Active atorvastatin (LIPITOR) 40 MG tablet Take 40 mg by mouth 1 (one) time each day Active Cholecalciferol (Vitamin D3) 50 MCG (2000 UT) tablet Take by mouth Active cyclobenzaprine (FLEXERIL) 10 MG tablet Take 10 mg by mouth 3 (three) times a day if needed for muscle spasms Active Dulaglutide 0.75 MG/0.5ML solution pen-injector Inject under the skin Active fenofibrate (TRICOR) 54 MG tablet Take 54 mg by mouth 1 (one) time each day Active hydroCHLOROthia zide (HYDRODIURIL) 25 MG tablet Take 25 mg by mouth 1 (one) time each day Active insulin glargine (LANTUS) 100 UNIT/ML injection Inject under the skin every night Active metFORMIN (GLUCOPHAGE) 500 MG tablet Take 500 mg by mouth 2 (two) times a day with meals Active montelukast (SINGULAIR) 10 MG tablet Take 10 mg by mouth every night Active naproxen (NAPROSYN) 500 MG tablet Take 500 mg by mouth 2 (two) times a day with meals Active olmesartan (BENICAR) 20 MG tablet Take 20 mg by mouth 1 (one) time each day Active prednisoLONE acetate (PRED FORTE) 1 % ophthalmic suspension 1 drop 4 (four) times a day Active Family History Medical History Relation Comments Diabetes Brother Dementia Mother Hypertension Mother Cancer Sister Relation Status Comments Brother Father Mother Alive Sister Social History Tobacco Use Types Packs/Day Years Used Date Smoking Tobacco: Every Day Cigarettes Smokeless Tobacco: Never Alcohol Use Standard Drinks/Week Comments Yes 0 (1 standard drink = 0.6 oz pur e alcohol) SOCIAL DRINKER Comments Unknown Sex and Gender Information Value Date Recorded Sex Assigned at Not on file Legal Sex Female 1:06 PM EDT Gender Identity Not on file Sexual Orientation Not on file Plan of Treatment Health Maintenance Due Date Last Done Comments Breast Cancer Screening 1955 Pneumococcal Vaccine: 65+ Ye ars (1 of 2 - PCV) 1962 Colorectal Cancer Screening: Annual FOBT 2005 Colorectal Cancer Screening: Colonoscopy 2005 Colorectal Cancer Screening: Sigmoidoscopy 2005 Influenza Vaccine (#1) 2024 Hepatitis B Vaccine Aged Out No longe r eligible based on patient's age [place] [address] Care Teams Data Designer Relationship Specialty Start Date End Date Stefany Onofre MD [address] [place], [place] PCP - General Internal Medicine 02/09/21
--- OUTSIDE RECORDS SUMMARY | 2024-11-26 14:42 | XMS_ITS | Encounter Summary ---
Author Organization [email or web address] Address [address] [facility] [address] [place] [address] Care Team Providers Care Zinc Furnace Charger Name Role Phone Minerva Barraza Primary Care Provider + Rena Henriquez MD Primary Care Provide r Krystal Joyner PharmD Unavailable [phone] Encounter Details Date Type Department Care Team (Late st Contact Info) Description 05/28/2023 Orders Only [facility] [address] [place] [address] Minerva Barraza FNP [address] [place] [address] Tobacco abuse (Primary Dx) Social History Tobacco Use Types Packs/Day Years Used Date Smoking Tobacco: Every Day Cigarettes 1 30 Passive Smoke Exposure: Current Smokeless Tobacco: Never Alcohol Use Standard Drinks/Week Comments Not Currently 0 (1 standard drink = 0.6 oz pur e alcohol) Depression Answer Date Recorded Patient Health Questionnaire-9 Score 16 05/19/2023 Depression Answer Date Recorded Patient Health Questionnaire-2 [...] Description 12/02/2024 9:30 AM EST Office Visit [facility] [address] [place] [address] Kavitha Graham, DDS [address] [place] [phone] 12/21/2024 1:45 PM EST Office Visit [address] [address] Rena Henriquez MD [address] [place] [address] 01/24/2025 1:30 PM EDT Clinical Support [address] [address] Matilda Chisholm, LEO documented as of this encounter Visit Diagnoses Diagnosis Tobacco abuse- Primary Tobacco use disorder documented in this encounter Additional Health Concerns Assessment Noted Time PHQ-9 Depression Total Score: 16 05/19/ 023 10:31 AM EDT documented as of this encounter Care Teams Zinc Furnace Charger Relationship Specialty Start Date End Date Minerva Barraza FNP [address] [place] [phone] PCP - General Family Medicine 07/29/22 06/22/24 Rena Henriquez MD [address] [place] [phone] PCP - General Internal Medicine 06/23/24 Krystal Joyner, DamoinD [address] [place] [phone] Pharmacist Internal Medicine 10/15/24 documented as of this encounter
--- OUTSIDE RECORDS SUMMARY | 2024-11-26 14:42 | XMS_ITS | Clinical Summary ---
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 Diabetes: Urine Protein Screening 03/12/2023 03/12/2022, 08/10/2021 COVID-19 Vaccine ( season) 2024 Influenza Vaccine (#1) 2024 07/30/2018, 2016 Depression Monitoring (PHQ-9) 07/27/2024 01/26/2024, 01/26/2024 Depression Screening 01/25/2025 01/26/2024, 01/26/20 Diabetes: Hemoglobin A1C 04/28/2025 025, 05/18/2024, 01/26/2024, Additional history exists Alcohol/Substance Use Screening 05/18/2025 05/18/2024 SDOH Screening 05/18/2025 05/18/2024 Mammogram 09/19/2025 09/19/2023 Lung Cancer Screening 11/11/2025 11/11/2024, 024 Lipid Panel 11/19/2025 11/19/2024, 01/26, 12/19/2022, Additional history exists Tobacco Screening 11/25/2025 11/25/2024 DTaP/Tdap/Td Vaccines (2 - Td or Tdap) 04/10/2026 04/10/2016 Dental X-Ray: Full Mouth 06/25/2027 06/24/2024, 01/25 Colorectal Cancer Screening 09/28/2027 FIT DNA/Cologuard 09/28/2027 09/28/2024 Hepatitis C Screening Completed 08/10/2021 HIB Vaccines Aged Out No longer eligi ble based on patient's age to complete this topic HPV Vaccines Aged Out No longer eligi ble based on patient's age to complete this topic Hepatitis A Vaccines Aged Out No long er eligible based on patient's age to complete this topic Hepatitis B Vaccines Aged Out No long er eligible based on patient's age to complete this topic IPV Vaccines Aged Out No longer eligi ble based on patient's age to complete this topic Meningococcal Vaccine Aged Out No edwin ciera eligible based on patient's age to complete this topic RSV under 20 months Aged Out No longe r eligible based on patient's age to complete this topic Rotavirus Vaccines Aged Out No longer eligible based on patient's age to complete this topic Procedures Procedure Name Priority Date/Time Associated Diagnosis Comments LIPID PANEL, STANDARD Routine 11/19/2024 10:06 AM EST BASIC METABOLIC PANEL Routine 11/19/2024 10:06 AM EST HEPATIC FUNCTION PANEL Routine 10:06 AM EST DRUG MONITOR, PANEL 1, SCREEN, URINE Routine 11/19/2024 10:06 AM EST Anxiety POCT NARCISA-14 URINE DRUG SCREEN Routine 11/11/2024 2:37 PM EST Anxiety LDCT LUNG SCREENING Routine 11/11/2024 9 :55 AM EST POCT GLYCATED HEMOGLOBIN, TOTAL Routine 10/29/2024 4:10 PM EST Type 2 diabetes mellitus with hyperglycemia, without long-term current use of insulin ([facility]) T-SPOT(R).TB Routine 10/14/2024 12:02 PM EST BASIC METABOLIC PANEL Routine 10/14/2024 12:02 PM EST ADJUNCTIVE GENERAL SERVICES - PROFESSIONAL VISITS - CASE PRESENTATION, SUBSEQUENT TO DETAILED AND EXTENSIVE TREATMENT PLANNING Routine 09/28/2024 1:30 PM EST 20 EXTRACTION, ERUPTED TOOTH OR EXPOSED ROOT (ELEVATION AND/OR FORCEPS REMOVAL) Routine 09/28/2024 1:30 PM EST 21 EXTRACTION, ERUPTED TOOTH OR EXPOSED ROOT (ELEVATION AND/OR FORCEPS REMOVAL) Routine 09/28/2024 1:30 PM EST 28 EXTRACTION, ERUPTED TOOTH OR EXPOSED ROOT (ELEVATION AND/OR FORCEPS REMOVAL) Routine 09/28/2024 1:30 PM EST 29 EXTRACTION, ERUPTED TOOTH OR EXPOSED ROOT (ELEVATION AND/OR FORCEPS REMOVAL) Routine 09/28/2024 1:30 PM EST LAB COLOGUARD?? COLON CANCER SCREEN Routine 09/28/2024 9:45 AM EST Screening for colon cancer POCT NARCISA-14 URINE DRUG SCREEN Routine 09/13/2024 2:13 PM EST Chronic pain of both shoulders POCT GLUCOSE Routine 09/06/2024 1:36 PM EST Type 2 diabetes mellitus with hyperglycemia, without long-term current use of insulin ([facility]) LIMITED ORAL EVALUATION - PROBLEM FOCUSED Routine 08/26/2024 3:00 PM EDT Chronic dental pain Encounter for dental examination ORAL HYGIENE INSTRUCTIONS Routine 08/26/2024 3:00 PM EDT INTRAORAL - PERIAPICAL EACH ADDITIONAL RADIOGRAPHIC IMAGE Routine 08/26/2024 3:00 PM EDT INTRAORAL - PERIAPICAL EACH ADDITIONAL RADIOGRAPHIC IMAGE Routine 08/26/2024 3:00 PM EDT INTRAORAL - PERIAPICAL EACH ADDITIONAL RADIOGRAPHIC IMAGE Routine 08/26/2024 3:00 PM EDT INTRAORAL - PERIAPICAL FIRST RADIOGRAPHIC IMAGE Routine 08/26/2024 3:00 PM EDT ADJUNCTIVE GENERAL SERVICES - PROFESSIONAL VISITS - CASE PRESENTATION, SUBSEQUENT TO DETAILED AND EXTENSIVE TREATMENT PLANNING Routine 08/26/2024 3:00 PM EDT PANORAMIC RADIOGRAPHIC IMAGE Routine 06/24/2024 1:30 PM EDT Edentulism BI MAMMOGRAM SCREENING TOMOSYNTHESIS BILATERAL Routine 09/19/2023 3:28 PM EST ZZZ HISTORICAL MICROALBUMIN/CREATININ E RATIO, RANDOM URINE Routine 03/12/2022 8:05 AM EDT ZZZ HISTORICAL HEPATITIS C AB W/REFL TO HCV RNA, QN, PCR Routine 08/10/2021 3:12 PM EDT DIAGNOSTIC - DIAGNOSTIC IMAGING - INTRAORAL - COMPREHENSIVE SERIES OF RADIOGRAPHIC IMAGES Routine 02/06/2021 12:00 AM EDT COMPREHENSIVE ORAL EVALUATION - NEW OR ESTABLISHED PATIENT Routine 02/06/2021 12:00 AM EDT from Last 3 Months or Most Recently Relevant to Health Maintenance Results * (ABNORMAL) Drug Monitoring, Panel 1, Screen, Urine (11/19/2024 10:06 AM EST) Opiate Screen Urine Not Detected Not Detect [facility] Comment:Opiate cut-off is 30 0 ng/mL.Positive results are unconfirmed and should not be used fornon-medical purposes. Barbiturates, Urine Not Detected Not Detect [facility] Comment:Barbiturate cut-off is 200 ng/mL.Positive results are unconfirmed and should not be used fornon-medical purposes. Phencyclidine Screen Urine Not Detected Not Detect [facility] Comment:Phencyclidine cut-of f is 25 ng/mL.Positive results are unconfirmed and should not be used fornon-medical purposes. Amphetamine Screen Urine Not Detected Not Detect [facility] Comment:Amphetamine cut-off is 1000 ng/mL.Positive results are unconfirmed and should not be used fornon-medical purposes. Benzodiazepines Screen Urine POSITIVE(A) Not Detect [facility] Comment:Benzodiazepine cut-o ff is 200 ng/mL.Positive results are unconfirmed and should not be used fornon-medical purposes. Cocaine Screen Urine Not Detected Not Detect [facility] Comment:Cocaine cut-off is 3 00 ng/mL.Positive results are unconfirmed and should not be used fornon-medical purposes. Cannabinoid Screen Urine POSITIVE(A) Not Detect [facility] Comment:Cannabinoid cut-off is 50 ng/mL.Positive results are unconfirmed and should not be used fornon-medical purposes. Methadone Screen, Urine Not Detected Not Detect ng/mL [facility] Comment:Methadone cut-off is 300 ng/mL.Positive results are unconfirmed and should not be used fornon-medical purposes. FENTANYL URINE Not Detected Not Detect [facility] Comment:Fentanyl cut-off is 1 ng/mL.Positive results are unconfirmed and should not be used fornon-medical purposes. Oxycodone Urine Screen Positive(A) Not Detect ng/mL [facility] Comment:Oxycodone cut-off is 100 ng/mL.Positive results are unconfirmed and should not be used fornon-medical purposes. Buprenorphine Screen Not Detected Not Detect ng/mL [facility] Comment:Buprenorphine cut-of f is 5 ng/mL.Positive results are unconfirmed and should not be used fornon-medical purposes. Urine (Urine, Random) 11/19/2024 10:06 AM EST 11/19/2024 11:37 AM EST us Wilfredo Davis PMHNP LAB URINE ORDERABLES Final Re sult Performing Organization Address [facility]/ZIP Co de Phone Number [facility] [address] [place] [phone] * (ABNORMAL) Hepatic Function Panel (11/19/2024 10:06 AM EST) Bilirubin, Total 0.2 0.0 - 1.0 mg/dL [facility] Bilirubin, Direct <0.2 0.0 - 0.5 mg/dL [facility] Aspartate Amino Transferase 23 5 - 31 U/L [facility] Alanine Aminotransferase 41(H) 0 - 31 U/L [facility] Total Protein 7.5 6.5 - 8.0 g/dL [facility] Albumin Level 4.1 3.5 - 5.0 g/dL [facility] Alkaline Phosphatase 127(H) 39 - 117 U/L [facility] 11/19/2024 10:0 6 AM EST 11/19/2024 11:38 AM EST us Rena De La Torre MD LAB BLOOD ORDERABLES Final Result Performing Organization Address [facility] Co de Phone Number [facility] [address] [place] [phone] * (ABNORMAL) Lipid Panel, Standard (11/19/2024 10:06 AM EST) Triglycerides 257(H) <150 mg/dL [facility] Comment:Desirable Triglyceri de: less than 150 mg/dLBorderline High Triglyceride 150-199 mg/dLHigh Triglyceride: 200-499 mg/dLVery High Triglyceride: greater than or equal to 5OO mg/dL Cholesterol 200(H) <200 mg/dL [facility] Comment:Desirable Cholestero l: less than 200 mg/dLBorderline High Cholesterol: 200-239 mg/dLHigh Cholesterol: greater than 239 mg/dL LDL Cholesterol Calculated 112(H) <100 mg/dL [facility] Comment:Desirable LDL: less than 100 mg/dLNear Optimal/Above Optimal LDL: 110- 129 mg/dLBorderline High LDL: 130-159 mg/dLHigh LDL: 160-189 mg/dLVery High LDL: greater than or equal to 190 mg/dL HDL Cholesterol 37(L) >40 mg/dL [facility] Comment:Desirable HDL: great er than 40 mg/dL Note: This HDL assay may give artificially low results in patients with liver disease. 11/19/2024 10:0 6 AM EST 11/19/2024 11:38 AM EST us Rena De La Torre MD LAB BLOOD ORDERABLES Final Result [facility] [address] [place] [phone] * (ABNORMAL) Basic Metabolic Panel (11/19/2024 10:06 AM EST) Only the most recent of2 resultswithin the time period is included. Sodium 142 135 - 145 mmol/L [facility] Potassium 3.7 3.3 - 5.1 mmol/L [facility] Chloride 106 96 - 108 mmol/L [facility] Carbon Dioxide 26 22 - 29 mmol/L [facility] Anion Gap 14 12 - 20 [facility] Urea Nitrogen (BUN) 15 9 - 16 mg/dL [facility] Creatinine, Serum 1.04 0.5 - 1.4 mg/dL [facility] Estimated Glomerular Filt Rate 53 [facility] Comment:Chronic Kidney Disea se: Estimated GFR < 60 mL/min/1.47s7Oxhxpm Kidney Disease: Estimated GFR < 15 mL/min/1.73m2 Glucose 122(H) 60 - 115 mg/dL [facility] Calcium 9.8 8.4 - 10.2 mg/dL [facility] 11/19/2024 10:0 6 AM EST 11/19/2024 11:38 AM EST us Rena De La Torre MD LAB BLOOD ORDERABLES Final Result [facility] [address] [place] [phone] * POCT NARCISA-14 Urine Drug Screen (11/11/2024 2:37 PM EST) Only the most recent of2 resultswithin the time period is included. THC Positive Benzodiazepines Screen, Urine Positive TCA, Urine Positive Oxycodone Screen, Urine Positive Urine Urine specimen obtained by clean catch procedure / Unknown 11/11/2024 2:37 PM EST Matilda Hayes RN - 11/11/2024 2:37 PM EST UTOX cup Lot#[id number] Exp. 07/21/26 Internal Pass Control us Rena De La Torre MD POINT OF CARE TEST EN TER/EDIT ORDERABLES Final Result * CT Lung Screening Low dose (11/11/2024 9:55 AM EST) Anatomical Region Laterality Modality Lung Computed Tomogra phy 11/11/2024 9:55 AM EST Narrative 11/11/2024 9:56 AM EST ? [facility] ?[address] ?[place] ? CT Scan Report ? Signed ? Patient: Montez,Sharita ?MR#: [id number] ?? 52 ? : 1955 ?Acct:[id number] ? Age/Sex: 69 / F ?ADM Date: 11/10/ ? Loc: HO.CT ? Attending Dr: Buzz Flores MD ? Ordering Physician: Buzz Flores MD ?? Date of Service: 11/10/24 ?? Procedure(s): CT lung screening ?? Accession Number(s): [id number] ? cc: Rena Henriquez MD; Buzz Flores MD ? Report Number: ?? [id number]: Total DLP = ?? 67.00 mGy-cm ? CLINICAL HISTORY: F17.210 - Nicotine dependence, cigarettes, uncomplicated ? CT lung cancer screening (LDCT) ? Comparison: None ? Technique: ?? Axial CT images of the chest using low-dose technique. Referring provider ?? counseled the patient on shared decision-making for LDCT screening. ?? Additional counseling was provided on smoking cessation. ?? Effective radiation dose total: DLP 57.4 mGycm, CTDIvol 2 mGy. ? Findings: ?? Lung screening specific: ?? 3 mm nodule along the minor fissure, within the right middle lobe on axial ?? 212. ? Incidental pulmonary findings: ?? Mild airway thickening and subpleural reticulation. ? Non pulmonary incidental findings: ?? Coronary artery calcifications: Mild ?? Limited upper abdomen: Unremarkable ? Other: None ? Impression: ?? LungRADS 2 - Benign Appearance: Continue annual screening with low dose ?? Chest CT in 12 months. ? ##L2# ? Category 1: Normal; continue annual screening ?? Category 2: Benign appearance or behavior, continue annual screening ?? Category 3: Probably benign, [address] recommended ?? Category 4A: Suspicious, [address] recommended; may consider PET/CT ?? Category 4B: Suspicious, Additional diagnostics and/or tissue sampling ?? recommended ?? Category 4X: Suspicious, Additional diagnostics and/or tissue sampling ?? recommended ?? Category 0: Recalls (incomplete screen due to Incomplete coverage, Noise, ?? Respiratory motion, Expiration, Obscured by acute abnormality) ? This document has been electronically signed by: Danis Chinchilla MD on ?? 11/11/2024 09:55:45 ? Dictated By: ?Danis Chinchilla MD ? Signed By: ?<Electronically signed by Danis Chinchilla MD in OV> ? 11/11/24 09 ? DD/ 0955 ? TD/TT: 11/11/24954 ? Outlet Manager: ? Procedure Note Tata Mathews - 11/11/2024 [facility] [address] [place] [address] CT Scan Report Signed Patient: Jessi Montez#: [id number] 52 : 1955cct:[id number] Age/Sex: 69 / FADM Date: 11/10/24 Loc: HO.CT Attending Dr: Buzz Flores MD Ordering Physician: Buzz Flores MD Date of Service: 11/10/24 Procedure(s): CT lung screening Accession Number(s): [id number] cc: Rena Henriquez MD; Buzz Flores MD Report Number: [id number]: Total DLP = 67.00 mGy-cm CLINICAL HISTORY: F17.210 - Nicotine dependence, cigarettes, uncomplicated CT lung cancer screening (LDCT) Comparison: None Technique: Axial CT images of the chest using low-dose technique. Referring provider counseled the patient on shared decision-making for LDCT screening. Additional counseling was provided on smoking cessation. Effective radiation dose total: DLP 57.4 mGycm, CTDIvol 2 mGy. Findings: Lung screening specific: 3 mm nodule along the minor fissure, within the right middle lobe on axial 212. Incidental pulmonary findings: Mild airway thickening and subpleural reticulation. Non pulmonary incidental findings: Coronary artery calcifications: Mild Limited upper abdomen: Unremarkable Other: None Impression: LungRADS 2 - Benign Appearance: Continue annual screening with low dose Chest CT in 12 months. ##L2# Category 1: Normal; continue annual screening Category 2: Benign appearance or behavior, continue annual screening Category 3: Probably benign, [address] recommended Category 4A: Suspicious, [address] recommended; may consider PET/CT Category 4B: Suspicious, Additional diagnostics and/or tissue sampling recommended Category 4X: Suspicious, Additional diagnostics and/or tissue sampling recommended Category 0: Recalls (incomplete screen due to Incomplete coverage, Noise, Respiratory motion, Expiration, Obscured by acute abnormality) This document has been electronically signed by: Danis Chinchilla MD on 11/11/2024 09:55:45 Dictated By: Danis Chinchilla MD Signed By: <Electronically signed by Danis Chinchilla MD in OV> 11/11/24954 DD/ 4 TD/TT: 11/11/24954 Outlet Manager: [facility] External Provider IMG CT PROCEDURES Edited Result - Final * (ABNORMAL) POCT A1C (10/29/2024 4:10 PM EST) Pathologist [facility] Hemoglobin A1C 6.2(A) 4.0 - 6.0 % QC Media Lot # [id number] Lot# Expiration Date 186 Blood 10/29/2024 4:10 PM EST Rena De La Torre MD POINT OF CARE TEST EN TER/EDIT ORDERABLES Final Result * T-SPOT??.TB (10/14/2024 12:02 PM EST) Pathologist [facility] T Spot TB Negative Negative [facility] Comment:A negative test resu lt does not exclude the possibilityof exposure to or infection with Mycobacteriumtuberculosis (M. tuberculosis). Patients with recentexposure to TB infected individuals exhibiting anegative T-SPOT.TB result should be considered forretesting within 6 weeks or if other relevant clinicalsymptoms indicate. Results from T-SPOT.TB testing mustbe used in conjunction with each individual'sepidemiological history, current medical status,and results of other diagnostic evaluations.The T-SPOT.TB test is qualitative and results arereported as positive, borderline, or negative, giventhat the test controls perform as expected. In linewith the Centers for Disease Control and Prevention's2010 recommendation to report quantitative measurementsalongside the qualitative result, the laboratoryprovides spot counts for informational purposes only.The T-SPOT.TB test should not be interpreted as aquantitative test. TS PANEL A 0 [facility] TS PANEL B 0 [facility] Negative Control Passed [facility] Positive Control Passed [facility] Comment:For additional infor rhonda, please refer tohttp://education.SalesFloor.it/faq/PKA010(This link is being provided for informational/educational purposes only.)THIS TEST WAS PERFORMED AT:[employer] [id number] [place] [address]VTBJLGW W. MASON,MD,PHD 10/14/2024 12:0 2 PM EST 10/14/2024 1:16 PM EST Minerva Madi [employer] LAB BLOOD ORDERABLES Final Resu lt [facility] [address] [place] [address] [phone] * Cologuard?? colon cancer screening (09/28/2024 9:45 AM EST) Cologuard Result Negative Negative 10/05/20 11:07 AM EST [facility] (CLIA #:[id number]) Comment: NEGATIVE TEST RESULT. A negative Cologuard result indicates a low likelihood that a colorectal cancer (CRC) or advanced adenoma (adenomatous polyps with more advanced pre-malignant features) ??is present. The chance that a person with a negative Cologuard test has a colorectal cancer is less than 1 in 1500 (negative predictive value >99.9%) or has an ??advanced adenoma is less than ??5.3% (negative predictive value 94.7%). These data are based on a prospective cross-sectional study of 10,000 individuals at average risk for colorectal cancer who were screened with both Cologuard and colonoscopy. (Ilene Jackson al, N Engl J Med 2014;370(14):1286- 1297) The normal value (reference range) for this assay is negative. COLOGUARD RE-SCREENING RECOMMENDATION: Periodic colorectal cancer screening is an important part of preventive healthcare for asymptomatic individuals at average risk for colorectal cancer. ??Following a negative Cologuard result, the [place] [employer] and U.S. Multi-Society Task Force screening guidelines recommend a Cologuard re-screening interval of 3 years. References: [place] [employer] Guideline for Colorectal Cancer Screening: https://www.cancer.org/cancer/xywmg-ojpbul-fuhlqp/gaycrsefq-fftpdinot-wqetapo/ac s-rec ommendations.html.; Chi DK, Alessandra FERREIRA, Caitlin VelasquezK, Colorectal Cancer Screening: Recommendations for Physicians and Patients from the U.S. Multi-Society Task Force on Colorectal Cancer Screening , Am J Gastroenterology 2017; 112:6811-7212. TEST DESCRIPTION: Composite algorithmic analysis of stool DNA-biomarkers with hemoglobin immunoassay. ?? Quantitative values of individual biomarkers are not reportable and are not associated with individual biomarker result reference ranges. Cologuard is intended for colorectal cancer screening of adults of either sex, 45 years or older, who are at average-risk for colorectal cancer (CRC). Cologuard has been approved for use by the U.S. FDA. The performance of Cologuard was established in a cross sectional study of average-risk adults aged 50-84. Cologuard performance in patients ages 45 to 49 years was estimated by sub-group analysis of near-age groups. Colonoscopies performed for a positive result may find as the most clinically significant lesion: colorectal cancer [4.0%], advanced adenoma (including sessile serrated polyps greater than or equal to 1cm diameter) [20%] or non- advanced adenoma [31%]; or no colorectal neoplasia [45%]. These estimates are derived from a prospective cross-sectional screening study of 10,000 individuals at average risk for colorectal cancer who were screened with both Cologuard and colonoscopy. (Ilene Ardon et al, N Engl J Med 2014;370(14):4209-8153.) Cologuard may produce a false negative or false positive result (no colorectal cancer or precancerous polyp present at colonoscopy follow up). A negative Cologuard test result does not guarantee the absence of CRC or advanced adenoma (pre-cancer). The current Cologuard screening interval is every 3 years. ([place] [employer] and U.S. Multi-Society Task Force). Cologuard performance data in a 10,000 patient pivotal study using colonoscopy as the reference method can be accessed at the following location: www.Lyxia.PinPay/results. Additional description of the Cologuard test process, warnings and precautions can be found at www.cologuard.PinPay. Stool specimen (specimen) 09/28/2024 9:45 AM EST 09/29/2024 1:26 PM EST us Rena De La Torre MD LAB MOLECULAR DIAGNOS TICS ORDERABLES Final Result [facility] (CLIA #:[id number]) [place] [address], * POCT Glucose (09/06/2024 1:36 PM EST) Glucose Blood, POC 124 60 - 200 mg/dL QC Media Lot # [id number] Lot# Expiration Date 283,198 Blood Capillary blood specimen / Unknown 09/06/2024 1:36 PM EST Rena De La Torre MD POINT OF CARE TEST EN TER/EDIT ORDERABLES Final Result * BI Mammogram Screening Tomosynthesis Bilateral (09/19/2023 3:28 PM EST) Anatomical Region Laterality Modality Breast Bilateral Mammography 09/19/2023 3:28 PM EST Narrative 09/26/2023 8:02 AM EST ? [facility] ? [address] ?[place] [address] ? Mammography Report ? Signed ? Patient: Montez,Sharita ?MR#: [id number] ?? 52 ? : 1955 ?Acct:[id number] ? Age/Sex: 68 / F ?ADM Date: 11/24/23 ? Loc: HO.MAMMO ? Attending Dr: Minerva Barraza ASSESSMENT NURSE ? Ordering Physician: Minerva Barraza ASSESSMENT NURSE ?Results: 1Negativ ?? e ? Date of Service: 09/19/23 ?Follow Up: 1 Year From Orig ?? inal Mammogram ? Procedure(s): MM tomosynthesis screening BI ?? Accession Number(s): [id number] ? cc: Minerva Barraza ASSESSMENT NURSE ? EXAMINATION: ?? MM SCREENING DIGITAL BREAST TOMOSYNTHESIS, BILATERAL ? CLINICAL INFORMATION: ? Screening. Asymptomatic. ? COMPARISON: ?? Mammography: This study is compared with prior exams dating back to ?? 2018. ? TECHNIQUE: ?? Digital breast tomosynthesis is performed in both the craniocaudal and ?? mediolateral oblique views along with computer-aided detection (CAD). ?? Synthesized 2D images are generated from the tomosynthesis. ? FINDINGS: ?? The breasts are almost entirely fatty (ACR BI-RADS breast composition ?? Category a). ? There are no significant masses, abnormal calcifications, or other ?? abnormalities. ? MM/MM tomosynthesis screening BI ?? IMPRESSION: ?? No mammographic evidence of malignancy. ? ASSESSMENT: ? BI-RADS BI-RADS 1 - Negative ? RECOMMENDATION: ?? Routine annual mammography screening. ? 1 year F/U ? This examination should not preclude the clinical evaluation of a ?? suspicious palpable abnormality. ? This patient's information was entered into a reminder system with a ?? target due date for their next mammogram. ? Dictated By: ?Diamond Castillo MD ? Signed By: ?<Electronically signed by Diamond Castillo MD in OV> ? 12/01/23 0758 ? DD/ 1528 ? TD/TT: ? Outlet Manager: ? Procedure Note Donotuseinterpreter, Image - 09/26/2023 [place] [facility] [address] [place] [address] Mammography Report Signed Patient: Nancy MontezR#: [id number] 52 : 6Acct:[id number] Age/Sex: 68 / FADM Date: 09/19/23 Loc: HO.MAMMO Attending Dr: Minerva Barraza ASSESSMENT NURSE Ordering Physician: Minerva Barraza NPResults: 1Negativ e Date of Service: 09/19/23Follow Up: 1 Year From Orig inal Mammogram Procedure(s): MM tomosynthesis screening BI Accession Number(s): [id number] cc: Minerva Barraza NP EXAMINATION: MM SCREENING DIGITAL BREAST TOMOSYNTHESIS, BILATERAL CLINICAL INFORMATION: Screening. Asymptomatic. COMPARISON: Mammography: This study is compared with prior exams dating back to 2018. TECHNIQUE: Digital breast tomosynthesis is performed in both the craniocaudal and mediolateral oblique views along with computer-aided detection (CAD). Synthesized 2D images are generated from the tomosynthesis. FINDINGS: The breasts are almost entirely fatty (ACR BI-RADS breast composition Category a). There are no significant masses, abnormal calcifications, or other abnormalities. MM/MM tomosynthesis screening BI IMPRESSION: No mammographic evidence of malignancy. ASSESSMENT: BI-RADS BI-RADS 1 - Negative RECOMMENDATION: Routine annual mammography screening. 1 year F/U This examination should not preclude the clinical evaluation of a suspicious palpable abnormality. This patient's information was entered into a reminder system with a target due date for their next mammogram. Dictated By: Diamond Castillo MD Signed By: <Electronically signed by Diamond Castillo MD in OV> 09/26/23 0758 DD/ 1528 TD/TT: Outlet Manager: Minerva Barraza YOUTH MINISTER IMG BI PROCEDURES Final Result * MICROALBUMIN/CREATININE RATIO, RANDOM URINE (03/12/2022 8:05 AM EDT) Creatinine Urine 123.25 mg/dL [facility] Microalbum/Creati nine Ratio Ur 5.6 ug/mg cr [facility] Comment: ?Albumin/Creatinine Ratio Reference Ranges: ? Normal: < 30 ug/mg creatinine ? Microalbuminuria: ??30 - 300 ug/mg creatinine Clinical Albuminuria: ??> 300 ug/mg creatinine Microalbumin Urine 7.0 mg/L [facility] 03/12/2022 8:05 AM EDT Historical Provider HISTORICAL/NON ORDERABLE LABS Final Result Performing Organization Address [facility] de Phone Number [facility] [address] * HEPATITIS C AB W/REFL TO HCV RNA, QN, PCR (08/10/2021 3:12 PM EDT) HEPATITIS C ANTIBODY NON-REACT TOLU NON-REACT TOLU [facility] INDEX 0.05 <1.00 [facility] Comment: ?? HCV antibody was non-reactive. There is no laboratory ?? evidence of HCV infection. ?? In most cases, no further action is required. However, if recent HCV exposure is suspected, a test for HCV RNA (test code 91294) is suggested. ?? For additional information please refer to http://education.SalesFloor.it/faq/VXK57l2 (This link is being provided for informational/ educational purposes only.) ?? 08/10/2021 3:12 PM EDT Carolina Ruffin MD HISTORICAL/NON ORDERABLE LAB S Final Result Performing Organization Address [facility] de Phone Number [facility] [address] from Last 3 Months or Most Recently Relevant to Health Maintenance Insurance * Guarantor: Sharita Montez Account Type Relation to Patient Date of Phone Billing Address Personal/Family Self 1955 [address] [place], [place] [facility] [employer] Member Subscriber Plan / Payer (Ef fective 2023-Present) Name:Sharita Montez Relation to Subscriber:Self Name:Sharita Montez Payer ID:Not on file Group ID:[id number] Type:Not on file Address: [address] [place] [id number] DENTAL - [facility] 1 [place] [address] 1 [place] [address] Care Teams Commercial Real Estate Underwriter Relationship Specialty Start Date End Date Rena Henriquez MD [address] [place], [place] PCP - General Internal Medicine 06/23/24 Krystal Joyner, DamionD [address] [place] [address] Pharmacist Internal Medicine 10/15/24
--- OUTSIDE RECORDS SUMMARY | 2024-11-26 14:43 | XMS_ITS | Encounter Summary ---
Author Organization [employer] Address [address] [facility] 7t [place] [address] Care Team Providers Care Metal Wire Coating Operator Name Role Phone Rena Henriquez MD Primary Care Provide r Krystal Joyner PharmD Unavailable [phone] Encounter Details Date Type Department Care Team (Late st Contact Info) Description 11/01/2024 Orders Only [facility] [address] [place], [place] [phone] Rena Henriquez MD [address] [place], [place] [phone] Social History Tobacco Use Types Packs/Day Years [...] Description 12/02/2024 9:30 AM EST Office Visit [facility] ADULT DENTAL [address] [place] [phone] Kavitha Graham DDS [address] [place] [address] 12/21/2024 1:45 PM EST Office Visit [facility] MED[facility] [address] [place] [address] Rena Henriquez MD [address] [place] [address] 01/24/2025 1:30 PM EDT Clinical Support [facility] [address] [place] [address] Matilda Chisholm RN documented as of this encounter Visit Diagnoses Not on filedocumented in this encounter Additional Health Concerns Assessment Noted Time PHQ-9 Depression Total Score: 18 024 4:16 PM EDT documented as of this encounter Care Teams Metal Wire Coating Operator Relationship Specialty Start Date End Date Rena Henriquez MD [address] [place] [address] PCP - General Internal Medicine 06/23/24 Krystal Joyner, DamionD [address] [place] [address] Pharmacist Internal Medicine 10/15/24 documented as of this encounter
--- OUTSIDE RECORDS SUMMARY | 2024-11-26 14:43 | XMS_ITS | Encounter Summary ---
Author Organization [employer] Address [address] [facility] 7t [place] [address] Care Team Providers Care Switch Box Installer Name Role Phone Minerva Barraza Primary Care Provider [phone] Rena Henriquez MD Primary Care Provide r Krystal Joyner PharmD Unavailable [phone] Reason for Visit * Reason Onset Date Comments Durable Medical Equipment 02/13/2024 Encounter Details Date Type Department Care Team (Late st Contact Info) Description 02/13/2024 Telephone [facility] [address] [place], [place] [phone] Minerva Barraza FNP [address] [place], [place] [phone] Durable Medical Equipment Social History Tobacco Use Types Packs/Day Years [...] encounter Miscellaneous Notes * Telephone Encounter - Zoraida Ramirez RN - 02/17/2024 1:13 PM EDT Pt is scheduled 02/19/24 for follow up. Pt left [facility] ED AMA for evaluation of sciatic leg pain, CP, Asthma. CXR in ED showed no acute cardiopulmonary disease or interval. EKG showed no NSTEMI, sinus rythym. [facility] records scanned to chart by front services agent. * Telephone Encounter - Farhana Coombs - 02/17/2024 9:26 AM EDT DME Rx generated for nebulizer and placed on PCP desk for review and signature. Once signed will fax to [employer] and scan into chart under media. Court Worker called pt and provided update. Pt verbalized understanding. *Pt reported severe pain in right leg; stated she went to [facility] ED on Friday d/t the pain and would like a call back from nurse/pcp. Pt requesting medication for pain since OTC meds are not helping. * Telephone Encounter - Bunny Winslow - 02/13/2024 9:21 AM EDT Tc from pt requesting status on nebulizer machine, parts data writer sees script and supply kit was sent to [facility] however [facility] does not cover machine or supplies, Script will need to be sent to a DME store. Please contact at [phone] documented in this encounter Plan of Treatment Upcoming Encounters Date Type Department Care Team (Late st Contact Info) Description 12/02/2024 9:30 AM EST Office Visit [facility] ADULT DENTAL [address] [place] [phone] Kavitha Graham DDS [address] [place] [address] 12/21/2024 1:45 PM EST Office Visit [facility] [address] [place] [address] Rena Henriquez MD [address] [place] [address] 01/24/2025 1:30 PM EDT Clinical Support [facility] [address] [place] [address] Matilda Chisholm, LEO documented as of this encounter Visit Diagnoses Not on filedocumented in this encounter Additional Health Concerns Assessment Noted Time PHQ-9 Depression Total Score: 18 024 4:16 PM EDT documented as of this encounter Care Teams Switch Box Installer Relationship Specialty Start Date End Date Minerva Barraza FNP [address] [place] [phone] PCP - General Family Medicine 07/29/22 06/22/24 Rena Henriquez MD [address] [place] [address] [phone] PCP - General Internal Medicine 06/23/24 Krystal Joyner, Johnna [address] [place] [address] Pharmacist Internal Medicine 10/15/24 documented as of this encounter
--- OUTSIDE RECORDS SUMMARY | 2024-11-26 14:43 | XMS_ITS | Encounter Summary ---
Author Organization [employer] Address 75 [facility] 7t [place] [address] Care Team Providers Care Atmospheric Chemist Name Role Phone Rena Henriquez MD Primary Care Provide r Krystal Joyner PharmD Unavailable [phone]- [phone] Reason for Visit * Reason Comments OPERATIONS LOGISTICS ANALYST RV OPERATIONS LOGISTICS ANALYST RV Encounter Details Date Type Department Care Team (Latest Contact Info) Description 11/11/2024 1:00 PM EST Clinical Support [facility] [address] [place], [place] [phone] Matilda Chisholm RN Anxiety (Primary Dx) Social History Tobacco Use Types [...] AM EDT documented as of this encounter Progress Notes * Matilda Chisholm RN - 11/11/2024 1:00 PM EST S: Pt here for OPERATIONS LOGISTICS ANALYST Revisit, translation provided by medical services assistant Amanda. Prescribed Cqrazvdsr4ex Q12hr PRN and Xanax 1mg at bedtime PRN. PCP starting prescribing Xanax for patient d/t pt looking for a new psychiatrist. She states she has been taking between 0-4 doses of oxycodone a day, lastdose taken was last night. She has been taking 1 dose of Xanax a day, last dose was taken (date). Pt is also prescribed Fioricet 1-2tabs Q6hr PRN. States she smokes 1 pack of cigarettes daily and hasfor greater than 50 years. She will have 2 shots of Pama on special occasions. She smokes marijuanadaily for pain relief and relaxation. She said she gets her marijuana from a dispensary only and denies having a medical marijuana card. Currently rates her pain a 7 and states medication is 25% effective at alleviating her pain. Current pain sites are her lower back, shoulders, right leg/sciatica,migraines and both wrists/carpal tunnel. (Effective/Sleep/THERAPIST). O: SCT Tier 2. Pt currently prescribed Oxycodone 5mg Q12hr PRN and Xanax 1mg at bedtime PRN SPACE CONTROLLER verified today. Oxycodone last filled on 09/14/24. Pill count performed. Pt has X pills at this time, 0at least expected. Medication is not overused by patient. Xanax last filled on 11/04/24. Pill count performed. Pt has X pills at this time, 23 at least expected. Medication is not overused by patient. UTOX completed. Positive for (INSERT), Negative for AMP, BAR, BUP, BZO, JENNIFER, FTY, MDMA, MET, MOP, MTD, OXY, PCP, TCA, THC. UTOX as expected. Will send request to PCP for oxycodone refill. Last PCP visit was 09/06/24, scheduled next 12/21/24. A: OPERATIONS LOGISTICS ANALYST Revisit: Chronic Opioid use related to pain & Chronic BZO use r/t anxiety. P: Pt to continue taking medication only as prescribed; Next OPERATIONS LOGISTICS ANALYST RV appointment scheduled @1pm, F/U sooner PRN. Appointment reminder given. Pt verbalized understanding and agreed to plan. * Matilda Chisholm RN - 11/11/2024 1:00 PM EST S: Pt here for OPERATIONS LOGISTICS ANALYST Revisit, translation provided by staff member Susan Valenzuela Prescribed Oxycodone 5mg Q12hr PRN and Xanax 1mg at bedtime PRN. PCP starting prescribing Xanax for patient d/t pt looking for a new psychiatrist. She states she has been taking between 2-3 doses of oxycodone a day, last dose taken was last night. She has been taking 0-1 dose of Xanax a day, last dose was taken was 2 nights ago. Pt is also prescribed Fioricet 1-2tabs Q6hr PRN. States she smokes 1 pack of cigarettes daily and has for greater than 50 years. She will have 2 shots of Pama on special occasions. She smokes marijuana daily for pain relief and relaxation. She said she gets her marijuana from a dispensary only and denies having a medical marijuana card. She denies illicit drug use, states she used street drugs years ago. Currently rates her pain a 9 and states medication is 25%-40% effective at alleviating her pain. Current pain sites are her lower back, shoulders, right leg/sciatica, migraines and both wrists/carpal tunnel. She said the xanax does help with her anxious feelings and she sleeps well so metimes. She said she does speak with a therapist but has not started with a new psychiatrist yet. O: SCT Tier 2. Pt currently prescribed Oxycodone 5mg Q12hr PRN and Xanax 1mg at bedtime PRN SPACE CONTROLLER verified today. Oxycodone last filled on 09/14/24. Pill count performed. Pt has 0 pills at this time, 0at least expected. Medication is not overused by patient. Pt forgot to bring her Xanax medication to the appointment. She would like to go home and come back in with them today. UTOX completed. Positive for BZO, OXY, TCA & THC, Negative for AMP, BAR, BUP, JENNIFER, FTY, MDMA, MET, MOP, MTD, PCP. UTOX as expected. Will send request to PCP for oxycodone refill. Last PCP visit was 09/06/24, schedulednext 12/21/24. A: OPERATIONS LOGISTICS ANALYST Revisit: Chronic Opioid use related to pain & Chronic BZO use r/t anxiety. P: Pt to continue taking medication only as prescribed; Next OPERATIONS LOGISTICS ANALYST RV appointment scheduled for 01/24/25 @ 1:30pm, F/U sooner PRN. Appointment reminder given. Pt verbalized understanding and agreed to plan. 2pm: Pt returned with her Xanax, which was last filled on 11/04/24. Pill count performed. Pt has 25 pills at this time, 23 at least expected. Medication is not overused by patient. documented in this encounter Plan of Treatment Upcoming Encounters Date Type Department Care Team (Late st Contact Info) Description 12/02/2024 9:30 AM EST Office Visit [facility] ADULT DENTAL [address] [place] [address] Kavitha Graham DDS [address] [place] [address] 12/21/2024 1:45 PM EST Office Visit [facility] MED[facility]INE [address] [place], [place] [phone] Rena Henriquez MD [address] [place], [place] [phone] 01/24/2025 1:30 PM EDT Clinical Support [facility] [address] [place], [place] [phone] Matilda Chisholm, RN documented as of this encounter Procedures Procedure Name Priority Date/Time Associated Diagnosis Comments POCT NARCISA-14 URINE DRUG SCREEN Routine 11/11/2024 2:37 PM EST Anxiety documented in this encounter Results * POCT NARCISA-14 Urine Drug Screen (11/11/2024 2:37 PM EST) THC Positive Benzodiazepines Screen, Urine Positive TCA, Urine Positive Oxycodone Screen, Urine Positive Urine Urine specimen obtained by clean catch procedure / Unknown 11/11/2024 2:37 PM EST Narrative Matilda Chisholm RN - 11/11/2024 2:37 PM EST UTOX cup Lot#[id number] Exp. 07/21/26 Internal Pass Control Rena De La Torre MD POINT OF CARE TEST EN TER/EDIT ORDERABLES Final Result documented in this encounter Visit Diagnoses Diagnosis Anxiety- Primary Anxiety state, unspecified documented in this encounter Additional Health Concerns Assessment Noted Time PHQ-9 Depression Total Score: 18 024 4:16 PM EDT documented as of this encounter Care Teams Atmospheric Chemist Relationship Specialty Start Date End Date Rena Henriquez MD [address] [place] [address] [phone] PCP - General Internal Medicine 06/23/24 Krystal Joyner, DamionD [address] [place] [phone] Pharmacist Internal Medicine 10/15/24 documented as of this encounter
--- OUTSIDE RECORDS SUMMARY | 2024-11-26 14:43 | XMS_ITS | Encounter Summary ---
Author Organization [employer] Address 75 [facility] 7t [place] [address] Care Team Providers Care Senior Adults Director Name Role Phone Rena Henriquez MD Primary Care Provide r Krystal Joyner PharmD Unavailable [phone]- [phone] Encounter Details Date Type Department Care Team (Latest Contact Info) Description 11/23/2024 Travel Social History Tobacco Use Types Packs/Day Years [...] Description 12/02/2024 9:30 AM EST Office Visit [facility] ADULT DENTAL [address] [place] [phone] Kavitha Graham DDS [address] [place] [phone] 12/21/2024 1:45 PM EST Office Visit [facility] MEDICINE [address] [place] [address] Rena Henriquez MD [address] [place] [address] 01/24/2025 1:30 PM EDT Clinical Support [facility] [address] [place] [address] Matilda Chisholm RN documented as of this encounter Visit Diagnoses Not on filedocumented in this encounter Additional Health Concerns Assessment Noted Time PHQ-9 Depression Total Score: 18 024 4:16 PM EDT documented as of this encounter Care Teams Senior Adults Director Relationship Specialty Start Date End Date Rena Henriquez MD [address] [place] [phone] PCP - General Internal Medicine 06/23/24 Krystal Joyner PharmD [address] [place] [address] [phone] Pharmacist Internal Medicine 10/15/24 documented as of this encounter
--- OUTSIDE RECORDS SUMMARY | 2024-11-26 14:43 | XMS_ITS | Encounter Summary ---
Author Organization [employer] Address [address] [facility] 7t [place] [address] Care Team Providers Care Social Worker Psychiatric Name Role Phone Rena Henriquez MD Primary Care Provide r Krystal Joyner PharmD Unavailable [phone] Reason for Visit * Reason Comments Med Refill Encounter Details Date Type Department Care Team (Late st Contact Info) Description 09/22/2024 Refill [facility]INE [address] [place], [place] [phone] Minerva Barraza FNP [address] [place], [place] [phone] Lumbar radiculopathy Social History Tobacco Use Types Packs/Day Years [...] Description 12/02/2024 9:30 AM EST Office Visit [facility] ADULT DENTAL [address] [place] [address] Kavitha Graham, DDS [address] [place] [address] 12/21/2024 1:45 PM EST Office Visit [facility] MED[facility]INE [address] [place] [address] Rena Henriquez MD [address] [place] [address] 01/24/2025 1:30 PM EDT Clinical Support [facility] [address] [place] [address] Matilda Chisholm RN documented as of this encounter Visit Diagnoses Diagnosis Lumbar radiculopathy Thoracic or lumbosacral neuritis or radiculitis, unspecified documented in this encounter Additional Health Concerns Assessment Noted Time PHQ-9 Depression Total Score: 18 024 4:16 PM EDT documented as of this encounter Care Teams Social Worker Psychiatric Relationship Specialty Start Date End Date Rena Henriquez MD [address] [place] [address] PCP - General Internal Medicine 06/23/24 Krystal Joyner, Johnna [address] [place] [address] Pharmacist Internal Medicine 10/15/24 documented as of this encounter
--- OUTSIDE RECORDS SUMMARY | 2024-11-26 14:43 | XMS_ITS | Encounter Summary ---
Author Organization [employer] Address [address] [facility] 7t [place] [address] Care Team Providers Care Wedger Machine Name Role Phone Minerva Barraza Primary Care Provider +[phone] Rena Henriquez MD Primary Care Provide r Krystal Joyner PharmD Unavailable [phone] Reason for Visit * Reason Onset Date Comments Lab Orders 06/11/2024 Encounter Details Date Type Department Care Team ([facility] st Contact Info) Description 06/11/2024 Telephone [facility] MEDICINE [address] [place], [place] [phone] Minerva Barraza FNP [address] [place], [place] [phone] Lab Orders Social History Tobacco Use Types Packs/Day Years [...] Recorded Patient Health Questionnaire-2 Score 4 01/26/2024 Comments Unknown Sex and Gender Information Value Date Recorded Sex Assigned at Female 08/26/2022 10:35 AM EDT Legal Sex Female 10:35 AM EDT Gender Identity Female 08/26/2022 10:35 AM EDT Sexual Orientation Straight 08/26/2022 10 :35 AM EDT documented as of this encounter Miscellaneous Notes * Telephone Encounter - Paramjit Cavazos RN - 06/11/2024 9:37 AM EDT T/C to pt. To inform that TB lab test is ordered, pt. Can go to lab as per her convenience. Pt. Verbally agreed and understood. * Telephone Encounter - Jose Bowles - 06/11/2024 9:22 AM EDT Tc from patient requesting Lab orders for TB testing needs to be completed for work documented in this encounter Plan of Treatment Upcoming Encounters Date Type Department Care Team (Late st Contact Info) Description 12/02/2024 9:30 AM EST Office Visit [facility] ADULT DENTAL [address] [place] [address] Kavitha Graham, DDS [address] [place] [address] 12/21/2024 1:45 PM EST Office Visit [facility] MEDICINE [address] [place] [address] Rena Henriquez MD [address] [place] [address] 01/24/2025 1:30 PM EDT Clinical Support [facility] [address] [place] [address] [phone] Matilda Chisholm RN documented as of this encounter Visit Diagnoses Not on filedocumented in this encounter Additional Health Concerns Assessment Noted Time PHQ-9 Depression Total Score: 18 024 4:16 PM EDT documented as of this encounter Care Teams Wedger Machine Relationship Specialty Start Date End Date Minerva Barraza FNP [address] [place] [address] [phone] PCP - General Family Medicine 07/29/22 06/22/24 Rena Henriquez MD [address] [place] [address] [phone] PCP - General Internal Medicine 06/23/24 Krystal Joyner, Johnna [address] [place] [address] [phone] Pharmacist Internal Medicine 10/15/24 documented as of this encounter
--- OUTSIDE RECORDS SUMMARY | 2024-11-26 14:43 | XMS_ITS | Encounter Summary ---
Author Organization [employer] Address 75 [facility] 7t [place] [address] Care Team Providers Care Dean Name Role Phone Rena Henriquez MD Primary Care Provide r Krystal Joyner PharmD Unavailable +- [phone] Encounter Details Date Type Department Care Team (Latest Contact Info) Description 11/12/2024 Travel Social History Tobacco Use Types Packs/Day [...] Description 12/02/2024 9:30 AM EST Office Visit [facility] ADULT DENTAL [address] [place] [address] 37[address] Kavihta Graham DDS [address] [place] [address] 32355 12/21/2024 1:45 PM EST Office Visit [facility] MEDICINE [address] [place] [address] 65906 Rena Henriquez MD [address] [place] [address] 35777 01/24/2025 1:30 PM EDT Clinical Support [facility] [address] [place] [address] [phone] Matilda Chisholm RN documented as of this encounter Visit Diagnoses Not on filedocumented in this encounter Additional Health Concerns Assessment Noted Time PHQ-9 Depression Total Score: 18 024 4:16 PM EDT documented as of this encounter Care Teams Dean Relationship Specialty Start Date End Date Rena Henriquez MD [address] [place] [address] [phone] PCP - General Internal Medicine 06/23/24 Krystal Joyner PharmD [address] [place] [address] [phone] Pharmacist Internal Medicine 10/15/24 documented as of this encounter
--- OUTSIDE RECORDS SUMMARY | 2024-11-26 14:43 | XMS_ITS | Encounter Summary ---
Author Organization [employer] Address 75 [facility] 7t [place] [address] Care Team Providers Care Drone Pilot Name Role Phone Rena Henriquez MD Primary Care Provide r Krystal Joyner PharmD Unavailable +- [phone] Reason for Visit * Reason Onset Date Comments Med Refill 11/11/2024 Encounter Details Date Type Department Care Team (Late st Contact Info) Description 11/11/2024 Refill [facility] MED[facility]INE [address] [place], [place] [phone] Matilda Chisholm RN Lumbar radiculopathy (Primary Dx) Social History Tobacco Use Types [...] 9:30 AM EST Office Visit [facility] ADULT DENTAL [address] [place] [address] [phone] Kavitha Graham DDS [address] [place] [address] 99119 12/21/2024 1:45 PM EST Office Visit [facility] MED[facility]INE [address] [place] [address] 59370 Rena Henriquez MD [address] [place] [address] 65546 01/24/2025 1:30 PM EDT Clinical Support [facility] [address] [place] [address] 41432 Matilda Chisholm RN documented as of this encounter Visit Diagnoses Diagnosis Lumbar radiculopathy- Primary Thoracic or lumbosacral neuritis or radiculitis, unspecified documented in this encounter Additional Health Concerns Assessment Noted Time PHQ-9 Depression Total Score: 18 024 4:16 PM EDT documented as of this encounter Care Teams Drone Pilot Relationship Specialty Start Date End Date Rena Henriquez MD [address] [place] [address] 18321 PCP - General Internal Medicine 06/23/24 Krystal Joyner, Johnna [address] [place] [address] [place] [address] Pharmacist Internal Medicine 10/15/24 documented as of this encounter
--- OUTSIDE RECORDS SUMMARY | 2024-11-26 14:43 | XMS_ITS | Encounter Summary ---
Author Organization [employer] Address 75 [facility] 7t [place] [address] Care Team Providers Care Clerk Analyst Name Role Phone Rena Henriquez MD Primary Care Provide r Krystal Joyner PharmD Unavailable [phone]- [phone] Encounter Details Date Type Department Care Team (Late st Contact Info) Description 11/10/2024 Orders Only [facility] External Provider, [facility] Social History Tobacco Use Types Packs/Day Years [...] t he electric, gas, oil or water [employer] threatened to shut off services in your [...] Description 12/02/2024 9:30 AM EST Office Visit [facility] ADULT DENTAL [address] [place] [address] [phone] Kavitha Graham DDS [address] [place] [address] 56047 12/21/2024 1:45 PM EST Office Visit [facility] MED[facility]INE [address] [place] [address] 33441 Rena Henriquez MD [address] [place] [address] 8[address]65 01/24/2025 1:30 PM EDT Clinical Support [facility] [address] [place] [address] 67651 Matilda Chisholm RN documented as of this encounter Procedures Procedure Name Priority Date/Time Associated Diagnosis Comments LDCT LUNG SCREENING Routine 11/11/2024 9 :55 AM EST documented in this encounter Results * CT Lung Screening Low dose (11/11/2024 9:55 AM EST) Anatomical Region Laterality Modality Lung Computed Tomogra phy 11/11/2024 9:55 AM EST Narrative 11/11/2024 9:56 AM EST ? [facility] ?[address] ?[place] [address] ? CT Scan Report ? Signed ? Patient: Montez,Sharita ?MR#: [id number] ?? 52 ? : 1955 ?Acct:[id number] ? Age/Sex: 69 / F ?ADM Date: 11/10/24 ? Loc: HO.CT ? Attending Dr: Buzz Flores MD ? Ordering Physician: Buzz Flores MD ?? Date of Service: 11/10/24 ?? Procedure(s): CT lung screening ?? Accession Number(s): [id number] ? cc: Rena Henriquez MD; Buzz Flores MD ? Report Number: ?? [id number]: Total DLP = ?? 67.00 mGy-cm ? [...] in OV> ? 11/11/24 09 ? DD/ 4 ? TD/TT: 11/11/24954 ? Load Checker: ? Procedure Note Donotmaritzainterpreter, Image - 11/11/[address] [place] [address] [address] Scan Report Signed Patient: Jessi Montez#: [id number] 52 : 6Acct:[id number] Age/Sex: 69 / FADM Date: 11/10/24 Loc: HO.CT Attending Dr: Buzz Flores MD Ordering Physician: Buzz Flores MD Date of Service: 11/10/24 Procedure(s): CT lung screening Accession Number(s): [id number] cc: Rena Henriquez MD; Buzz Flores MD Report Number: [id number]: Total DLP = 67.00 mGy-cm CLINICAL HISTORY: [...] in OV> 11/11/24954 DD/ 4 TD/TT: 11/11/24954 Load Checker: [facility] External Provider IMG CT PROCEDURES Edited Result - Final documented in this encounter Visit Diagnoses Not on filedocumented in this encounter Additional Health Concerns Assessment Noted Time PHQ-9 Depression Total Score: 18 024 4:16 PM EDT documented as of this encounter Care Teams Clerk Analyst Relationship Specialty Start Date End Date Rena Henriquez MD [address] [place] [address] PCP - General Internal Medicine 06/23/24 Krystal Joyner PharmD [address] [place] [address] Pharmacist Internal Medicine 10/15/24 documented as of this encounter
--- OUTSIDE RECORDS SUMMARY | 2024-11-26 14:43 | XMS_ITS | Encounter Summary ---
Author Organization [employer] Address 75 [facility] 7t [place] [address] Care Team Providers Care Black Oxide Coating Equipment Tender Name Role Phone Minerva Barraza Primary Care Provider [phone] Rena Henriquez MD Primary Care Provide r Krystal Joyner PharmD Unavailable [phone] Reason for Visit * Reason Onset Date Comments Medication Problem 03/18/2024 Encounter Details Date Type Department Care Team ([facility] st Contact Info) Description 03/18/2024 Telephone [facility] MEDICINE [address] [place], [place] [phone] Minerva Barraza FNP [address] [place], [place] [phone] Medication Problem Social History Tobacco Use Types Packs/Day Years [...] Telephone Encounter - Paramjit Cavazos RN - 03/18/2024 11:09 AM EDT Please review and advise. Pharmacy has only Trulicity 0.75 mg in stock. * Telephone Encounter - Radha Fountain - 03/18/2024 10:51 AM EDT Tc from pt states pharmacy is out of stock for dulaglutide (Trulicity) 4.5 MG/0.5ML solution pen-injector and states they only have 7.5 mg. documented in this encounter Plan of Treatment Upcoming Encounters Date Type Department Care Team (Late st Contact Info) Description 12/02/2024 9:30 AM EST Office Visit [facility] ADULT DENTAL [address] [place] [address] Kavitha Graham DDS [address] [place] [address] 12/21/2024 1:45 PM EST Office Visit [facility] MEDICINE [address] [place] [address] 94419 Rena Henriquez MD [address] [place] [address] [phone] 01/24/2025 1:30 PM EDT Clinical Support [address] [address] Matilda Chisholm, RN documented as of this encounter Visit Diagnoses Not on filedocumented in this encounter Additional Health Concerns Assessment Noted Time PHQ-9 Depression Total Score: 18 024 4:16 PM EDT documented as of this encounter Care Teams Black [employer] Coating Equipment Tender Relationship Specialty Start Date End Date Minerva Barraza FNP [address] [place] [address] 86395 PCP - General Family Medicine 07/29/22 06/22/24 Rena Henriquez MD [address] [place] [address] [phone] PCP - General Internal Medicine 06/23/24 Krystal Joyner, Johnna [address] [place] [address] [phone] Pharmacist Internal Medicine 10/15/24 documented as of this encounter
--- OUTSIDE RECORDS SUMMARY | 2024-11-26 14:43 | XMS_ITS | Encounter Summary ---
Author Organization [employer] Address 75 [facility] 7t [place] [address] Care Team Providers Care Reaming Machine Operator Name Role Phone Rena Henriquez MD Primary Care Provide r Krystal Joyner PharmD Unavailable [phone] Reason for Visit * Reason Onset Date Comments Med Refill 11/25/2024 Encounter Details Date Type Department Care Team ([facility] st Contact Info) Description 11/25/[address] [facility] MEDICINE [address] [place], [place] [phone] Rena Henriquez MD [address] [place], [place] [phone] Med Refill Social History Tobacco Use Types [...] encounter Miscellaneous Notes * Telephone Encounter - Brianna Hansen LPN - 11/25/2024 11:29 AM EST Duplicate request * Telephone Encounter - Augustine Randolph - 11/25/2024 11:20 AM EST TC from pt requesting medication refill. Medications needing refill : Trulicity 4.5 MG/0.5ML solution auto-injector To be sent to: [facility]/pharmacy #[id number] [place] [address] documented in this encounter Plan of Treatment Upcoming Encounters Date Type Department Care Team (Late st Contact Info) Description 12/02/2024 9:30 AM EST Office Visit [facility] ADULT DENTAL [address] [place] [address] Kavitha Graham DDS [address] [place] [address] 12/21/2024 1:45 PM EST Office Visit [facility] MEDICINE [address] [place] [address] 20523 Rena Henriquez MD [address] [place] [address] 67220 01/24/2025 1:30 PM EDT Clinical Support [address] [address] Matilda Chisholm RN documented as of this encounter Visit Diagnoses Not on filedocumented in this encounter Additional Health Concerns Assessment Noted Time PHQ-9 Depression Total Score: 18 024 4:16 PM EDT documented as of this encounter Care Teams Reaming Machine Operator Relationship Specialty Start Date End Date Rena Henriquez MD [address] [place] [address] 07233 PCP - General Internal Medicine 06/23/24 Krystal Joyner, DamionD [address] [place] [address] [phone] Pharmacist Internal Medicine 10/15/24 documented as of this encounter
--- OUTSIDE RECORDS SUMMARY | 2024-11-26 14:43 | XMS_ITS | Encounter Summary ---
Author Organization [employer] Address 75 [facility] 7t [place] [address] Care Team Providers Care Manager Purchasing Name Role Phone Rena Henriquez MD Primary Care Provide r Krystal Joyner PharmD Unavailable +- [phone] Encounter Details Date Type Department Care Team (Latest Contact Info) Description 11/11/2024 Travel Social History Tobacco Use Types Packs/Day [...] Description 12/02/2024 9:30 AM EST Office Visit [facility] ADULT DENTAL [address] [place] [address] [phone] Kavitha Graham DDS [address] [place] [address] [phone] 12/21/2024 1:45 PM EST Office Visit [facility] MEDICINE [address] [place] [address] 69733 Rena Henriquez MD [address] [place] [address] 33835 01/24/2025 1:30 PM EDT Clinical Support [facility] MEDICINE [address] [place] [address] 45364 Matilda Chisholm RN documented as of this encounter Visit Diagnoses Not on filedocumented in this encounter Additional Health Concerns Assessment Noted Time PHQ-9 Depression Total Score: 18 024 4:16 PM EDT documented as of this encounter Care Teams Manager Purchasing Relationship Specialty Start Date End Date Rena Henriquez MD [address] [place] [address] [phone] PCP - General Internal Medicine 06/23/24 Krystal Joyner PharmD [address] [place] [address] [phone] Pharmacist Internal Medicine 10/15/24 documented as of this encounter
--- OUTSIDE RECORDS SUMMARY | 2024-11-26 14:43 | XMS_ITS | Encounter Summary ---
Author Organization [employer] Address [address] [facility] 7t [place] [address] Care Team Providers Care First Aid Nurse Name Role Phone Rena Henriquez MD Primary Care Provide r Krystal Joyner PharmD Unavailable [phone] Encounter Details Date Type Department Care Team (Late st Contact Info) Description 11/19/2024 Orders Only [facility] [address] [place], [place] [phone] Rena Henriquez MD [address] [place], [place] [phone] Social History Tobacco Use Types Packs/Day Years [...] Description 12/02/2024 9:30 AM EST Office Visit [facility] ADULT DENTAL [address] [place] [address] 33282 Kavitha Graham DDS [address] [place] [address] 51985 12/21/2024 1:45 PM EST Office Visit [facility] [address] [place] [address] 83773 Rena Henriquez MD [address] [place] [address] 18488 01/24/2025 1:30 PM EDT Clinical Support [facility] [address] [place] [address] 55200 Matilda Chisholm RN documented as of this encounter Procedures Procedure Name Priority Date/Time Associated Diagnosis Comments HEPATIC FUNCTION PANEL Routine 11/19/2024 10:06 AM EST LIPID PANEL, STANDARD Routine 11/19/2024 10:06 AM EST BASIC METABOLIC PANEL Routine 11/19/2024 10:06 AM EST documented in this encounter Results * (ABNORMAL) Lipid Panel, Standard (11/19/2024 10:06 AM EST) Triglycerides 257(H) <150 mg/dL [facility] Comment:Desirable Triglyceri de: less than 150 mg/dLBorderline High Triglyceride 150-199 mg/dLHigh Triglyceride: 200-499 mg/dLVery High Triglyceride: greater than or equal to 5OO mg/dL Cholesterol 200(H) <200 mg/dL [facility] Comment:Desirable Cholestero l: less than 200 mg/dLBorderline High Cholesterol: 200-239 mg/dLHigh Cholesterol: greater than 239 mg/dL LDL Cholesterol Calculated 112(H) <100 mg/dL [facility] Comment:Desirable LDL: less than 100 mg/dLNear Optimal/Above Optimal LDL: 110- 129 mg/dLBorderline High LDL: 130-159 mg/dLHigh LDL: 160-189 mg/dLVery High LDL: greater than or equal to 190 mg/dL HDL Cholesterol 37(L) >40 mg/dL [facility] Comment:Desirable HDL: great er than 40 mg/dL Note: This HDL assay may give artificially low results in patients with liver disease. 11/19/2024 10:0 6 AM EST 11/19/2024 11:38 AM EST us Rena De La Torre MD LAB BLOOD ORDERABLES Final Result [facility] [address] [place] [address] [phone] * (ABNORMAL) Basic Metabolic Panel (11/19/2024 10:06 AM EST) Sodium 142 135 - 145 mmol/L [facility] Potassium 3.7 3.3 - 5.1 mmol/L [facility] Chloride 106 96 - 108 mmol/L [facility] Carbon Dioxide 26 22 - 29 mmol/L [facility] Anion Gap 14 12 - 20 [facility] Urea Nitrogen (BUN) 15 9 - 16 mg/dL [facility] Creatinine, Serum 1.04 0.5 - 1.4 mg/dL [facility] Estimated Glomerular Filt Rate 53 [facility] Comment:Chronic Kidney Disea se: Estimated GFR < 60 mL/min/1.94m0Pxsxde Kidney Disease: Estimated GFR < 15 mL/min/1.73m2 Glucose 122(H) 60 - 115 mg/dL [facility] Calcium 9.8 8.4 - 10.2 mg/dL [facility] 11/19/2024 10:0 6 AM EST 11/19/2024 11:38 AM EST us Rena De La Torre MD LAB BLOOD ORDERABLES Final Result Performing Organization Address [facility] Co de Phone Number [facility] [address] [place] [address] [phone] * (ABNORMAL) Hepatic Function Panel (11/19/2024 10:06 AM EST) Bilirubin, Total 0.2 0.0 - 1.0 mg/dL [facility] Bilirubin, Direct <0.2 0.0 - 0.5 mg/dL [facility] Aspartate Amino Transferase 23 5 - 31 U/L [facility] Alanine Aminotransferase 41(H) 0 - 31 U/L [facility] Total Protein 7.5 6.5 - 8.0 g/dL [facility] Albumin Level 4.1 3.5 - 5.0 g/dL [facility] Alkaline Phosphatase 127(H) 39 - 117 U/L [facility] 11/19/2024 10:0 6 AM EST 11/19/2024 11:38 AM EST us Rena De La Torre MD LAB BLOOD ORDERABLES Final Result Performing Organization Address [facility] Co de Phone Number [facility] [address] [place] [phone] documented in this encounter Visit Diagnoses Not on filedocumented in this encounter Additional Health Concerns Assessment Noted Time PHQ-9 Depression Total Score: 18 024 4:16 PM EDT documented as of this encounter Care Teams First Aid Nurse Relationship Specialty Start Date End Date Rena Henriquez MD [address] [place] [address] PCP - General Internal Medicine 06/23/24 Krystal Joyner, Johnna [address] [place] [address] Pharmacist Internal Medicine 10/15/24 documented as of this encounter
--- OUTSIDE RECORDS SUMMARY | 2024-11-26 14:43 | XMS_ITS | Encounter Summary ---
Author Organization [employer] Address 75 [facility] 7t [place] [address] Care Team Providers Care Education Rep Name Role Phone Minerva Barraza Primary Care Provider + Rena Henriquez MD Primary Care Provide r Krystal Joyner PharmD Unavailable [phone] Reason for Visit * Reason Onset Date Comments Nurse Triage 02/17/2024 Encounter Details Date Type Department Care Team ([facility] st Contact Info) Description 02/17/2024 Telephone [facility] MEDICINE [address] [place], [place] [phone] Minerva Barraza FNP [address] [place], [place] [phone] Nurse Triage Social History Tobacco Use Types Packs/Day Years [...] encounter Miscellaneous Notes * Telephone Encounter - Gabby Santos RN - 02/17/2024 12:28 PM EDT Called pt. Via [employer] aerial photograph interpreter [phone] [place]. Pt. States that she has been having chest painsand lung pain x 3 weeks. Pt also had right hip pain that traveled down her leg. Pt went to [facility] last week and had Xrays done and a EEG. Ambulance had to go to pt. Home to bring her to [facility] on 02/13/24. Pt. Is not experiencing chest pain at present. Pt. Does have a cough- congested. Pt. States that she has someone coming from her insurance company to assess her breathing and fu on [facility] visit. Pt. Also wants to let PCP know that Trulicity is not available at her Pharmacy at [facility]. Pt.Wants to know how she is going to get her RX. Pt is due to give herself the Trulicity on Friday02/18/24 (tomorrow) and does not have it. She states her pharmacy told her that the closest Pharmacy that might have it is 20 miles away? Will send this note to PCP and also to [facility] to see if th ey have it in stock. Please have team nurse call pt. Back with response. * Telephone Encounter - Kassidy Malina - 02/17/2024 12:24 PM EDT Symptom: Chest Pain - Adult Outcome: Schedule an urgent appointment (within 1 hour) or talk to a nurse or provider soon Reason: Caller denied all higher acuity questions The caller accepted this outcome documented in this encounter Plan of Treatment Upcoming Encounters Date Type Department Care Team (Late st Contact Info) Description 12/02/2024 9:30 AM EST Office Visit [facility] ADULT DENTAL [address] [place] [phone] Kavitha Graham DDS [address] [place] [address] 12/21/2024 1:45 PM EST Office Visit [facility] MEDICINE [address] [place] [phone] Rena Henriquez MD [address] [place] [address] 167[address] 01/24/2025 1:30 PM EDT Clinical Support [facility] [address] [place] [address] [phone] Matilda Chisholm, LEO documented as of this encounter Visit Diagnoses Diagnosis Type 2 diabetes mellitus with hyperosmolarity without coma, without long-term current use of insulin ([facility]) documented in this encounter Additional Health Concerns Assessment Noted Time PHQ-9 Depression Total Score: 18 024 4:16 PM EDT documented as of this encounter Care Teams Education Rep Relationship Specialty Start Date End Date Minerva Barraza FNP [address] [place] [address] [phone] PCP - General Family Medicine 07/29/22 06/22/24 Rena Henriquez MD [address] [place] [address] 51074 PCP - General Internal Medicine 06/23/24 Krystal Joyner, DamionD [address] [place] [address] [phone] Pharmacist Internal Medicine 10/15/24 documented as of this encounter
--- OUTSIDE RECORDS SUMMARY | 2024-11-26 14:43 | XMS_ITS | Encounter Summary ---
Author Organization [employer] Address 75 [facility] 7t [place] [address] Care Team Providers Care Heater Helper Forge Name Role Phone Rena Henriquez MD Primary Care Provide r Krystal Joyner PharmD Unavailable +- [phone] Reason for Visit * Reason Onset Date Comments Tspot and CXR results 11/24/2024 Encounter Details Date Type Department Care Team (Late st Contact Info) Description 11/24/2024 Telephone [facility] [address] [place], [place] [phone] Concepcion Haynes, LEO [address] [place], [place] [phone] Tspot and CXR results Social History Tobacco Use Types Packs/Day Years [...] encounter Miscellaneous Notes * Telephone Encounter - Augustine Randolph - 11/25/2024 11:18 AM EST Tc from pt requesting a call back regarding prior message. Contact pt at [phone] * Telephone Encounter - Concepcion Haynes RN - 11/24/2024 3:00 PM EST RN received a call from Tawana in regards to this patient. Tawana reports the patient continues to ask about latent TB on problem list and for her CXR results from before [place]. Tawana reportsthe patient is a very poor historian.. Per chart review, the patient was referred to TB clinic and no showed x2 therefore her case was closed (per problem list notes). Patient had 2 Tspots performed at [facility] on 06/11/24 and 10/14/24 which were both NEGATIVE. Upon [facility] review, patient was referred to TB clinic by [facility]. RN unclear on CXR order (no CXR ordered by [facility] providers). Per [facility] review, patient had a CT lung ordered by [facility] balance assembler which was completed on 11/11/24. TC placed to patient [phone] via [employer] ([employer]ace #[id number]). [facility] informed [facility] patient in 2019 however we are not sure why and the patient would need to call the [facility] to inquire further information at . Patientadvised of negative Tspots performed at [facility]. Patient reports she is not home at this time to write phone number down however she will return call to [facility] to obtain phone number when home. Patient alsoconfirms she is referring to the CT lung and not a CXR. Patient advised the CT lung was ordered by her balance assembler at [facility] (Dr. Flores) and she will need to call their office to obtain the results. Patient verbalized understanding. Patient to f/u PRN. documented in this encounter Plan of Treatment Upcoming Encounters Date Type Department Care Team (Late st Contact Info) Description 12/02/2024 9:30 AM EST Office Visit [facility] [address] [place] [address] Kavitha Graham DDS [address] [place] [address] 12/21/2024 1:45 PM EST Office Visit [facility] [address] [place] [address] Rena Henriquez MD [address] [place] [address] 01/24/2025 1:30 PM EDT Clinical Support [facility] [address] [place] [address] Matilda Chisholm RN documented as of this encounter Visit Diagnoses Not on filedocumented in this encounter Additional Health Concerns Assessment Noted Time PHQ-9 Depression Total Score: 18 024 4:16 PM EDT documented as of this encounter Care Teams Heater Helper Forge Relationship Specialty Start Date End Date Rena Henriquez MD [address] [place] [address] PCP - General Internal Medicine 06/23/24 Krystal Joyner, Johnna [address] [place] [address] Pharmacist Internal Medicine 10/15/24 documented as of this encounter
--- OUTSIDE RECORDS SUMMARY | 2024-11-26 14:43 | XMS_ITS | Encounter Summary ---
Author Organization [employer] Address 75 [facility] 7t [place] [address] Care Team Providers Care Roller Stainer Name Role Phone Ellen Henriquez MD Primary Care Provide r Krystal Joyner PharmD Unavailable [phone] Reason for Referral * Consultation (Routine) - Closed Specialty Diagnoses / Procedures Referred By Contac t Referred To Contact Psychiatry Diagnoses Anxiety Episode of recurrent major depressive disorder, unspecified depression episode severity (CMS/HCC) Ellen Henriquez MD [address] [place] [address] Phone: tel: fax: Referral ID Status Reason Start Date Expiration Date V isits Requested Visits Authorized [id number] Closed Specialty Services Required 11/01/2024 11/01/2025 1 1 Reason for Visit * Reason Onset Date Comments Medication Question 10/29/2024 Encounter Details Date Type Department Care Team (Late st Contact Info) Description 10/29/2024 Telephone [facility] [address] [place], [place] [phone] Krystal Joyner, PharmD [address] [place], [place] [phone] Medication Question Social History Tobacco Use Types Packs/Day Years [...] encounter Miscellaneous Notes * Telephone Encounter - Concepcion Haynes RN - 11/01/2024 1:00 PM EST TC placed to patient [phone] via [employer] ([employer] #[id number]) in regards to below message. Patient informed PCP has sent an RX for alprazolam to the pharmacy for 1 month and a referral topsychiatry. Patient advised PCP will cover medication in the interim while she awaits to get established with new psychiatrist. Patient also advised in regards to latent TB she was referred to [facility] however no showed x2 therefore they closed her case. Patient verbalized understanding. Patient to f/u PRN. * Addendum Note - Ellen De La Torre MD - 11/01/2024 11:39 AM ESTAddended by: ELLEN BOGGS on: 11/01/2024 11:39 AM Modules accepted: Orders * Telephone Encounter - Krystal Joyner PharmD - 10/29/2024 5:06 PM EST Patient was seen in [facility] and is requesting follow up about: 1) Latent TB diagnosis and pending testing or follow up for this 2) Alprazolam prescription previously prescribed by outside office, Dr Antonio, however patient states that prescriber is leaving practice and she is inquiring about refills until establishing care with a new psychiatrist; patient requests referral for a new psychiatrist documented in this encounter Plan of Treatment Upcoming Encounters Date Type Department Care Team (Late st Contact Info) Description 12/02/2024 9:30 AM EST Office Visit [facility] [address] [place] [address] Kavitha Graham, DDS 230 [place] [address] 12/21/2024 1:45 PM EST Office Visit [facility] [address] [place] [address] Ellen Henriquez MD [address] [place] [address] 01/24/2025 1:30 PM EDT Clinical Support [facility] [address] [place] [address] Kathrine, Matilda, RN Scheduled Referrals Name Type Priority Associated Diagnoses Orde r Schedule Referral to Behavioral Health Outpatient Referral Routine Anxiety Episode of recurrent major depressive disorder, unspecified depression episode severity (CMS/HCC) Expected: 11/01/2024 (Approximate), Expires: 11/01/2025 documented as of this encounter Visit Diagnoses Diagnosis Anxiety- Primary Anxiety state, unspecified Episode of recurrent major depressive disorder, unspecified depression episode severity (CMS/HCC) documented in this encounter Additional Health Concerns Assessment Noted Time PHQ-9 Depression Total Score: 18 024 4:16 PM EDT documented as of this encounter Care Teams Roller Stainer Relationship Specialty Start Date End Date Ellen Henriquez MD [address] [place] [address] PCP - General Internal Medicine 06/23/24 Krystal Joyner PharmD [address] [place] [address] Pharmacist Internal Medicine 10/15/24 documented as of this encounter
--- OUTSIDE RECORDS SUMMARY | 2024-11-26 14:43 | XMS_ITS | Encounter Summary ---
Author Organization [employer] Address 75 [facility] 7t [place] [address] Care Team Providers Care Tram Inspector Name Role Phone Minerva Barraza RHYS Primary Care Provider +[phone] Rena Henriquez MD Primary Care Provide r Krystal Joyner PharmD Unavailable [phone] Reason for Visit * Reason Comments Med Refill Encounter Details Date Type Department Care Team (Late Contact Info) Description 02/24/2023 Refill [facility] [address] [place], [place] [phone] Everett Wood, RHYS garay Social History Tobacco Use Types Packs/Day Years Used Date Smoking Tobacco: Every Day Cigarettes 1 30 Passive Smoke Exposure: Current Smokeless Tobacco: Never Alcohol Use Standard Drinks/Week Comments Not Currently 0 (1 standard drink = 0.6 oz pur e alcohol) Comments Unknown Sex and Gender Information Value Date Recorded Sex Assigned at Female 08/26/2022 10:35 AM EDT Legal Sex Female 10:35 AM EDT Gender Identity Female 08/26/2022 10:35 AM EDT Sexual Orientation Straight 08/26/2022 10 :35 AM EDT COVID-19 Exposure Response Date Recorded In the last 10 days, have yo u been in contact with someone who was confirmed or suspected to have Coronavirus/COVID-19? No / Unsure 02/18/2023 12:42 PM EDT documented as of this encounter Plan of Treatment Upcoming Encounters Date Type Department Care Team (Late Contact Info) Description 12/02/2024 9:30 AM EST Office Visit [facility] [address] [place], [place] [phone] Cory-Kavitha Hawkins, DDS [address] [place] [address] 12/21/2024 1:45 PM EST Office Visit [facility] MEDICINE [address] [place] [address] Rena Henriquez MD [address] [place] [address] 01/24/2025 1:30 PM EDT Clinical Support [address] [address] Matilda Chisholm RN documented as of this encounter Visit Diagnoses Diagnosis Tinea cruris Dermatophytosis of groin and perianal area documented in this encounter Additional Health Concerns Assessment Noted Time PHQ-9 Depression Total Score: 4 12/06/19 23 1:46 PM EST documented as of this encounter Care Teams Tram Inspector Relationship Specialty Start Date End Date Minerva Barraza FNP [address] [place] [address] PCP - General Family Medicine 07/29/22 06/22/24 Rena Henriquez MD [address] [place] [address] [phone] PCP - General Internal Medicine 06/23/24 Krystal Joyner, DamionD [address] [place] [address] [phone] Pharmacist Internal Medicine 10/15/24 documented as of this encounter
--- OUTSIDE RECORDS SUMMARY | 2024-11-26 14:43 | XMS_ITS | Encounter Summary ---
Author Organization [employer] Address 75 [facility] 7t [place] [address] Care Team Providers Care Supply Chain Business Analyst Name Role Phone Rena Henriquez MD Primary Care Provide r Krystal Joyner PharmD Unavailable [phone] Reason for Visit * Reason Comments Med Refill Encounter Details Date Type Department Care Team (Late st Contact Info) Description 11/25/2024 Refill [facility] [address] [place], [place] [phone] Minerva Barraza FNP [address] [place], [place] [phone] Depression with anxiety Social History Tobacco Use Types Packs/Day Years [...] Description 12/02/2024 9:30 AM EST Office Visit [facility] ADULT DENTAL [address] [place] [address] Kavitha Graham DDS [address] [place] [address] 12/21/2024 1:45 PM EST Office Visit [facility] [address] [place] [address] Rena Henriquez MD [address] [place] [address] 01/24/2025 1:30 PM EDT Clinical Support [facility] [address] [place] [address] Matilda Chisholm RN documented as of this encounter Visit Diagnoses Diagnosis Depression with anxiety Dysthymic disorder documented in this encounter Additional Health Concerns Assessment Noted Time PHQ-9 Depression Total Score: 18 024 4:16 PM EDT documented as of this encounter Care Teams Supply Chain Business Analyst Relationship Specialty Start Date End Date Rean Henriquez MD [address] [place] [address] PCP - General Internal Medicine 06/23/24 Krystal Joyner, Johnna [address] [place] [address] [place] [address] Pharmacist Internal Medicine 10/15/24 documented as of this encounter
--- OUTSIDE RECORDS SUMMARY | 2024-11-26 14:43 | XMS_ITS | Encounter Summary ---
Author Organization [employer] Address 75 [facility] 7t [place] [address] Care Team Providers Care It Sales Representative Name Role Phone Rena Henriquez MD Primary Care Provide r Krystal Joyner PharmD Unavailable [phone]- [phone] Reason for Visit * Reason Onset Date Comments Recommend DEVELOPER ANALYST Tier 2 11/11/2024 Encounter Details Date Type Department Care Team ([facility] st Contact Info) Description 11/11/2024 Telephone [facility] [address] [place], [place] [phone] Matilda Chisholm, LEO Recommend DEVELOPER ANALYST Tier 2 Social History Tobacco Use Types Packs/Day Years [...] encounter Miscellaneous Notes * Telephone Encounter - Matilda Chisholm RN - 11/11/2024 7:41 AM EST What DEVELOPER ANALYST Tier would you like this patient to be? I recommend Tier 2, please let me know if you agree or would rather patient be in another DEVELOPER ANALYST Tier. Tier 1 = HIGH RISK, Monthly DEVELOPER ANALYST visits Tier 2 = MODerate RISK, Q3 Month visits Tier 3 = LOW RISK = Q4-6 month visits documented in this encounter Plan of Treatment Upcoming Encounters Date Type Department Care Team (Late st Contact Info) Description 12/02/2024 9:30 AM EST Office Visit [facility] [address] [place] [address] Kavitha Graham DDS 230 [place] [address] 12/21/2024 1:45 PM EST Office Visit [facility] [address] [place] [address] Rena Henriquez MD [address] [place] [address] 01/24/2025 1:30 PM EDT Clinical Support [address] [address] Matilda Chisholm, RN documented as of this encounter Visit Diagnoses Not on filedocumented in this encounter Additional Health Concerns Assessment Noted Time PHQ-9 Depression Total Score: 18 024 4:16 PM EDT documented as of this encounter Care Teams It Sales Representative Relationship Specialty Start Date End Date Rena Henriquez MD [address] [place] [address] PCP - General Internal Medicine 06/23/24 Krystal Joyner PharmD [address] [place] [address] Pharmacist Internal Medicine 10/15/24 documented as of this encounter
--- OUTSIDE RECORDS SUMMARY | 2024-11-26 14:43 | XMS_ITS | Encounter Summary ---
Author Organization [employer] Address 75 [facility] 7t [place] [address] Care Team Providers Care Developer Evangelist Name Role Phone Rena Henriquez MD Primary Care Provide r Krystal Joyner PharmD Unavailable [phone] Reason for Visit * Reason Comments Med Refill Encounter Details Date Type Department Care Team (Late st Contact Info) Description 10/06/2024 Refill [facility] [address] [place], [place] [phone] Minerva Barraza FNP [address] [place] [address] Depression with anxiety Social History Tobacco Use [...] Description 12/02/2024 9:30 AM EST Office Visit [facility] ADULT DENTAL [address] [place] [address] Kavitha Graham DDS [address] [place] [address] 12/21/2024 1:45 PM EST Office Visit [facility] MED[facility]INE [address] [place] [address] Rena Henriquez MD [address] [place] [address] 01/24/2025 1:30 PM EDT Clinical Support [facility] [address] [place] [address] Matilda Chisholm RN documented as of this encounter Visit Diagnoses Diagnosis Depression with anxiety Dysthymic disorder documented in this encounter Additional Health Concerns Assessment Noted Time PHQ-9 Depression Total Score: 18 024 4:16 PM EDT documented as of this encounter Care Teams Developer Evangelist Relationship Specialty Start Date End Date Rena Henriquez MD [address] [place] [address] PCP - General Internal Medicine 06/23/24 Krystal Joyner, Johnna [address] [place] [address] [place] [address] Pharmacist Internal Medicine 10/15/24 documented as of this encounter
--- OUTSIDE RECORDS SUMMARY | 2024-11-26 14:43 | XMS_ITS | Encounter Summary ---
Author Organization [employer] Address 75 [facility] 7t [place] [address] Care Team Providers Care Foundation Maker Name Role Phone Minerva Barraza Primary Care Provider +[phone] Rena Henriquez MD Primary Care Provide r Krystal Joyner PharmD Unavailable [phone] Reason for Visit * Reason Comments Med Change Request Encounter Details Date Type Department Care Team (Late Contact Info) Description 03/18/2023 Refill [facility] [address] [place] [address] Minerva Barraza FNP [address] [place] [address] Mild intermittent asthma without complication Social History [...] suspected to have Coronavirus/COVID-19? No / Unsure 03/14/2023 3:34 PM EDT documented as of this encounter Plan of Treatment Upcoming Encounters Date Type Department Care Team (Late Contact Info) Description 12/02/2024 9:30 AM EST Office Visit [facility] ADULT DENTAL [address] [place] [address] Kavitha Graham DDS [address] [place] [address] 12/21/2024 1:45 PM EST Office Visit [facility] MED[facility]INE [address] [place] [address] Rena Henriquez MD 230 [place] [address] 01/24/2025 1:30 PM EDT Clinical Support [address] [address] Matilda Chisholm, LEO documented as of this encounter Visit Diagnoses Diagnosis Mild intermittent asthma without complication documented in this encounter Additional Health Concerns Assessment Noted Time PHQ-9 Depression Total Score: 4 12/06/19 23 1:46 PM EST documented as of this encounter Care Teams Foundation Maker Relationship Specialty Start Date End Date Minerva Barraza FNP [address] [place] [address] PCP - General Family Medicine 07/29/22 06/22/24 Rena Henriquez MD [address] [place] [address] [phone] PCP - General Internal Medicine 06/23/24 Krystal Joyner PharmD [address] [place] [address] Pharmacist Internal Medicine 10/15/24 documented as of this encounter
--- OUTSIDE RECORDS SUMMARY | 2024-11-26 14:43 | XMS_ITS | Encounter Summary ---
Author Organization [employer] Address 75 [facility] 7t [place] [address] Care Team Providers Care Geospatial Analyst Name Role Phone Rena Henriquez MD Primary Care Provide r Krystal Joyner PharmD Unavailable [phone] Reason for Visit * Reason Comments Med Refill Encounter Details Date Type Department Care Team ([facility] st Contact Info) Description 11/24/2024 Refill [facility] 230 [place], [place] [phone] [facility] 230 [place], [place] [phone] Social History Tobacco Use Types Packs/Day Years [...] Encounter - Brianna Hansen LPN - 11/25/2024 11:27 AM EST Patient also requesting trulicity 4.5mg unclear if prescribed bu pcp documented in this encounter Plan of Treatment Upcoming Encounters Date Type Department Care Team (Late st Contact Info) Description 12/02/2024 9:30 AM EST Office Visit [facility] ADULT DENTAL [address] [place] [address] Kavitha Graham DDS 230 [place] [address] 12/21/2024 1:45 PM EST Office Visit [facility] MED[facility]INE [address] [place] [address] Rena Henriquez MD [address] [place] [address] 01/24/2025 1:30 PM EDT Clinical Support [facility] [address] [place] [address] Matilda Chisholm RN documented as of this encounter Visit Diagnoses Not on filedocumented in this encounter Additional Health Concerns Assessment Noted Time PHQ-9 Depression Total Score: 18 024 4:16 PM EDT documented as of this encounter Care Teams Geospatial Analyst Relationship Specialty Start Date End Date Rena Henriquez MD [address] [place] [address] PCP - General Internal Medicine 06/23/24 Krystal Joyner, Johnna [address] [place] [address] Pharmacist Internal Medicine 10/15/24 documented as of this encounter
--- OUTSIDE RECORDS SUMMARY | 2024-11-26 14:43 | XMS_ITS | Encounter Summary ---
Author Organization [employer] Address 75 [facility] 7t [place] [address] Care Team Providers Care Gambreler Name Role Phone Minerva Barraza Primary Care Provider +[phone] Rena Henriquez MD Primary Care Provide r Krystal Joyner PharmD Unavailable [phone] Reason for Visit * Reason Comments Med Refill Encounter Details Date Type Department Care Team (Late st Contact Info) Description 07/07/2023 Refill [facility] 230 [place] [address] Minerva Barraza FNP [address] [place] [address] Tobacco abuse Social History Tobacco Use Types Packs/Day Years [...] Description 12/02/2024 9:30 AM EST Office Visit [facility] ADULT DENT[facility] [address] [place] [address] Kavitha Graham, DDS [address] [place] [address] 12/21/2024 1:45 PM EST Office Visit [facility] MED[facility] [address] [place] [address] Rena Henriquez MD [address] [place] [address] 01/24/2025 1:30 PM EDT Clinical Support [address] [address] Matilda Chisholm, LEO documented as of this encounter Visit Diagnoses Diagnosis Tobacco abuse Tobacco use disorder documented in this encounter Additional Health Concerns Assessment Noted Time PHQ-9 Depression Total Score: 16 05/19/ 023 10:31 AM EDT documented as of this encounter Care Teams Gambreler Relationship Specialty Start Date End Date Minerva Barraza FNP [address] [place] [address] PCP - General Family Medicine 07/29/22 06/22/24 Rena Henriquez MD [address] [place] [address] PCP - General Internal Medicine 06/23/24 Krystal Joyner, DamionD [address] [place] [address] Pharmacist Internal Medicine 10/15/24 documented as of this encounter
--- OUTSIDE RECORDS SUMMARY | 2024-11-26 14:43 | XMS_ITS | Encounter Summary ---
Author Organization [employer] Address 75 [facility] 7t [place] [address] Care Team Providers Care Glazier Supervisor Name Role Phone Minerva Barraza Primary Care Provider +[phone] Rena Henriquez MD Primary Care Provide r Krystal Joyner PharmD Unavailable [phone] Reason for Visit * Reason Onset Date Comments Medication Question 02/13/2024 Encounter Details Date Type Department Care Team ([facility] st Contact Info) Description 02/13/2024 Telephone [facility] MED[facility]INE [address] [place], [place] [phone] Minerva Barraza FNP [address] [place], [place] [phone] Medication Question Social History Tobacco Use Types [...] encounter Miscellaneous Notes * Telephone Encounter - Bunny Winslow - 02/13/2024 9:19 AM EDT Tc from pt requesting an alternative for dulaglutide (Trulicity) 4.5 MG/0.5ML solution pen-injector, states [facility], Delivery Aide confirmed with pharmacy. documented in this encounter Plan of Treatment Upcoming Encounters Date Type Department Care Team (Late st Contact Info) Description 12/02/2024 9:30 AM EST Office Visit [facility] ADULT DENTAL [address] [place] [address] Kavitha Graham, DDS [address] [place], [place] [phone] 12/21/2024 1:45 PM EST Office Visit [facility] [address] [place] [address] Rena Henriquez MD 230 [place] [address] 01/24/2025 1:30 PM EDT Clinical Support [facility] [address] [place] [address] Matilda Chisholm, LEO documented as of this encounter Visit Diagnoses Not on filedocumented in this encounter Additional Health Concerns Assessment Noted Time PHQ-9 Depression Total Score: 18 024 4:16 PM EDT documented as of this encounter Care Teams Glazier Supervisor Relationship Specialty Start Date End Date Minerva Barraza FNP [address] [place] [address] PCP - General Family Medicine 07/29/22 06/22/24 Rena Henriquez MD [address] [place] [address] [phone] PCP - General Internal Medicine 06/23/24 Krystal Joyner, DamionD [address] [place] [address] Pharmacist Internal Medicine 10/15/24 documented as of this encounter
--- OUTSIDE RECORDS SUMMARY | 2024-11-26 14:44 | XMS_ITS | Encounter Summary ---
Author Organization [employer] Address 75 [facility] 7t [place] [address] Care Team Providers Care Explosive Ordnance Disposal Manager Name Role Phone Rena Henriquez MD Primary Care Provide r Krystal Joyner PharmD Unavailable [phone] Reason for Visit * Reason Comments Med Refill Encounter Details Date Type Department Care Team (Late st Contact Info) Description 06/30/2024 Refill [facility] MED[facility]INE [address] [place], [place] [phone] Minerva Barraza FNP 230 [place], [place] [phone] Insomnia, unspecified type Social History Tobacco Use Types Packs/Day Years [...] Description 12/02/2024 9:30 AM EST Office Visit [facility] ADULT DENTAL [address] [place] [address] Kavitha Graham DDS [address] [place] [address] 12/21/2024 1:45 PM EST Office Visit [facility] MED[facility]INE [address] [place] [address] Rena Henriquez MD [address] [place] [address] 01/24/2025 1:30 PM EDT Clinical Support [facility] [address] [place] [address] Matilda Chisholm RN documented as of this encounter Visit Diagnoses Diagnosis Insomnia, unspecified type documented in this encounter Additional Health Concerns Assessment Noted Time PHQ-9 Depression Total Score: 18 024 4:16 PM EDT documented as of this encounter Care Teams Explosive Ordnance Disposal Manager Relationship Specialty Start Date End Date Rena Henriquez MD [address] [place] [address] PCP - General Internal Medicine 06/23/24 Krystal Joyner, Johnna [address] [place] [address] [place] [address] Pharmacist Internal Medicine 10/15/24 documented as of this encounter
--- OUTSIDE RECORDS SUMMARY | 2024-11-26 14:44 | XMS_ITS | Encounter Summary ---
Author Organization [employer] Address 75 [facility] 7t [place] [address] Care Team Providers Care Secondary Set Up Man Name Role Phone Minerva Barraza RHYS Primary Care Provider +0 Rena Henriquez MD Primary Care Provide r Krystal Joyner PharmD Unavailable [phone] Encounter Details Date Type Department Care Team (Late st Contact Info) Description 06/07/2024 Orders Only [facility] MEDICINE 230 [place] [address] Haleigh Perez MD [address] [place] [address] Social History Tobacco Use Types Packs/Day Years [...] Description 12/02/2024 9:30 AM EST Office Visit [facility] ADULT DENTAL [address] [place] [address] Kavitha Graham DDS [address] [place] [address] 12/21/2024 1:45 PM EST Office Visit [facility] MEDICINE [address] [place] [address] Rena Henriquez MD [address] [place] [address] 01/24/2025 1:30 PM EDT Clinical Support [facility] MEDICINE [address] [place] [address] Matilda Chisholm RN documented as of this encounter Visit Diagnoses Not on filedocumented in this encounter Additional Health Concerns Assessment Noted Time PHQ-9 Depression Total Score: 18 024 4:16 PM EDT documented as of this encounter Care Teams Secondary Set Up Man Relationship Specialty Start Date End Date Minerva Barraza FNP [address] [place] [address] PCP - General Family Medicine 07/29/22 06/22/24 Rena Henriquez MD [address] [place] [address] PCP - General Internal Medicine 06/23/24 Krystal Joyner PharmD [address] [place] [address] Pharmacist Internal Medicine 10/15/24 documented as of this encounter
--- OUTSIDE RECORDS SUMMARY | 2024-11-26 14:44 | XMS_ITS | Encounter Summary ---
Author Organization [employer] Address 75 [facility] 7t [place] [address] Care Team Providers Care Wage And Salary Specialist Name Role Phone Rena Henriquze MD Primary Care Provide r Krystal Joyner PharmD Unavailable [phone] Reason for Visit * Reason Comments Med Refill Encounter Details Date Type Department Care Team (Late st Contact Info) Description 07/04/2024 Refill [facility] MED[facility]INE [address] [place], [place] [phone] Minerva Barraza FNP [address] [place], [place] [phone] Depression with anxiety; Insomnia, unspecified type Social History Tobacco Use [...] 9:30 AM EST Office Visit [facility] ADULT DENTAL [address] [place] [address] Kavitha Graham, DDS [address] [place] [address] 12/21/2024 1:45 PM EST Office Visit [facility] MEDICINE [address] [place] [address] Rena Henriquez MD [address] [place] [address] 01/24/2025 1:30 PM EDT Clinical Support [facility] MED[facility]INE [address] [place] [address] Matilda Chisholm RN documented as of this encounter Visit Diagnoses Diagnosis Depression with anxiety Dysthymic disorder Insomnia, unspecified type documented in this encounter Additional Health Concerns Assessment Noted Time PHQ-9 Depression Total Score: 18 024 4:16 PM EDT documented as of this encounter Care Teams Wage And Salary Specialist Relationship Specialty Start Date End Date Rena Henriquez MD [address] [place] [address] PCP - General Internal Medicine 06/23/24 Krystal Joyner, Johnna [address] [place] [address] Pharmacist Internal Medicine 10/15/24 documented as of this encounter
--- OUTSIDE RECORDS SUMMARY | 2024-11-26 14:44 | XMS_ITS | Encounter Summary ---
Author Organization [employer] Address 75 [facility] 7t [place] [address] Care Team Providers Care Supervisor Waterproofing Name Role Phone Rena Henriquez MD Primary Care Provide r Krystal Joyner PharmD Unavailable [phone] Encounter Details Date Type Department Care Team (Late st Contact Info) Description 07/05/2024 Telephone [facility] [address] [place], [place] [phone] Krystal Joyner, PharmD 230 [place] [address] Social History Tobacco Use Types Packs/Day Years [...] Description 12/02/2024 9:30 AM EST Office Visit [facility] ADULT DENTAL [address] [place] [address] Kavitha Graham DDS [address] [place] [address] 12/21/2024 1:45 PM EST Office Visit [facility] [address] [place] [address] Rena Henriquez MD [address] [place] [address] 01/24/2025 1:30 PM EDT Clinical Support [facility] [address] [place] [address] Matilda Chisholm RN documented as of this encounter Visit Diagnoses Not on filedocumented in this encounter Additional Health Concerns Assessment Noted Time PHQ-9 Depression Total Score: 18 024 4:16 PM EDT documented as of this encounter Care Teams Supervisor Waterproofing Relationship Specialty Start Date End Date Rena Henriquez MD [address] [place] [address] PCP - General Internal Medicine 06/23/24 Krystal Joyner, Johnna [address] [place] [address] Pharmacist Internal Medicine 10/15/24 documented as of this encounter
--- OUTSIDE RECORDS SUMMARY | 2024-11-26 14:44 | XMS_ITS | Encounter Summary ---
Author Organization [employer] Address 75 [facility] 7t [place] [address] Care Team Providers Care Parking Line Painter Name Role Phone Minerva Barraza Primary Care Provider +0 Rena Henriquez MD Primary Care Provide r Krystal Joyner PharmD Unavailable [phone] Reason for Visit * Reason Onset Date Comments Medication Question 12/25/2022 Encounter Details Date Type Department Care Team ([facility] st Contact Info) Description 12/25/2022 Telephone [facility] MEDICINE [address] [place], [place] [phone] Minerva Barraza FNP [address] [place], [place] [phone] Medication Question Social History Tobacco Use Types [...] suspected to have Coronavirus/COVID-19? No / Unsure 12/25/2022 11:34 AM EST documented as of this encounter Miscellaneous Notes * Telephone Encounter - Ayaan Garcia - 12/25/2022 3:00 PM EST Tc from pt requesting status on medication prescribed on today appt 12/25/22 Please contact pt at [phone] Pt speaks nigerien documented in this encounter Plan of Treatment Upcoming Encounters Date Type Department Care Team (Late st Contact Info) Description 12/02/2024 9:30 AM EST Office Visit [facility] ADULT DENTAL [address] [place] [address] Kavitha Graham, DDS [address] [place] [address] 12/21/2024 1:45 PM EST Office Visit [facility] MEDICINE [address] [place] [address] Rena Henriquez MD [address] [place] [address] 01/24/2025 1:30 PM EDT Clinical Support [facility] MED[facility]INE [address] [place] [address] Matilda Chisholm, LEO documented as of this encounter Visit Diagnoses Not on filedocumented in this encounter Additional Health Concerns Assessment Noted Time PHQ-9 Depression Total Score: 4 12/06/19 23 1:46 PM EST documented as of this encounter Care Teams Parking Line Painter Relationship Specialty Start Date End Date Minerva Barraza FNP [address] [place] [address] PCP - General Family Medicine 07/29/22 06/22/24 Rena Henriquez MD [address] [place] [address] PCP - General Internal Medicine 06/23/24 Krystal Joyner PharmD [address] [place] [address] Pharmacist Internal Medicine 10/15/24 documented as of this encounter
--- OUTSIDE RECORDS SUMMARY | 2024-11-26 14:44 | XMS_ITS | Encounter Summary ---
Author Organization [employer] Address 75 [facility] 7t [place] [address] Care Team Providers Care Pulp Grinder Feeder Name Role Phone Rena Henriquez MD Primary Care Provide r Krystal Joyner PharmD Unavailable [phone] Reason for Visit * Reason Comments Med Refill Encounter Details Date Type Department Care Team (Late st Contact Info) Description 07/05/2024 Refill [facility] MEDICINE [address] [place], [place] [phone] Minerva Barraza FNP [address] [place], [place] [phone] Depression with anxiety; Insomnia, unspecified type Social [...] encounter Miscellaneous Notes * Telephone Encounter - Hanna Martinez - 07/05/2024 11:19 AM EDT Contacted patient on 07/05/24 to offer Medication Therapy Management (MTM). Patient declined services. documented in this encounter Plan of Treatment Upcoming Encounters Date Type Department Care Team (Late st Contact Info) Description 12/02/2024 9:30 AM EST Office Visit [facility] ADULT DENTAL [address] [place] [address] Kavitha Graham DDS [address] [place] [address] 12/21/2024 1:45 PM EST Office Visit [facility] MEDICINE [address] [place] [address] Rena Henriquez MD [address] [place] [address] 01/24/2025 1:30 PM EDT Clinical Support [facility] MEDICINE [address] [place] [address] Matilda Chisholm, RN documented as of this encounter Visit Diagnoses Diagnosis Depression with anxiety Dysthymic disorder Insomnia, unspecified type documented in this encounter Additional Health Concerns Assessment Noted Time PHQ-9 Depression Total Score: 18 024 4:16 PM EDT documented as of this encounter Care Teams Pulp Grinder Feeder Relationship Specialty Start Date End Date Rena Henriquez MD 230 [place] [address] PCP - General Internal Medicine 06/23/24 rKystal Joyner PharmD 230 [place] [address] Pharmacist Internal Medicine 10/15/24 documented as of this encounter
--- OUTSIDE RECORDS SUMMARY | 2024-11-26 14:44 | XMS_ITS | Encounter Summary ---
Author Organization [employer] Address 75 [facility] 7t [place] [address] Care Team Providers Care Meat Processing Center Manager Name Role Phone Rena Henriquez MD Primary Care Provide r Krystal Joyner PharmD Unavailable [phone] Reason for Visit * Reason Onset Date Comments Med Refill 07/15/2024 Encounter Details Date Type Department Care Team ([facility] st Contact Info) Description 07/15/2024 Telephone [facility] MEDICINE [address] [place], [place] [phone] Rena Henriquez MD [address] [place] [address] Med Refill Social History Tobacco Use Types [...] encounter Miscellaneous Notes * Telephone Encounter - Victorino Bradford - 07/15/2024 3:38 PM EDT TC from pt requesting medication refill. Medications needing refill : oxycodone 5mg Q 12hrs [facility] states wants to discuss amount given . Feels not enough to help with pain . documented in this encounter Plan of Treatment Upcoming Encounters Date Type Department Care Team (Late st Contact Info) Description 12/02/2024 9:30 AM EST Office Visit [facility] ADULT DENTAL [address] [place] [address] Kavitha Graham DDS [address] [place] [address] 12/21/2024 1:45 PM EST Office Visit [facility] MEDICINE [address] [place] [address] Rena Henriquez MD [address] [place] [address] 01/24/2025 1:30 PM EDT Clinical Support [facility] [address] [place] [address] Matilda Chisholm, LEO documented as of this encounter Visit Diagnoses Not on filedocumented in this encounter Additional Health Concerns Assessment Noted Time PHQ-9 Depression Total Score: 18 024 4:16 PM EDT documented as of this encounter Care Teams Meat Processing Center Manager Relationship Specialty Start Date End Date Rena Henriquez MD [address] [place] [address] PCP - General Internal Medicine 06/23/24 Krystal Joyner PharmD [address] [place] [address] Pharmacist Internal Medicine 10/15/24 documented as of this encounter
--- OUTSIDE RECORDS SUMMARY | 2024-11-26 14:44 | XMS_ITS | Encounter Summary ---
Author Organization [employer] Address 75 [facility] 7t [place] [address] Care Team Providers Care Residential Property Manager Name Role Phone Minerva Barraza Primary Care Provider +0 Rena Henriquez MD Primary Care Provide r Krystal Joyner PharmD Unavailable [phone] Reason for Visit * Reason Onset Date Comments Lab Orders 06/11/2024 Encounter Details Date Type Department Care Team ([facility] st Contact Info) Description 06/11/[address] [facility] MEDICINE 230 [place], [place] [phone] Minerva Barraza FNP [address] [place], [place] [phone] Lab Orders Social History Tobacco Use Types [...] Encounter - Paramjit Cavazos RN - 06/11/2024 10:44 AM EDT Return T/C to [phone] for below message, Message states the number you are calling is not in service, Not able to LVM. * Telephone Encounter - Epifanio De La Rosa - 06/11/2024 10:10 AM EDT Nolan from [facility] with [facility] requesting for lab orders to be faxed over. If any questions you can contact Mio at [phone]. documented in this encounter Plan of Treatment Upcoming Encounters Date Type Department Care Team (Late st Contact Info) Description 12/02/2024 9:30 AM EST Office Visit [facility] ADULT DENTAL [address] [place] [address] Kavitha Graham DDS [address] [place] [address] 12/21/2024 1:45 PM EST Office Visit [address] [address] Rena Henriquez MD [address] [place] [address] 01/24/2025 1:30 PM EDT Clinical Support [address] [address] Matilda Chisholm, RN documented as of this encounter Visit Diagnoses Not on filedocumented in this encounter Additional Health Concerns Assessment Noted Time PHQ-9 Depression Total Score: 18 024 4:16 PM EDT documented as of this encounter Care Teams Residential Property Manager Relationship Specialty Start Date End Date Minerva Barraza FNP [address] [place] [address] PCP - General Family Medicine 07/29/22 06/22/24 Rena Henriquez MD [address] [place] [address] [phone] PCP - General Internal Medicine 06/23/24 Krystal Joyner, DamionD [address] [place] [address] Pharmacist Internal Medicine 10/15/24 documented as of this encounter
--- OUTSIDE RECORDS SUMMARY | 2024-11-26 14:44 | XMS_ITS | Encounter Summary ---
Author Organization [email or web address] Address 75 [facility] 7t [place] [address] Care Team Providers Care Central Lab Technician Name Role Phone Rena Henriquez MD Primary Care Provide r Krystal Joyner PharmD Unavailable [phone] Encounter Details Date Type Department Care Team (Late st Contact Info) Description 07/05/2024 Telephone [facility] MEDICINE 230 [place], [place] [phone] Krystal Joyner, PharmD 230 [place] [address] Social History Tobacco Use Types Packs/Day Years [...] Description 12/02/2024 9:30 AM EST Office Visit [facility] ADULT DENTAL [address] [place] [address] Kavitha Graham DDS [address] [place] [address] 12/21/2024 1:45 PM EST Office Visit [facility] MEDICINE [address] [place] [address] Rena Henriquez MD [address] [place] [address] 01/24/2025 1:30 PM EDT Clinical Support [facility] MEDICINE [address] [place] [address] Matilda Chisholm RN documented as of this encounter Visit Diagnoses Not on filedocumented in this encounter Additional Health Concerns Assessment Noted Time PHQ-9 Depression Total Score: 18 024 4:16 PM EDT documented as of this encounter Care Teams Central Lab Technician Relationship Specialty Start Date End Date Rena Henriquez MD [address] [place] [address] PCP - General Internal Medicine 06/23/24 Krystal Joyner, Johnna [address] [place] [address] Pharmacist Internal Medicine 10/15/24 documented as of this encounter
[2024-11-26 14:52] VITALS: BP 140/68; PULSE 98; O2SAT 100; BMI 39.6
--- NOTE | 2024-11-26 14:52 | MHC.OFFVIS ---
Vital Signs 11/26/24 14:52 Height 5 ft 5 in Weight 238 lb BMI 39.6 BP 140/68 H Blood Pressure Location Lt brachial Position Sitting Pulse 98 Pulse Source Pulse Oximeter Pulse Oximetry (%) 100 Oxygen Delivery Method Room Air Intake Visit Reasons: Asthma Nurse Epidemiologist Required: Yes Allergies amlodipine [AMLODIPINE] Allergy (Intermediate, Verified 11/26/24 14:55) PALPITATIONS lisinopril [LISINOPRIL] Allergy (Intermediate, Verified 11/26/24 14:55) PALPITATIONS, palpitation HPI HPI Asthma: Details: 69-year-old lady, active 30+ pack-year smoker with underlying likely COPD referred for pulmonary evaluation. Patient does complain of sensation or chest tightness. She is only using albuterol MDI. Patient is also complaining of right-sided musculoskeletal chest pain. She was evaluated by pain management and is not interested in further procedures. Patient does have family history of lung cancer in her maternal aunt who was a heavy smoker. After the last office visit patient had follow-up CT chest that did not demonstrate worrisome pulmonary nodules. Her pulmonary function test shows mild restrictive, but no significant obstructive physiology. [facility] Medical History Right lumbar radiculitis Back pain Neck pain Musculoskeletal pain Nicotine dependence, cigarettes, uncomplicated Obesity due to excess calories Type 2 diabetes mellitus with diabetic polyneuropathy Essential hypertension Hypovitaminosis D Mixed hyperlipidemia Surgical History History of hemorrhoidectomy History of colonoscopy History of hernia repair History of myomectomy Family History Father Medical history unknown Mother Hypertension Alzheimers disease Sister Hepatitis C Cirrhosis Sister Breast cancer Brother Diabetes Asthma Family/Other FH: mental illness Social History Household Members: Family Alcohol intake: current Alcohol intake frequency: a few times a month Patient Tobacco Use Status: Current everyday Tobacco user Tobacco use type: Cigarette Cigarette Packs Per Day: 1 Years Smoked: onset 17yo, 1ppd x 53yrs, 50pyh Current occupational status: employed Current occupation: [employer] Review of Systems Const Denies daytime sleepiness, Denies excessive sweating, Denies fatigue, Denies fever(s), Denies lethargy, Denies malaise, Denies night sweats, Denies snoring and Denies weight loss Eyes Denies blurry vision and Denies itchy eyes ENT Denies nasal congestion, Denies post nasal drip, Denies sinus pain, Denies sinus pressure and Denies other ( Thrush) Card Denies chest pain, Denies pedal edema, Denies dyspnea, Denies orthopnea and Denies paroxysmal nocturnal dyspnea Resp Denies cough, Denies hemoptysis, Denies excessive phlegm production, Denies dyspnea, Denies snoring and Denies wheezing GI Denies abdominal pain and Denies heartburn Musc Denies myalgias, Denies arthralgias and Denies joint swelling Skin/Breast Denies rash Neuro Denies memory loss and Denies seizure-like activity Psych Denies abnormal sleep pattern, Denies anxiety and Denies memory loss Endo Denies excessive sweating, Denies fatigue and Denies heat intolerance Kike/Lymph Denies easy bruising Aller/Immun Denies itchy eyes, Denies seasonal rhinorrhea and Denies wheezing Physical Exam Vital Signs: Last Vital Signs Pulse 98 11/26/24 14:52 BP 140/68 H 11/26/24 14:52 Pulse Ox 100 11/26/24 14:52 Oxygen Delivery Method Room Air 11/26/24 14:52 BMI result Body Mass Index 39.6 Const General: no acute distress and alert Nutritional Appearance: obese Orientation/consciousness: Other orientation findings ( oriented) HEENT Head: Yes atraumatic Eyes General: appearance normal, both eyes and all related structures Sclerae: sclerae normal EOM: EOMs intact bilaterally Neck Neck: Yes supple Lymphatic: no lymphadenopathy noted Resp Effort & Inspection: normal respiratory effort and no use of accessory muscles Auscultation: clear to auscultation bilaterally Cardio Rate: regular rate Rhythm: regular rhythm Heart sounds: no gallops, no murmurs and no rubs Skin General skin exam: other ( warm) Extrem General: No clubbing, No cyanosis and No edema Assessment & Plan Assessment & Plan (1) COPD (chronic obstructive pulmonary disease): Code(s): J44.9 - Chronic obstructive pulmonary disease, unspecified Category: Medical Plan: Reasonable control on current regimen of Anoro and albuterol MDI. Continue current regimen. (2) Nicotine dependence, cigarettes, uncomplicated: Comment: (current smoker - onset 17yo, 1ppd x 53yrs, 50pyh) Code(s): F17.210 - Nicotine dependence, cigarettes, uncomplicated Category: Medical Plan: Results of lung cancer screening reviewed, no worrisome nodules. Continue with yearly screening, next in October of 2025. Orders: Orders CT lung screening 11/26/25 F17.210 - Nicotine dependence, cigarettes, uncomplicated Coding Level of Care Code Est Pt Level 4 (50476) Diagnoses COPD (chronic obstructive pulmonary disease) J44.9 Nicotine dependence, cigarettes, uncomplicated F17.210
== END 2024-11-26 15:18 | disposition home or self-care (01) ==
PROVIDERS: PCP Internal Medicine; Visit Provider Internal Medicine Pulmonary Disease
DX: J44.9 Chronic obstructive pulmonary disease, unspecified (principal); F17.210 Nicotine dependence, cigarettes, uncomplicated
CPT/HCPCS: 99214

== ENCOUNTER → 2024-11-26 14:40 | Outpatient (BNVA) | payer OTHER, SELFPAY | PROVIDERS: PCP Internal Medicine; Visit Provider Internal Medicine Pulmonary Disease | DX: J44.9 Chronic obstructive pulmonary disease, unspecified (principal); F17.210 Nicotine dependence, cigarettes, uncomplicated | CPT/HCPCS: 99212 ==

== ENCOUNTER 2025-01-21 11:55 | Outpatient (REF) | payer OTHER, SELFPAY ==
[2025-01-21 14:11] LABS: Alanine Aminotransferase 70 U/L (0-31); Albumin Level 4.2 g/dL (3.5-5.0); Alkaline Phosphatase 127 U/L (39-117); Anion Gap 11 (12-20); Aspartate Amino Transferase 46 U/L (5-31); Bilirubin Direct 0.1 mg/dL (0.0-0.5); Bilirubin Total 0.4 mg/dL (0.0-1.0); Blood Urea Nitrogen 15 mg/dL (9-16); Calcium 9.8 mg/dL (8.4-10.2); Carbon Dioxide 25 mmol/L (22-29); Chloride 106 mmol/L (96-108); Cholesterol 216 mg/dL (<200); Estimated Glomerular Filt Rate 43; Glucose Random 104 mg/dL (60-115); HDL Cholesterol 32 mg/dL (>40); LDL Cholesterol Calculated 149 mg/dL (<100); Sodium 138 mmol/L (135-145); Total Protein 7.9 g/dL (6.5-8.0); Triglycerides 178 mg/dL (<150)
== END 2025-01-21 11:56 | disposition home or self-care (01) ==
LOC: HO.HHCL 11:55
PROVIDERS: Visit Provider Internal Medicine
DX: I10 Essential (primary) hypertension (principal); E78.2 Mixed hyperlipidemia
CPT/HCPCS: 36415; 80048; 80061; 80076

== ENCOUNTER 2025-04-16 14:08 | Outpatient (REF) | payer OTHER, SELFPAY ==
--- OUTSIDE RECORDS SUMMARY | 2025-04-16 14:13 | XMS_ITS | Encounter Summary ---
Author Organization [employer] Address [address] [facility] [address] [place] [address] Care Team Providers Care Client Relations Representative Name Role Phone Rena Henriquez MD Primary Care Provide r Krystal Joyner PharmD Unavailable [phone] Reason for Visit * Reason Onset Date Comments Med Refill 02/02/2025 Encounter Details Date Type Department Care Team (Late st Contact Info) Description 02/02/2025 Telephone [facility] MEDICINE [address] [place], [place] [phone] Rena Henriquez MD [address] [place], [place] [phone] Med Refill Social History Tobacco Use Types Packs/Day Years Used Date Smoking Tobacco: Every Day Cigarettes 1 30 Passive Smoke Exposure: Current Smokeless Tobacco: Never Alcohol Use Standard Drinks/Week Comments Yes 0 (1 standard drink = 0.6 oz pur e alcohol) occasionally Depression Answer Date Recorded Patient Health Questionnaire-9 Score 15 12/21/2024 Patient Health Questionnaire-9 Score 15 12/21/2024 Last PHQ-9: Questionnaire Data Not on file 0 12/21/2024 Housing Stability Answer Date Recorded What is [...] Date Recorded Patient Health Questionnaire-2 Score 4 12/21/2024 Internet Access Answer Date Recorded Internet Access [...] Telephone Encounter - Jaja Villa LPN - 02/02/2025 3:53 PM EDT Medication is prescribed by Endo. * Telephone Encounter - Augustine Randolph - 02/02/2025 3:49 PM EDT TC from pt requesting medication refill. Medications needing refill : Trulicity 4.5 MG/0.5ML solution auto-injector To be sent to: [facility]/pharmacy #[id number] [place], [place] - [address] [place] [address] documented in this encounter Plan of Treatment Upcoming Encounters Date Type Department Care Team (Late st Contact Info) Description 04/22/2025 1:30 PM EDT Office Visit [facility] ADULT DENTAL [address] [place] [address] Kavitha Graham DDS [address] [place] [address] 05/17/2025 1:45 PM EDT Telemedicine [facility] MEDICINE [address] [place] [phone] Rena Henriquez MD [address] [place] [address] 06/06/2025 2:00 PM EDT Clinical Support [facility] MEDICINE [address] [place], [place] [phone] Matilda Chisholm, LEO 06/16/2025 1:00 PM EDT Office Visit [facility] OPTOMETRY [address] [place], [place] [phone] Cielo Turner, OD [address] [place] [address] documented as of this encounter Visit Diagnoses Not on filedocumented in this encounter Additional Health Concerns Assessment Noted Time PHQ-9 Depression Total Score: 15 12/21/ 025 2:05 PM EST documented as of this encounter Care Teams Client Relations Representative Relationship Specialty Start Date End Date Rena Henriquez MD [address] [place] [phone] PCP - General Internal Medicine 06/23/24 Krystal Joyner, DamionD [address] [place] [phone] Pharmacist Internal Medicine 10/15/24 03/04/25 documented as of this encounter
== END 2025-04-16 14:09 | disposition home or self-care (01) ==
LOC: HO.MRI 14:08
PROVIDERS: PCP Internal Medicine; Visit Provider Nurse Practitioner Family
DX: Z13.89 Encounter for screening for other disorder (principal)

== ENCOUNTER → 2025-05-03 13:15 | Outpatient (BNV) | payer OTHER, SELFPAY | PROVIDERS: PCP Internal Medicine; Visit Provider Internal Medicine | DX: Z12.31 Encounter for screening mammogram for malignant neoplasm of breast (principal) | CPT/HCPCS: 77063; 77067 ==

== ENCOUNTER 2025-05-03 13:16 | Outpatient (REF) | payer OTHER, SELFPAY ==
--- OUTSIDE RECORDS SUMMARY | 2025-05-03 13:57 | XMS_ITS | Encounter Summary ---
Author Organization [employer] Address [address] [facility] [address] [place] [address] Care Team Providers Care Entry Level Drafter Name Role Phone Rena Henriquez MD Primary Care Provide r Krystal Joyner PharmD Unavailable [phone] Reason for Visit * Reason Onset Date Comments Med Refill 02/02/2025 Encounter Details Date Type Department Care Team (Late st Contact Info) Description 02/02/[address] [facility] MEDICINE [address] [place], [place] [phone] Rena Henriquez MD [address] [place], [place] [phone] Med Refill Social History Tobacco Use Types [...] MG/0.5ML solution auto-injector To be sent to: [facility]/pharmacy #[id number] [place], [place] - [address] [place] [address] documented in this encounter Plan of Treatment Upcoming Encounters Date Type Department Care Team (Late st Contact Info) Description 05/17/2025 1:45 PM EDT Telemedicine [facility] MEDICINE [address] [place] [phone] Rena Henriquez MD [address] [place] [phone] 06/06/2025 2:00 PM EDT Clinical Support [facility] MEDICINE [address] [place] [address] Matilda Chisholm, RN 06/16/2025 1:00 PM EDT Office Visit [facility] OPTOMETRY [address] [place] [address] Cielo Turner, OD [address] [place] [address] documented as of this encounter Visit Diagnoses Not on filedocumented in this encounter Additional Health Concerns Assessment Noted Time PHQ-9 Depression Total Score: 15 12/21/ 025 2:05 PM EST documented as of this encounter Care Teams Entry Level Drafter Relationship Specialty Start Date End Date Rena Henriquez MD [address] [place] [address] PCP - General Internal Medicine 06/23/24 Krystal Joyner, Johnna [address] [place] [phone] Pharmacist Internal Medicine 10/15/24 03/04/25 documented as of this encounter
--- OUTSIDE RECORDS SUMMARY | 2025-05-03 13:57 | XMS_ITS | Clinical Summary ---
Author Organization [facility] Address [address] [place] [address] Phone Care Team Providers Care Social Media Marketing Manager Name Role Phone Stefany Onofre MD Primary Care Provider [phone] Allergies Active Allergy Reactions Criticality Noted Date [...] Comments Breast Cancer Screening 1955 Pneumococcal Vaccine: 50+ Ye ars (1 of 2 - PCV) 1975 Colorectal Cancer Screening: Annual FOBT 2005 Colorectal Cancer Screening: Colonoscopy 2005 Colorectal Cancer Screening: Sigmoidoscopy 2005 Influenza Vaccine (#1) 2025 Hepatitis B Vaccine Aged Out No longe r eligible based on patient's age to complete this topic Insurance Care Teams Social Media Marketing Manager Relationship Specialty Start Date End Date Stefany Onofre MD [address] [place], [place] PCP - General Internal Medicine 02/09/21
--- OUTSIDE RECORDS SUMMARY | 2025-05-03 13:57 | XMS_ITS | Data Portability ---
Author Organization [employer], [facility] Address [address] [place] [address] Care Team Providers Care Oracle Erp Architect Name Role Phone HIM CCA OTHER Assessment Encounter Date Assessment Date Assessment LastModified by Organization Details LastModified Time 02/13/2024 02/13/2024 I provided real -time medical direction via phone for this encounter, and was available for additional phone based assistance as needed. I have reviewed and agree with the Assessment and Plan as documented by the Clinical Program Coordinator. We discussed the diagnostic uncertainty of home visits and the risk associated with this.. The patient given the opportunity to ask questions via [place] language phone sign language interpreter. Advised has mutliple complicated very serious complaints [...] agreed to be transported by EMS to [facility]. Report called to their ER by myself. [email or web address] Not available 02/14/2024 21:45:27 02/17/2024 02/17/2024 As noted, we umu e called to see this patient regarding concerns of chest pain x 5-6d, right hip pain radiating to leg x 3d and patient requesting re-evaluation 68 yo F with pmhx notable htn, dm, seen on 02/13/24 with instED visit and also seen in [facility] ED with 5-6d of intermittent chest pressure [...] water. No abd pain She went to [facility] yesterday and had labwork done (results unknown). instED visit on 02/12 with EKG (no ischemic changes), POC BMP and H/H, udip (neg) Evaluation in the field was performed by my extension edger colleague, as noted above, I provided real-time [...] moment but is agreeable to go to [facility] ED at 4p when [employer] is due to arrive to look after her mother 2. Right low back/hip pain, lumbar radicular sxs in ddx, lower clinical suspicion for bony issue Patient is agreeable to go to [facility] ED at 4p when [employer] arrives for her mom and may benefit from xrays 3. HTN, h/o essential htn but more elevated SBP. Had Cr 1.2 on labs from 02/12. No new cardiac, resp or neuro sxs since 02/12. Will need additional labs when she goes to ED later today Plan: EKG to rule out any STEMI while awaiting arrival of [employer] for her to go to [facility] ED EKG w/o acute changes c/w prior from 02/12 I did discuss risks of not getting seen right away Primary care, consider whether there is any additional services to help with care of patient's mom at home. Strongly advised patient to go to ED as soon as [employer] arrives at 4pm today, but this has been a barrier in her going to the ED for her 5-6d of cp, sob Disposition: We discussed the situation and I recommended referral to the emergency department. This was based on stuttering chest pain and sob. Patient will be going to [facility] ED once [employer] arrives to look after her mom at [...] to ambulate. [facility] Pt seen at ER 2 weeks ago but pt unable to stay for admission. Evaluation in the field was performed by my extension edger colleague, as noted above, I provided real-time [...] Lab urinalysis, dipstick 2023 024 [email or web address] 0 [facility], [address] [place] [address], [phone] 4 13:14:48 BMP, serum or plasma 2023 024 [email or web address] 0 [facility], [address] [place] [address], [phone] 4 13:14:23 Referral None recorded. Procedures None recorded. Surgeries None recorded. Imaging electrocard iogram 2023 024 [facility], [address] [place] [address], [phone] 4 05:00:48 electrocard iogram 2023 024 [email or web address] 0 [facility], [address] [place] [address], [phone] 4 13:06:57 Medication Orders gabapentin 300 mg capsule 2023 024 [facility]/Pharmacy #[id number], [address] [place], [address], 4 15:59:23 ketorolac 30 mg/mL injection solution [email or web address]/Pharmacy #[id number], [address] [place], [address], 15:59:19 Patient TargetsNo targets recorded. Patient InstructionsNo instructions recorded. Reason for Referral None Reported. Results Created Date Observation Date Name Description Value Unit Range Abnormal Flag Note LastModifiedBy Organization Detail LastModifiedTime 02/13/20 24 02/13/2024 BMP, serum or plasm a BUN 21 Not Available [facility] - [facility] [address], [address] [place] [address] 02/13/2024 12:49:16 02/13/20 24 02/13/2024 BMP, serum or plasm a Ca I ca 1.3 Not Available [facility] - [address], [address] 02/13/2024 12:49:16 02/13/20 24 02/13/2024 BMP, serum or plasm a CI- 101 Not Available Main - [facility] [address], [address] 02/13/2024 12:49:16 02/13/20 24 02/13/2024 BMP, serum or plasm a CRE 1.2 Not Available [facility] - [facility] [address], [address] 02/13/2024 12:49:16 02/13/20 24 02/13/2024 BMP, serum or plasm a GLU 101 Not Available [facility] - [facility] [address], [address] 02/13/2024 12:49:16 02/13/20 24 02/13/2024 BMP, serum or plasm a K+ 4 Not Available [facility] - [facility] [address], [address] 02/13/2024 12:49:16 02/13/20 24 02/13/2024 BMP, serum or plasm a Na+ 139 Not Available [facility] - [facility] [address], [address] 02/13/2024 12:49:16 02/13/20 24 02/13/2024 BMP, serum or plasm a tCO2 26 Not Available Main - [facility] [address], [address] 02/13/2024 12:49:16 02/13/20 24 02/13/2024 urina lysis , dipst ick Leukocytes Negati ve Not Available [facility] - [facility] [address] [place] [address], [address] 02/13/2024 12:48:07 02/13/20 24 02/13/2024 urina lysis , dipst ick Nitrite negati ve Not Available Main - Inst ed [address] [place] [address], [address] 02/13/2024 12:48:07 02/13/20 24 02/13/2024 urina lysis , dipst ick Urobilinogen Negati ve Not Available Main - Inst ed [address] [place] [address], [address] 02/13/2024 12:48:07 02/13/20 24 02/13/2024 urina lysis , dipst ick Protein Negati ve Not Available Main - [facility] ed [address] [place] [address], [address] [place] [address] 02/13/2024 12:48:07 02/13/20 24 02/13/2024 urina lysis , dipst ick pH 5 Not Available Main - Ins sharon [address] [place] [address], [address] 02/13/2024 12:48:07 02/13/20 24 02/13/2024 urina lysis , dipst ick Blood Negati ve Not Available Main - Inst ed [address] [place] [address], [address] [place] [address] 02/13/2024 12:48:07 02/13/20 24 02/13/2024 urina lysis , dipst ick Specific Maroa 1.020 Not Available Main - Insted [address] [place] [address], [address] 02/13/2024 12:48:07 02/13/20 24 02/13/2024 urina lysis , dipst ick Ketone Negati ve Not Available Main - Inst ed [address] [place] [address], [address] 02/13/2024 12:48:07 02/13/20 24 02/13/2024 urina lysis , dipst ick Bilirubin Negati ve Not Available Main - Inst ed [address] [place] [address], [address] 02/13/2024 12:48:07 02/13/20 24 02/13/2024 urina lysis , dipst ick Glucose Negati ve Not Available Main - Inst ed [address] [place] [address], [address] 02/13/2024 12:48:07 02/13/20 24 02/13/2024 urina lysis , dipst ick Appearance clear Not Available [address], [address] 02/13/2024 12:48:07 02/13/20 24 02/13/2024 urina lysis , dipst ick Color concen trated Not Available [facility] ed [address] [place] [address], [address] 02/13/2024 12:48:07 02/13/20 24 02/13/2024 elect rocar diogr am No observ ation record ed. [email or web address] [address], [address] [place] [address] 02/13/2024 13:06:41 02/17/20 24 02/18/2024 elect rocar diogr am No observ ation record ed. [email or web address] [address], [address] 02/18/2024 09:49:06 Result Notes None recorded. Medical Equipment None Reported. Allergies Allergen ID Allergen Name Allergen Category Reaction Reaction Severity Criticality Documentation Date Start Date Code Code System Note Provider Name and Address Organization Details Recorded Time 4947 lisinopri l medicatio n Not available Not available Not available 02/14/2024 01625 RxNorm Amy Davenport MD [address] [place] [address],[address], [place], [address] [employer] [facility] 21:25:02 Medications Name Sig Start Date Stop [...] in Arterial blood by Pulse oximetry Systolic And Diastolic Provider Name and Address Organization Details Last Updated DateTime 4 165.1 cm 470872. 16 g 18 /min 98.3 [degF] 70 /min 99 % 99 % 133/71 mm[Hg] Not Available [employer] 4 14:39:06 Date Recorded Oxygen saturation Oxygen saturation in Arterial blood by Pulse oximetry Heart rate Respiratory rate Body temperature Systolic And Diastolic Provider Name and Address Organization Details Last Updated DateTime 4 99 % 99 % 93 /min 18 /min 98.9 [degF] 202/92 mm[Hg] Not Available [employer] 4 14:03:30 Date Recorded Body height Oxygen saturation Oxygen saturation in Arterial blood by Pulse oximetry Body temperature Body weight Respiratory rate Heart rate Systolic And Diastolic Provider Name and Address Organization Details Last Updated DateTime 4 162.56 cm 98 % 98 % 98.4 [degF] 828727 g 18 /min 90 /min 162/88 mm[Hg] Not Available [employer] 4 15:40:57 Social History None recorded. Functional Status None recorded. Mental Status None recorded. Family History Nothing Reported. Medical History No medical history recorded. Gynecological HistoryNo gynecological history recorded. Obstetrics History GPAL:G 0 P 0 0 0 0 Past Encounters Encounter ID Performer Location Encounter Start Date Encounter Closed Date Diagnosis/Indication Diagnosis SNOMED-CT Code Diagnosis ICD10 Code Diagnosis Note [id number] Amy Davenport MD Main - inst[facility] [address] [place] [phone] 02/13/2024 12:43:15 02/15/2024 14:51:39 Chest pain 41312543 R07.9 advised ekg not completely normal cannot tell if acute needs further cardiac w/u than can be accomplish ed at home. Urinary symptoms 4687227 08 R39.9 Headache 65742571 R51.9 Not hypertensi ve, hx migraines but has new dizziness and neck pain needs CT of the brain to r/o bleed Lumbago with sciatica 20 2341676 M54.40 with new incontinen ce of bladder/rick [place] [id number] NIKKI LACKEY MD Main - instED [address] [place] [id number] 02/17/2024 14:01:51 02/17/2024 15:25:01 Essential hypertension 84649037 I10 Chest pain 44252078 R07. 9 Pain of hip region 45380 002 M25.559 [id number] NIKKI LACKEY MD Main - instED [address] [place] [phone] 03/03/2024 15:33:59 03/03/2024 16:26:08 Lumbago with sciatica 647716518 M54.41 [id number] Efrem Romero MD Main - inst[facility] [address] [place] [phone] 03/12/2024 18:46:33 03/13/2024 12:07:48 Mechanical low back pain 467379223 M54.50 This 68-year-ol d female has had [...] Recorded Advance Directives Directive None Recorded Payers Insurance Date Sequence Insurance Name Policy Number Policy Giron Covered Member ID Giron Member ID Guarantor Name 03/03/2024 1 [facility] - DOS ON OR AFTER 2023 - DUAL ELIGIBLE - LONG-TERM OPTIONS AND ONE CARE (MEDICARE REPLACEMENT/ADV ANTAGE - HMO) Sharita Montez [id number] Sharita Montez 02/13/2024 1 [facility] - DOS ON OR AFTER 2023 - MEDICARE [place]VANTAGE [place] RE[place]AC[place]/ADV ANTAGE - PPO) Sharita Montez [id number] Sharita Montez 03/03/2024 1 [facility] - DOS ON OR AFTER 2023 - [place]/ADV ANTAGE - PPO) Sharita Montez [id number] Sharita Montez 08/12/2024 1 [facility] - DOS ON OR AFTER 2023 - DUAL ELIGIBLE - LONG-TERM OPTIONS AND ONE CARE (MEDICARE REPLACEMENT/ADV ANTAGE - HMO) Sharita Montez [id number] Sharita Montez 02/17/2024 1 [facility] - DOS ON OR AFTER 2023 - [place]IC[place] (MEDICARE REPL[place]EMENT/ADV ANTAGE - PPO) Sharita Montez [id number] Sharita Montez Notes Date Note Type Note [...] .................. .................. .................. .................. .................. .................. .... Clinical Program Coordinator Note From Carlota El: Sent to a call for a pt complaining of right hip/leg pain. [facility] arrives on scene, pt is alert and oriented, airway is patent. Pt has a steady gait. Pt speaks [place] and sign language interpreter line used during visit. Pt complains of [...] Urine sample obtained; urine dip: uploaded to [employer]; [facility] consulted and order BMP and 12 lead ECG. IV access and venous blood draw performed; Istat Chem8+ results and 12 lead ECG: uploaded to [employer]. While speaking with [facility] via sign language interpreter pt states she has had bad headaches in the past, but this one is different because she is having neck pain as well. [facility] advises pt to be transported to ED. Pt initially states she can't go to ED because she needs to take care of her mother, but calls contacts to have someone take care of pt's mother while she goes to ED. Pt agrees to transport and requests transport to [facility] ED. [facility] calls report to [facility]. 911 called and pt care is transferred to [facility]. Pt is transported to [facility] ED via [facility]. .................. .................. .................. .................. .................. .................. .................. ............... Disposition: Fulfilled Amy Davenport MD [address] [facility],[address], [place], [phone], [place] [employer] 02/14/2024 21:47:12 02/17/2024 text/html CRC Nurse Triage Notes (Mccarthy, Kelly): Reason For Request: Mbr seen on 02/13/24 [...] advised of disposition, agrees to instED vs [facility] for exam. instED referral placed. Pt to follow up with office pRN per instED recommendations. Patient Reports: Shortness of Breath Denies: Unable to speak in full sentences without distress Chief Complaints: UTI/Pyelonephritis , Pain PMH: Hypertension, Diabetes Allergies: Unknown Comments: Spoke w/ member with freelance interpreter/translator [place], c/o chest pain, ongoing always there it does get worse at times and then she feels SOB, chest feels sore but unable to state if the pain is reproducible, hx of this chest pain and c/o same symptom on 02/12- went to [facility], left because she did not have anyone to watch her mom who is 89 and has Dementia- the member is waiting on the [facility] results, the [facility] wanted to admit her for it seems like a possible GA or r/o GA but pt refused. Advised member that she should go to the ED and be evaluated further, she said she can't leave her mother and the [employer] can't watch her either, she has no family. Advised the [facility] may suggest going to the ED anyway but I will process referral . Tai BAILEY .................. .................. .................. .................. .................. .................. .................. ............... Clinical Program Coordinator Note From Krzysztof Cullen: Dispatched to the call address for the female with pain. Pt states she has had chest pain on and off for 5-6 days now and has right sided hip pain that radiates down to her knee. Pt states she was seen by Alec on the and was sent to the [...] would go to the ED when the [employer] got there to care for her mother (approx 1600). Red flags discussed. ALL times are apprx. .................. .................. .................. .................. .................. .................. .................. ............... Disposition: Fulfilled NIKKI LACKEY, MD [address] [facility],[address], [place], [address], [place] [employer] 02/17/2024 14:48:41 03/03/2024 text/html HPI: Call returned to [facility] to triage below. Reports having back pain and right leg pain . Pt also endorses numbness on foot x 2 week. Pt using Motrin and aleve PRN for pain. No urinary sx. Pt seen at ER 2 weeks ago but pt unable to stay for admission. Per pt unable to come into office. Agrees to [employer] for evaluation. .................. .................. .................. .................. .................. .................. .................. ............... CRC Nurse Triage Notes (Ernestina Jackman): Comments: HPI reviewed. No further information required to process visit. .................. .................. .................. .................. .................. .................. .................. ............... Clinical Program Coordinator Note From Lenny Lynne: Patient conscious alert [...] negative swelling or discoloration. [facility] advises he will prescribe gabapentin to patient s local pharmacy and orders Toradol 30 mg IM. Administered as noted red flags, and patient education discussed patient encouraged to follow up with PCP .................. .................. .................. .................. .................. .................. .................. ............... Disposition: Fulfilled NIKKI LACKEY MD [address] [place] [address],[address], [place], [address], [employer] 03/03/2024 16:20:16 03/12/2024 text/html HPI: Patient with history of Lumbar Radiculopathy. Went to ED but is unable to wait as she is having significant pain. called in Flexeril earlier today but has not started this medication yet. .................. .................. .................. .................. .................. .................. .................. ............... CRC Nurse Triage Notes (Kelly Mccarthy): Comments: Reviewed no further info needed. Hpattgalo RNnoted INSTED visit on 03/03 for similar symptoms Efrem Romero MD [address] [facility],[address], [place], [address], [email or web address] 03/12/2024 18:51:40 OBGyn Episode No OBEpisode recorded.
== END 2025-05-03 13:17 | disposition home or self-care (01) ==
LOC: HO.MAMMO 13:16
PROVIDERS: PCP Internal Medicine; Visit Provider Internal Medicine
DX: Z12.31 Encounter for screening mammogram for malignant neoplasm of breast (principal)
CPT/HCPCS: 77063; 77067

== ENCOUNTER 2025-05-19 14:15 | Outpatient (AMB) | payer OTHER, SELFPAY ==
--- OUTSIDE RECORDS SUMMARY | 2025-05-19 14:17 | XMS_ITS | Data Portability ---
Author Organization [facility], [facility] Address [address] [place] [address] Care Team Providers Care Cinder Block Maker Name Role Phone HIM CCA OTHER Assessment Encounter Date Assessment Date Assessment LastModified by Organization Details LastModified Time 02/13/2024 02/13/2024 I provided real -time medical direction via phone for this encounter, and was available for additional phone based assistance as needed. I have reviewed and agree with the Assessment and Plan as documented by the Garage Hand. We discussed the diagnostic uncertainty of home visits and the risk associated with this.. The patient given the opportunity to ask questions via Barbadian language phone physician obstetrician. Advised has mutliple complicated very serious complaints [...] agreed to be transported by EMS to [facility]. Report called to their ER by myself. [email or web address] Not available 02/14/2024 21:45:27 02/17/2024 02/17/2024 As noted, we umu e called to see this patient regarding concerns of chest pain x 5-6d, right hip pain radiating to leg x 3d and patient requesting re-evaluation 68 yo F with pmhx notable htn, dm, seen on 02/13/24 with instED visit and also seen in [facility] ED with 5-6d of intermittent chest pressure [...] water. No abd pain She went to [facility] yesterday and had labwork done (results unknown). instED visit on 02/12 with EKG (no ischemic changes), POC BMP and H/H, udip (neg) Evaluation in the field was performed by my seam rubbing machine operator colleague, as noted above, I provided real-time [...] moment but is agreeable to go to [facility] ED at 4p when FILTER TENDER is due to arrive to look after her mother 2. Right low back/hip pain, lumbar radicular sxs in ddx, lower clinical suspicion for bony issue Patient is agreeable to go to [facility] ED at 4p when FILTER TENDER arrives for her mom and may benefit from xrays 3. HTN, h/o essential htn but more elevated SBP. Had Cr 1.2 on labs from 02/12. No new cardiac, resp or neuro sxs since 02/12. Will need additional labs when she goes to ED later today Plan: EKG to rule out any STEMI while awaiting arrival of FILTER TENDER for her to go to [facility] ED EKG w/o acute changes c/w prior from 02/12 I did discuss risks of not getting seen right away Primary care, consider whether there is any additional services to help with care of patient's mom at home. Strongly advised patient to go to ED as soon as FILTER TENDER arrives at 4pm today, but this has been a barrier in her going to the ED for her 5-6d of cp, sob Disposition: We discussed the situation and I recommended referral to the emergency department. This was based on stuttering chest pain and sob. Patient will be going to [facility] ED once FILTER TENDER arrives to look after her mom at [...] to ambulate. [facility] Pt seen at ER 2 weeks ago but pt unable to stay for admission. Evaluation in the field was performed by my seam rubbing machine operator colleague, as noted above, I provided real-time [...] Lab urinalysis, dipstick 2023 024 [email or web address] 0 [facility], [address] [place] [address], [id number] 4 13:14:48 BMP, serum or plasma 2023 024 [email or web address] 0 [facility], [address] [place] [address], [phone] 4 13:14:23 Referral None recorded. Procedures None recorded. Surgeries None recorded. Imaging electrocard iogram 2023 024 [facility], [address] [place] [address], [id number] 4 05:00:48 electrocard iogram 2023 024 [email or web address] 0 [facility], [address] [place] [address], [id number] 4 13:06:57 Medication Orders gabapentin 300 mg capsule 2023 024 [facility]/Pharmacy #[id number], [address] [place], [address], 4 15:59:23 ketorolac 30 mg/mL injection solution [email or web address]/Pharmacy #[id number], [address] [place], [address], 15:59:19 Patient TargetsNo targets recorded. Patient InstructionsNo instructions recorded. Reason for Referral None Reported. Results Created Date Observation Date Name Description Value Unit Range Abnormal Flag Note LastModifiedBy Organization Detail LastModifiedTime 02/13/20 24 02/13/2024 BMP, serum or plasm a BUN 21 Not Available [facility] [address], [address] [place] [address] 02/13/2024 12:49:16 02/13/20 24 02/13/2024 BMP, serum or plasm a Ca I ca 1.3 Not Available [facility] - [address], [address] 02/13/2024 12:49:16 02/13/20 24 02/13/2024 BMP, serum or plasm a CI- 101 Not Available Main - [facility] [address], [address] 02/13/2024 12:49:16 02/13/20 24 02/13/2024 BMP, serum or plasm a CRE 1.2 Not Available Main - [facility] [address], [address] 02/13/2024 12:49:16 02/13/20 24 02/13/2024 BMP, serum or plasm a GLU 101 Not Available [facility] - [facility] [address], [address] 02/13/2024 12:49:16 02/13/20 24 02/13/2024 BMP, serum or plasm a K+ 4 Not Available [facility] - [facility] [address], [address] 02/13/2024 12:49:16 02/13/20 24 02/13/2024 BMP, serum or plasm a Na+ 139 Not Available [facility] - [facility] [address], [address] 02/13/2024 12:49:16 02/13/20 24 02/13/2024 BMP, serum or plasm a tCO2 26 Not Available [facility] - [facility] [address], [address] 02/13/2024 12:49:16 02/13/20 24 02/13/2024 urina lysis , dipst ick Leukocytes Negati ve Not Available Main - Inst ed [address] [place] [address], [id number] 02/13/2024 12:48:07 02/13/20 24 02/13/2024 urina lysis , dipst ick Nitrite negati ve Not Available Main - Inst ed [address] [place] [address], [id number] 02/13/2024 12:48:07 02/13/20 24 02/13/2024 urina lysis , dipst ick Urobilinogen Negati ve Not Available Main - Inst ed [address] [place] [address], [address] 02/13/2024 12:48:07 02/13/20 24 02/13/2024 urina lysis , dipst ick Protein Negati ve Not Available Main - Inst ed [address] [place] [address], [address] [place] [address] 02/13/2024 12:48:07 02/13/20 24 02/13/2024 urina lysis , dipst ick pH 5 Not Available Main - Ins sharon [address] [place] [address], [address] 02/13/2024 12:48:07 02/13/20 24 02/13/2024 urina lysis , dipst ick Blood Negati ve Not Available Main - Inst ed [address] [place] [address], [address] [place] [address] 02/13/2024 12:48:07 02/13/20 24 02/13/2024 urina lysis , dipst ick Specific [place] 1.020 Not Available Main - Insted [address] [place] [address], [address] 02/13/2024 12:48:07 02/13/20 24 02/13/2024 urina lysis , dipst ick Ketone Negati ve Not Available Main - Inst ed [address] [place] [address], [address] 02/13/2024 12:48:07 02/13/20 24 02/13/2024 urina lysis , dipst ick Bilirubin Negati ve Not Available Main - Inst ed [address] [place] [address], [phone] 02/13/2024 12:48:07 02/13/20 24 02/13/2024 urina lysis , dipst ick Glucose Negati ve Not Available Main - Inst ed [address] [place] [address], [address] 02/13/2024 12:48:07 02/13/20 24 02/13/2024 urina lysis , dipst ick Appearance clear Not Available [address], [address] 02/13/2024 12:48:07 02/13/20 24 02/13/2024 urina lysis , dipst ick Color concen trated Not Available [facility] ed [address] [place] [address], [address] 02/13/2024 12:48:07 02/13/20 24 02/13/2024 elect rocar diogr am No observ ation record ed. [email or web address] [address], [address] [place] [address] 02/13/2024 13:06:41 02/17/20 24 02/18/2024 elect rocar diogr am No observ ation record ed. [email or web address] [address], [phone] 02/18/2024 09:49:06 Result Notes None recorded. Medical Equipment None Reported. Allergies Allergen ID Allergen Name Allergen Category Reaction Reaction Severity Criticality Documentation Date Start Date Code Code System Note Provider Name and Address Organization Details Recorded Time 4947 lisinopri l medicatio n Not available Not available Not available 02/14/2024 93271 RxNorm Amy Davenport MD [address] [place] [address],[address], [place], [address] [place] [facility] 21:25:02 Medications Name Sig Start Date Stop [...] Details Last Updated DateTime 4 165.1 cm 439086. 16 g 18 /min 98.3 [degF] 70 /min 99 % 99 % 133/71 mm[Hg] Not Available [employer] 4 14:39:06 Date Recorded Oxygen saturation Oxygen saturation in Arterial blood by Pulse oximetry Heart rate Respiratory rate Body temperature Systolic And Diastolic Provider Name and Address Organization Details Last Updated DateTime 4 99 % 99 % 93 /min 18 /min 98.9 [degF] 202/92 mm[Hg] Not Available [employer] 4 14:03:30 Date Recorded Body height Oxygen saturation Oxygen saturation in Arterial blood by Pulse oximetry Body temperature Body weight Respiratory rate Heart rate Systolic And Diastolic Provider Name and Address Organization Details Last Updated DateTime 4 162.56 cm 98 % 98 % 98.4 [degF] 150195 g 18 /min 90 /min 162/88 mm[Hg] Not Available [employer] 4 15:40:57 Social History None recorded. Functional Status None recorded. Mental Status None recorded. Family History Nothing Reported. Medical History No medical history recorded. Gynecological HistoryNo gynecological history recorded. Obstetrics History GPAL:G 0 P 0 0 0 0 Past Encounters Encounter ID Performer Location Encounter Start Date Encounter Closed Date Diagnosis/Indication Diagnosis SNOMED-CT Code Diagnosis ICD10 Code Diagnosis Note [id number] Amy Davenport MD Main - inst[facility] [address] [place] [phone] 02/13/2024 12:43:15 02/15/2024 14:51:39 Chest pain 99244151 R07.9 advised ekg not completely normal cannot tell if acute needs further cardiac w/u than can be accomplish ed at home. Urinary symptoms 6398150 08 R39.9 Headache 14026309 R51.9 Not hypertensi ve, hx migraines but has new dizziness and neck pain needs CT of the brain to r/o bleed Lumbago with sciatica 20 9402627 M54.40 with new incontinen ce of bladder/rick wel concern [place] n [id number] NIKKI LACKEY MD Main - inst[facility] [address] [place] [phone] 02/17/2024 14:01:51 02/17/2024 15:25:01 Essential hypertension 81322122 I10 Chest pain 98447847 R07. 9 Pain of hip region 04185 002 M25.559 [id number] NIKKI LACKEY MD Main - [facility] [address] [place] [address] 03/03/2024 15:33:59 03/03/2024 16:26:08 Lumbago with sciatica 758864413 M54.41 [id number] Efrem Romero MD Main - inst[facility] [address] [place] [phone] 03/12/2024 18:46:33 03/13/2024 12:07:48 Mechanical low back pain 019711475 M54.50 This 68-year-ol d female has had [...] Giron Member ID Guarantor Name 03/03/2024 1 [facility] - DOS ON OR AFTER 2023 - DUAL ELIGIBLE - SNF OPTIONS AND ONE CARE (MEDICARE REPLACEMENT/ADV ANTAGE - HMO) Sharita Montez [id number] Sharita Montez 02/13/2024 1 [facility] - DOS ON OR AFTER 2023 - MEDICARE ADVANTAGE [place] (MEDICARE REPLACEMENT/ADV ANTAGE - PPO) Sharita Montez [id number] Sharita Montez 03/03/2024 1 [facility] - DOS ON OR AFTER 2023 - [place] (MEDIC[place] REPLACEMENT/ADV ANTAGE - PPO) Sharita Montez [id number] Sharita Montez 08/12/2024 1 [facility] - DOS ON OR AFTER 2023 - DUAL ELIGIBLE - SNF OPTIONS AND ONE CARE (MEDICARE REPLACEMENT/ADV ANTAGE - HMO) Sharita Montez [id number] Sharita Montez 02/17/2024 1 [facility] - DOS ON OR AFTER 2023 - [place]IC[place]AGE [place] (MEDICARE REPLACEMENT/ADV ANTAGE - PPO) Sharita Montez [id number] Sharita Montez Notes Date Note Type Note Provider Name and Address Organization Details Recorded Time 02/13/2024 text/html ROS as noted in the HPI HPI: Call to Sharita Montez, reports having [...] .................. .................. .................. .................. .................. .................. .... Garage Hand Note From Carlota El: Sent to a call for a pt complaining of right hip/leg pain. SC8 arrives on scene, pt is alert and oriented, airway is patent. Pt has a steady gait. Pt speaks Barbadian and physician obstetrician line used during visit. Pt complains of [...] Urine sample obtained; urine dip: uploaded to [employer]; [facility] consulted and order BMP and 12 lead ECG. IV access and venous blood draw performed; Istat Chem8+ results and 12 lead ECG: uploaded to [employer]. While speaking with [facility] via physician obstetrician pt states she has had bad headaches in the past, but this one is different because she is having neck pain as well. [facility] advises pt to be transported to ED. Pt initially states she can't go to ED because she needs to take care of her mother, but calls contacts to have someone take care of pt's mother while she goes to ED. Pt agrees to transport and requests transport to [facility] ED. [facility] calls report to [facility]. 911 called and pt care is transferred to [facility]. Pt is transported to [facility] ED via [facility]. .................. .................. .................. .................. .................. .................. .................. ............... Disposition: Fulfilled Amy Davenport MD [address] [facility],[address], [place], [address], [place] [employer] 02/14/2024 21:47:12 02/17/2024 text/html ROS as noted in the [facility] CRC Nurse Triage Notes (Kelly Mccarthy): Reason [...] advised of disposition, agrees to [facility] vs [facility] for exam. instED referral placed. Pt to follow up with office pRN per instED recommendations. Patient Reports: Shortness of Breath Denies: Unable to speak in full sentences without distress Chief Complaints: UTI/Pyelonephritis , Pain PMH: Hypertension, Diabetes Allergies: Unknown Comments: Spoke w/ member with wharf tender helper [place], c/o chest pain, ongoing always there it does get worse at times and then she feels SOB, chest feels sore but unable to state if the pain is reproducible, hx of this chest pain and c/o same symptom on 02/12- went to [facility], left because she did not have anyone to watch her mom who is 89 and has Dementia- the member is waiting on the [facility] results, the [facility] wanted to admit her for it seems like a possible KS or r/o KS but pt refused. Advised member that she should go to the ED and be evaluated further, she said she can't leave her mother and the FILTER TENDER can't watch her either, she has no family. Advised the [facility] may suggest going to the ED anyway but I will process referral . Tai BAILEY .................. .................. .................. .................. .................. .................. .................. ............... Garage Hand Note From Krzysztof Cullen: Dispatched to the [...] would go to the ED when the FILTER TENDER got there to care for her mother (approx 1600). Red flags discussed. ALL times are apprx. .................. .................. .................. .................. .................. .................. .................. ............... Disposition: Fulfilled NIKKI LACKEY MD [address] [facility],[address], [place], [address], Soccer Manager - [employer] 02/17/2024 14:48:41 03/03/2024 text/html ROS as noted in the HPI HPI: Call returned to [facility] to triage below. Reports having back pain and right leg pain . Pt also endorses numbness on foot x 2 week. Pt using Motrin and aleve PRN for pain. No urinary sx. Pt seen at ER 2 weeks ago but pt unable to stay for admission. Per pt unable to come into office. Agrees to [employer] for evaluation. .................. .................. .................. .................. .................. .................. .................. ............... CRC Nurse Triage Notes (Ernestina Jackman): Comments: HPI reviewed. No further information required to process visit. .................. .................. .................. .................. .................. .................. .................. ............... Garage Hand Note From Lenny Lynne: Patient conscious alert [...] CSM negative swelling or discoloration. [facility] advises he will prescribe gabapentin to patient s local pharmacy and orders Toradol 30 mg IM. Administered as noted red flags, and patient education discussed patient encouraged to follow up with PCP .................. .................. .................. .................. .................. .................. .................. ............... Disposition: Fulfilled NIKKI LACKEY MD [address] [place] [address],[address], [place], [address], [facility] 03/03/2024 16:20:16 03/12/2024 text/html ROS as noted in the HPI HPI: Patient with history of Lumbar Radiculopathy. Went to ED but is unable to wait as she is having significant pain. called in Flexeril earlier today but has not started this medication yet. .................. .................. .................. .................. .................. .................. .................. ............... CRC Nurse Triage Notes (Kelly Mccarthy): Comments: Reviewed no further info needed. Hpajade RNnoted INSTED visit on 03/03 for similar symptoms Efrem Romero MD [address] [facility],[address], [place], [address], [facility] [employer], [facility] 03/12/2024 18:51:40 OBGyn Episode No OBEpisode recorded.
--- OUTSIDE RECORDS SUMMARY | 2025-05-19 14:17 | XMS_ITS | Encounter Summary ---
Author Organization [employer] Address [address] [facility] [address] [place] [address] Care Team Providers Care Director Of Knowledge Management Name Role Phone Rena Henriquez MD Primary Care Provide r Krystal Joyner PharmD Unavailable [phone] Reason for Visit * Reason Onset Date Comments Med Refill 02/02/2025 Encounter Details Date Type Department Care Team (Late st Contact Info) Description 02/02/2025 Telephone [facility] [address] [place], [place] [phone] Rena Henriquez MD [address] [place], [place] [phone] Med Refill Social History Tobacco Use Types [...] housing situation today? I have ammypiedad mustafa 05/18/[address] you [...] MG/0.5ML solution auto-injector To be sent to: [facility]/pharmacy #[id number] [place], [place] - [address] [place] [address] documented in this encounter Plan of Treatment Upcoming Encounters Date Type Department Care Team (Late st Contact Info) Description 06/02/2025 3:30 PM EDT Office Visit [facility] [address] [place] [address] Kavitha Graham DDS [address] [place] [address] 06/06/2025 2:00 PM EDT Clinical Support [facility] [address] [place] [address] Matilda Chisholm, RN 06/16/2025 1:00 PM EDT Office Visit [facility] [address] [place] [address] Cielo Turner, OD [address] [place] [address] documented as of this encounter Visit Diagnoses Not on filedocumented in this encounter Additional Health Concerns Assessment Noted Time PHQ-9 Depression Total Score: 15 025 2:05 PM EST documented as of this encounter Care Teams Director Of Knowledge Management Relationship Specialty Start Date End Date Rena Henriquez MD [address] [place] [address] PCP - General Internal Medicine 06/23/24 Krystal Joyner, Johnna [address] [place] [phone] Pharmacist Internal Medicine 10/15/24 03/04/25 documented as of this encounter
--- OUTSIDE RECORDS SUMMARY | 2025-05-19 14:17 | XMS_ITS | Clinical Summary ---
Author Organization [facility] Address [address] [place] [address] Phone Care Team Providers Care Research/Program Director Name Role Phone Stefany Onofre MD Primary Care Provider [phone] Allergies Active Allergy Reactions Criticality Noted Date [...] to complete this topic Insurance Care Teams Research/Program Director Relationship Specialty Start Date End Date Stefany Onofre MD [address] [place], [place] PCP - General Internal Medicine 02/09/21
[2025-05-19 14:21] VITALS: BP 140/80; PULSE 100; O2SAT 96; BMI 38.6
--- NOTE | 2025-05-19 14:21 | MHC.OFFVIS ---
Vital Signs 05/19/25 14:21 Height 5 ft 5 in Weight 232 lb BMI 38.6 BP 140/80 H Blood Pressure Location Rt brachial Position Sitting Pulse 100 Pulse Source Pulse Oximeter Pulse Oximetry (%) 96 Oxygen Delivery Method Room Air Intake Visit Reasons: asthma Integration Software Developer Required: Yes Integration Software Developer Name: Jaja Hall Allergies amlodipine (AMLODIPINE) Allergy (Intermediate, Verified 05/19/25 14:28) PALPITATIONS lisinopril (LISINOPRIL) Allergy (Intermediate, Verified 05/19/25 14:28) PALPITATIONS, palpitation HPI HPI asthma: Details: 69-year-old lady, active 30+ pack-year smoker followed for COPD. Patient continues on Anoro and albuterol MDI with reasonable control of her symptoms. She does complain of an ongoing mild bronchitic exacerbation. [facility] Medical History Right lumbar radiculitis Back pain Neck pain Musculoskeletal pain Nicotine dependence, cigarettes, uncomplicated Obesity due to excess calories Type 2 diabetes mellitus with diabetic polyneuropathy Essential hypertension Hypovitaminosis D Mixed hyperlipidemia Surgical History History of hemorrhoidectomy History of colonoscopy History of hernia repair History of myomectomy Family History Father Medical history unknown Mother Hypertension Alzheimers disease Sister Hepatitis C Cirrhosis Sister Breast cancer Brother Diabetes Asthma Family/Other FH: mental illness Social History Household Members: Family Alcohol intake: current Alcohol intake frequency: a few times a month Patient Tobacco Use Status: Current everyday Tobacco user Tobacco use type: Cigarette Cigarette Packs Per Day: 1 Years Smoked: onset 17yo, 1ppd x 53yrs, 50pyh Current occupational status: employed Current occupation: [employer] Review of Systems Const Denies daytime sleepiness, Denies excessive sweating, Denies fatigue, Denies fever(s), Denies lethargy, Denies malaise, Denies night sweats, Denies snoring and Denies weight loss Eyes Denies blurry vision and Denies itchy eyes ENT Denies nasal congestion, Denies post nasal drip, Denies sinus pain, Denies sinus pressure and Denies other ( Thrush) Card Denies chest pain, Denies pedal edema, Denies dyspnea, Denies orthopnea and Denies paroxysmal nocturnal dyspnea Resp Denies cough, Denies hemoptysis, Denies excessive phlegm production, Denies dyspnea, Denies snoring and Denies wheezing GI Denies abdominal pain and Denies heartburn Musc Denies myalgias, Denies arthralgias and Denies joint swelling Skin/Breast Denies rash Neuro Denies memory loss and Denies seizure-like activity Psych Denies abnormal sleep pattern, Denies anxiety and Denies memory loss Endo Denies excessive sweating, Denies fatigue and Denies heat intolerance Kike/Lymph Denies easy bruising Aller/Immun Denies itchy eyes, Denies seasonal rhinorrhea and Denies wheezing Physical Exam Vital Signs: Last Vital Signs Pulse 100 05/19/25 14:21 BP 140/80 H 05/19/25 14:21 Pulse Ox 96 05/19/25 14:21 Oxygen Delivery Method Room Air 05/19/25 14:21 BMI result Body Mass Index 38.6 Const General: no acute distress and alert Nutritional Appearance: obese Orientation/consciousness: Other orientation findings ( oriented) HEENT Head: Yes atraumatic Eyes General: appearance normal, both eyes and all related structures Sclerae: sclerae normal EOM: EOMs intact bilaterally Neck Neck: Yes supple Lymphatic: no lymphadenopathy noted Resp Effort & Inspection: normal respiratory effort and no use of accessory muscles Auscultation: clear to auscultation bilaterally Cardio Rate: regular rate Rhythm: regular rhythm Heart sounds: no gallops, no murmurs and no rubs Skin General skin exam: other ( warm) Extrem General: No clubbing, No cyanosis and No edema Assessment & Plan Assessment & Plan (1) COPD (chronic obstructive pulmonary disease): Code(s): J44.9 - Chronic obstructive pulmonary disease, unspecified Category: Medical Plan: Overall controlled on current regimen of Anoro and albuterol MDI. Continue current regimen. (2) Cough: Code(s): R05.9 - Cough, unspecified Category: Medical Plan: Now with mild bronchitic exacerbation, will treat with a course of Augmentin and obtain chest x-ray. (3) Nicotine dependence, cigarettes, uncomplicated: Comment: (current smoker - onset 17yo, 1ppd x 53yrs, 50pyh) Code(s): F17.210 - Nicotine dependence, cigarettes, uncomplicated Category: Medical Plan: Continue lung cancer screening, next CT ordered for October of 2025. Orders: Orders XR chest 2V Today R05.9 - Cough, unspecified Medications: New amoxicillin-pot clavulanate 875-125 mg 1 tab PO BID 14 tabs 0RF Coding Level of Care Code Est Pt Level 4 (53004) Complex EM visit Add On G2211 Diagnoses COPD (chronic obstructive pulmonary disease) J44.9 Cough R05.9 Nicotine dependence, cigarettes, uncomplicated F17.210
== END 2025-05-19 14:42 | disposition home or self-care (01) ==
LOC: HO.HPS 14:15
PROVIDERS: PCP Internal Medicine; Visit Provider Internal Medicine Pulmonary Disease
DX: J44.9 Chronic obstructive pulmonary disease, unspecified (principal); R05.9 Cough, unspecified; F17.210 Nicotine dependence, cigarettes, uncomplicated
CPT/HCPCS: 99214; G2211

== ENCOUNTER 2025-05-19 14:15 | Outpatient (REF) | payer OTHER, SELFPAY ==
--- NOTE | ~2025-05-19 | XR_ITS ---
EXAMINATION: XR CHEST CLINICAL INFORMATION: R05.9 - Cough, unspecified COMPARISON: None available. TECHNIQUE: 2 views of the chest were obtained. FINDINGS: No significant abnormality is noted involving the heart, lungs, mediastinum, bony thorax or soft tissues. XR/XR chest 2V IMPRESSION: No acute disease Electronically signed by: Edouard Brown MD 05/19/2025 03:16 PM EDT RP
== END 2025-05-19 14:16 | disposition home or self-care (01) ==
LOC: HO.XRAY 14:15
PROVIDERS: PCP Internal Medicine; Visit Provider Internal Medicine Pulmonary Disease
DX: J44.1 Chronic obstructive pulmonary disease with (acute) exacerbation (principal); R05.9 Cough, unspecified; F17.210 Nicotine dependence, cigarettes, uncomplicated; Z79.51 Long term (current) use of inhaled steroids
CPT/HCPCS: 71046; 99212

== ENCOUNTER → 2025-05-19 14:52 | Outpatient (BNV) | payer OTHER, SELFPAY | PROVIDERS: PCP Internal Medicine; Visit Provider Radiology Diagnostic Radiology | DX: R05.9 Cough, unspecified (principal) | CPT/HCPCS: 71046 ==

== ENCOUNTER 2025-07-13 13:30 | Outpatient (AMB) | payer OTHER, SELFPAY ==
--- NOTE | 2025-07-13 13:45 | A.OFFVIS_ITS ---
Vital Signs 07/13/25 13:46 Height 5 ft 5 in Weight 235 lb BMI 39.1 BP 182/90 H Blood Pressure Location Rt brachial Position Sitting Respiration 16 Pulse 102 H Pulse Oximetry (%) 100 Intake Visit Reasons: ENP: Migraine Software Licensing Specialist Required: Yes Software Licensing Specialist Services: Software Licensing Specialist Present Software Licensing Specialist Name: [place] [id number] Information Interpreted: non-clinical & clinical Allergies amlodipine (AMLODIPINE) Allergy (Intermediate, Verified 07/13/25 13:44) PALPITATIONS lisinopril (LISINOPRIL) Allergy (Intermediate, Verified 07/13/25 13:44) PALPITATIONS, palpitation Medication List - Last Reconciled 07/13/25 by Aury Roldan CNP acetaminophen (Tylenol Extra Strength) 500 mg PO Q6H PRN albuterol sulfate 90 mcg/actuation (ProAir RespiClick) 2 inhalations inhalation Q4-6H PRN 30 days alprazolam 2 mg PO DAILY PRN amitriptyline 10 mg PO BEDTIME blood sugar diagnostic (FreeStyle Lite Strips) 3x/day blood-glucose meter (FreeStyle Lite Meter kit) As directed blood-glucose meter (FreeStyle Lite Meter kit) As directed 3x/day camphor-methyl salicyl-menthol 3.1-15-10 % (Salonpas Deep Relieving) 1 ea topical BID 30 days cholecalciferol (vitamin D3) 50 mcg PO DAILY 90 days citalopram 10 mg PO DAILY diclofenac sodium 1% (Arthritis Pain (diclofenac)) 4 grams topical QID doxepin 50 mg PO BEDTIME dulaglutide (Trulicity) 3 mg (0.5 mL) subcut QWEEK 28 days famotidine 20 mg PO DAILY lancets (FreeStyle Lancets) three time a day montelukast 10 mg PO DAILY naloxone 4 mg/actuation intranasal naproxen 500 mg PO BID PRN olmesartan 20 mg PO DAILY oxycodone 5 mg PO BID PRN prazosin 2 mg PO BEDTIME rosuvastatin 40 mg PO DAILY sertraline 50 mg PO DAILY umeclidinium-vilanterol 62.5-25 mcg/actuation (Anoro Ellipta) 1 ea inhalation DAILY zolpidem 10 mg PO BEDTIME PRN HPI Comments Details: Sharita is a 70-year-old female patient with a past medical history of hypertension, asthma, and type 2 diabetes who is presenting today for a headache consultation. It appears that she has been trialed on amitriptyline 50 mg at bedtime as well as sumatriptan 100 mg for abortive measures of by her primary care provider. It was also suggested that she obtain an MRI of the brain though she has some claustrophobia which has prevented this thus far. According to the patient today, she has been experiencing migraine headaches for many years. She had some improvement in her headaches over the years but over the course of the last 2 years they have been more freqent and severe. She is currently experiencing a headache nearly every day. Because of this, her amitriptyline was increased from 25mg nightly to 50mg nightly with only minimal improvement in the severity of her headaches if at all. Her current headaches are frontal, bitemporal, and bi-occipital. Her pain is described as a squeezing sensation. She always has some degree of pain but intensity can wax and wane over the course of the day. With her headaches she also has nausea, sensation of imbalance, and sensitivity to the light and sounds. There is no position that makes her headaches worse or better. She does not have any auras or vision changes that occur prior to onset of her headaches but when she has severe headache she does develop some blurred vision at times. Currently she takes sumatriptan 100mg as needed for acute therapy but she is currently taking this daily. Other related background information: Sleep:Sleep is very disrupted due to her chronic sciatic pain and needing to use the bathroom. She gets about 3-4 hours per night and can be somnolent during the day. She notes a history of JORJE and could not tollerate cpap. This was many years ago Hydration:Drinks plenty of water Caffeine intake:Does not drink caffeine daily Alcohol intake:No Substance use: Uses marijuana but very infrequent. Less than once per week Tobacco use: 1 pack per day Last eye exam: Notes a hx glaucoma and cataracts to right eye. Has had left eye operated on in [place] in the past. Was seen at the eye and lasik center in [facility] last in the beginning of 2024. Past medication trials: Amitriptyline- Currently taking at 50mg nightly Sumatriptan 100mg as needed Propranolol- Prior workup: MRI images and report reviewed on [facility] provider portal. An MRI of the brain without contrast was performed on 06/06/2025. Findings: Bihemispheric greater deep and subcortical white matter changes, nonspecific but most consistent with chronic microvascular ischemia. There was also an indeterminate frontal diploic signal transformation suspect for a 6-7mm calvarial hemangioma. [facility] Medical History (Updated 07/13/25 @ 14:38 by Aury Roldan CNP) Migraine Right lumbar radiculitis Back pain Neck pain Musculoskeletal pain Nicotine dependence, cigarettes, uncomplicated Obesity due to excess calories Type 2 diabetes mellitus with diabetic polyneuropathy Essential hypertension Hypovitaminosis D Mixed hyperlipidemia Surgical History History of hemorrhoidectomy History of colonoscopy History of hernia repair History of myomectomy Family History Father Medical history unknown Mother Hypertension Alzheimers disease Sister Hepatitis C Cirrhosis Sister Breast cancer Brother Diabetes Asthma Family/Other FH: mental illness Social History Household Members: Family Alcohol intake: current Alcohol intake frequency: a few times a month Patient Tobacco Use Status: Current everyday Tobacco user Tobacco use type: Cigarette Cigarette Packs Per Day: 1 Years Smoked: onset 17yo, 1ppd x 53yrs, 50pyh Current occupational status: employed 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 [employer] Review of Systems Const All systems reviewed & are unremarkable except as noted in HPI and below Physical Exam Const General: cooperative, healthy appearing, comfortable and no acute distress Nutritional Appearance: well nourished Orientation/consciousness: patient oriented x3 Limitations: no limitations HEENT Head: Yes normal to inspection and Yes normocephalic Eyes General: appearance normal, both eyes and all related structures Visual Peacock: normal visual peacock by confrontation Alignment and Position: alignment normal Periorbital: periorbital findings normal Eyelids: Yes eyelids normal Conjunctivae: conjunctivae normal Sclerae: sclerae normal Back/Spine/Pelvis Back: other (Upper trapezius tenderness and trigger points bilat. SOHA tenderness bilat.) Neuro General: patient oriented x3 and tone normal Cranial nerves: Yes CN's II-XII intact bilaterally and Yes Facial sensation intact/muscles of mastication intact Cognition (Neuro): normal cognition Gait exam (Neuro): Antalgic gait present Motor exam (neuro): 5/5 motor strength present throughout and no tremor noted Sensory Exam: double simultaneous stimulation for sensation normal Deep tendon reflexes (DTR's): Right triceps reflex intensity grade: 1+, Left triceps reflex intensity grade: 1+, Rt Biceps (C5, C6): 1+, Left biceps reflex intensity grade: 1+, Right brachioradialis reflex intensity grade: 1+, Left brachioradialis reflex intensity grade: 1+, Right patellar reflex intensity grade: 0, Left patellar reflex intensity grade: 0, Right ankle reflex intensity grade: 0 and Left ankle reflex intensity grade: 0 Pupils: Normal pupillary reactivity/response: bilateral Psych Appearance: grossly normal Mental Status: mental status grossly normal Speech and movement: Normal speech and movement present and Clear speech present Affect: normal affect Attitude: cooperative Thought process: Normal thought process present Thought content: Normal thought content present Insight: Good insight present (Psych) Judgement: Good judgement present (Psych) Assessment & Plan Assessment & Plan (1) Medication overuse headache: Code(s): G44.40 - Drug-induced headache, not elsewhere classified, not intractable Category: Medical (2) Chronic migraine without aura without status migrainosus, not intractable: Code(s): G43.709 - Chronic migraine without aura, not intractable, without status migrainosus Category: Medical (3) Occipital neuralgia: Code(s): M54.81 - Occipital neuralgia Category: Medical (4) Muscle pain, myofascial: Code(s): M79.18 - Myalgia, other site Category: Medical Plan Sharita is a 70-year-old female patient with a past medical history of hypertension, asthma, and type 2 diabetes who is presenting today for a headache consultation. Based on history and exam, headaches are consistent with migraine and likely myofascial component with occipital neuralgia. I explained that likely sleep and her excessive use of abortive therapy are both contributing to the worsening of her headaches. MRI without any obvious causes for headache though a calvarial hemangioma possible. Would recommend repeating MRI 6 months to 1 year from prior. I do recommend repeating her sleep study ended educate her on the importance of treating sleep apnea if present and addressing any underlying sleep conditions in efforts to improve her headaches. We discussed medication overuse headache and the likelihood that the sumatriptan usage is contributing to her headaches. I advised to limit the sumatriptan to no more than 2-3 days per week. She is not a good candidate for a course of steroid given her history of diabetes. I do think starting her on a migraine preventive is reasonable and may help her to accomplish weaning off of the sumatriptan. I will start a trial of Emgality provided that she is not a good candidate for other options given history of asthma and glaucoma. She is already taking the amitriptyline. I will see her back approximately 2 months. -Start a trial of Emgality -Will watch BP trends while on the Emgality as it can cause in increase in BP -Wean own on Sumatriptan to no more than 2-3 days per week -Repeat sleep study -Recommend repeat MRI 6 months to 1 year from prior -Ophthalmology referral per request of patient. Given history, ongoing ophthalmology evaluation is recommended. A total of 665 minutes spent with this patient reviewing neurodiagnostics, obtaining a detailed history, examination, and education on the plan moving forward with use of a medical device engineer. Coding Level of Care Code New Pt Level 5 (74118) Diagnoses Medication overuse headache G44.40 Chronic migraine without aura without status migrainosus, not intractable G43.709 Occipital neuralgia M54.81 Muscle pain, myofascial M79.18
[2025-07-13 13:46] VITALS: BP 182/90; PULSE 102; RESP 16; O2SAT 100; BMI 39.1
--- OUTSIDE RECORDS SUMMARY | 2025-07-13 17:20 | XMS_ITS | Encounter Summary ---
Author Organization [employer] Address [address] [place] [address] Care Team Providers Care Hardboard Grinder Name Role Phone Minerva Barraza Primary Care Provider [phone] Rena Henriquez MD Primary Care Provide r Krystal Joyner PharmD Unavailable [phone] Reason for Visit * Reason Comments Med Change Request Encounter Details Date Type Department Care Team ([facility] st Contact Info) Description 09/19/2023 Refill [facility] [address] [place], [place] [phone] Minerva Barraza FNP [address] [place] [address] Type 2 diabetes mellitus without complication, with long-term current use of insulin ([facility]) Social History Tobacco Use Types Packs/Day Years [...] Care Team (Late st Contact Info) Description 07/15/2025 2:45 PM EDT Office Visit [facility] [address] [place] [address] Kavitha Graham DDS [address] [place] [address] 08/25/2025 2:00 PM EDT Clinical Support [facility] [address] [place] [address] Matilda Chisholm, RN 10/31/2025 2:00 PM EST Office Visit [facility] [address] [place] [address] Cielo Turner, OD [address] [place] [address] documented as of this encounter Visit Diagnoses Diagnosis Type 2 diabetes mellitus without complication, with long-term current use of insulin ([facility]) documented in this encounter Additional Health Concerns Assessment Noted Time PHQ-9 Depression Total Score: 16 023 10:31 AM EDT documented as of this encounter Care Teams Hardboard Grinder Relationship Specialty Start Date End Date Minerva Barraza FNP [address] [place] [address] PCP - General Family Medicine 07/29/22 06/22/24 Rena Henriquez MD [address] [place] [address] PCP - General Internal Medicine 06/23/24 Krystal Joyner PharmD [address] [place] [address] Pharmacist Internal Medicine 10/15/24 03/04/25 documented as of this encounter
--- OUTSIDE RECORDS SUMMARY | 2025-07-13 17:20 | XMS_ITS | Encounter Summary ---
Author Organization [employer] Address [address] [facility] [address] [place] [address] Care Team Providers Care Ordnance Artificer Name Role Phone Rena Henriquez MD Primary Care Provide r Reason for Visit * Reason Comments Med Refill Encounter Details Date Type Department Care Team (Late st Contact Info) Description 05/17/[address] [facility] [address] [place], [place] [phone] Rena Henriquez MD [address] [place] [address] Chronic migraine with aura without status migrainosus, not intractable Social History Tobacco Use Types Packs/Day Years [...] Access Answer Date Recorded Internet Access Q1 No 03/18/2025 Internet Access Q2 I do not want or need it 02/25 Comments Unknown Sex and Gender Information Value Date Recorded Sex Assigned at Female 08/26/2022 10:35 AM EDT Legal Sex Female 10:35 AM EDT Gender Identity Female 08/26/2022 10:35 AM EDT Sexual Orientation Straight 08/26/2022 10 :35 AM EDT documented as of this encounter Functional Status * Over the last 2 weeks, how often have you been bothered by any of the following problems? Question Answer Date of Assessment Author Feeling nervous, anxious, or on edge 0 05/17/2025 1:37 PM EDT Cesilia Garcia MA Not being able to stop or co ntrol worrying 0 05/17/2025 1:37 PM EDT Cesilia Garcia MA Worrying too much about diff erent things 0 05/17/2025 1:37 PM EDT Cesilia Garcia MA Trouble relaxing 0 05/17/2025 1:37 PM EDT S Cesilia randhawa MA Being so restless that it is hard to sit still 0 05/17/2025 1:37 PM EDT Cesilia Garcia MA Becoming easily annoyed or irritable 0 05/17/2025 1:37 PM EDT Cesilia Garcia MA Feeling afraid as if somethi ng awful might happen 0 05/17/2025 1:37 PM EDT Cesilia Garcia MA WILNER-7 Total Score 0 05/17/2025 1:37 PM EDT Cesilia Garcia MA documented as of this encounter Plan of Treatment Upcoming Encounters Date Type Department Care Team (Late st Contact Info) Description 07/15/2025 2:45 PM EDT Office Visit [facility] ADULT DENTAL [address] [place] [address] Ray-Hawkins, Kavitha, DDS [address] [place] [address] 08/25/2025 2:00 PM EDT Clinical Support [facility] MED[facility] [address] [place] [address] Matilda Chisholm, LEO 10/31/2025 2:00 PM EST Office Visit [facility] OPTOMETRY [address] [place] [address] TarkaCielo, OD [address] [place] [address] documented as of this encounter Visit Diagnoses Diagnosis Chronic migraine with aura without status migrainosus, not intractable documented in this encounter Additional Health Concerns Assessment Noted Time PHQ-9 Depression Total Score: 15 025 2:05 PM EST documented as of this encounter Care Teams Ordnance Artificer Relationship Specialty Start Date End Date Rena Henriquez MD [address] [place] [address] PCP - General Internal Medicine 06/23/24 documented as of this encounter
--- OUTSIDE RECORDS SUMMARY | 2025-07-13 17:20 | XMS_ITS | Encounter Summary ---
Author Organization [employer] Address [address] [facility] [address] [place] [address] Care Team Providers Care Machine Assembler For Puller Over Name Role Phone Minerva Barraza RHYS Primary Care Provider [phone] Rena Henriquez MD Primary Care Provide r Krystal Joyner PharmD Unavailable [phone] Reason for Visit * Reason Comments Med Refill Encounter Details Date Type Department Care Team ([facility] Contact Info) Description 02/24/2023 Refill [facility] [address] [place] [address] Everett Wood, RHYS garay Social History Tobacco [...] Upcoming Encounters Date Type Department Care Team ([facility] Contact Info) Description 07/15/2025 2:45 PM EDT Office Visit [facility] ADULT DENTAL [address] [place] [address] Kavitha Graham, DDS [address] [place] [address] 08/25/2025 2:00 PM EDT Clinical Support [facility] [address] [place] [address] Matilda Chisholm, RN 10/31/2025 2:00 PM EST Office Visit [facility] OPTOMETRY [address] [place] [address] Cielo Turner, OD [address] [place] [address] documented as of this encounter Visit Diagnoses Diagnosis Tinea cruris Dermatophytosis of groin and perianal area documented in this encounter Additional Health Concerns Assessment Noted Time PHQ-9 Depression Total Score: 4 12/06/19 23 1:46 PM EST documented as of this encounter Care Teams Machine Assembler For Puller Over Relationship Specialty Start Date End Date Minerva Barraza FNP [address] [place] [id number] PCP - General Family Medicine 07/29/22 06/22/24 Rena Henriquez MD [address] [place] [id number] PCP - General Internal Medicine 06/23/24 Krystal Joyner PharmD [address] [place] [phone] Pharmacist Internal Medicine 10/15/24 03/04/25 documented as of this encounter
--- OUTSIDE RECORDS SUMMARY | 2025-07-13 17:20 | XMS_ITS | Encounter Summary ---
Author Organization [employer] Address [address] [facility] [address] [place] [address] Care Team Providers Care Website Admin Name Role Phone Minerva Barraza Primary Care Provider [phone] Rena Henriquez MD Primary Care Provide r Krystal Joyner PharmD Unavailable [phone] Reason for Visit * Reason Onset Date Comments Medication Question 12/25/2022 Encounter Details Date Type Department Care Team (Late st Contact Info) Description 12/25/2022 Telephone [facility] MEDICINE [address] [place] [address] Minerva Barraza FNP [address] [place] [address] Medication Question Social History Tobacco Use Types [...] today appt 12/25/22 Please contact pt at [phone] Pt speaks filipino documented in this encounter Plan of Treatment Upcoming Encounters Date Type Department Care Team (Late st Contact Info) Description 07/15/2025 2:45 PM EDT Office Visit [facility] ADULT DENTAL [address] [place] [address] Kavitha Graham, DDS [address] [place] [address] 08/25/2025 2:00 PM EDT Clinical Support [facility] MEDICINE [address] [place] [address] Matilda Chisholm, LEO 10/31/2025 2:00 PM EST Office Visit [facility] OPTOMETRY [address] [place] [address] Cielo Turner, OD [address] [place] [address] documented as of this encounter Visit Diagnoses Not on filedocumented in this encounter Additional Health Concerns Assessment Noted Time PHQ-9 Depression Total Score: 4 12/06/19 23 1:46 PM EST documented as of this encounter Care Teams Website Admin Relationship Specialty Start Date End Date Minerva Barraza FNP [address] [place] [id number] PCP - General Family Medicine 07/29/22 06/22/24 Rena Henriquez MD [address] [place] [id number] PCP - General Internal Medicine 06/23/24 Krystal Joyner PharmD [address] [place] [phone] Pharmacist Internal Medicine 10/15/24 03/04/25 documented as of this encounter
--- OUTSIDE RECORDS SUMMARY | 2025-07-13 17:20 | XMS_ITS | Encounter Summary ---
Author Organization [employer] Address [address] [facility] 7[address] [place] [address] Care Team Providers Care University Tutor Name Role Phone Rena Henriquez MD Primary Care Provide r Encounter Details Date Type Department Care Team (Late st Contact Info) Description 05/17/2025 Orders Only [facility] MEDICINE [address] [place], [place] [phone] Rena Henriquez MD [address] [place], [place] [phone] Social History Tobacco Use Types Packs/Day Years [...] Trouble relaxing 0 05/17/2025 1:37 PM EDT Cesilia Hendrickson MA Being so restless that it is [...] Description 07/15/2025 2:45 PM EDT Office Visit [facility] ADULT DENTAL [address] [place] [address] Kavitha Graham, LESLIES [address] [place] [address] 08/25/2025 2:00 PM EDT Clinical Support [facility] MEDICINE [address] [place] [address] Matilda Chisholm, RN 10/31/2025 2:00 PM EST Office Visit [facility] OPTOMETRY [address] [place], [place] [phone] Cielo Turner, OD [address] [place] [address] documented as of this encounter Visit Diagnoses Not on filedocumented in this encounter Additional Health Concerns Assessment Noted Time PHQ-9 Depression Total Score: 15 025 2:05 PM EST documented as of this encounter Care Teams University Tutor Relationship Specialty Start Date End Date Rena Henriquez MD [address] [place] [phone] PCP - General Internal Medicine 06/23/24 documented as of this encounter
--- OUTSIDE RECORDS SUMMARY | 2025-07-13 17:20 | XMS_ITS | Encounter Summary ---
Author Organization [employer] Address [address] [facility] [address] [place] [address] Care Team Providers Care Prison Guard Name Role Phone Rena Henriquez MD Primary Care Provide r Krystal Joyner PharmD Unavailable [phone] Reason for Visit * Reason Comments Med Refill Encounter Details Date Type Department Care Team ([facility] st Contact Info) Description 07/05/2024 Refill [facility] MEDICINE [address] [place] [address] Minerva Barraza FNP [address] [place] [address] Depression with anxiety; Insomnia, unspecified type Social [...] Description 07/15/2025 2:45 PM EDT Office Visit [facility] ADULT DENTAL [address] [place] [address] Kavitha Graham, DDS [address] [place] [address] 08/25/2025 2:00 PM EDT Clinical Support [facility] MEDICINE [address] [place] [address] Matilda Chisholm, LEO 10/31/2025 2:00 PM EST Office Visit [facility] OPTOMETRY [address] [place] [address] Cielo Turner, OD [address] [place] [address] documented as of this encounter Visit Diagnoses Diagnosis Depression with anxiety Dysthymic disorder Insomnia, unspecified type documented in this encounter Additional Health Concerns Assessment Noted Time PHQ-9 Depression Total Score: 18 024 4:16 PM EDT documented as of this encounter Care Teams Prison Guard Relationship Specialty Start Date End Date Rena Henriquez MD [address] [place] [address] PCP - General Internal Medicine 06/23/24 Krystal Joyner, Johnna [address] [place] [address] Pharmacist Internal Medicine 10/15/24 03/04/25 documented as of this encounter
--- OUTSIDE RECORDS SUMMARY | 2025-07-13 17:20 | XMS_ITS | Clinical Summary ---
Author Organization [employer] Address [address] [facility] [address] [place] [address] Care Team Providers Care Wiener Packer Name Role Phone Rena Henriquez MD Primary Care Provide r Allergies Active Allergy Reactions Criticality Noted Date Comments Lisinopril Palpitations Low 03/29/2021 Medications * This document contains information received from the source organization and may not represent a complete record from that organization. D3 Super Strength 50 MCG (1999) capsuleIndication s:Vitamin D insufficiency Take 1 capsule by mouth daily 90 capsule 1 023 Active hydrocortisone 1 % ointment Apply topically 2 times daily. 110 g 1 023 Active clotrimazole (Lotrimin) 1 % creamIndications: Tinea cruris Apply topically 2 times daily. For 2-3 weeks 30 g 023 Active Nebulizers [facility] Use nebulizer as instructed 1 each 024 Active Respiratory Therapy Supplies (Nebulizer/Tubing /Mouthpiece) kit To be used with Nebulizer 1 kit 024 Active albuterol 108 (90 Base) MCG/ACT inhalerIndication s:Mild intermittent asthma without complication INHALE 2 PUFFS BY MOUTH EVERY 4 HOURS IF NEEDED FOR WHEEZING. 18 g 3 024 Active omeprazole OTC (PriLOSEC OTC) 20 MG EC tabletIndications :Gastroesophageal reflux disease, unspecified whether esophagitis present Take 1 tablet (20 mg) by mouth before breakfast. Do not crush, chew, or split. 30 tablet 2 024 2024 Active naloxone (Narcan) 4 mg/0.1 mL nasal sprayIndications: Lumbar radiculopathy Administer 1 spray (4 mg) into affected nostril(s) if needed for opioid reversal. May repeat every 2-3 minutes if needed, alternating nostrils, until medical assistance becomes available. 2 each 3 024 2024 Active Anoro Ellipta 62.5-25 MCG/ACT aerosol powder Inhale 1 puff Once per day. 024 Active Ascorbic Acid (vitamin C) 1000 MG tablet PATIENT PURCHASING OTC Active Multiple Vitamin (multivitamin) tablet PATIENT PURCHASING OTC Active cyanocobalamin (Vitamin B-12) 1000 MCG tablet PATIENT PURCHASING OTC Active glucose blood (FREESTYLE LITE) test stripIndications: Type 2 diabetes mellitus with hyperglycemia, without long-term current use of insulin ([facility]) Test blood sugar twice daily 100 each 025 2025 Active Lancets 28G miscIndications:T ype 2 diabetes mellitus with hyperglycemia, without long-term current use of insulin ([facility]) Test blood sugar twice daily 100 each Active aspirin 81 MG EC tablet Take 1 tablet (81 mg) by mouth Once per day. 90 tablet 3 025 Active cyclobenzaprine (Flexeril) 5 MG tabletIndications :Muscle spasm Take 1 tablet (5 mg) by mouth 3 times daily for 10 days. 30 tablet 025 Active doxepin (SINEquan) 50 MG capsule take 1 capsule by mouth everyday at bedtime 025 Active Blood Glucose Monitoring Suppl (FreeStyle Lite) w/Device kitIndications:Ty pe 2 diabetes mellitus with hyperglycemia, without long-term current use of insulin ([facility]) 1 each 2 times daily. 1 kit 025 Active montelukast (Singulair) 10 MG tabletIndications :Mild intermittent asthma without complication TAKE 1 TABLET BY MOUTH EVERY DAY 90 tablet 2 025 Active sertraline (Zoloft) 50 MG tabletIndications :Depression with anxiety Take 1 tablet (50 mg) by mouth in the morning. 30 tablet 1 025 Active azithromycin (Zithromax) 250 MG tabletIndications :COPD exacerbation ([facility]) Take 2 tabs PO daily x 1d then 1 tab PO daily on D2 to D5 6 tablet 025 Active rosuvastatin (Crestor) 40 MG tabletIndications :Mixed hyperlipidemia Take 1 tablet (40 mg) by mouth at bedtime. 90 tablet 2 Active olmesartan-hydroC HLOROthiazide (Benicar HCT) 40-12.5 MG tabletIndications :Essential hypertension Take 1 tablet by mouth once daily in the morning 90 tablet Active ezetimibe (Zetia) 10 MG tabletIndications :Mixed hyperlipidemia Take 1 tablet (10 mg) by mouth Once per day. 90 tablet 3 Active cetirizine (ZyrTEC) 10 MG tabletIndications :Seasonal allergies Take 1 tablet (10 mg) by mouth Once per day. 90 tablet 3 2025 Active amitriptyline (Elavil) 100 MG tabletIndications :Migraine with aura and without status migrainosus, not intractable Take 1 tablet (100 mg) by mouth at bedtime. 30 tablet 11 2025 Active prazosin (Minipress) 2 MG capsuleIndication s:Depression with anxiety TAKE 1 CAPSULE BY MOUTH EVERYDAY AT BEDTIME 90 capsule Active Tirzepatide (Mounjaro) 2.5 MG/0.5ML solution auto-injectorIndi cations:Type 2 diabetes mellitus with hyperglycemia, without long-term current use of insulin ([facility]) Inject 2.5 mg under the skin 1 (one) time per week. 2 mL 2 Active cyclobenzaprine (Flexeril) 10 MG tabletIndications :Acute bilateral low back pain with right-sided sciatica Take 0.5 tablets (5 mg) by mouth 3 times daily for 10 days. 15 tablet Active lidocaine (Lidoderm) 5 % patchIndications: Acute bilateral low back pain with right-sided sciatica Apply 1 patch topically Once per day. Remove & discard patch within 12 hours or as directed by MD. 30 patch 1 Active zolpidem (Ambien) 10 MG tabletIndications :Insomnia, unspecified type TAKE 1 TABLET BY MOUTH EVERY DAY AT BEDTIME NEEDED FOR SLEEP 28 tablet 1 Active ALPRAZolam (Xanax) 1 MG tabletIndications :Anxiety Take 1 tablet (1 mg) by mouth if needed at bedtime for anxiety or sleep for up to 28 days. 28 tablet 025 2024 Active oxyCODONE (Roxicodone) 5 MG immediate release tabletIndications :Chronic pain of both shoulders Take 1 tablet (5 mg) by mouth every 8 (eight) hours if needed for severe pain for up to 28 days. 84 tablet 025 2024 Active SUMAtriptan (Imitrex) 100 MG tabletIndications :Migraine with aura and without status migrainosus, not intractable TAKE 1 TABLET BY MOUTH 1 TIME NEEDED FOR MIGRAINE FOR UP TO 1 DOSE. 9 tablet Active Trulicity 4.5 MG/0.5ML solution auto-injectorIndi cations:Type 2 diabetes mellitus with hyperglycemia, without long-term current use of insulin ([facility]) Inject 4.5 mg under the skin 1 (one) time per week. 2 mL 2 025 2024 Discontinued SUMAtriptan (Imitrex) 100 MG tabletIndications :Migraine with aura and without status migrainosus, not intractable TAKE 1 TABLET BY MOUTH 1 TIME NEEDED FOR MIGRAINE FOR UP TO 1 DOSE. 9 tablet 2024 Discontinued zolpidem (Ambien) 10 MG tabletIndications :Insomnia, unspecified type TAKE 1 TABLET BY MOUTH EVERY DAY AT BEDTIME NEEDED FOR SLEEP 28 tablet 2024 Discontinued(R eorder (will not trigger notification to Pharmacy)) ALPRAZolam (Xanax) 1 MG tabletIndications :Anxiety Take 1 tablet (1 mg) by mouth if needed at bedtime for anxiety or sleep for up to 28 days. 28 tablet 025 2024 Discontinued(R eorder (will not trigger notification to Pharmacy)) oxyCODONE (Roxicodone) 5 MG immediate release tabletIndications :Chronic pain of both shoulders Take 1 tablet (5 mg) by mouth every 8 (eight) hours if needed for severe pain for up to 28 days. 84 tablet 025 2024 Discontinued(R eorder (will not trigger notification to Pharmacy)) acetaminophen (Tylenol Extra Strength) 500 MG tabletIndications :Acute bilateral low back pain with right-sided sciatica Take 2 tablets (1,000 mg) by mouth every 8 (eight) hours if needed for moderate pain for up to 10 days. 30 tablet 025 2024 Hospital, Clinic, or Other Facility Administered Medication Ordered Dose Route Frequency Start Date End Date Status ketorolac (Toradol) injection 15 mgIndications:Acute bilateral low back pain with right-sided sciatica 15 mg IM Once 06/22/2025 06/22/2025 Ended Active Problems Problem Noted Date Diagnosed Date Acute bilateral low back pain with right-sided s ciatica 06/22/2025 Assessment & Plan (06/22/2025 6:19 PM EDT): Apply heat on affected area I will order XRAY and contact her back with results I will refer her to pain specialist I ordered at office toradol IM I will prescribe flexeril 10mg Q 8hrs she is aware of side effect somnolence, do mot drive or do activities that requires attention I prescribed lidocaine patch I directed patient to medical records regarding E BUSINESS SPECIALIST hours Long-term current use of opiate analgesic 2024 Long-term current use of benzodiazepine 06/06/20 25 Severe persistent asthma, unspecified whether co mplicated 05/17/2025 Assessment & Plan (05/17/2025 2:09 PM EDT): Patient reports she has pulmonology appointment on 05/19/25 I advised no to miss her appointment COPD exacerbation 03/18/2025 Assessment & Plan (03/18/2025 1:15 PM EDT): Patient will be treated with 5 days of azithromycin plus prednisone 40 mg daily for 5 days ED precautions were reviewed Chronic migraine with aura w ithout status migrainosus, not intractable 03/18/2025 Assessment & Plan (03/18/2025 1:15 PM EDT): I advise to avoid migraine triggers like red wine, chocolate, cheese, strong perfumes I went up nn amitriptyline to 25mg at bed time and went up on sumatriptan to 50mg I also order an MRI patient will be contacted with results I will call her in about 6 weeks for follow-up of migraines Seasonal allergies 03/18/2025 Mixed stress and urge urinary incontinence 12/21 Assessment & Plan (12/21/2024 5:05 PM EST): I will prescribe for patient a commode, urine pads, and wipes Muscle spasm 12/21/2024 Chronic dental pain 09/28/2024 Subgingival dental calculus [...] Arthritis of hip 06/23/2024 Assessment & Plan (12/21/2024 5:06 PM EST): I will prescribe for patient a roller walker Assessment & Plan (06/25/2024 1:25 PM EDT): Continue to follow with specialist Acute otitis externa 06/23/2024 Sensation of plugged ear on both sides Obesity, morbid 06/01/2024 Assessment & Plan (05/17/2025 2:12 PM EDT): Today extensive discussion was done about life style modifications I advise healthy diet (low calorie) and cardiovascular exercise 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 Reported hx of MH services at [facility], Hx of multiple SI attempts bu [...] seek support PLAN: 1. Follow up with [facility]: Not recommended for follow-up 2. Patient goal is to engage in MH services 3. Behavioral Recommendations a. Ind. Therapy b. Med. Management c. Us of coping skills provided Type 2 diabetes mellitus wit h hyperglycemia, without long-term current use of insulin 12/06/2022 Assessment & Plan (06/22/2025 6:16 PM EDT): Lab Results Component Value Date HGBA1C 6.2 (A) 10/29/2024 HGBA1C 6.1 (A) 05/18/2024 HGBA1C 6.2 (A) 01/26/2024 - Lab Results Component Value Date MICROALBUR 0.9 08/10/2021 CREATININE 1.24 01/21/2025 -Changes: I will switch trulicity to mounjaru 2.5mg weekly - Diabetic eye exam:pending - Diabetic foot exam:pending - Continue lifestyle modifications - Continue current medications - Follow up: 3 months Assessment & Plan (05/17/2025 2:12 PM EDT): Counseling done I ordered blood work to be done before next appointment Assessment & Plan (03/18/2025 1:14 PM EDT): Diabetes is: controlled - Lab Results Component Value Date HGBA1C 6.2 (A) 10/29/2024 HGBA1C 6.1 (A) 05/18/2024 HGBA1C 6.2 (A) 01/26/2024 - Lab Results Component Value Date MICROALBUR 0.9 08/10/2021 CREATININE 1.24 01/21/2025 -Changes: none - Diabetic eye exam:pending - Diabetic foot exam:pending - Continue lifestyle modifications - Continue current medications - Follow up: 3 months Assessment & Plan (12/21/2024 5:07 PM EST): Diabetes is: controlled - Lab Results Component Value Date HGBA1C 6.2 (A) 10/29/2024 HGBA1C 6.1 (A) 05/18/2024 HGBA1C 6.2 (A) 01/26/2024 - Lab Results Component Value Date MICROALBUR 0.9 08/10/2021 CREATININE 1.04 11/19/2024 -Changes: None - Diabetic eye exam: Pending - Diabetic foot exam: Pending - Continue lifestyle modifications - Continue current medications - Follow up: 3 months Assessment & Plan (09/06/2024 2:53 PM EST): [...] with medication as prescribed Essential hypertension 12/06/2022 Assessment & Plan (03/18/2025 1:12 PM EDT): Advised: - Aerobic exercise to reduce BP. Initial goal of 30 min walk 3-5x/week. Increase as tolerated. - low-sodium diet (goal: <2g/day) and heart healthy diet such as DASH to reduce BP and prevent ASCVD. - Home BP monitoring 1-2 x day with goal of <140/90. - Seek immediate medical attention for chest pain, palpitations, SOB, syncope, or sudden changes in mental status. - Do not change or discontinue current prescriptions without first consulting health care provider Assessment & Plan (12/21/2024 5:05 PM EST): Advised low-sodium diet and weight reduction I advised to take her medication every day without missing any dose Continue with olmesartan 40 mg daily Migraine with aura 12/06/2022 Assessment & Plan (05/17/2025 2:13 PM EDT): I advise to avoid migraine triggers like red wine, chocolate, cheese, strong perfumes I went up on amitriptyline to 50mg at bed time I went up on sumatriptan to 100mg MRI will be order again she will be schedule for open MRI Assessment & Plan (09/06/2024 2:52 PM EST): [...] closed Lumbar radiculopathy 12/06/2022 Assessment & Plan (03/18/2025 1:17 PM EDT): I offered patient physical therapy and referral to pain management but she declines I will continue with oxycodone 5 mg every 8 hours I explained to patient going up on the dose is not as long-term solution and also due to her chronic lung condition and her weight she is at high risk for respiratory suppression Assessment & Plan (12/21/2024 5:04 PM EST): I will increase her oxycodone from 5 mg twice a day to 5 mg every 8 hours Assessment & Plan (09/06/2024 2:50 PM EST): 1 week supply of oxyconde will be provided 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 Reported hx of MH services at [facility], Hx of multiple SI attempts bu [...] seek support PLAN: 1. Follow up with [facility]: Not recommended for follow-up 2. 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 Patient will benefit from OP therapy and coping mechanisms. At this time Sharita Montez meets criteria for Visit Diagnoses: Problem List Items Addressed This Visit Other Anxiety Major depression Patient ready to address current needs Yes Strengths-Sharita is open and engaged. She is in the preparation stage of change. PLAN: 1. Follow up with [facility]: Not recommended for follow-up 2. Patient goal is to engage in OP therapy and explore additional coping mechanisms. 3. Behavioral Recommendations a. Deep breathing b. OP therapy c. Self care Routine health maintenance 12/06/2022 Encounters * This document contains information received from the source organization and may not represent a complete record from that organization. Date Type Department Care Team Description 07/10/2025 Refill [facility] [address] [facility] [place] [address] Rena Henriquez MD Migraine with aura and without status migrainosus, not intractable 07/06/2025 1:30 PM EDT Office Visit [facility] [address] [facility] [place] [address] Ray-Hawkins, Kavitha, DDS Edentulism (Primary Dx) 07/04/2025 Refill [facility] [address] [facility] [place] [address] Rena Henriquez MD Insomnia, unspecified type 07/04/2025 Refill [facility] [address] [facility] [place] [address] Rena Henriquez MD Anxiety; Chronic pain of both shoulders 06/22/2025 5:20 PM EDT Office Visit [facility] [address] [facility] [place] [address] Rena Henriquez MD Type 2 diabetes mellitus with hyperglycemia, without long-term current use of insulin (CMS/HCC); Acute bilateral low back pain with right-sided sciatica 06/22/2025 3:30 PM EDT Office Visit [facility] [address] [facility] [place] [address] Ray-Hawkins, Kavitha, DDS Edentulism (Primary Dx) 06/22/2025 Travel 06/16/2025 Telephone [facility] [address] [place] [address] Cielo Turner, OD 06/10/2025 Telephone [facility] [address] [place] [address] Ledy Travis, LEO Results; MRI 06/09/2025 Orders Only [facility] [address] [place] [id number] Rena Henriquez MD Brain hemangioma (CMS/HCC) (Primary Dx) 06/08/2025 2:00 PM EDT Office Visit [facility] [address] [facility] [place] [address] Ray-Hawkins, Kavitha, DDS Edentulism (Primary Dx) 06/06/2025 2:00 PM EDT Clinical Support [facility] [address] [facility] [place] [address] Matilda Chisholm, RN Long-term current use of opiate analgesic (Primary Dx); Long-term current use of benzodiazepine 06/06/2025 Refill [facility] [address] [place] [address] Matilda Chisholm RN Insomnia, unspecified type; Anxiety; Chronic pain of both shoulders 06/06/2025 Travel 06/06/2025 Refill [facility] [address] [place] [address] Rena Henriquez MD Migraine with aura and without status migrainosus, not intractable 06/02/2025 3:30 PM EDT Office Visit [facility] [address] [place] [address] Ray-Hawkins, Kavitha, DDS 05/24/2025 Telephone [facility] [address] [place] [address] Rena Henriquez MD Durable Medical Equipment ([facility] DME Request: Multiple Items) 05/19/2025 Orders Only [facility] External Provider, [facility] 05/17/2025 1:[address] [facility] [address] [place] [address] Rena Henriquez MD Migraine with aura and without status migrainosus, not intractable; Severe persistent asthma, unspecified whether complicated; Type 2 diabetes mellitus with hyperglycemia, without long-term current use of insulin ([facility]); Obesity, morbid (CMS/HCC); Dietary counseling; Exercise counseling; Class 2 severe obesity with serious comorbidity and body mass index (BMI) of 38.0 to 38.9 in adult, unspecified obesity type (CMS/HCC) 05/17/2025 Orders Only [facility] [address] [facility] [place] [address] Rena Henriquez MD 05/17/2025 Travel 05/17/2025 Refill [facility] [address] [place] [address] Rena Henriquez MD Chronic migraine with aura without status migrainosus, not intractable 05/16/2025 Telephone [facility] [address] [place] [address] Rena Henriquez MD Chart Prep 05/13/2025 Travel 05/06/2025 Telephone [facility] [address] [place] [address] Rena Henriquez MD Durable Medical Equipment 05/03/2025 Orders Only [facility] [address] [place] [address] Rena Henriquez MD 05/02/2025 Telephone [facility] [address] [place] [address] Rena Henriquez MD Med Refill 05/02/2025 Refill [facility] [address] [place] [address] Rena Henriquez MD Anxiety; Chronic pain of both shoulders 04/22/2025 1:30 PM EDT Office Visit [facility] [address] [place] [address] Lencho Grahamfemia, DDS 04/14/2025 Refill [facility] [address] [place] [address] Rena Henriquez MD Chronic migraine with aura without status migrainosus, not intractable from Last 3 Months Immunizations Immunization Administration Dates Next Due Influenza injectable quadriv [...] not want or need it 02/25 Comments No Sex and Gender Information Value Date Recorded Sex Assigned at Female 08/26/2022 10:35 AM EDT Legal Sex Female 10:35 AM EDT Gender Identity Female 08/26/2022 10:35 AM EDT Sexual Orientation Straight 08/26/2022 10 :35 AM EDT Last Filed Vital Signs Vital Sign Reading Time Taken Comments Blood Pressure 154/83 06/22/2025 5:10 PM EDT Pulse 102 06/22/2025 5:10 PM EDT Temperature 36.6 C (97.9 F) 06/22/2025 5:10 PM EDT Respiratory Rate 20 06/22/2025 5:10 PM EDT Oxygen Saturation 95% 06/22/2025 5:10 PM EDT Inhaled Oxygen Concentration - - Weight 92.1 kg (203 lb) 06/22/2025 5:10 PM EDT Height 165.1 cm (5' 5 ) 06/22/2025 5:10 PM EDT Body Mass Index 33.78 06/22/2025 5:10 PM EDT Plan of Treatment Upcoming Encounters Date Type Department Care Team (Late st Contact Info) Description 07/15/2025 2:45 PM EDT Office Visit [facility] [address] [place] [address] Santos Kavitha, DDS [address] [place] [address] 08/25/2025 2:00 PM EDT Clinical Support [facility] [address] [place] [address] Matilda Chisholm, LEO 10/31/2025 2:00 PM EST Office Visit [facility] [address] [place], [place] [id number] Cielo Turner, OD [address] [place] [address] Health Maintenance Due Date Last Done Comments CT Colonography 1956 Colonoscopy 1956 Dental Prophylaxis 1956 FIT 1956 Sigmoidoscopy 1956 Diabetes: Foot Exam 1966 Eye Exam 1966 Pneumococcal Vaccine: 50+ Years (1 of 2 - PCV) 1975 Zoster Vaccines (1 of 2) 2006 RSV Patients and Patients Aged 60 years or older (1 - Risk 60-74 years 1-dose series) 2016 Dental Oral Exam 08/09/2021 02/06/2021 Dental X-Ray: Bitewings 02/07/2022 02/06/2021 Diabetes: Urine Protein Screening 03/12/2023 03/12/2022, 08/10/2021 Diabetes: Hemoglobin A1C 04/28/2025 025, 05/18/2024, 01/26/2024, Additional history exists Depression Monitoring 06/20/2025 12/21/2024, 025 COVID-19 Vaccine ( season) 2025 Influenza Vaccine (#1) 2025 07/30/2018, 2016 FOBT 09/28/2025 09/28/2024 Lung Cancer Screening 11/11/2025 11/11/2024, 024 Lipid Panel 01/21/2026 01/21/2025, 10/28, 02/16/2024, Additional history exists Alcohol/Substance Use Screening 03/18/2026 03/18/2025 SDOH Screening 03/18/2026 03/18/2025 DTaP/Tdap/Td Vaccines (2 - Td or Tdap) 04/10/2026 04/10/2016 Mammogram 05/03/2026 05/03/2025, 09/19/2023 Tobacco Screening 07/06/2026 07/06/2025 Dental X-Ray: Full Mouth 06/25/2027 06/24/2024, 01/25 [...] patient's age to complete this topic Meningococcal B Vaccine Aged Out No l onger eligible based on patient's age to complete [...] Procedure Name Priority Date/Time Associated Diagnosis Comments WAX TRY IN Routine 07/06/2025 1:30 PM EDT Edentulism BITE REGISTRATION Routine 06/22/2025 3:3 0 PM EDT Edentulism DENTURE IMPRESSION Routine 06/08/2025 2: 00 PM EDT Edentulism POCT NARCISA-14 URINE DRUG SCREEN Routine 06/06/2025 2:28 PM EDT Long-term current use of opiate analgesic Long-term current use of benzodiazepine NO CHARGE VISIT Routine 06/02/2025 3:30 PM EDT XR CHEST 2 VIEWS Routine 05/19/2025 3:00 PM EDT BI MAMMOGRAM SCREENING TOMOSYNTHESIS BILATERAL Routine 05/03/2025 1:30 PM EDT CASE PRESENTATION, DETAILED AND EXTENSIVE TREATMENT PLANNING Routine 04/22/2025 1:30 PM EDT LIMITED ORAL EVALUATION - PROBLEM FOCUSED Routine 04/22/2025 1:30 PM EDT LIPID PANEL, STANDARD Routine 01/21/2025 11:58 AM EDT LDCT LUNG SCREENING Routine 11/11/2024 9 :55 AM EST POCT GLYCATED HEMOGLOBIN, TOTAL Routine 10/29/2024 4:10 PM EST Type 2 diabetes mellitus with hyperglycemia, without long-term current use of insulin (CMS/HCC) LAB COLOGUARD COLON CANCER SCREEN Routine 09/28/2024 9:45 AM EST Screening for colon cancer PANORAMIC RADIOGRAPHIC IMAGE Routine 06/24/2024 1:30 PM EDT Edentulism ZZZ HISTORICAL MICROALBUMIN/CREATINI NE RATIO, RANDOM URINE Routine 03/12/2022 8:05 AM EDT ZZZ HISTORICAL HEPATITIS C AB W/REFL TO HCV RNA, QN, PCR Routine 08/10/2021 3:12 PM EDT INTRAORAL - COMPLETE SERIES OF RADIOGRAPHIC IMAGES Routine 02/06/2021 12:00 AM EDT COMPREHENSIVE ORAL EVALUATION - NEW OR ESTABLISHED PATIENT Routine 02/06/2021 12:00 AM EDT from Last 3 Months or Most Recently Relevant to Health Maintenance Results * POCT NARCISA-14 Urine Drug Screen (06/06/2025 2:28 PM EDT) THC Negative Negative Cocaine Screen, Urine Negative Negative Opiate Screen, Urine Negative Negative Methamphetamine Screen Urine Negative Negative Amphetamine Screen, Urine Negative Negative Benzodiazepines Screen, Urine Positive Negative Barbiturate Screen, Urine Negative Negative Methadone Screen, Urine Negative Negative Buprenophine Screen, Urine Negative Negative TCA, Urine Positive Negative MDMA Urine Negative Negative ng/mL Oxycodone Screen, Urine Positive Negative Phencyclidine (PCP), Urine Negative Negative Propoxyphene, Urine Negative Negative Fentanyl, Urine Negative Negative Urine Urine specimen obtained by clean catch procedure / Unknown 06/06/2025 2:28 PM EDT Narrative Matilda Chisholm RN - 06/06/2025 2:28 PM EDT UTOX cup Lot#[id number] Exp. 08/02/26 Internal Pass Control us Rena De La Torre MD POINT OF CARE TEST EN TER/EDIT ORDERABLES Final Result * XR Chest 2 Views (05/19/2025 3:00 PM EDT) Anatomical Region Laterality Modality Chest Radiographic Aida ging 05/19/2025 3:00 PM EDT Narrative 05/19/2025 3:19 PM EDT [address] [address] XRay Report Signed Patient: Sharita Montez MR#: [id number] 51 : 1955 Acct:[id number] Age/Sex: 69 / F ADM Date: 05/19/25 Loc: .XRAY Attending Dr: Buzz Flores MD Ordering Physician: Buzz Flores MD Date of Service: 05/19/25 Procedure(s): XR chest 2V Accession Number(s): [id number] cc: Rena Hneriquez MD; Buzz Flores MD EXAMINATION: XR CHEST CLINICAL INFORMATION: R05.9 - Cough, unspecified COMPARISON: None available. TECHNIQUE: 2 views of the chest were obtained. FINDINGS: No significant abnormality is noted involving the heart, lungs, mediastinum, bony thorax or soft tissues. XR/XR chest 2V IMPRESSION: No acute disease Electronically signed by: Edouard Brown MD 05/19/2025 03:16 PM EDT RP Dictated By: Edouard Brown MD Signed By: <Electronically signed by Edouard Brown MD in OV> 05/19/25 151 DD/ 1500 TD/TT: 05/19/25 151 Lumber Buyer: Procedure Note Reid, Image - 05/19/[address] [address] XRay Report Signed Patient: Nancy MontezR#: [id number] 52 : 1955cct:[id number] Age/Sex: 69 / FADM Date: 05/19/25 Loc: ENRIQUEAngySHANIQUE Attending Dr: Buzz Flores MD Ordering Physician: Buzz Flores MD Date of Service: 05/19/25 Procedure(s): XR chest 2V Accession Number(s): [id number] cc: Rena Henriquez MD; Buzz Flores MD EXAMINATION: XR CHEST CLINICAL INFORMATION: R05.9 - Cough, unspecified COMPARISON: None available. TECHNIQUE: 2 views of the chest were obtained. FINDINGS: No significant abnormality is noted involving the heart, lungs, mediastinum, bony thorax or soft tissues. XR/XR chest 2V IMPRESSION: No acute disease Electronically signed by: Edouard Brown MD 05/19/2025 03:16 PM EDT Dictated By: Edouard Brown MD Signed By: <Electronically signed by Edouard Brown MD in OV> 05/19/25 151 DD/ 1500 TD/TT: 05/19/25 151 Lumber Buyer: [facility] External Provider IMG XR PROCEDURES Edited Result - Final * BI Mammogram Screening Tomosynthesis Bilateral (05/03/2025 1:30 PM EDT) Anatomical Region Laterality Modality Breast Bilateral Mammography 05/03/2025 1:30 PM EDT Narrative 05/17/2025 9:01 AM EDT [address] [place] [address] Mammography Report Signed Patient: Sharita Montez MR#: [id number] [birth year] : 1955 Acct:[id number] Age/Sex: 69 / F ADM Date: 05/03/25 Loc: HO.MAMMO Attending Dr: Rena De La Torre MD Ordering Physician: Rena Henriquez MD Results: 1Negative Date of Service: 05/03/25 Follow Up: 1 Year From Orig inal Mammogram Procedure(s): MM tomosynthesis screening BI Accession Number(s): [id number] cc: Rena Henriquez MD EXAMINATION: MM SCREENING DIGITAL BREAST TOMOSYNTHESIS, BILATERAL CLINICAL INFORMATION: Screening. Asymptomatic. COMPARISON: Mammography: Comparison is made with available priors TECHNIQUE: Digital breast mammography with tomosynthesis is performed in both the craniocaudal and mediolateral oblique views along with computer-aided detection (CAD). FINDINGS: There are scattered areas of fibroglandular density (ACR BI-RADS breast composition Category b). There are no significant masses, abnormal calcifications, [...] target due date for their next mammogram. Electronically signed by: Haley Ricks DO 05/17/2025 08:59 AM EDT Dictated By: Haley Ricks DO Signed By: <Electronically signed by Haley Ricks DO in OV> 05/17/25 0859 DD/ 1330 TD/TT: 05/03/25 1345 Lumber Buyer: Procedure Note Donotuseinterpreter, Image - 05/17/[address] [place] [address] Mammography Report Signed Patient: Nancy MontezR#: [id number] [birth year] : [birth year]Acct:[id number] Age/Sex: 69 / FADM Date: 05/03/25 Loc: HO.MAMMO Attending Dr: Rena De La Torre MD Ordering Physician: Rena Henriquez MDResults: 1Negative Date of Service: 05/03/25Follow Up: 1 Year From Orig inal Mammogram Procedure(s): MM tomosynthesis screening BI Accession Number(s): [id number] cc: Rena Henriquez MD EXAMINATION: MM SCREENING DIGITAL BREAST TOMOSYNTHESIS, BILATERAL CLINICAL INFORMATION: Screening. Asymptomatic. COMPARISON: Mammography: Comparison is made with available priors TECHNIQUE: Digital breast mammography with tomosynthesis is performed in both the craniocaudal and mediolateral oblique views along with computer-aided detection (CAD). FINDINGS: There are scattered areas of fibroglandular density (ACR BI-RADS breast composition Category b). There are no significant masses, abnormal calcifications, [...] target due date for their next mammogram. Electronically signed by: Haley Ricks DO 05/17/2025 08:59 AM EDT Dictated By: Haley Ricks DO Signed By: <Electronically signed by Haley Ricks DO in OV> 05/17/25 0859 DD/ 1330 TD/TT: 05/03/25 1345 Lumber Buyer: us Rena De La Torre MD IM BI PROCEDURES Fin al Result * (ABNORMAL) Lipid Panel, Standard (01/21/2025 11:58 AM EDT) Triglycerides 178(H) <150 mg/dL [facility] Comment:Desirable Triglyceri de: less than 150 mg/dLBorderline High Triglyceride 150-199 mg/dLHigh Triglyceride: 200-499 mg/dLVery High Triglyceride: greater than or equal to 5OO mg/dL Cholesterol 216(H) <200 mg/dL [facility] Comment:Desirable Cholestero l: less than 200 mg/dLBorderline High Cholesterol: 200-239 mg/dLHigh Cholesterol: greater than 239 mg/dL LDL Cholesterol Calculated 149(H) <100 mg/dL [facility] Comment:Desirable LDL: less than 100 mg/dLNear Optimal/Above Optimal LDL: 110- 129 mg/dLBorderline High LDL: 130-159 mg/dLHigh LDL: 160-189 mg/dLVery High LDL: greater than or equal to 190 mg/dL HDL Cholesterol 32(L) >40 mg/dL [facility] Comment:Desirable HDL: great er than 40 mg/dL Note: This HDL assay may give artificially low results in patients with liver disease. 01/21/2025 11:5 8 AM EDT 01/21/2025 1:41 PM EDT us Rena De La Torre MD LAB BLOOD ORDERABLES Final Result [facility] [address] [place] [address] [phone] * CT Lung Screening Low dose (11/11/2024 9:55 AM EST) Anatomical Region Laterality Modality Lung Computed Tomogra phy 11/11/2024 9:55 AM EST Narrative 11/11/2024 9:56 AM EST [place] [address] CT Scan Report Signed Patient: Sharita Montez MR#: [id number] [birth year] : 1955 Acct:[id number] Age/Sex: 69 / F ADM Date: 11/10/24 Loc: HO.CT Attending Dr: Buzz Flores MD Ordering Physician: Buzz Flores MD Date of Service: 11/10/24 Procedure(s): CT lung screening Accession Number(s): [id number] cc: Rena Henriquez MD; Buzz Flores MD Report Number: [id number]: Total DLP = 67.00 mGy-cm CLINICAL HISTORY: [...] in OV> 11/11/24954 DD/ 4 TD/TT: 11/11/24954 Lumber Buyer: Procedure Note Donotuseinterpreter, Image - 11/11/[address] [address] [address] Scan Report Signed Patient: Jessi Montez#: [id number] [birth year] : 6Acct:[id number] Age/Sex: 69 / FADM Date: 11/10/24 Loc: HO.CT Attending Dr: Buzz Flores MD Ordering Physician: Buzz Flores MD Date of Service: 11/10/24 Procedure(s): CT lung screening Accession Number(s): [id number] cc: Rena Henriquez MD; Buzz Flores MD Report Number: [id number]: Total DLP = 67.00 mGy-cm CLINICAL HISTORY: [...] in OV> 11/11/24954 DD/ 4 TD/TT: 11/11/24954 Lumber Buyer: [facility] External Provider IMG CT PROCEDURES Edited Result - Final * (ABNORMAL) POCT A1C (10/29/2024 4:10 PM EST) Hemoglobin A1C 6.2(A) 4.0 - 6.0 % QC Media Lot # [id number] Lot# Expiration Date ,[id number] Blood 10/29/2024 4:10 PM EST Rena De La Torre MD POINT OF CARE TEST EN TER/EDIT ORDERABLES Final Result * Cologuard?? colon cancer screening (09/28/2024 9:45 AM EST) Cologuard Result Negative Negative 10/05/20 11:07 AM EST [employer] (CLIA #:[id number]) Comment: NEGATIVE TEST RESULT. A negative Cologuard result indicates a low likelihood that a colorectal cancer (CRC) or advanced adenoma (adenomatous polyps with more advanced pre-malignant features) is present. The chance that a person with a negative Cologuard test has a colorectal cancer is less than 1 in 1500 (negative predictive value >99.9%) or has an advanced adenoma is less than 5.3% (negative predictive value 94.7%). These data are based on a prospective cross-sectional study of 10,000 individuals at average risk for colorectal cancer who were screened with both Cologuard and colonoscopy. (Ilene Burns. et al, N Engl J Med 2014;370(14):4692-2178) The normal value (reference range) for this assay is negative. COLOGUARD RE-SCREENING RECOMMENDATION: Periodic colorectal cancer screening is an important part of preventive healthcare for asymptomatic individuals at average risk for colorectal cancer. Following a negative Cologuard result, the [place] Cancer Society and U.S. Multi-Society Task Force screening guidelines recommend a Cologuard re-screening interval of 3 years. References: [place] [employer] Guideline for Colorectal Cancer Screening: https://www.cancer.org/cancer/dddim-ydvrva-zowiky/csfdtzres-gumzkungl-jouepiy/ac s-rec ommendations.html.; Chi DK, Alessandra FERREIRA, Caitlin VAZQUEZ, Colorectal Cancer Screening: Recommendations for Physicians and Patients from the U.S. Multi-Society Task Force on Colorectal Cancer Screening , Am J Gastroenterology 2017; 112:4207-0708. TEST DESCRIPTION: Composite algorithmic analysis of stool DNA-biomarkers with hemoglobin immunoassay. Quantitative values of individual biomarkers are not [...] (Ilene Jackson al, N Engl J Med 2014;370(14):0846-6024.) Cologuard may produce a false negative or false positive result (no colorectal cancer or precancerous polyp present at colonoscopy follow up). A negative Cologuard test result does not guarantee the absence of CRC or advanced adenoma (pre-cancer). The current Cologuard screening interval is every 3 years. ([place] [employer] Society and U.S. Multi-Society Task Force). Cologuard performance data in a 10,000 patient pivotal study using colonoscopy as the reference method can be accessed at the following location: www.[employer] [facility]/results. Additional description of the Cologuard test process, warnings and precautions can be found at www.cologuard.com. Stool specimen (specimen) 09/28/2024 9:45 AM EST 09/29/2024 1:26 PM EST Rena De La Torre MD LAB MOLECULAR DIAGNOS TICS ORDERABLES Final Result Performing Organization Address City/[facility]/ZIP Co de Phone Number [email or web address] (CLIA #:[id number]) [place] [address], * MICROALBUMIN/CREATININE RATIO, RANDOM URINE (03/12/2022 8:05 AM EDT) Creatinine Urine 123.25 mg/dL [facility] Microalbum/Creati nine Ratio Ur 5.6 ug/mg cr [facility] Comment: Albumin/Creatinine Ratio Reference Ranges: Normal: < 30 ug/mg creatinine Microalbuminuria: 30 - 300 ug/mg creatinine Clinical Albuminuria: > 300 ug/mg creatinine Microalbumin Urine 7.0 mg/L [facility] 03/12/2022 8:05 AM EDT Historical Provider HISTORICAL/NON ORDERABLE LABS Final Result Performing Organization Address [facility] de Phone Number [facility] [address] * HEPATITIS C AB W/REFL TO HCV RNA, QN, PCR (08/10/2021 3:12 PM EDT) HEPATITIS C ANTIBODY NON-REACT TOLU NON-REACT TOLU [facility] INDEX 0.05 <1.00 [facility] Comment: HCV antibody was non-reactive. There is no laboratory evidence of HCV infection. In most cases, no further action is required. However, if recent HCV exposure is suspected, a test for HCV RNA (test code 48563) is suggested. For additional information please refer to http://education.[employer]/faq/VKY62b2 (This link is being provided for informational/ educational purposes only.) 08/10/2021 3:12 PM EDT us Carolina Ruffin MD HISTORICAL/NON ORDERABLE LAB S Final Result [facility] [address] [place] [address], from Last 3 Months or Most Recently Relevant to Health Maintenance Insurance [facility] OPT[employer] (HMO D-SNP) WILLIAM AREVALO [id number] DENTAL [facility] Care Teams Wiener Packer Relationship Specialty Start Date End Date Rena Henriquez MD [address] [place] [address] PCP - General Internal Medicine 06/23/24
--- OUTSIDE RECORDS SUMMARY | 2025-07-13 17:20 | XMS_ITS | Encounter Summary ---
Author Organization [employer] Address [address] [facility] 7t [place] [address] Care Team Providers Care Harness Tier Name Role Phone Minerva Barraza Primary Care Provider [phone] Rena Henriquez MD Primary Care Provide r Krystal Joyner PharmD Unavailable [phone] Reason for Visit * Reason Comments Med Refill Encounter Details Date Type Department Care Team (Late st Contact Info) Description 08/30/2023 Refill [facility] MEDICINE [address] [place], [place] [phone] Minerva Barraza FNP [address] [place] [address] Mild intermittent asthma without complication Social History [...] Description 07/15/2025 2:45 PM EDT Office Visit [facility] ADULT DENTAL [address] [place] [address] Kavitha Graham DDS [address] [place] [address] 08/25/2025 2:00 PM EDT Clinical Support [facility] MEDICINE [address] [place] [address] Matilda Chisholm RN 10/31/2025 2:00 PM EST Office Visit [facility] OPTOMETRY [address] [place] [address] Cielo Turner, OD [address] [place] [address] documented as of this encounter Visit Diagnoses Diagnosis Mild intermittent asthma without complication documented in this encounter Additional Health Concerns Assessment Noted Time PHQ-9 Depression Total Score: 16 023 10:31 AM EDT documented as of this encounter Care Teams Harness Tier Relationship Specialty Start Date End Date Minerva Barraza FNP [address] [place] [address] PCP - General Family Medicine 07/29/22 06/22/24 Rena Henriquez MD [address] [place] [address] PCP - General Internal Medicine 06/23/24 Krystal Joyner, Johnna [address] [place] [address] Pharmacist Internal Medicine 10/15/24 03/04/25 documented as of this encounter
--- OUTSIDE RECORDS SUMMARY | 2025-07-13 17:20 | XMS_ITS | Encounter Summary ---
Author Organization [employer] Address [address] [facility] 7t [place] [address] Care Team Providers Care Engineering Technician Parking Name Role Phone Minerva Barraza Primary Care Provider [phone] Rena Henriquez MD Primary Care Provide r Krystal Joyner PharmD Unavailable [phone] Encounter Details Date Type Department Care Team (Late st Contact Info) Description 05/28/2023 Orders Only [facility] MEDICINE [address] [place] [address] Minerva Barraza FNP [address] [place] [address] Tobacco abuse (Primary Dx) Social History Tobacco [...] Description 07/15/2025 2:45 PM EDT Office Visit [facility] ADULT DENTAL [address] [place] [address] Kavitha Graham DDS [address] [place] [address] 08/25/2025 2:00 PM EDT Clinical Support [facility] MED[facility] [address] [place] [address] Matilda Chisholm, RN 10/31/2025 2:00 PM EST Office Visit [facility] OPTOMETRY [address] [place] [address] Cielo Turner, OD [address] [place] [address] documented as of this encounter Visit Diagnoses Diagnosis Tobacco abuse- Primary Tobacco use disorder documented in this encounter Additional Health Concerns Assessment Noted Time PHQ-9 Depression Total Score: 16 05/19/ 023 10:31 AM EDT documented as of this encounter Care Teams Engineering Technician Parking Relationship Specialty Start Date End Date Minerva Barraza FNP [address] [place] [address] PCP - General Family Medicine 07/29/22 06/22/24 Rena Henriquez MD [address] [place] [address] PCP - General Internal Medicine 06/23/24 Krystal Joyner, Johnna [address] [place] [address] Pharmacist Internal Medicine 10/15/24 03/04/25 documented as of this encounter
--- OUTSIDE RECORDS SUMMARY | 2025-07-13 17:20 | XMS_ITS | Encounter Summary ---
Author Organization [employer] Address [address] [facility] 7t [place] [address] Care Team Providers Care Dip Filler Name Role Phone Minerva Barraza MEDICAL INSURANCE CODER Primary Care Provider [phone] Rena Henriquez MD Primary Care Provide r Krystal Joyner PharmD Unavailable [phone] Encounter Details Date Type Department Care Team (Late st Contact Info) Description 06/07/2024 Orders Only [facility] MEDICINE [address] [place] [address] Haleigh Perez MD [address] [place], [place] [phone] Social History Tobacco Use Types Packs/Day Years [...] Description 07/15/2025 2:45 PM EDT Office Visit [facility] ADULT DENTAL [address] [place] [address] Kavitha Graham DDS [address] [place] [address] 08/25/2025 2:00 PM EDT Clinical Support [facility] MEDICINE [address] [place] [address] Matilda Chisholm, LEO 10/31/2025 2:00 PM EST Office Visit [facility] OPTOMETRY [address] [place] [address] Cielo Turner, OD [address] [place] [address] documented as of this encounter Visit Diagnoses Not on filedocumented in this encounter Additional Health Concerns Assessment Noted Time PHQ-9 Depression Total Score: 18 024 4:16 PM EDT documented as of this encounter Care Teams Dip Filler Relationship Specialty Start Date End Date Minerva Barraza FNP [address] [place] [address] PCP - General Family Medicine 07/29/22 06/22/24 Rena Henriquez MD [address] [place] [address] PCP - General Internal Medicine 06/23/24 Krystal Joyner, DamionD [address] [place] [address] Pharmacist Internal Medicine 10/15/24 03/04/25 documented as of this encounter
--- OUTSIDE RECORDS SUMMARY | 2025-07-13 17:20 | XMS_ITS | Encounter Summary ---
Author Organization [employer] Address [address] [facility] 7t [place] [address] Care Team Providers Care First Aid Nurse Name Role Phone Minerva Barraza Primary Care Provider [phone] Rena Henriquez MD Primary Care Provide r Krystal Joyner PharmD Unavailable [phone] Reason for Visit * Reason Onset Date Comments Lab Orders 06/11/2024 Encounter Details Date Type Department Care Team (Late st Contact Info) Description 06/11/2024 Telephone [facility] MEDICINE [address] [place], [place] [phone] Minerva Barraza FNP [address] [place] [address] Lab Orders Social History Tobacco Use Types [...] Description 07/15/2025 2:45 PM EDT Office Visit [facility] ADULT DENTAL [address] [place] [address] Kavitha Graham DDS [address] [place] [address] 08/25/2025 2:00 PM EDT Clinical Support [facility] MEDICINE [address] [place] [address] Matilda Chisholm, RN 10/31/2025 2:00 PM EST Office Visit [facility] OPTOMETRY [address] [place], [place] [phone] Cielo Turner, OD [address] [place] [address] documented as of this encounter Visit Diagnoses Not on filedocumented in this encounter Additional Health Concerns Assessment Noted Time PHQ-9 Depression Total Score: 18 024 4:16 PM EDT documented as of this encounter Care Teams First Aid Nurse Relationship Specialty Start Date End Date Minerva Barraza FNP [address] [place] [address] PCP - General Family Medicine 07/29/22 06/22/24 Rena Henriquez MD [address] [place] [address] PCP - General Internal Medicine 06/23/24 Krystal Joyner PharmD [address] [place], [place] [phone] Pharmacist Internal Medicine 10/15/24 03/04/25 documented as of this encounter
--- OUTSIDE RECORDS SUMMARY | 2025-07-13 17:20 | XMS_ITS | Clinical Summary ---
Author Organization [facility] Address [address] [place] [address] Phone Care Team Providers Care Compliance Mgr Name Role Phone Stefany Onofre MD Primary Care Provider [phone] Allergies Active Allergy Reactions Criticality Noted Date [...] to complete this topic Insurance Care Teams Compliance Mgr Relationship Specialty Start Date End Date Stefany Onofre MD [address] [place], [place] PCP - General Internal Medicine 02/09/21
--- OUTSIDE RECORDS SUMMARY | 2025-07-13 17:20 | XMS_ITS | Encounter Summary ---
Author Organization [employer] Address [address] [facility] 7t [place] [address] Care Team Providers Care Food And Nutrition Supervisor Name Role Phone Minerva Barraza Primary Care Provider [phone] Rena Henriquez MD Primary Care Provide r Krystal Joyner PharmD Unavailable [phone] Reason for Visit * Reason Comments Med Refill Encounter Details Date Type Department Care Team (Late st Contact Info) Description 07/07/[address] [facility] MEDICINE [address] [place] [address] Minerva Barraza FNP [address] [place] [address] Tobacco abuse Social History Tobacco Use Types [...] 07/15/2025 2:45 PM EDT Office Visit [facility] ADULT DENTAL [address] [place] [address] Kavitha Graham, DDS [address] [place] [address] 08/25/2025 2:00 PM EDT Clinical Support [facility] MEDICINE [address] [place] [address] Matilda Chisholm, RN 10/31/2025 2:00 PM EST Office Visit [facility] OPTOMETRY [address] [place] [address] Cielo Turner, OD [address] [place] [address] documented as of this encounter Visit Diagnoses Diagnosis Tobacco abuse Tobacco use disorder documented in this encounter Additional Health Concerns Assessment Noted Time PHQ-9 Depression Total Score: 16 023 10:31 AM EDT documented as of this encounter Care Teams Food And Nutrition Supervisor Relationship Specialty Start Date End Date Minerva Barraza FNP [address] [place] [address] PCP - General Family Medicine 07/29/22 06/22/24 Rena Henriquez MD [address] [place] [address] PCP - General Internal Medicine 06/23/24 Krystal Joyner, DamionD [address] [place] [address] Pharmacist Internal Medicine 10/15/24 03/04/25 documented as of this encounter
--- OUTSIDE RECORDS SUMMARY | 2025-07-13 17:20 | XMS_ITS | Encounter Summary ---
Author Organization [employer] Address [address] [facility] 7t [place] [address] Care Team Providers Care Publication Specialist Name Role Phone Rena Henriquez MD Primary Care Provide r Krystal Joyner PharmD Unavailable [phone] Reason for Visit * Reason Comments Med Refill Encounter Details Date Type Department Care Team ([facility] st Contact Info) Description 09/22/2024 Refill [facility] MEDICINE [address] [place] [address] Minerva Barraza FNP [address] [place] [address] Lumbar radiculopathy Social History Tobacco Use Types [...] Description 07/15/2025 2:45 PM EDT Office Visit [facility] ADULT DENTAL [address] [place] [address] Kavitha Graham, DDS [address] [place] [address] 08/25/2025 2:00 PM EDT Clinical Support [facility] MEDICINE [address] [place] [address] Matilda Chisholm RN 10/31/2025 2:00 PM EST Office Visit [facility] OPTOMETRY [address] [place] [address] Cielo Turner, OD [address] [place] [address] documented as of this encounter Visit Diagnoses Diagnosis Lumbar radiculopathy Thoracic or lumbosacral neuritis or radiculitis, unspecified documented in this encounter Additional Health Concerns Assessment Noted Time PHQ-9 Depression Total Score: 18 024 4:16 PM EDT documented as of this encounter Care Teams Publication Specialist Relationship Specialty Start Date End Date Rena Henriquez MD [address] [place] [address] PCP - General Internal Medicine 06/23/24 Krystal Joyner, Johnna [address] [place] [address] Pharmacist Internal Medicine 10/15/24 03/04/25 documented as of this encounter
--- OUTSIDE RECORDS SUMMARY | 2025-07-13 17:20 | XMS_ITS | Encounter Summary ---
Author Organization [employer] Address [address] [facility] 7t [place] [address] Care Team Providers Care Manufacturing Laborer Name Role Phone Minerva Barraza Primary Care Provider +1 Rena Henriquez MD Primary Care Provide r Krystal Joyner PharmD Unavailable [phone] Reason for Visit * Reason Onset Date Comments Nurse Triage 02/17/2024 Encounter Details Date Type Department Care Team (Late st Contact Info) Description 02/17/2024 Telephone [facility] MEDICINE [address] [place], [place] [phone] Minerva Barraza FNP [address] [place] [address] Nurse Triage Social History Tobacco Use Types [...] 02/17/2024 12:28 PM EDT Called pt. Via [employer] lead military analyst [id number] [place]. Pt. States that she has been having chest painsand lung pain x 3 weeks. Pt also had right hip pain that traveled down her leg. Pt went to [facility] last week and had Xrays done and a EEG. Ambulance had to go to pt. Home to bring her to [facility] on 02/13/24. Pt. Is not experiencing chest pain at present. Pt. Does have a cough- congested. Pt. States that she has someone coming from her insurance company to assess her breathing and fu on [facility] [place]. Pt. Also wants to let PCP know that Trulicity is not available at her Pharmacy at [facility]. Pt.Wants to know how she is going to get her RX. Pt is due to give herself the Trulicity on Friday02/18/24 (tomorrow) and does not have it. She states her pharmacy told her that the closest Pharmacy that might have it is 20 miles away? Will send this note to PCP and also to [facility] Pharmacy to see if th ey have it in stock. Please have team nurse call pt. Back with response. * Telephone Encounter - Kassidy Radford - 02/17/2024 12:24 PM EDT Symptom: Chest [...] 07/15/2025 2:45 PM EDT Office Visit [facility] ADULT DENTAL [address] [place] [address] Kavitha Graham DDS [address] [place] [address] 08/25/2025 2:00 PM EDT Clinical Support [facility] MEDICINE [address] [place] [address] Matilda Chisholm, LEO 10/31/2025 2:00 PM EST Office Visit [facility] OPTOMETRY [address] [place] [address] Cielo Turner, OD [address] [place] [address] documented as of this encounter Visit Diagnoses Diagnosis Type 2 diabetes mellitus with hyperosmolarity without coma, without long-term current use of insulin ([facility]) documented in this encounter Additional Health Concerns Assessment Noted Time PHQ-9 Depression Total Score: 18 024 4:16 PM EDT documented as of this encounter Care Teams Manufacturing Laborer Relationship Specialty Start Date End Date Minerva Barraza FNP [address] [place] [address] PCP - General Family Medicine 07/29/22 06/22/24 Rena Henriquez MD [address] [place] [address] PCP - General Internal Medicine 06/23/24 Krystal Joyner, Johnna [address] [place] [phone] Pharmacist Internal Medicine 10/15/24 03/04/25 documented as of this encounter
--- OUTSIDE RECORDS SUMMARY | 2025-07-13 17:20 | XMS_ITS | Encounter Summary ---
Author Organization [employer] Address [address] [facility] 7t [place] [address] Care Team Providers Care Blow Torch Operator Name Role Phone Rena Henriquez MD Primary Care Provide r Krystal Joyner PharmD Unavailable [phone]- [phone] Reason for Visit * Reason Comments Med Refill Encounter Details Date Type Department Care Team ([facility] st Contact Info) Description 07/04/2024 Refill [facility] MEDICINE [address] [place] [address] Minerva Barraza FNP [address] [place] [address] Depression with anxiety; Insomnia, unspecified type Social [...] Description 07/15/2025 2:45 PM EDT Office Visit [facility] ADULT DENTAL [address] [place] [address] Kavitha Graham, DDS [address] [place] [address] 08/25/2025 2:00 PM EDT Clinical Support [facility] MEDICINE [address] [place] [address] Matilda Chisholm RN 10/31/2025 2:00 PM EST Office Visit [facility] OPTOMETRY [address] [place] [address] Cielo Turner, OD [address] [place] [address] documented as of this encounter Visit Diagnoses Diagnosis Depression with anxiety Dysthymic disorder Insomnia, unspecified type documented in this encounter Additional Health Concerns Assessment Noted Time PHQ-9 Depression Total Score: 18 024 4:16 PM EDT documented as of this encounter Care Teams Blow Torch Operator Relationship Specialty Start Date End Date eRna Henriquez MD [address] [place] [address] PCP - General Internal Medicine 06/23/24 Krystal Joyner, Johnna [address] [place] [address] Pharmacist Internal Medicine 10/15/24 03/04/25 documented as of this encounter
--- OUTSIDE RECORDS SUMMARY | 2025-07-13 17:20 | XMS_ITS | Encounter Summary ---
Author Organization [employer] Address [address] [facility] 7t [place] [address] Care Team Providers Care Scaffolder Name Role Phone Minerva Barraza Primary Care Provider +3 Rena Henriquez MD Primary Care Provide r Krystal Joyner PharmD Unavailable [phone] Reason for Visit * Reason Comments Med Change Request Encounter Details Date Type Department Care Team ([facility] Contact Info) Description 03/18/2023 Refill [facility] MEDICINE [address] [place] [address] Minerva Barraza FNP [address] [place] [address] Mild intermittent asthma without complication Social History [...] Upcoming Encounters Date Type Department Care Team ([facility] Contact Info) Description 07/15/2025 2:45 PM EDT Office Visit [facility] ADULT DENTAL [address] [place] [address] Ray-Hawkins, Kavitha, DDS [address] [place] [address] 08/25/2025 2:00 PM EDT Clinical Support [facility] MEDICINE [address] [place] [address] Matilda Chisholm, LEO 10/31/2025 2:00 PM EST Office Visit [facility] OPTOMETRY [address] [place] [address] Tarka Cielo, OD [address] [place] [address] documented as of this encounter Visit Diagnoses Diagnosis Mild intermittent asthma without complication documented in this encounter Additional Health Concerns Assessment Noted Time PHQ-9 Depression Total Score: 4 12/06/19 23 1:46 PM EST documented as of this encounter Care Teams Scaffolder Relationship Specialty Start Date End Date Minerva Barraza FNP [address] [place] [address] PCP - General Family Medicine 07/29/22 06/22/24 Rena Henriquez MD [address] [place] [address] [phone] PCP - General Internal Medicine 06/23/24 Krystal Joyner PharmD [address] [place] [phone] Pharmacist Internal Medicine 10/15/24 03/04/25 documented as of this encounter
--- OUTSIDE RECORDS SUMMARY | 2025-07-13 17:20 | XMS_ITS | Encounter Summary ---
Author Organization [employer] Address [address] [facility] 7t [place] [address] Care Team Providers Care Market Research Intern Name Role Phone Rena Henriquez MD Primary Care Provide r Krystal Joyner PharmD Unavailable [phone]- [phone] Reason for Visit * Reason Comments Med Refill Encounter Details Date Type Department Care Team ([facility] st Contact Info) Description 10/06/2024 Refill [facility] MEDICINE [address] [place] [address] Minerva Barraza FNP [address] [place] [address] Depression with anxiety Social History Tobacco Use [...] Description 07/15/2025 2:45 PM EDT Office Visit [facility] ADULT DENTAL [address] [place] [address] Kavitha Graham, DDS [address] [place] [address] 08/25/2025 2:00 PM EDT Clinical Support [facility] MEDICINE [address] [place] [address] Matilda Chisholm RN 10/31/2025 2:00 PM EST Office Visit [facility] OPTOMETRY [address] [place] [address] Cielo Turner, OD [address] [place] [address] documented as of this encounter Visit Diagnoses Diagnosis Depression with anxiety Dysthymic disorder documented in this encounter Additional Health Concerns Assessment Noted Time PHQ-9 Depression Total Score: 18 024 4:16 PM EDT documented as of this encounter Care Teams Market Research Intern Relationship Specialty Start Date End Date Rena Henriquez MD [address] [place] [address] PCP - General Internal Medicine 06/23/24 Krystal Joyner, Johnna [address] [place] [address] Pharmacist Internal Medicine 10/15/24 03/04/25 documented as of this encounter
--- OUTSIDE RECORDS SUMMARY | 2025-07-13 17:20 | XMS_ITS | Encounter Summary ---
Author Organization [employer] Address [address] [facility] 7t [place] [address] Care Team Providers Care Instructional Interventionist Name Role Phone Rena Henriquez MD Primary Care Provide r Krystal Joyner PharmD Unavailable [phone] Reason for Visit * Reason Comments Med Refill Encounter Details Date Type Department Care Team ([facility] st Contact Info) Description 11/25/2024 Refill [facility] MEDICINE [address] [place] [address] Minerva Barraza FNP [address] [place] [address] Depression with anxiety Social History Tobacco Use [...] Description 07/15/2025 2:45 PM EDT Office Visit [facility] ADULT DENTAL [address] [place] [address] Kavitha Graham, DDS [address] [place] [address] 08/25/2025 2:00 PM EDT Clinical Support [facility] MEDICINE [address] [place] [address] Matilda Chisholm RN 10/31/2025 2:00 PM EST Office Visit [facility] OPTOMETRY [address] [place] [address] Cielo Turner, OD 267 [place] [address] documented as of this encounter Visit Diagnoses Diagnosis Depression with anxiety Dysthymic disorder documented in this encounter Additional Health Concerns Assessment Noted Time PHQ-9 Depression Total Score: 18 024 4:16 PM EDT documented as of this encounter Care Teams Instructional Interventionist Relationship Specialty Start Date End Date Rena Henriquez MD [address] [place] [address] PCP - General Internal Medicine 06/23/24 Krystal Joyner, Johnna [address] [place] [address] Pharmacist Internal Medicine 10/15/24 03/04/25 documented as of this encounter
--- OUTSIDE RECORDS SUMMARY | 2025-07-13 17:20 | XMS_ITS | Encounter Summary ---
Author Organization [employer] Address 75 [facility] 7t [place] [address] Care Team Providers Care Hat Checker Name Role Phone Rena Henriquez MD Primary Care Provide r Krystal Joyner PharmD Unavailable +- [phone] Encounter Details Date Type Department Care Team (Late st Contact Info) Description 11/01/2024 Orders Only [facility] MEDICINE [address] [place], [place] [phone] Rena Henriquez MD 230 [place], [place] [phone] Social History Tobacco Use Types Packs/Day Years [...] Description 07/15/2025 2:45 PM EDT Office Visit [facility] ADULT DENTAL [address] [place] [address] Kavitha Graham DDS [address] [place] [address] 08/25/2025 2:00 PM EDT Clinical Support [facility] MEDICINE [address] [place] [address] Matilda Chisholm, RN 10/31/2025 2:00 PM EST Office Visit [facility] OPTOMETRY [address] [place] [address] Cielo Turner OD [address] [place] [address] documented as of this encounter Visit Diagnoses Not on filedocumented in this encounter Additional Health Concerns Assessment Noted Time PHQ-9 Depression Total Score: 18 024 4:16 PM EDT documented as of this encounter Care Teams Hat Checker Relationship Specialty Start Date End Date Rena Henriquez MD [address] [place] [address] PCP - General Internal Medicine 06/23/24 Krystal Joyner, Johnna [address] [place] [address] Pharmacist Internal Medicine 10/15/24 03/04/25 documented as of this encounter
--- OUTSIDE RECORDS SUMMARY | 2025-07-13 17:20 | XMS_ITS | Encounter Summary ---
Author Organization [employer] Address 75 [facility] 7t [place] [address] Care Team Providers Care Horse Stud Worker Name Role Phone Minerva Barraza Primary Care Provider +1 Rena Henriquez MD Primary Care Provide r Krystal Joyner PharmD Unavailable [phone] Reason for Visit * Reason Onset Date Comments Medication Problem 03/18/2024 Encounter Details Date Type Department Care Team (Late st Contact Info) Description 03/18/2024 Telephone [facility] MEDICINE [address] [place], [place] [phone] Minerva Barraza FNP [address] [place] [address] Medication Problem Social History Tobacco Use Types [...] Description 07/15/2025 2:45 PM EDT Office Visit [facility] ADULT DENTAL [address] [place] [address] Kavitha Graham, LESLIES [address] [place] [address] 08/25/2025 2:00 PM EDT Clinical Support [facility] MEDICINE [address] [place], [place] [phone] Matilda Chisholm, RN 10/31/2025 2:00 PM EST Office Visit [facility] OPTOMETRY 267 [place], [place] [phone] Cielo Turner, OD 267 [place], [place] [phone] documented as of this encounter Visit Diagnoses Not on filedocumented in this encounter Additional Health Concerns Assessment Noted Time PHQ-9 Depression Total Score: 18 024 4:16 PM EDT documented as of this encounter Care Teams Horse Stud Worker Relationship Specialty Start Date End Date Minerva Barraza FNP [address] [place], [place] [phone] PCP - General Family Medicine 07/29/22 06/22/24 Rena Henriquez MD 230 [place], [place] [phone] PCP - General Internal Medicine 06/23/24 Krystal Joyner PharmD 230 [place], [place] [phone] Pharmacist Internal Medicine 10/15/24 03/04/25 documented as of this encounter
--- OUTSIDE RECORDS SUMMARY | 2025-07-13 17:20 | XMS_ITS | Encounter Summary ---
Author Organization [employer] Address [address] [facility] 7t [place] [address] Care Team Providers Care Veterans Adviser Name Role Phone Rena Henirquez MD Primary Care Provide r Reason for Visit * Reason Comments Med Refill Encounter Details Date Type Department Care Team (Late st Contact Info) Description 07/10/2025 Refill [facility] MEDICINE 230 [place], [place] [phone] Rena Henriquez MD 230 [place] [address] Migraine with aura and without status migrainosus, not intractable Social History [...] Description 07/15/2025 2:45 PM EDT Office Visit [facility] ADULT DENTAL [address] [place] [address] Kavitha Graham, DDS [address] [place] [address] 08/25/2025 2:00 PM EDT Clinical Support [facility] MEDICINE [address] [place] [address] Matilda Chisholm RN 10/31/2025 2:00 PM EST Office Visit [facility] OPTOMETRY [address] [place] [address] Cielo Turner, OD [address] [place] [address] documented as of this encounter Visit Diagnoses Diagnosis Migraine with aura and without status migrainosus, not intractable documented in this encounter Additional Health Concerns Assessment Noted Time PHQ-9 Depression Total Score: 15 025 2:05 PM EST documented as of this encounter Care Teams Veterans Adviser Relationship Specialty Start Date End Date Rena Henriquez MD 230 [place] [address] PCP - General Internal Medicine 06/23/24 documented as of this encounter
--- OUTSIDE RECORDS SUMMARY | 2025-07-13 17:20 | XMS_ITS | Encounter Summary ---
Author Organization [employer] Address [address] [facility] 7t [place] [address] Care Team Providers Care Piledriver Carpenter Name Role Phone Minerva Barraza Primary Care Provider +2 Rena Henriquez MD Primary Care Provide r Krystal Joyner PharmD Unavailable [phone] Reason for Visit * Reason Onset Date Comments Lab Orders 06/11/2024 Encounter Details Date Type Department Care Team (Late st Contact Info) Description 06/11/2024 Telephone [facility] MEDICINE [address] [place], [place] [phone] Minerva Barraza FNP [address] [place] [address] Lab Orders Social History Tobacco Use Types [...] 06/11/2024 10:44 AM EDT Return T/C to [phone] for below message, Message states the number you are calling is not in service, Not able to LVM. * Telephone Encounter - Epifanio De La Rosa - 06/11/2024 10:10 AM EDT Nolan from [facility] with [facility] requesting for lab orders to be faxed over. If any questions you can contact Mio at [phone]. documented in this encounter Plan of Treatment Upcoming Encounters Date Type Department Care Team (Late st Contact Info) Description 07/15/2025 2:45 PM EDT Office Visit [facility] ADULT DENTAL [address] [place] [address] Kavitha Graham, DDS [address] [place] [address] 08/25/2025 2:00 PM EDT Clinical Support [facility] MEDICINE [address] [place] [address] Matilda Chisholm, RN 10/31/2025 2:00 PM EST Office Visit [facility] OPTOMETRY [address] [place] [address] Johnny Cielo, OD [address] [place] [address] documented as of this encounter Visit Diagnoses Not on filedocumented in this encounter Additional Health Concerns Assessment Noted Time PHQ-9 Depression Total Score: 18 024 4:16 PM EDT documented as of this encounter Care Teams Piledriver Carpenter Relationship Specialty Start Date End Date Minerva Barraza FNP [address] [place] [address] PCP - General Family Medicine 07/29/22 06/22/24 Rena Henriquez MD [address] [place] [address] PCP - General Internal Medicine 06/23/24 Krystal Joyner, DamionD [address] [place] [address] Pharmacist Internal Medicine 10/15/24 03/04/25 documented as of this encounter
--- OUTSIDE RECORDS SUMMARY | 2025-07-13 17:20 | XMS_ITS | Encounter Summary ---
Author Organization [employer] Address 75 [facility] 7t [place] [address] Care Team Providers Care Cut Out Stitcher Name Role Phone Rena Henriquez MD Primary Care Provide r Krystal Joyner PharmD Unavailable [phone] Reason for Visit * Reason Onset Date Comments Med Refill 02/02/2025 Encounter Details Date Type Department Care Team ([facility] st Contact Info) Description 02/02/2025 Telephone [facility] MEDICINE [address] [place], [place] [phone] Rena Henriquez MD 230 [place], [place] [phone] Med Refill Social History Tobacco Use Types [...] MG/0.5ML solution auto-injector To be sent to: [facility]/pharmacy #[id number] [place] [address] documented in this encounter Plan of Treatment Upcoming Encounters Date Type Department Care Team (Late st Contact Info) Description 07/15/2025 2:45 PM EDT Office Visit [facility] ADULT DENTAL [address] [place] [address] Kavitha Graham DDS [address] [place] [address] 08/25/2025 2:00 PM EDT Clinical Support [facility] MEDICINE [address] [place] [address] Matilda Chisholm, RN 10/31/2025 2:00 PM EST Office Visit [facility] OPTOMETRY [address] [place], [place] [phone] Cielo Turner, OD [address] [place] [address] documented as of this encounter Visit Diagnoses Not on filedocumented in this encounter Additional Health Concerns Assessment Noted Time PHQ-9 Depression Total Score: 15 12/21/ 025 2:05 PM EST documented as of this encounter Care Teams Cut Out Stitcher Relationship Specialty Start Date End Date Rena Henriquez MD 230 [place] [address] PCP - General Internal Medicine 06/23/24 Krystal Joyner PharmD [address] [place] [address] Pharmacist Internal Medicine 10/15/24 03/04/25 documented as of this encounter
--- OUTSIDE RECORDS SUMMARY | 2025-07-13 17:20 | XMS_ITS | Encounter Summary ---
Author Organization [employer] Address 75 [facility] 7t [place] [address] Care Team Providers Care Sheep Farmer Name Role Phone Minerva Barraza Primary Care Provider + Rena Henriquez MD Primary Care Provide r Krystal Joyner PharmD Unavailable [phone] Reason for Visit * Reason Onset Date Comments Med Refill 08/19/2023 Encounter Details Date Type Department Care Team (Late st Contact Info) Description 08/19/2023 Telephone [facility] MEDICINE [address] [place], [place] [phone] Minerva Barraza FNP [address] [place] [address] Med Refill Social History Tobacco Use Types [...] Description 07/15/2025 2:45 PM EDT Office Visit [facility] ADULT DENTAL [address] [place] [address] Kavitha Graham, DDS [address] [place] [address] 08/25/2025 2:00 PM EDT Clinical Support [facility] MEDICINE [address] [place] [address] Matilda Chisholm RN 10/31/2025 2:00 PM EST Office Visit [facility] OPTOMETRY [address] [place] [address] Cielo Turner OD [address] [place] [address] documented as of this encounter Visit Diagnoses Not on filedocumented in this encounter Additional Health Concerns Assessment Noted Time PHQ-9 Depression Total Score: 16 05/19/ 023 10:31 AM EDT documented as of this encounter Care Teams Sheep Farmer Relationship Specialty Start Date End Date Minerva Barraza FNP 230 [place] [address] PCP - General Family Medicine 07/29/22 06/22/24 Rena Henriquez MD [address] [place] [address] PCP - General Internal Medicine 06/23/24 Krystal Joyner PharmD [address] [place] [address] Pharmacist Internal Medicine 10/15/24 03/04/25 documented as of this encounter
--- OUTSIDE RECORDS SUMMARY | 2025-07-13 17:20 | XMS_ITS | Encounter Summary ---
Author Organization [employer] Address 75 [facility] 7t [place] [address] Care Team Providers Care Senior Clinician Name Role Phone Rena Henriquez MD Primary Care Provide r Krystal Joyner PharmD Unavailable [phone] Reason for Visit * Reason Comments Med Refill Encounter Details Date Type Department Care Team ([facility] st Contact Info) Description 06/30/2024 Refill [facility] MEDICINE [address] [place] [address] Minerva Barraza FNP [address] [place] [address] Insomnia, unspecified type Social History Tobacco Use [...] Description 07/15/2025 2:45 PM EDT Office Visit [facility] ADULT DENTAL [address] [place] [address] Kavitha Graham, DDS [address] [place] [address] 08/25/2025 2:00 PM EDT Clinical Support [facility] MEDICINE [address] [place] [address] Matilda Chisholm RN 10/31/2025 2:00 PM EST Office Visit [facility] OPTOMETRY [address] [place] [address] Cielo Turner, OD [address] [place] [address] documented as of this encounter Visit Diagnoses Diagnosis Insomnia, unspecified type documented in this encounter Additional Health Concerns Assessment Noted Time PHQ-9 Depression Total Score: 18 024 4:16 PM EDT documented as of this encounter Care Teams Senior Clinician Relationship Specialty Start Date End Date Rena Henriquez MD [address] [place] [address] PCP - General Internal Medicine 06/23/24 Krystal Joyner, Johnna [address] [place] [address] Pharmacist Internal Medicine 10/15/24 03/04/25 documented as of this encounter
== END 2025-07-13 14:27 | disposition home or self-care (01) ==
LOC: HO.HSM 13:31
PROVIDERS: PCP Internal Medicine; Visit Provider Nurse Practitioner
DX: G44.40 Drug-induced headache, not elsewhere classified, not intractable (principal); G43.709 Chronic migraine without aura, not intractable, without status migrainosus; M54.81 Occipital neuralgia; M79.18 Myalgia, other site
CPT/HCPCS: 99205

== ENCOUNTER → 2025-07-13 13:30 | Outpatient (BNVA) | payer OTHER, SELFPAY | PROVIDERS: PCP Internal Medicine; Visit Provider Nurse Practitioner | DX: G44.40 Drug-induced headache, not elsewhere classified, not intractable (principal); G43.709 Chronic migraine without aura, not intractable, without status migrainosus; M54.81 Occipital neuralgia; M79.18 Myalgia, other site | CPT/HCPCS: 99202 ==

== ENCOUNTER 2025-07-18 13:58 | Outpatient (AMB) | payer OTHER, SELFPAY ==
--- NOTE | 2025-07-18 14:01 | A.OFFVIS_ITS ---
Vital Signs 07/18/25 14:09 07/18/25 14:10 Height 5 ft 5 in Weight 238 lb BMI 39.6 BP 233/100 H 185/104 H Blood Pressure Location Rt brachial Rt brachial Position Sitting Sitting Pulse 94 Pulse Source Pulse Oximeter Pulse Oximetry (%) 97 Oxygen Delivery Method Room Air Comment BP recheck Intake Visit Reasons: BILATERAL LOW BACK PAIN Intake Note: Pain today 08/05 Chemotherapist Required: Yes Chemotherapist Language: Drupal Architect Services: Chemotherapist Present Chemotherapist Name: Lisa #[id number] Accompanied by: Self / Same As Patient Allergies amlodipine (AMLODIPINE) Allergy (Intermediate, Verified 07/18/25 14:10) PALPITATIONS lisinopril (LISINOPRIL) Allergy (Intermediate, Verified 07/18/25 14:10) PALPITATIONS, palpitation HPI Comments Details: The patient is a 70-year-old female presenting with back pain radiating to the right leg. The back pain has been persistent and is associated with cramping, shooting, throbbing, numbness, tingling and weakness on the right side, necessitating the use of a cane for ambulation and BLOCK SAWYER services with personal care and daily activities. The patient has a history of right hip pain and axial low back pain for which steroid and diagnostic injections were planned but not received due to transportation issues and severe pain preventing mobility. She has experienced multiple falls, the most recent of which resulted in increased pain after hitting her head and falling on her right side. The patient has a medical history significant for obesity, diabetes mellitus, an d chronic kidney disease stage 3a. She reports difficulty managing daily activities due to pain and limited assistance from a sourcing assistant. Her current medication regimen includes oxycodone, which she takes inappropriately by consuming three doses at once due to inadequate pain relief from a single dose. Denies any recent cough, cold, infection, fever or any other significant changes in medical history since last office visit. - Onset: Persistent back pain radiating to the right leg, associated with cramping and weakness - Quality: Pain travels to the back and front of the right leg, accompanied by numbness and tingling - Exacerbating factors: Falls, walking, prolonged standing or sitting, changing positions - Relieving factors: None, flexion forward, rest, heat, oxycodone provides partial relief - Interference: Pain interferes with mobility and daily activities, requiring the use of a cane - Affect: Pain significantly impacts daily activities and mobility - Analgesia: Currently taking oxycodone 5 mg, three times a day, but often takes all three doses at once due to inadequate relief - Adverse Effects: Risk of respiratory depression due to inappropriate dosing and obesity - Activities of Daily Living: Requires assistance for bathing and dressing, limited by pain and inadequate BLOCK SAWYER support - Aberrant Drug Related Behaviors: Taking multiple doses of oxycodone at once, contrary to prescription instructions PRIOR 10/08/24: Patient presents today for follow up for low back pain with radiculopathy. relish blender was utilized via iPad today's visit. She was initially seen in our office in the past for right hip pain and was scheduled for right hip steroid injection and formal physical therapy. Unfortunately patient was no-show for hip injection and attended only 1 session at PT. Denies any recent trauma, injury or falls. Today she endorses axial low back pain and right hip pain. She reports physical therapy was not helpful and increased pain with exercises. Pain increases with movements, ADLs, walking, bending and changing positions during sleep. Pain has been resistant to conservative treatments including opioid and nonopioid medication, topical applications, heat therapy, activity modifications and attempted PT. Patient is willing to proceed with right hip injection under sedation and subsequently plan for diagnostic lumbar medial branch blocks to address axial low back. Denies any fever or chills, cough, dizziness, bladder or bowel dysfunction or saddle anesthesia. Reports intermittent right lower extremity weakness due to pain. PRIOR 06/22/24: Patient is a 68 years old [place] Citizen speaking female with a history of diabetes, 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 Denies any recent trauma, injury or falls. She was referred to our office by a Physiatry provider for potential medical management for chronic low back pain and right hip pain. Back pain is axial and easily reproduced with lumbar extension and minimally reproduced his forward flexion or bending. Patient reports back pain radiates to her lateral hips and right groin. Patient has significant right hip pain with range of motion, weight-bearing or movements. We have reviewed her most recent imaging and this is noted below. I have informed patient I do not offer opioid program at this time. Patient also reports risky behaviors of participating in frequent marijuana vaping parties with her friends and states taking taking 4 tablets of neighbors oxycodone which provided her significant pain relief. Patient reports she is not aware if her friends are obtaining marijuana at local dispensaries or streets and continues to use it as this prov ides her good sleep and some pain relief. She also smokes 1 pack a day of cigarettes and is not interested or motivated to quit at this time. Patient denies previous spine or hip surgery. She reports she received an injection by [facility] staff in her right lateral hip about a month ago with minimal pain relief. Patient is very hesitant to worse interventional treatments but will consider right hip intra-articular steroidal injection under sedation. She is also interested to pursue physical therapy after right hip injection. Pain affects her daily activities and functioning, mobility, sleep and social interactions. Denies any fever, chills, abdominal pain, footdrop, weakness, bladder or bowel dysfunction or saddle anesthesia. 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 analgesic Muscle spasm Subgingival dental calculus Chronic dental pain GERD (gastroesophageal reflux disease) Arthritis of hip Forgetfulness Cataract Severe asthma Bilateral carpal tunnel syndrome Sciatica associated with disorder of lumbar spine Major depression Anxiety Lumbar radiculopathy Latent tuberculosis Migraine with aura Cataracts, both eyes Glaucoma Migraine Right lumbar radiculitis Back pain Neck pain Musculoskeletal pain Nicotine dependence, cigarettes, uncomplicated Obesity due to excess calories Type 2 diabetes mellitus with diabetic polyneuropathy Essential hypertension Hypovitaminosis D Mixed hyperlipidemia Surgical History History of hemorrhoidectomy History of colonoscopy History of hernia repair History of myomectomy Family History Father Medical history unknown Mother Hypertension Alzheimers disease Sister Hepatitis C Cirrhosis Sister Breast cancer Brother Diabetes Asthma Family/Other FH: mental illness Social History Household Members: Family Alcohol intake: current Alcohol intake frequency: a few times a month Patient Tobacco Use Status: Current everyday Tobacco user Tobacco use type: Cigarette Cigarette Packs Per Day: 1 Years Smoked: onset 17yo, 1ppd x 53yrs, 50pyh Current occupational status: employed Current occupation: [employer] Review of Systems Const Details: - Musculoskeletal: Reports back pain radiating to the right leg, weakness, and cramping - Neurological: Reports numbness and tingling in the right leg - Genitourinary: Reports urinary incontinence All systems reviewed & are unremarkable except as noted in HPI and below Physical Exam General: Appears afebrile. Alert and oriented. Mood and affect appropriate. Follows and participates in conversation appropriately. Respiratory effort is unlabored. No cough. Able to transition from sit to stand unassisted. Ambulates with bilaterally normal heel strike and toe off, increased pain on the right due to hip pain. General: Yes no CVA tenderness Back/Spine/Pelvis Other: Limited lumbar ROM due to pain. Antalgic gait with limping, hunched forward position with walking or standing. Lumbar extension, flexion and bending forward reproduces moderate to severe symptoms. Demonstrates 5/5 left and 4/5 right due to pain strength of quadriceps bilaterally as well as flexion/dorsiflexion of bilateral feet against resistance. 2+ pedal pulses bilaterally. Seated straight leg rise with dorsiflexion positive on the right. +1 left and diminished right patellar and diminished achilles reflexes bilaterally. Facet loading test positive bilaterally. Limited Everett's test reproduces bilateral hip and lower back pain. Mild right groin pain with I/E right hip rotations, no groin pain on the left. Valsalva maneuver is positive. Back: no CVA tenderness Cervical Spine: loss of normal cervical lordosis, cervical muscular tenderness, pain with cervical ROM and No Cervical spine tenderness Thoracic/Lumbar Spine: thoracic and lumbar spine normal to inspection, No Thoracic/lumbar spine scar(s), Lasegue's sign positive on the right and localized, pain with thoraco-lumbar ROM, paraspinal muscle tenderness, thoraco- lumbar ROM limited, No thoracic spinal tenderness and lumbar spinal tenderness (L4-S1) Pelvis: buttock tenderness on the right Sacroiliac joints: bilaterally tender to palpation Extrem General: Yes capillary refill normal, Yes no clubbing, cyanosis or edema and Yes no calf tenderness Results Reviewed Results Reviewed: X-RAY CERVICAL SPINE X-RAY BILATERAL HIPS X-RAY LUMBAR SPINE 04/28/24 CLINICAL INFORMATION: Pain neck, hips, back. COMPARISON: Cervical spine and lumbar 08/23/2016. FINDINGS: Cervical spine: Diffuse demineralization. Bilateral cervical soft tissue calcifications, possibly vascular. Straightening of the normal cervical lordosis. There is radiopaque structure, likely an earring, which overlies and obscures a portion of C2. Severely limited visualization of C4-C5 disc space level as well as poor visualization of C5, C6 and C7 due to overlying bony and soft tissue structures. Minimal anterolisthesis of C2 on C3. Cervical spondylosis with loss of disc space height at C2-C3, C3-C4, and likely at C4-C5, allowing for limited visualization. Lumbar spine: Mild rightward curvature of the lumbar spine. Facet arthritis in the lower lumbar spine. Atherosclerotic aortoiliac calcifications. Surgical coils overlie the pelvis. Advanced multilevel lumbar spondylosis with multilevel loss of disc space height most notable at L4-L5 and L5-S1. Approximately 1.5 cm anterolisthesis of L4 on L5 likely spondylolysis. Bilateral hips: Bilateral hips: Diffuse demineralization. Moderate degenerative changes in the bilateral hips with joint space narrowing and hypertrophic change. Degenerative changes on limited images of the bilateral sacroiliac joints. IMPRESSION: 1. Multilevel cervical spondylosis, most notable at C2-C3, C3-C4 and likely at C4-C5. 2. Advanced multilevel lumbar spondylosis most notable at L4-L5 and L5-S1. 3. Moderate degenerative changes bilateral hips. 4. Diffuse demineralization. 5. Limited visualization particularly severe in the [id number] cervical spine as detailed above. Additional imaging with CT scan or MRI recommended if there is clinical concern for fracture or other underlying pathology. Assessment & Plan Assessment & Plan (1) Right lumbar radiculitis: Code(s): M54.16 - Radiculopathy, lumbar region Category: Medical (2) Lumbosacral spondylosis: Code(s): M47.817 - Spondylosis without myelopathy or radiculopathy, lumbosacral region Category: Medical (3) Lumbar degenerative disc disease: Code(s): M51.369 - Other intervertebral disc degeneration, lumbar region without mention of lumbar back pain or lower extremity pain Category: Medical (4) History of recent fall: Code(s): Z91.81 - History of falling Category: Medical Plan The plan includes scheduling an open (due to claustrophobia) lumbar spine MRI to assess for potential disc herniation or nerve impingement in the lumbar region, as the patient's back pain radiates to the right leg and is associated with numbness and tingling in L4-L5 distribution and to a lesser degree L5-S1. The patient is advised to follow up with her primary care physician for potential adjustments to her pain management regimen, given her current medication use. It is emphasized that the patient should not take multiple doses of oxycodone simultaneously due to the risk of respiratory depression, especially considering her obesity, CKD stage 3 and other medications potentially causing SYSTEM ENGINEER depression, such as alprazolam. Patient has requested to provide increased oxycodone dosages, I have informed patient I do not offer opioid prescribing nor she should be accepting opioid refills from other providers, provided she is currently in opioid program contract with her Primary care provider. Patient is aware to call if pain worsens or if she develops any red flag symptoms to seek emergency care. All questions and concerns have been answered and patient agreed with the treatment plan. Follow up for MRI results and sooner as needed. Patient was informed and verbally consented to the use of an ambient scribe for clinic note documentation during this visit. Orders: Orders MR lumbar spine wo con Today F40.240 - Claustrophobia, M47.817 - Spondylosis without myelopathy or radiculopathy, lumbosacral region, M51.369 - Other intervertebral disc degeneration, lumbar region without mention of lumbar back pain or lower extremity pain, M54.16 - Radiculopathy, lumbar region, Z91.81 - History of falling Coding Level of Care Code Est Pt Level 4 (50734) Complex EM visit Add On G2211 Diagnoses Right lumbar radiculitis M54.16 Lumbosacral spondylosis M47.817 Lumbar degenerative disc disease M51.369 History of recent fall Z91.81
[2025-07-18 14:09] VITALS: BP 233/100; PULSE 94; O2SAT 97; BMI 39.6
[2025-07-18 14:10] VITALS: BP 185/104
--- OUTSIDE RECORDS SUMMARY | 2025-07-18 16:26 | XMS_ITS | Encounter Summary ---
Author Organization [employer] Address [address] [place] [address] Care Team Providers Care Yard Brakeman Name Role Phone Minerva Barraza Primary Care Provider [phone] Rena Henriquez MD Primary Care Provide r Krystal Joyner PharmD Unavailable [phone] Reason for Visit *
--- OUTSIDE RECORDS SUMMARY | 2025-07-18 16:27 | XMS_ITS ---
Encounter Summary Created on: July 18, 2025
== END 2025-07-18 14:27 | disposition home or self-care (01) ==
LOC: HO.PMC 13:58
PROVIDERS: PCP Internal Medicine; Visit Provider Nurse Practitioner Family
DX: M54.16 Radiculopathy, lumbar region (principal); M47.817 Spondylosis without myelopathy or radiculopathy, lumbosacral region; M51.369 Other intervertebral disc degeneration, lumbar region without mention of lumbar back pain or lower extremity pain; Z91.81 History of falling
CPT/HCPCS: 99214; G2211

== ENCOUNTER → 2025-07-18 13:58 | Outpatient (BNVA) | payer OTHER, SELFPAY | PROVIDERS: PCP Internal Medicine; Visit Provider Nurse Practitioner Family | DX: M47.817 Spondylosis without myelopathy or radiculopathy, lumbosacral region (principal); M54.16 Radiculopathy, lumbar region; M51.369 Other intervertebral disc degeneration, lumbar region without mention of lumbar back pain or lower extremity pain; Z91.81 History of falling | CPT/HCPCS: 99212 ==

== ENCOUNTER 2025-08-25 17:13 | Outpatient (REF) | payer OTHER, SELFPAY ==
--- OUTSIDE RECORDS SUMMARY | 2025-08-25 18:33 | XMS_ITS | Clinical Summary ---
Author Organization [facility] Address [address] [place] [address] Phone Care Team Providers Care Bag Worker Name Role Phone Stefany Onofre MD Primary Care Provider [phone] Allergies Active Allergy Reactions Criticality Noted Date [...] to complete this topic Insurance Care Teams Bag Worker Relationship Specialty Start Date End Date Stefany Onofre MD [address] [place], [place] PCP - General Internal Medicine 02/09/21
--- OUTSIDE RECORDS SUMMARY | 2025-08-25 18:33 | XMS_ITS | Data Portability ---
Author Organization [place] Address [address] [place] [address] Care Team Providers Care Employee'S Representative Name Role Phone HIM CCA OTHER Assessment Encounter Date Assessment Date Assessment LastModified by Organization Details LastModified Time 02/13/2024 02/13/2024 I provided real -time medical direction via phone for this encounter, and was available for additional phone based assistance as needed. I have reviewed and agree with the Assessment and Plan as documented by the Radio Time Salesperson. We discussed the diagnostic uncertainty of home visits and the risk associated with this.. The patient given the opportunity to ask questions via Indonesian language phone social science teacher. Advised has mutliple complicated very serious complaints [...] agreed to be transported by EMS to [facility]. Report called to their ER by myself. [email or web address] Not available 02/14/2024 21:45:27 02/17/2024 02/17/2024 As noted, we umu e called to see this patient regarding concerns of chest pain x 5-6d, right hip pain radiating to leg x 3d and patient requesting re-evaluation 68 yo F with pmhx notable htn, dm, seen on 02/13/24 with instED visit and also seen in [facility] ED with 5-6d of intermittent chest [...] pain She went to [facility] yesterday and had labwork done (results unknown). instED visit on 02/12 with EKG (no ischemic changes), POC BMP and H/H, udip (neg) Evaluation in the field was performed by my trade show coordinator colleague, as noted above, I provided real-time [...] moment but is agreeable to go to [facility] ED at 4p when FLOOR LAYER TILE is due to arrive to look after her mother 2. Right low back/hip pain, lumbar radicular sxs in ddx, lower clinical suspicion for bony issue Patient is agreeable to go to [facility] ED at 4p when FLOOR LAYER TILE arrives for her mom and may benefit from xrays 3. HTN, h/o essential htn but more elevated SBP. Had Cr 1.2 on labs from 02/12. No new cardiac, resp or neuro sxs since 02/12. Will need additional labs when she goes to ED later today Plan: EKG to rule out any STEMI while awaiting arrival of FLOOR LAYER TILE for her to go to [facility] ED EKG w/o acute changes c/w prior from 02/12 I did discuss risks of not getting seen right away Primary care, consider whether there is any additional services to help with care of patient's mom at home. Strongly advised patient to go to ED as soon as FLOOR LAYER TILE arrives at 4pm today, but this has been a barrier in her going to the ED for her 5-6d of cp, sob Disposition: We discussed the situation and I recommended referral to the emergency department. This was based on stuttering chest pain and sob. Patient will be going to [facility] ED once FLOOR LAYER TILE arrives to look after her mom at [...] to ambulate. [facility] Pt seen at ER 2 weeks ago but pt unable to stay for admission. Evaluation in the field was performed by my trade show coordinator colleague, as noted above, I provided real-time [...] Lab urinalysis, dipstick 2023 024 [email or web address] [facility], [address] [place] [address], [id number] 4 13:14:48 BMP, serum or plasma 2023 024 [email or web address] 0 [facility], [address] [place] [address], [id number] 4 13:14:23 Referral None recorded. Procedures None recorded. Surgeries None recorded. Imaging electrocard iogram 2023 024 [facility], [address] [place] [address], [id number] 4 05:00:48 electrocard iogram 2023 024 [email or web address] 0 [facility], [address] [place] [address], [address] 4 13:06:57 Medication Orders gabapentin 300 mg capsule 2023 024 [id number], [address] [place], [address], 4 15:59:23 ketorolac 30 mg/mL injection solution [email or web address]/[facility]armacy #[id number], [address] [place], [address], 15:59:19 Patient TargetsNo targets recorded. Patient InstructionsNo instructions recorded. Reason for Referral None Reported. Results Created Date Observation Date Name Description Value Unit Range Abnormal Flag Note LastModifiedBy Organization Detail LastModifiedTime 02/13/20 24 02/13/2024 BMP, serum or plasm a BUN 21 Not Available [facility] - [facility] [address], [address] [place] [address] 02/13/2024 12:49:16 02/13/20 24 02/13/2024 BMP, serum or plasm a Ca I ca 1.3 Not Available [facility] - [address], [address] 02/13/2024 12:49:16 02/13/20 24 02/13/2024 BMP, serum or plasm a CI- 101 Not Available Main - [facility] [address], [address] 02/13/2024 12:49:16 02/13/20 24 02/13/2024 BMP, serum or plasm a CRE 1.2 Not Available [facility] - [facility] [address], [address] 02/13/2024 12:49:16 02/13/20 24 02/13/2024 BMP, serum or plasm a GLU 101 Not Available [facility] - [facility] [address], [address] 02/13/2024 12:49:16 02/13/20 24 02/13/2024 BMP, serum or plasm a K+ 4 Not Available [facility] - [facility] [address], [address] 02/13/2024 12:49:16 02/13/20 24 02/13/2024 BMP, serum or plasm a Na+ 139 Not Available Main - [facility] [address], [address] 02/13/2024 12:49:16 02/13/20 24 02/13/2024 BMP, serum or plasm a tCO2 26 Not Available [facility] - [facility] [address], [address] 02/13/2024 12:49:16 02/13/20 24 02/13/2024 urina lysis , dipst ick Leukocytes Negati ve Not Available Main - Inst ed [address] [place] [address], [address] 02/13/2024 12:48:07 02/13/20 24 02/13/2024 urina lysis , dipst ick Nitrite negati ve Not Available Main - Inst ed [address] [place] [address], [address] 02/13/2024 12:48:07 02/13/20 24 02/13/2024 urina lysis , dipst ick Urobilinogen Negati ve Not Available Main - Inst ed [address] [place] [address], [address] 02/13/2024 12:48:07 02/13/20 24 02/13/2024 urina lysis , dipst ick Protein Negati ve Not Available Main - Inst ed [address] [place] [address], [address] [place] [address] 02/13/2024 12:48:07 02/13/20 24 02/13/2024 urina lysis , dipst ick pH 5 Not Available Main - Ins sharon [address] [place] [address], [address] 02/13/2024 12:48:07 02/13/20 24 02/13/2024 urina lysis , dipst ick Blood Negati ve Not Available Main - Inst ed [address] [place] [address], [address] [place] [address] 02/13/2024 12:48:07 02/13/20 24 02/13/2024 urina lysis , dipst ick Specific [place] 1.020 Not Available Main - Insted [address] [place] [address], [address] 02/13/2024 12:48:07 02/13/20 24 02/13/2024 urina lysis , dipst ick Ketone Negati ve Not Available Main - Inst ed [address] [place] [address], [address] 02/13/2024 12:48:07 02/13/20 24 02/13/2024 urina lysis , dipst ick Bilirubin Negati ve Not Available Main - Inst ed [address] [place] [address], [address] 02/13/2024 12:48:07 02/13/20 24 02/13/2024 urina lysis , dipst ick Glucose Negati ve Not Available Main - Inst ed [address] [place] [address], [address] 02/13/2024 12:48:07 02/13/20 24 02/13/2024 urina lysis , dipst ick Appearance clear Not Available [address], [address] 02/13/2024 12:48:07 02/13/20 24 02/13/2024 urina lysis , dipst ick Color concen trated Not Available [facility] ed [address] [place] [address], [address] 02/13/2024 12:48:07 02/13/20 24 02/13/2024 elect rocar diogr am No observ ation record ed. [email or web address] [address], [address] [place] [address] 02/13/2024 13:06:41 02/17/20 24 02/18/2024 elect rocar diogr am No observ ation record ed. [email or web address] [address], [address] 02/18/2024 09:49:06 Result Notes None recorded. Medical Equipment None Reported. Allergies Allergen ID Allergen Name Allergen Category Reaction Reaction Severity Criticality Documentation Date Start Date Code Code System Note Provider Name and Address Organization Details Recorded Time 4947 lisinopri l medicatio n Not available Not available Not available 02/14/2024 32537 RxNorm Amy Davenport MD [address] [place] [address],[address], [place], [address] [employer] [facility] 21:25:02 Medications Name Sig Start Date Stop [...] Details Last Updated DateTime 4 165.1 cm 453183. 16 g 18 /min 98.3 [degF] 70 /min 99 % 99 % 133/71 mm[Hg] Not Available [employer] 4 14:39:06 Date Recorded Oxygen saturation Oxygen saturation in Arterial blood by Pulse oximetry Heart rate Respiratory rate Body temperature Systolic And Diastolic Provider Name and Address Organization Details Last Updated DateTime 4 99 % 99 % 93 /min 18 /min 98.9 [degF] 202/92 mm[Hg] Not Available [employer] 4 14:03:30 Date Recorded Body height Oxygen saturation Oxygen saturation in Arterial blood by Pulse oximetry Body temperature Body weight Respiratory rate Heart rate Systolic And Diastolic Provider Name and Address Organization Details Last Updated DateTime 4 162.56 cm 98 % 98 % 98.4 [degF] 003454 g 18 /min 90 /min 162/88 mm[Hg] Not Available [employer] 4 15:40:57 Social History None recorded. Functional Status None recorded. Mental Status None recorded. Family History Nothing Reported. Medical History No medical history recorded. Gynecological HistoryNo gynecological history recorded. Obstetrics History GPAL:G 0 P 0 0 0 0 Past Encounters Encounter ID Performer Location Encounter Start Date Encounter Closed Date Diagnosis/Indication Diagnosis SNOMED-CT Code Diagnosis ICD10 Code Diagnosis IMO Codes Diagnosis Note [id number] Amy Davenport MD Main - [facility] [address] [place] [phone] 02/13/2024 12:43:15 02/15/2024 14:51:39 Chest pain 09040844 R07.9 advised ekg not completely normal cannot tell if acute needs further cardiac w/u than can be accomplish ed at home. Urinary symptoms 2167187 08 R39.9 Headache 65482935 R51.9 Not hypertensi ve, hx migraines but has new dizziness and neck pain needs CT of the brain to r/o bleed Lumbago with sciatica 20 5268550 M54.40 with new incontinen ce of bladder/rick wel [place] [id number] NIKKI LACKEY MD Main - inst[facility] [address] [place] [phone] 02/17/2024 14:01:51 02/17/2024 15:25:01 Essential hypertension 63826431 I10 Chest pain 42830374 R07. 9 Pain of hip region 45075 002 M25.559 [id number] NIKKI LACKEY MD Main - [facility] [address] [place] [phone] 03/03/2024 15:33:59 03/03/2024 16:26:08 Lumbago with sciatica 340494420 M54.41 [id number] Efrem Romero MD Main - inst[facility] [address] [place] [id number] 03/12/2024 18:46:33 03/13/2024 12:07:48 Mechanical low back pain 889651401 M54.50 This 68-year-ol d female has had [...] Giron Member ID Guarantor Name 03/03/2024 1 [facility] - DOS ON OR AFTER 2023 - DUAL ELIGIBLE - JAIL OPTIONS AND ONE CARE (MEDICARE REPLACEMENT/ADV ANTAGE - HMO) Sharita Montez [id number] Sharita Melida 02/13/2024 1 [facility] - DOS ON OR AFTER 2023 - MEDICARE ADVANTAGE [place] (MEDIC[place] REPLACEMENT/ADV ANTAGE - PPO) Sharita Melida [id number] Sharita Montez 03/03/2024 1 [facility] - DOS ON OR AFTER 2023 - MEDICARE [place]ANTAGE [place] (MEDICARE REPLACEMENT/ADV ANTAGE - PPO) Sharita Montez [id number] Sharita Montez 08/12/2024 1 [facility] - DOS ON OR AFTER 2023 - DUAL ELIGIBLE - JAIL OPTIONS AND ONE CARE (MEDICARE REPLACEMENT/ADV ANTAGE - HMO) Sharita Montez [id number] Sharita Montez 02/17/2024 1 [facility] - DOS ON OR AFTER 2023 - [place]IC[place] (MEDIC[place]PLACEMENT/ADV ANTAGE - PPO) Sharita Montez [id number] Sharita Montez Notes Date Note Type Note [...] .................. .................. .................. .................. .................. .................. .... Radio Time Salesperson Note From Carlota El: Sent to a call for a pt complaining of right hip/leg pain. [facility] arrives on scene, pt is alert and oriented, airway is patent. Pt has a steady gait. Pt speaks Indonesian and social science teacher line used during visit. Pt complains of [...] Urine sample obtained; urine dip: uploaded to [employer]; [facility] consulted and order BMP and 12 lead ECG. IV access and venous blood draw performed; Istat Chem8+ results and 12 lead ECG: uploaded to [employer]. While speaking with [facility] via social science teacher pt states she has had bad headaches in the past, but this one is different because she is having neck pain as well. [facility] advises pt to be transported to ED. Pt initially states she can't go to ED because she needs to take care of her mother, but calls contacts to have someone take care of pt's mother while she goes to ED. Pt agrees to transport and requests transport to [facility] ED. [facility] calls report to [facility]. 911 called and pt care is transferred to [facility]. Pt is transported to [facility] ED via [facility]. .................. .................. .................. .................. .................. .................. .................. ............... Disposition: Fulfilled Amy Davenport MD [address] [facility],[address], [place], [address], [facility] - elicit 02/14/2024 21:47:12 02/17/2024 text/html ROS as noted in the HPI CRC Nurse Triage Notes (Kelly Mccarthy): Reason [...] advised of disposition, agrees to instED vs [facility] for exam. instED referral placed. Pt to follow up with office pRN per instED recommendations. Patient Reports: Shortness of Breath Denies: Unable to speak in full sentences without distress Chief Complaints: UTI/Pyelonephritis , Pain PMH: Hypertension, Diabetes Allergies: Unknown Comments: Spoke w/ member with landscape manager [place], member c/o chest pain, ongoing always there it does get worse at times and then she feels SOB, chest feels sore but unable to state if the pain is reproducible, hx of this chest pain and c/o same symptom on 02/12- went to [facility], left because she did not have anyone to watch her mom who is 89 and has Dementia- the member is waiting on the [facility] results, the [facility] wanted to admit her for it seems like a possible ND or r/o ND but pt refused. Advised member that she should go to the ED and be evaluated further, she said she can't leave her mother and the FLOOR LAYER TILE can't watch her either, she has no family. Advised the [facility] may suggest going to the ED anyway but I will process referral . Tai BAILEY .................. .................. .................. .................. .................. .................. .................. ............... Radio Time Salesperson Note From Krzysztof Cullen: Dispatched to the [...] would go to the ED when the FLOOR LAYER TILE got there to care for her mother (approx 1600). Red flags discussed. ALL times are apprx. .................. .................. .................. .................. .................. .................. .................. ............... Disposition: Fulfilled NIKKI LACKEY MD [address] [facility],[address], [place], [address], [facility] - [employer] [facility] 02/17/2024 14:48:41 03/03/2024 text/html ROS as noted in the HPI HPI: Call returned to [facility] to triage below. Reports having back pain and right leg pain . Pt also endorses numbness on foot x 2 week. Pt using Motrin and aleve PRN for pain. No urinary sx. Pt seen at ER 2 weeks ago but pt unable to stay for admission. Per pt unable to come into office. Agrees to [employer] for evaluation. .................. .................. .................. .................. .................. .................. .................. ............... CRC Nurse Triage Notes (Ernestina Jackman): Comments: HPI reviewed. No further information required to process visit. .................. .................. .................. .................. .................. .................. .................. ............... Radio Time Salesperson Note From Lenny Lynne: Patient conscious alert [...] tenderness. Good CSM negative swelling or discoloration. [facility] advises he will prescribe gabapentin to patient s local pharmacy and orders Toradol 30 mg IM. Administered as noted red flags, and patient education discussed patient encouraged to follow up with PCP .................. .................. .................. .................. .................. .................. .................. ............... Disposition: Fulfilled NIKKI LACKEY MD [address] [place] [address],[address], [place], [phone], [place] 03/03/2024 16:20:16 03/12/2024 text/html ROS as noted [...] for similar symptoms Efrem Romero MD [address] [facility],[address], [place], [address], [facility] - [employer], [facility] 03/12/2024 18:51:40 OBGyn Episode No OBEpisode recorded.
== END 2025-08-25 17:14 | disposition home or self-care (01) ==
LOC: HO.LNP 17:13
PROVIDERS: Visit Provider Internal Medicine
DX: Z51.81 Encounter for therapeutic drug level monitoring (principal); Z79.891 Long term (current) use of opiate analgesic; Z79.899 Other long term (current) drug therapy
CPT/HCPCS: 80307

== ENCOUNTER 2025-09-07 13:59 | Outpatient (AMB) | payer OTHER, SELFPAY ==
--- NOTE | 2025-09-07 14:38 | MHC.OFFVIS ---
Vital Signs 09/07/25 14:46 Height 5 ft 5 in Weight 208 lb BMI 34.6 BP 144/90 H Blood Pressure Location Rt brachial Position Sitting Respiration 16 Pulse 84 Pulse Source Pulse Oximeter Pulse Oximetry (%) 98 Oxygen Delivery Method Room Air Intake Visit Reasons: 2m Applied Researcher Required: Yes Applied Researcher Services: Applied Researcher Present Applied Researcher Name: [id number] Allergies amlodipine (AMLODIPINE) Allergy (Intermediate, Verified 07/18/25 14:10) PALPITATIONS lisinopril (LISINOPRIL) Allergy (Intermediate, Verified 07/18/25 14:10) PALPITATIONS, palpitation HPI Comments Details: Sharita is a 70-year-old female patient with a past medical history of hypertension, asthma, and type 2 diabetes presenting today for headache follow-up. According to the patient at the time of her initial visit with me, she has been experiencing migraines for many years. Over the course of the last 2 years they has been increasingly frequent and more severe. She was experiencing headache nearly every day. Her amitriptyline has been increased from 25 mg 50 mg with only minimal improvement in her headaches overall. Headaches were frontal, bitemporal, and bioccipital pain was described as a squeezing sensation. There was always some degree of pain on a daily basis however intensity would wax and wane. She also had associated nausea, sensitivity to light, and sound, as well as imbalance. There was no positional component. She was taking sumatriptan daily. We discussed at time of last visit her sleep as well. She did note frequent awakenings during the night and somnolence during the day. She has a history of JORJE but in the past was not able to tolerate CPAP therapy. Plan at the time of last visit was to repeat her sleep study preferably in the lab, start Emgality injections, reduce the use of sumatriptan, and repeat her MRI 6 months from prior. She tells me that with her 1st injection of Emgality (loading dose) she did see some improvement in her headaches for a few weeks. Unfortunately, she was not able to fill her maintenance dosing injections and has not taken it since her initial dosing back in late June. She also has not been able to schedule her sleep study due to some scheduling conflicts. She is not able to find rides to and from her sleep study at the specific times that they are required. She unfortunately can not recall how much sumatriptan she is currently taking. Prior workup: MRI of the brain 06/06/2025 at [facility] radiology. This showed bihemispheric greater deep and subcortical white matter changes, nonspecific but most consistent with chronic microvascular ischemia. 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 Prior medication trials have included: Amitriptyline (currently taking 50 mg nightly, sumatriptan 100 mg as needed (prior overuse), and propranolol REPLACED BY [facility] Medical History (Updated 07/18/25 @ 14:33 by Leelee Lopez) Long-term current use of benzodiazepine senior living current use of opiate analgesic Muscle spasm Subgingival dental calculus Chronic dental pain GERD (gastroesophageal reflux disease) Arthritis of hip Forgetfulness Cataract Severe asthma Bilateral carpal tunnel syndrome Sciatica associated with disorder of lumbar spine Major depression Anxiety Lumbar radiculopathy Latent tuberculosis Migraine with aura Cataracts, both eyes Glaucoma Migraine Right lumbar radiculitis Back pain Neck pain Musculoskeletal pain Nicotine dependence, cigarettes, uncomplicated Obesity due to excess calories Type 2 diabetes mellitus with diabetic polyneuropathy Essential hypertension Hypovitaminosis D Mixed hyperlipidemia Surgical History History of hemorrhoidectomy History of colonoscopy History of hernia repair History of myomectomy Family History Father Medical history unknown Mother Hypertension Alzheimers disease Sister Hepatitis C Cirrhosis Sister Breast cancer Brother Diabetes Asthma Family/Other FH: mental illness Social History Household Members: Family Alcohol intake: current Alcohol intake frequency: a few times a month Patient Tobacco Use Status: Current everyday Tobacco user Tobacco use type: Cigarette Cigarette Packs Per Day: 1 Years Smoked: onset 17yo, 1ppd x 53yrs, 50pyh Current occupational status: employed Current occupation: [employer] Review of Systems Const All systems reviewed & are unremarkable except as noted in HPI and below Physical Exam Vital Signs: Last Vital Signs Pulse 84 09/07/25 14:46 Resp 16 09/07/25 14:46 BP 144/90 H 09/07/25 14:46 Pulse Ox 98 09/07/25 14:46 Oxygen Delivery Method Room Air 09/07/25 14:46 BMI result Body Mass Index 34.6 Const General: cooperative, healthy appearing, comfortable and no acute distress Nutritional Appearance: well nourished Orientation/consciousness: patient oriented x3 Limitations: no limitations HEENT Head: Yes normal to inspection and Yes normocephalic Eyes General: appearance normal, both eyes and all related structures Visual Wiggins: normal visual wiggins by confrontation Alignment and Position: alignment normal Periorbital: periorbital findings normal Eyelids: Yes eyelids normal Conjunctivae: conjunctivae normal Sclerae: sclerae normal Back/Spine/Pelvis Back: other (Upper trapezius tenderness and trigger points bilat. SOHA tenderness bilat.) Neuro General: patient oriented x3 and tone normal Cranial nerves: Yes CN's II-XII intact bilaterally and Yes Facial sensation intact/muscles of mastication intact Cognition (Neuro): normal cognition Gait exam (Neuro): Antalgic gait present Motor exam (neuro): 5/5 motor strength present throughout and no tremor noted Sensory Exam: double simultaneous stimulation for sensation normal Deep tendon reflexes (DTR's): Right triceps reflex intensity grade: 1+, Left triceps reflex intensity grade: 1+, Rt Biceps (C5, C6): 1+, Left biceps reflex intensity grade: 1+, Right brachioradialis reflex intensity grade: 1+, Left brachioradialis reflex intensity grade: 1+, Right patellar reflex intensity grade: 0, Left patellar reflex intensity grade: 0, Right ankle reflex intensity grade: 0 and Left ankle reflex intensity grade: 0 Pupils: Normal pupillary reactivity/response: bilateral Psych Appearance: grossly normal Mental Status: mental status grossly normal Speech and movement: Normal speech and movement present and Clear speech present Affect: normal affect Attitude: cooperative Thought process: Normal thought process present Thought content: Normal thought content present Insight: Good insight present (Psych) Judgement: Good judgement present (Psych) Assessment & Plan Assessment & Plan (1) JORJE (obstructive sleep apnea): Code(s): G47.33 - Obstructive sleep apnea (adult) (pediatric) Category: Medical (2) Chronic migraine without aura without status migrainosus, not intractable: Code(s): G43.709 - Chronic migraine without aura, not intractable, without status migrainosus Category: Medical Plan Sharita is a 70-year-old female patient with a past medical history of hypertension, asthma, and type 2 diabetes presenting today for headache follow-up. We will have her restart the Emgality injections and scheduled for a home sleep study instead as scheduling has been difficult with her in-lab study. I enforced reduction of sumatriptan use and we will follow up in 2 months. -Continue Emgality injections -Sleep study order change to at home -Encouraged reduction of sumatriptan use to avoid MOH -Repeat MRI of the brain 6 months from prior (November of 2025) Orders: Orders RT home sleep study Today G43.709 - Chronic migraine without aura, not intractable, without status migrainosus, G47.33 - Obstructive sleep apnea (adult) (pediatric) Medications: Refilled galcanezumab-gnlm (Emgality Pen) 120 mg subcut QMONTH 1 mL 4RF migriane Coding Level of Care Code Est Pt Level 3 (30860) Diagnoses JORJE (obstructive sleep apnea) G47.33 Chronic migraine without aura without status migrainosus, not intractable G43.709
[2025-09-07 14:46] VITALS: BP 144/90; PULSE 84; RESP 16; O2SAT 98; BMI 34.6
--- OUTSIDE RECORDS SUMMARY | 2025-09-07 17:13 | XMS_ITS | Encounter Summary ---
Author Organization [facility] Address [address] [place] [address] Care Team Providers Care Upper And Bottom Lacer Hand Name Role Phone Rena Henriquez MD Primary Care Provide r Krystal Joyner PharmD Unavailable [phone]- [phone] Encounter Details Date Type Department Care Team (Late st Contact Info) Description 11/01/2024 Orders Only [facility] MEDICINE [address] [place], [place] [phone] Rena Henriquez MD [address] [place], [place] [phone] Social History Tobacco Use Types Packs/Day Years [...] Care Team (Late st Contact Info) Description 10/13/2025 11:30 AM EST Telemedicine [facility] MED[facility]INE [address] [place] [phone] Rena Henriquez MD [address] [place] [id number] 10/31/2025 2:00 PM EST Office Visit [facility] OPTOMETRY [address] [place] [phone] Cielo Turner, OD [address] [place] [phone] 11/28/2025 1:30 PM EST Clinical Support [facility] [address] [place] [phone] Matilda Chisholm, LEO documented as of this encounter Visit Diagnoses Not on filedocumented in this encounter Additional Health Concerns Assessment Noted Time PHQ-9 Depression Total Score: 18 024 4:16 PM EDT documented as of this encounter Care Teams Upper And Bottom Lacer Hand Relationship Specialty Start Date End Date Rena Henriquez MD [address] [place] [id number] PCP - General Internal Medicine 06/23/24 Krystal Joyner, PharmD [address] [place] [phone] Pharmacist Internal Medicine 10/15/24 03/04/25 documented as of this encounter
--- OUTSIDE RECORDS SUMMARY | 2025-09-07 17:13 | XMS_ITS | Clinical Summary ---
Author Organization [employer] Address [address] [facility] [address] [place] [address] Care Team Providers Care Clinical Physician Assistant Name Role Phone Rena Henriquez MD Primary [...] 2-3 weeks 30 g 023 Active Nebulizers [facility] Use nebulizer as instructed 1 each 024 [...] chew, or split. 30 tablet 2 024 Active Anoro Ellipta 62.5-25 MCG/ACT aerosol powder Inhale 1 puff Once per day. 024 Active Ascorbic Acid (vitamin C) 1000 MG tablet PATIENT PURCHASING OTC Active Multiple Vitamin (multivitamin) tablet PATIENT PURCHASING OTC Active cyanocobalamin (Vitamin B-12) 1000 MCG tablet PATIENT PURCHASING OTC Active glucose blood (FREESTYLE LITE) test stripIndications: Type 2 diabetes mellitus with hyperglycemia, without long-term current use of insulin ([facility]) Test blood sugar twice daily 100 each 025 2025 Active Lancets 28G miscIndications:T ype 2 diabetes mellitus with hyperglycemia, without long-term current use of insulin ([facility]) Test blood sugar twice daily 100 each 025 Active aspirin 81 MG EC tablet Take [...] hyperglycemia, without long-term current use of insulin ([facility]) 1 each 2 times daily. 1 kit 025 Active montelukast (Singulair) 10 MG tabletIndications :Mild intermittent asthma without complication TAKE 1 TABLET BY MOUTH EVERY DAY 90 tablet 2 025 Active azithromycin (Zithromax) 250 MG tabletIndications :COPD exacerbation (CMS/HCC) ([facility]) Take 2 tabs PO daily x 1d then 1 tab PO daily on D2 to D5 6 tablet 025 Active rosuvastatin (Crestor) 40 MG tabletIndications :Mixed hyperlipidemia Take 1 tablet (40 mg) by mouth at bedtime. 90 tablet 2 025 Active olmesartan-hydroC HLOROthiazide (Benicar HCT) 40-12.5 MG tabletIndications :Essential hypertension Take 1 tablet by mouth once daily in the morning 90 tablet 025 Active ezetimibe (Zetia) 10 MG tabletIndications :Mixed hyperlipidemia Take 1 tablet (10 mg) by mouth Once per day. 90 tablet 3 025 Active cetirizine (ZyrTEC) 10 MG tabletIndications :Seasonal allergies Take 1 tablet (10 mg) by mouth Once per day. 90 tablet 3 025 2025 Active amitriptyline (Elavil) 100 MG tabletIndications :Migraine with aura and without status migrainosus, not intractable Take 1 tablet (100 mg) by mouth at bedtime. 30 tablet 11 025 2025 Active Tirzepatide (Mounjaro) 2.5 MG/0.5ML solution auto-injectorIndi cations:Type 2 diabetes mellitus with hyperglycemia, without long-term current use of insulin (HCC) Inject 2.5 mg under the skin 1 [...] directed by MD. 30 patch 1 Active sertraline (Zoloft) 50 MG tabletIndications :Depression with anxiety Take 1 tablet (50 mg) by mouth in the morning. 30 tablet 1 025 2024 Active SUMAtriptan (Imitrex) 100 MG tabletIndications :Migraine with aura and without status migrainosus, not intractable TAKE 1 TABLET BY MOUTH 1 TIME NEEDED FOR MIGRAINE FOR UP TO 1 DOSE. 9 tablet Active prazosin (Minipress) 2 MG capsuleIndication s:Depression with anxiety TAKE 1 CAPSULE BY MOUTH EVERYDAY AT BEDTIME 90 capsule Active naloxone (Narcan) 4 mg/0.1 mL nasal sprayIndications: Lumbar radiculopathy Administer 1 spray (4 mg) into affected nostril(s) if needed for opioid reversal. May repeat every 2-3 minutes if needed, alternating nostrils, until medical assistance becomes available. 2 each 3 025 2025 Active ALPRAZolam (Xanax) 1 MG tabletIndications :Anxiety [...] 28 days. 84 tablet 025 2024 Active zolpidem (Ambien) 10 MG tabletIndications :Insomnia, unspecified type TAKE 1 TABLET BY MOUTH EVERY DAY AT BEDTIME NEEDED FOR SLEEP 28 tablet 1 Active naloxone (Narcan) 4 mg/0.1 mL nasal sprayIndications: Lumbar radiculopathy Administer 1 spray (4 mg) into affected nostril(s) if needed for opioid reversal. May repeat every 2-3 minutes if needed, alternating nostrils, until medical assistance becomes available. 2 each 3 024 2024 Discontinued(R eorder (will not trigger notification to Pharmacy)) prazosin (Minipress) 2 MG capsuleIndication s:Depression with anxiety TAKE 1 CAPSULE BY MOUTH EVERYDAY AT BEDTIME 90 capsule 025 2024 Discontinued zolpidem (Ambien) 10 MG tabletIndications :Insomnia, unspecified type TAKE 1 TABLET BY MOUTH EVERY DAY AT BEDTIME NEEDED FOR SLEEP 28 tablet 1 025 2024 Discontinued(R eorder (will not trigger notification to Pharmacy)) SUMAtriptan (Imitrex) 100 MG tabletIndications :Migraine with aura and without status migrainosus, not intractable TAKE 1 TABLET BY MOUTH 1 TIME NEEDED FOR MIGRAINE FOR UP TO 1 DOSE. 9 tablet 025 2024 Discontinued ALPRAZolam (Xanax) 1 MG tabletIndications :Anxiety Take 1 tablet (1 mg) by mouth if needed at bedtime for anxiety or sleep for up to 28 days. Do not start before August 01, 2025. 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 Reported hx of MH services at [facility], Hx of multiple SI attempts bu taking [...] seek support PLAN: 1. Follow up with [facility] [place]: Not recommended for follow-up 2. 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 Reported hx of MH services at [facility], Hx of multiple SI attempts bu taking [...] seek support PLAN: 1. Follow up with [facility] [place]: Not recommended for follow-up 2. 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 Patient will benefit from OP therapy and coping mechanisms. At this time Sharita Montez meets criteria for Visit Diagnoses: Problem List Items Addressed This Visit Other Anxiety Major depression Patient ready to address current needs Yes Strengths-Sharita is open and engaged. She is in the preparation stage of change. PLAN: 1. Follow up with [facility] [place]: Not recommended for follow-up 2. Patient goal is to engage in OP therapy and explore additional coping mechanisms. 3. Behavioral Recommendations a. Deep breathing b. OP therapy c. Self care Routine health maintenance 12/06/2022 Encounters * This document contains information received from the source organization and may not represent a complete record from that organization. Date Type Department Care Team Description 09/02/2025 Telephone [facility] [address] [place] [phone] Rena Henriquez MD Med Refill 09/02/2025 Refill [facility] [address] [place] [address] Rena Henriquez MD Anxiety; Chronic pain of both shoulders; Insomnia, unspecified type 08/29/2025 Telephone [facility] [address] [place] [address] Matilda Chisholm RN Anbnormal UTOX 08/25/2025 2:00 PM EDT Clinical Support [facility] [address] [place] [address] Matilda Chisholm RN Long-term current use of opiate analgesic (Primary Dx); Long-term current use of benzodiazepine 08/25/2025 Refill [facility] [address] [place] [address] Matilda Chisholm RN Lumbar radiculopathy 08/25/2025 Travel 08/09/2025 Refill [facility] [address] [place] [address] Rena Henriquez MD Migraine with aura and without status migrainosus, not intractable 08/01/2025 Telephone [facility] [address] [place] [address] Rena Henriquez MD Med Refill 08/01/2025 Refill [facility] [address] [place] [address] Rena Henriquez MD Chronic pain of both shoulders 07/28/2025 Refill [facility] [address] [place] [address] Rena Henriquez MD Anxiety 07/25/2025 Refill [facility] [address] [place] [address] Rena Henriquez MD Depression with anxiety 07/15/2025 2:45 PM EDT Office Visit [facility] [address] [place] [address] Ray-[place], Kavitha, DDS Edentulism (Primary Dx) 07/10/2025 Refill [facility] [address] [place] [address] Rena Henriquez MD Migraine with aura and without status migrainosus, not intractable 07/06/2025 1:30 PM EDT Office Visit [facility] [address] [place] [address] Ray-[place], Kavitha, DDS Edentulism (Primary Dx) 07/04/2025 Refill [facility] [address] [place] [address] Rena Henriquez MD Insomnia, unspecified type 07/04/2025 Refill [facility] [address] [place] [address] Rena Henriquez MD Anxiety; Chronic pain of both shoulders 06/22/2025 5:20 PM EDT Office Visit [facility] [address] [place] [address] Rena Henriquez MD Type 2 diabetes mellitus with hyperglycemia, without long-term current use of insulin ([facility]/HCC); Acute bilateral low back pain with right-sided sciatica 06/22/2025 3:30 PM EDT Office Visit [facility] [address] [place] [address] Ray-[place], Kavitha, DDS Edentulism (Primary Dx) 06/22/2025 Travel 06/16/2025 Telephone [facility] [address] [place] [address] Cielo Turner, OD 06/10/2025 Telephone [facility] [address] [place] [address] Ledy Travis, LEO Results; MRI 06/09/2025 Orders Only [facility] [address] [place] [address] Rena Henriquez MD Brain hemangioma (CMS/HCC) (Primary Dx) 06/08/2025 2:00 PM EDT Office Visit [facility] [address] [place] [address] Ray-[place], Kavitha, DDS Edentulism (Primary Dx) from Last 3 Months Immunizations Immunization Administration [...] Info) Description 10/13/2025 11:30 AM EST Telemedicine [facility] [address] [place] [address] Rena Henriquez MD [address] [place] [address] 10/31/2025 2:00 PM EST Office Visit [facility] [address] [place], [place] [phone] Cielo Turner, OD [address] [place] [address] 11/28/2025 1:30 PM EST Clinical Support [facility] [address] [place] [address] Matilda Chisholm, RN Health Maintenance Due Date Last Done Comments CT Colonography 1955 Colonoscopy 1955 Dental Prophylaxis 1955 FIT 1955 Sigmoidoscopy 1956 Diabetes: Foot Exam 1966 Eye Exam 1966 Pneumococcal Vaccine: 50+ Years (1 of 2 - PCV) 1975 RSV Patients and Patients Aged 60 years or older (1 - Risk 50-74 years 1-dose series) 2006 Zoster Vaccines (1 of 2) 2006 Dental Oral Exam 08/09/2021 02/06/2021 Dental X-Ray: [...] 04/10/2016 Mammogram 05/03/2026 05/03/2025, 09/19/2023 Tobacco Screening 07/15/2026 07/15/2025 Dental X-Ray: Full Mouth 06/25/2027 06/24/2024, 01/25 [...] Comments POCT NARCISA-14 URINE DRUG SCREEN Routine 08/25/2025 2:21 PM EDT Long-term current use of opiate analgesic Long-term current use of benzodiazepine OXYCODONE SCREEN, URINE Routine 08/25/2025 2:00 PM EDT Long-term current use of opiate analgesic Long-term current use of benzodiazepine CASE PRESENTATION, DETAILED AND EXTENSIVE TREATMENT PLANNING Routine 07/15/2025 2:45 PM EDT Edentulism Christine COMPLETE DENTURE - MANDIBULAR Routine 07/15/2025 2:45 PM EDT Edentulism Max COMPLETE DENTURE - MAXILLARY Routine 07/15/2025 2:45 PM EDT Edentulism WAX TRY IN Routine 07/06/2025 1:30 PM EDT Edentulism BITE REGISTRATION Routine 06/22/2025 3:3 0 PM EDT Edentulism DENTURE IMPRESSION Routine 06/08/2025 2: 00 PM EDT Edentulism BI MAMMOGRAM SCREENING TOMOSYNTHESIS BILATERAL Routine 05/03/2025 1:30 PM EDT LIPID PANEL, STANDARD Routine [...] Relevant to Health Maintenance Results * (ABNORMAL) POCT NARCISA-14 Urine Drug Screen (08/25/2025 2:21 PM EDT) THC Positive(A) Negative Cocaine Screen, Urine Negative Negative Opiate Screen, Urine Negative Negative Methamphetamine Screen Urine Negative Negative Amphetamine Screen, Urine Negative Negative Benzodiazepines Screen, Urine Positive(A) Negative 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 08/02/26 Internal Pass Control Rena De La Torre MD POINT OF CARE TEST EN TER/EDIT ORDERABLES Final Result * Oxycodone Screen, Urine (08/25/2025 2:00 PM EDT) Oxycodone Urine Screen Not Detected Not Detect ng/mL [facility] Comment:Oxycodone cut-off is 100 ng/mL.Positive results are unconfirmed and should not be used fornon-medical purposes. Urine 08/25/2025 2:00 PM EDT 08/25/2025 5:14 PM EDT us Rena De La Torre MD LAB URINE ORDERABLES Final Result [facility] [address] [place] [address] [phone] * BI Mammogram Screening Tomosynthesis Bilateral (05/03/2025 1:30 PM EDT) Anatomical Region Laterality Modality Breast Bilateral Mammography 05/03/2025 1:30 PM EDT Narrative 05/17/2025 9:01 AM EDT [facility] [address] [place] [address] Mammography Report Signed Patient: Sharita Montez MR#: [id number] 51 : 1955 Acct:[id number] Age/Sex: 69 / F ADM Date: 05/03/25 Loc: HO.MAMMO Attending Dr: Rena De La Torre MD Ordering Physician: Rena Henriquez MD Results: 1Negative Date of Service: 05/03/25 Follow Up: 1 Year From [facility] Mammogram Procedure(s): MM tomosynthesis screening BI Accession Number(s): [id number] cc: Rena Henriquez MD EXAMINATION: MM SCREENING [...] Haley Ricks DO 05/17/2025 08:59 AM EDT RP Dictated By: Haley Ricks DO Signed By: <Electronically signed by Haley Ricks DO in OV> 05/17/25 0859 DD/ 1330 TD/TT: 05/03/25 1345 Garland Maker: Procedure Note Donotuseinterpreter, Image - 05/17/20[facility] [address] [place] [address] Mammography Report Signed Patient: Jessi Montez#: [id number] [birth year] : 1955cct:[id number] Age/Sex: 69 / FADM Date: 05/03/25 Loc: HO.MAMMO Attending Dr: Rena De La Torre MD Ordering Physician: Rena Henriquez MDResults: 1Negative Date of Service: 05/03/25Follow Up: 1 Year From Orig ina Mammogram Procedure(s): MM tomosynthesis screening BI Accession Number(s): [id number] cc: Rena Henriquez MD EXAMINATION: MM SCREENING [...] Haley Ricks DO 05/17/2025 08:59 AM EDT RP Dictated By: Haley Ricks DO Signed By: <Electronically signed by Haley Ricks DO in OV> 05/17/25 0859 DD/ 1330 TD/TT: 05/03/25 1345 Garland Maker: us Rena De La Torre MD IMG BI PROCEDURES Fin al Result * (ABNORMAL) Lipid Panel, Standard (01/21/2025 11:58 AM EDT) Triglycerides 178(H) <150 mg/dL [facility] Comment:Desirable Triglyceri de: less than 150 mg/dLBorderline High Triglyceride 150-199 mg/dLHigh Triglyceride: 200-499 mg/dLVery High Triglyceride: greater than or equal to 5OO mg/dL Cholesterol 216(H) <200 mg/dL [facility] Comment:Desirable Cholestero l: less than 200 mg/dLBorderline High Cholesterol: 200-239 mg/dLHigh Cholesterol: greater than 239 mg/dL LDL Cholesterol Calculated 149(H) <100 mg/dL [facility] Comment:Desirable LDL: less than 100 mg/dLNear Optimal/Above Optimal LDL: 110- 129 mg/dLBorderline High LDL: 130-159 mg/dLHigh LDL: 160-189 mg/dLVery High LDL: greater than or equal to 190 mg/dL HDL Cholesterol 32(L) >40 mg/dL [facility] Comment:Desirable HDL: great er than 40 mg/dL Note: This HDL assay may give artificially low results in patients with liver disease. 01/21/2025 11:5 8 AM EDT 01/21/2025 1:41 PM EDT us Rena De La Torre MD LAB BLOOD ORDERABLES Final Result [facility] [address] [place] [phone] * CT Lung Screening Low dose (11/11/2024 9:55 AM EST) Anatomical Region Laterality Modality Lung Computed Tomogra phy 11/11/2024 9:55 AM EST Narrative 11/11/2024 9:[address] [address] [address] Scan Report Signed Patient: Sharita Montez MR#: [id number] 51 : 1955 Acct:[id number] Age/Sex: 69 / F ADM Date: 11/10/24 Loc: HO.CT Attending Dr: Buzz Flores MD Ordering Physician: Buzz Flores MD Date of Service: 11/10/24 Procedure(s): CT lung screening Accession Number(s): [id number] cc: Rena Henriquez MD; Buzz Flores MD Report Number: [id number]: Total DLP = 67.00 mGy-cm CLINICAL HISTORY: [...] Chinchilla MD on 11/11/2024 09:55:45 Dictated By: Dansi Chinchilla MD Signed By: <Electronically signed by Danis Chinchilla MD in OV> 11/11/24954 DD/ 4 TD/TT: 11/11/24954 Garland Maker: Procedure Note Donotuseinterpreter, Image - 11/11/[address] [place] [address] [address] Scan Report Signed Patient: Jessi Montez#: [id number] [birth year] : 1955cct:[id number] Age/Sex: 69 / FADM Date: 11/10/24 Loc: HO.CT Attending Dr: Buzz Flores MD Ordering Physician: Buzz Flores MD Date of Service: 11/10/24 Procedure(s): CT lung screening Accession Number(s): [id number] cc: Rena Henriquez MD; Buzz Flores MD Report Number: [id number]: Total DLP = 67.00 mGy-cm CLINICAL HISTORY: [...] Chinchilla MD on 11/11/2024 09:55:45 Dictated By: Dnais Chinchilla MD Signed By: <Electronically signed by Danis Chinchilla MD in OV> 11/11/24954 DD/ 4 TD/TT: 11/11/24954 Garland Maker: [facility] External Provider IMG CT PROCEDURES Edited Result - Final * (ABNORMAL) POCT A1C (10/29/2024 4:10 PM EST) Pathologist [facility] Hemoglobin A1C 6.2(A) 4.0 - 6.0 % QC Media Lot # [id number] Lot# Expiration Date ,754 Blood 10/29/2024 4:10 PM EST Rena De La Torre MD POINT OF CARE TEST EN TER/EDIT ORDERABLES Final Result * Cologuard?? colon cancer screening (09/28/2024 9:45 AM EST) Cologuard Result Negative Negative 10/05/20 11:07 AM EST [facility] (CLIA #:[id number]) Comment: NEGATIVE TEST RESULT. A negative Cologuard [...] (Ilene Jackson al, N Engl J Med 2014;370(14):4885-2217) The normal value (reference range) for this assay is negative. COLOGUARD RE-SCREENING RECOMMENDATION: Periodic colorectal cancer screening is an important part of preventive healthcare for asymptomatic individuals at average risk for colorectal cancer. Following a negative Cologuard result, the [place] [employer] Society and U.S. Multi-Society Task Force screening guidelines recommend a Cologuard re-screening interval of 3 years. References: [place] [employer] Guideline for Colorectal Cancer Screening: https://www.cancer.org/cancer/xcxck-ecmrik-qzhdjo/zcryfqtps-ziouvxaie-dfpcqfv/ac s-rec ommendations.html.; Chi DK, Alessandra FERREIRA, Caitlin VelasquezK, Colorectal Cancer Screening: Recommendations for Physicians and Patients from the U.S. Multi-Society Task Force on Colorectal Cancer Screening , Am J Gastroenterology 2017; 112:7914-7969. TEST DESCRIPTION: Composite algorithmic analysis of stool [...] screened with both Cologuard and colonoscopy. (Ilene Garnett, N Engl J Med 2014;370(14):7635-8010.) Cologuard may produce a false negative or false positive result (no colorectal cancer or precancerous polyp present at colonoscopy follow up). A negative Cologuard test result does not guarantee the absence of CRC or advanced adenoma (pre-cancer). The current Cologuard screening interval is every 3 years. ([employer] Society and U.S. Multi-Society Task Force). Cologuard performance data in a 10,000 patient pivotal study using colonoscopy as the reference method can be accessed at the following location: www.CareShare/results. Additional description of the Cologuard test process, warnings and precautions can be found at www.cologuard.com. Stool specimen (specimen) 09/28/2024 9:45 AM EST 09/29/2024 1:26 PM EST Rena De La Torre MD LAB MOLECULAR DIAGNOS TICS ORDERABLES Final Result Performing Organization Address City/[facility]/ZIP Co de Phone Number [facility] (CLIA #:[id number]) [address] [place] [address], * MICROALBUMIN/CREATININE RATIO, RANDOM URINE (03/12/2022 8:05 AM EDT) Creatinine Urine 123.25 mg/dL [facility] Microalbum/Creati nine Ratio Ur 5.6 ug/mg cr [facility] Comment: Albumin/Creatinine Ratio Reference Ranges: Normal: < 30 ug/mg creatinine Microalbuminuria: 30 - 300 ug/mg creatinine Clinical Albuminuria: > 300 ug/mg creatinine Microalbumin Urine 7.0 mg/L [facility] 03/12/2022 8:05 AM EDT Historical Provider HISTORICAL/NON ORDERABLE LABS Final Result Performing Organization Address City/[facility]/ZIP Co de Phone Number [facility] [address] [place] [address], * HEPATITIS C AB W/REFL TO HCV RNA, QN, PCR (08/10/2021 3:12 PM EDT) HEPATITIS C ANTIBODY NON-REACT [facility] NON-REACT [facility] INDEX 0.05 <1.00 [facility] Comment: HCV antibody was non-reactive. There is no laboratory evidence of HCV infection. In most cases, no further action is required. However, if recent HCV exposure is suspected, a test for HCV RNA (test code 58631) is suggested. For additional information please refer to http://education.Bonica.co/faq/RLA53k5 (This link is being provided for informational/ educational purposes only.) 08/10/2021 3:12 PM EDT us Carolina Ruffin MD HISTORICAL/NON ORDERABLE LAB S Final Result [facility] [address] from Last 3 Months or Most Recently Relevant to Health Maintenance Insurance [facility] STANDARD [facility] OPTIONS (HMO D-SNP) D[facility]AL - [facility] Care Teams Clinical Physician Assistant Relationship Specialty Start Date End Date Rena Henriquez MD [address] [place] [phone] PCP - General Internal Medicine 06/23/24
--- OUTSIDE RECORDS SUMMARY | 2025-09-07 17:13 | XMS_ITS | Encounter Summary ---
Author Organization [employer] Address [address] [facility] 7t [place] [address] Care Team Providers Care Lacquer Machine Feeder Name Role Phone Rena Henriquez MD Primary Care Provide r Krystal Joyner PharmD Unavailable [phone] Reason for Visit * Reason Onset Date Comments Med Refill 02/02/2025 Encounter Details Date Type Department Care Team ([facility] st Contact Info) Description 02/02/2025 Telephone [facility] MEDICINE [address] [place], [place] [phone] Rena Henriquez MD [address] [place], [place] [phone] Med Refill Social History Tobacco Use Types [...] solution auto-injector To be sent to: [facility]/pharmacy #[id number] [place] [address] documented in this encounter Plan of Treatment Upcoming Encounters Date Type Department Care Team (Late st Contact Info) Description 10/13/2025 11:30 AM EST Telemedicine [facility] MEDICINE [address] [place], [place] [phone] Rena Henriquez MD [address] [place], [place] [phone] 10/31/2025 2:00 PM EST Office Visit [facility] OPTOMETRY [address] [place], [place] [phone] Tinrosalba Cielo, OD [address] [place] [address] 11/28/2025 1:30 PM EST Clinical Support [facility] [address] [place] [address] Matilda Chisholm, RN documented as of this encounter Visit Diagnoses Not on filedocumented in this encounter Additional Health Concerns Assessment Noted Time PHQ-9 Depression Total Score: 15 12/21/ 025 2:05 PM EST documented as of this encounter Care Teams Lacquer Machine Feeder Relationship Specialty Start Date End Date Rena Henriquez MD [address] [place] [address] PCP - General Internal Medicine 06/23/24 Krystal Joyner PharmD [address] [place] [address] Pharmacist Internal Medicine 10/15/24 03/04/25 documented as of this encounter
--- OUTSIDE RECORDS SUMMARY | 2025-09-07 17:13 | XMS_ITS | Data Portability ---
Author Organization [employer], [facility] Address [address] [place] [address] Care Team Providers Care Meat Service Team Member Name Role Phone HIM CCA OTHER Assessment Encounter Date Assessment Date Assessment LastModified by Organization Details LastModified Time 02/13/2024 02/13/2024 I provided real -time medical direction via phone for this encounter, and was available for additional phone based assistance as needed. I have reviewed and agree with the Assessment and Plan as documented by the Life Insurance Actuary. We discussed the diagnostic uncertainty of home visits and the risk associated with this.. The patient given the opportunity to ask questions via Romanian language phone cutting inspector. Advised has mutliple complicated very serious complaints [...] agreed to be transported by EMS to [facility]. Report called to their ER by myself. Not available 02/14/2024 21:45:27 02/17/2024 02/17/2024 As noted, we umu e called to see this patient regarding concerns of chest pain x 5-6d, right hip pain radiating to leg x 3d and patient requesting re-evaluation 68 yo F with pmhx notable htn, dm, seen on 02/13/24 with instED visit and also seen in [facility] ED with 5-6d of intermittent chest [...] water. No abd pain She went to [facility] yesterday and had labwork done (results unknown). instED visit on 02/12 with EKG (no ischemic changes), POC BMP and H/H, udip (neg) Evaluation in the field was performed by my periodontal assistant colleague, as noted above, I provided real-time [...] moment but is agreeable to go to [facility] ED at 4p when MERCHANDISE HANDLER is due to arrive to look after her mother 2. Right low back/hip pain, lumbar radicular sxs in ddx, lower clinical suspicion for bony issue Patient is agreeable to go to [facility] ED at 4p when MERCHANDISE HANDLER arrives for her mom and may benefit from xrays 3. HTN, h/o essential htn but more elevated SBP. Had Cr 1.2 on labs from 02/12. No new cardiac, resp or neuro sxs since 02/12. Will need additional labs when she goes to ED later today Plan: EKG to rule out any STEMI while awaiting arrival of MERCHANDISE HANDLER for her to go to [facility] ED EKG w/o acute changes c/w prior from 02/12 I did discuss risks of not getting seen right away Primary care, consider whether there is any additional services to help with care of patient's mom at home. Strongly advised patient to go to ED as soon as MERCHANDISE HANDLER arrives at 4pm today, but this has been a barrier in her going to the ED for her 5-6d of cp, sob Disposition: We discussed the situation and I recommended referral to the emergency department. This was based on stuttering chest pain and sob. Patient will be going to [facility] ED once MERCHANDISE HANDLER arrives to look after her mom at [...] to ambulate. [facility] Pt seen at ER 2 weeks ago but pt unable to stay for admission. Evaluation in the field was performed by my periodontal assistant colleague, as noted above, I provided real-time [...] 2023 024 [email or web address] 0 [facility], [address] [place] [address], [phone] 4 13:14:48 BMP, serum or plasma 2023 024 [email or web address] 0 [facility], [address] [place] [address], [phone] 4 13:14:23 Referral None recorded. Procedures None recorded. Surgeries None recorded. Imaging electrocard iogram 2023 024 [facility], [address] [place] [address], [phone] 4 05:00:48 electrocard iogram 2023 024 [email or web address] 0 [facility], [address] [place] [address], [address] 4 13:06:57 Medication Orders gabapentin 300 mg capsule 2023 024 [facility]/Pharmacy #[id number], [address] [place], [address], 4 15:59:23 ketorolac 30 mg/mL injection solution [email or web address]/Pharmacy #[id number], [address] [place], [address], 15:59:19 Patient TargetsNo targets recorded. Patient InstructionsNo instructions recorded. Reason for Referral None Reported. Results Created Date Observation Date Name Description Value Unit Range Abnormal Flag Note LastModifiedBy Organization Detail LastModifiedTime 02/13/20 24 02/13/2024 BMP, serum or plasm a BUN 21 Not Available Main - Ins [address], [address] [place] [address] 02/13/2024 12:49:16 02/13/20 24 02/13/2024 BMP, serum or plasm a Ca I ca 1.3 Not Available [facility] - [address], [address] 02/13/2024 12:49:16 02/13/20 24 02/13/2024 BMP, serum or plasm a CI- 101 Not Available Main - Ins [address], [address] 02/13/2024 12:49:16 02/13/20 24 02/13/2024 BMP, serum or plasm a CRE 1.2 Not Available Main - Ins [address], [address] 02/13/2024 12:49:16 02/13/20 24 02/13/2024 BMP, serum or plasm a GLU 101 Not Available Main - Ins [address], [address] 02/13/2024 12:49:16 02/13/20 24 02/13/2024 BMP, serum or plasm a K+ 4 Not Available Main - Ins [address], [address] 02/13/2024 12:49:16 02/13/20 24 02/13/2024 BMP, serum or plasm a Na+ 139 Not Available Main - Ins [address], [address] 02/13/2024 12:49:16 02/13/20 24 02/13/2024 BMP, serum or plasm a tCO2 26 Not Available Main - Ins [address], [address] 02/13/2024 12:49:16 02/13/20 24 02/13/2024 urina lysis , dipst ick Leukocytes Negati ve Not Available Main - Inst ed [address] [place] [address], [phone] 02/13/2024 12:48:07 02/13/20 24 02/13/2024 urina lysis , dipst ick Nitrite negati ve Not Available Main - Inst ed [address] [place] [address], [address] 02/13/2024 12:48:07 02/13/20 24 02/13/2024 urina lysis , dipst ick Urobilinogen Negati ve Not Available Main - Inst ed [address] [place] [address], [address] 02/13/2024 12:48:07 02/13/20 24 02/13/2024 urina lysis , dipst ick Protein Negati ve Not Available Main - Inst ed [address] [place] [address], [address] [place] [address] 02/13/2024 12:48:07 02/13/20 24 02/13/2024 urina lysis , dipst ick pH 5 Not Available Main - Ins sharon [address] [place] [address], [address] 02/13/2024 12:48:07 02/13/20 24 02/13/2024 urina lysis , dipst ick Blood Negati ve Not Available Main - Inst ed [address] [place] [address], [address] [place] [address] 02/13/2024 12:48:07 02/13/20 24 02/13/2024 urina lysis , dipst ick Specific [place] 1.020 Not Available Main - Insted [address] [place] [address], [address] 02/13/2024 12:48:07 02/13/20 24 02/13/2024 urina lysis , dipst ick Ketone Negati ve Not Available Main - Inst ed [address] [place] [address], [address] 02/13/2024 12:48:07 02/13/20 24 02/13/2024 urina lysis , dipst ick Bilirubin Negati ve Not Available Main - Inst ed [address] [place] [address], [address] 02/13/2024 12:48:07 02/13/20 24 02/13/2024 urina lysis , dipst ick Glucose Negati ve Not Available Main - Inst ed [address] [place] [address], [address] 02/13/2024 12:48:07 02/13/20 24 02/13/2024 urina lysis , dipst ick Appearance clear Not Available [address], [address] 02/13/2024 12:48:07 02/13/20 24 02/13/2024 urina lysis , dipst ick Color concen trated Not Available [facility] ed [address] [place] [address], [address] 02/13/2024 12:48:07 02/13/20 24 02/13/2024 elect rocar diogr am No observ ation record ed. [email or web address] [address], [address] [place] [address] 02/13/2024 13:06:41 02/17/20 24 02/18/2024 elect rocar diogr am No observ ation record ed. [email or web address] [address], [address] 02/18/2024 09:49:06 Result Notes None recorded. Medical Equipment None Reported. Allergies Allergen ID Allergen Name Allergen Category Reaction Reaction Severity Criticality Documentation Date Start Date Code Code System Note Provider Name and Address Organization Details Recorded Time 4947 lisinopri l medicatio n Not available Not available Not available 02/14/2024 24598 RxNorm Amy Davenport MD [address] [place] [address],[address], [place], [address] [facility] 21:25:02 Medications Name Sig Start Date Stop [...] Details Last Updated DateTime 4 165.1 cm 810916. 16 g 18 /min 98.3 [degF] 70 /min 99 % 99 % 133/71 mm[Hg] Not Available [employer] 4 14:39:06 Date Recorded Oxygen saturation Oxygen saturation in Arterial blood by Pulse oximetry Heart rate Respiratory rate Body temperature Systolic And Diastolic Provider Name and Address Organization Details Last Updated DateTime 4 99 % 99 % 93 /min 18 /min 98.9 [degF] 202/92 mm[Hg] Not Available [employer] 4 14:03:30 Date Recorded Body height Oxygen saturation Oxygen saturation in Arterial blood by Pulse oximetry Body temperature Body weight Respiratory rate Heart rate Systolic And Diastolic Provider Name and Address Organization Details Last Updated DateTime 4 162.56 cm 98 % 98 % 98.4 [degF] 999030 g 18 /min 90 /min 162/88 mm[Hg] Not Available [employer] 4 15:40:57 Social History None recorded. Functional Status None recorded. Mental Status None recorded. Family History Nothing Reported. Medical History No medical history recorded. Gynecological HistoryNo gynecological history recorded. Obstetrics History GPAL:G 0 P 0 0 0 0 Past Encounters Encounter ID Performer Location Encounter Start Date Encounter Closed Date Diagnosis/Indication Diagnosis SNOMED-CT Code Diagnosis ICD10 Code Diagnosis IMO Codes Diagnosis Note [id number] Amy Davenport MD Main - inst[facility] [address] [place] [phone] 02/13/2024 12:43:15 02/15/2024 14:51:39 Chest pain 35577238 R07.9 advised ekg not completely normal cannot tell if acute needs further cardiac w/u than can be accomplish ed at home. Urinary symptoms 8251351 08 R39.9 Headache 91748652 R51.9 Not hypertensi ve, hx migraines but has new dizziness and neck pain needs CT of the brain to r/o bleed Lumbago with sciatica 20 0867466 M54.40 with new incontinen ce of bladder/rick [place] [id number] NIKKI LACKEY MD Main - [facility] [address] [place] [phone] 02/17/2024 14:01:51 02/17/2024 15:25:01 Essential hypertension 69680828 I10 Chest pain 87815495 R07. 9 Pain of hip region 80803 002 M25.559 [id number] NIKKI LACKEY MD Main - instED [address] [place] [phone] 03/03/2024 15:33:59 03/03/2024 16:26:08 Lumbago with sciatica 198034121 M54.41 [id number] Efrem Romero MD Main - instED [address] [place] [phone] 03/12/2024 18:46:33 03/13/2024 12:07:48 Mechanical low back pain 722988167 M54.50 This 68-year-ol d female has had [...] Giron Member ID Guarantor Name 03/03/2024 1 [facility] - DOS ON OR AFTER 2023 - DUAL ELIGIBLE - SNF OPTIONS AND ONE CARE (MEDICARE REPLACEMENT/ADV ANTAGE - HMO) Sharita Montez [id number] Sharita Melida 02/13/2024 1 [facility] - DOS ON OR AFTER 2023 - MEDICARE [place]VANTAGE [place] (MEDICARE REPLACEMENT/ADV ANTAGE - PPO) Sharita Melida [id number] Sharita Montez 03/03/2024 1 [facility] - DOS ON OR AFTER 2023 - MEDICARE [place]AGE [place] (MEDICARE REPLACEMENT/ADV ANTAGE - PPO) Sharita Montez [id number] Sharita Montez 08/12/2024 1 [facility] - DOS ON OR AFTER 2023 - DUAL ELIGIBLE - SNF OPTIONS AND ONE CARE (MEDICARE REPLACEMENT/ADV ANTAGE - HMO) Sharita Montez [id number] Sharita Montez 02/17/2024 1 [facility] - DOS ON OR AFTER 2023 - [place]IC[place]AGE [place] (MEDIC[place] REPLACEMENT/ADV ANTAGE - PPO) Sharita Montez [id number] Sharita Montez Notes Date Note Type Note [...] .................. .................. .................. .................. .................. .................. .... Life Insurance Actuary Note From Carlota El: Sent to a call for a pt complaining of right hip/leg pain. [facility] arrives on scene, pt is alert and oriented, airway is patent. Pt has a steady gait. Pt speaks Romanian and cutting inspector line used during visit. Pt complains of [...] Urine sample obtained; urine dip: uploaded to [employer]; [facility] consulted and order BMP and 12 lead ECG. IV access and venous blood draw performed; Istat Chem8+ results and 12 lead ECG: uploaded to [employer]. While speaking with [facility] via cutting inspector pt states she has had bad headaches in the past, but this one is different because she is having neck pain as well. [facility] advises pt to be transported to ED. Pt initially states she can't go to ED because she needs to take care of her mother, but calls contacts to have someone take care of pt's mother while she goes to ED. Pt agrees to transport and requests transport to [facility] ED. [facility] calls report to [facility]. 911 called and pt care is transferred to [facility]. Pt is transported to [facility] ED via [facility]. .................. .................. .................. .................. .................. .................. .................. ............... Disposition: Fulfilled Amy Davenport MD [address] [facility],[address], [place], [address], [facility] [employer] 02/14/2024 21:47:12 02/17/2024 text/html ROS as noted [...] advised of disposition, agrees to [facility]ED vs [facility] for exam. instED referral placed. Pt to follow up with office pRN per instED recommendations. Patient Reports: Shortness of Breath Denies: Unable to speak in full sentences without distress Chief Complaints: UTI/Pyelonephritis , Pain PMH: Hypertension, Diabetes Allergies: Unknown Comments: Spoke w/ member with warp hauler [place], member c/o chest pain, ongoing always there it does get worse at times and then she feels SOB, chest feels sore but unable to state if the pain is reproducible, hx of this chest pain and c/o same symptom on 02/12- went to [facility], left because she did not have anyone to watch her mom who is 89 and has Dementia- the member is waiting on the [facility] results, the [facility] wanted to admit her for it seems like a possible AK or r/o AK but pt refused. Advised member that she should go to the ED and be evaluated further, she said she can't leave her mother and the MERCHANDISE HANDLER can't watch her either, she has no family. Advised the [facility] may suggest going to the ED anyway but I will process referral . Tai BAILEY .................. .................. .................. .................. .................. .................. .................. ............... Life Insurance Actuary Note From Krzysztof Cullen: Dispatched to the [...] would go to the ED when the MERCHANDISE HANDLER got there to care for her mother (approx 1600). Red flags discussed. ALL times are apprx. .................. .................. .................. .................. .................. .................. .................. ............... Disposition: Fulfilled NIKKI LACKEY MD [address] [facility],[address], [place], [address], [facility] - [facility] 02/17/2024 14:48:41 03/03/2024 text/html ROS as noted in the HPI HPI: Call returned to [facility] to triage below. Reports having back pain and right leg pain . Pt also endorses numbness on foot x 2 week. Pt using Motrin and aleve PRN for pain. No urinary sx. Pt seen at ER 2 weeks ago but pt unable to stay for admission. Per pt unable to come into office. Agrees to [employer] for evaluation. .................. .................. .................. .................. .................. .................. .................. ............... [facility] Nurse Triage Notes (Ernestina Jackman): Comments: HPI reviewed. No further information required to process visit. .................. .................. .................. .................. .................. .................. .................. ............... Life Insurance Actuary Note From Lenny Lynne: Patient conscious alert [...] tenderness. Good CSM negative swelling or discoloration. [facility] advises he will prescribe gabapentin to patient s local pharmacy and orders Toradol 30 mg IM. Administered as noted red flags, and patient education discussed patient encouraged to follow up with PCP .................. .................. .................. .................. .................. .................. .................. ............... Disposition: Fulfilled NIKKI LACKEY MD [address] [place] [address],[address], [place], [address], [employer] 03/03/2024 16:20:16 03/12/2024 text/html ROS as noted [...] visit on 03/03 for similar symptoms Efrem Romeor MD [address] [facility],[address], [place], [address], [facility] - [employer], [facility] 03/12/2024 18:51:40 OBGyn Episode No OBEpisode recorded.
--- OUTSIDE RECORDS SUMMARY | 2025-09-07 17:13 | XMS_ITS | Encounter Summary ---
Author Organization [employer] Address [address] [facility] [address] [place] [address] Care Team Providers Care Lap Checker Name Role Phone Minerva Barraza Primary Care Provider [phone] Rena Henriquez MD Primary Care Provide r Krystal Joyner PharmD Unavailable [phone] Reason for Visit * Reason Onset Date Comments Med Refill 08/19/2023 Encounter Details Date Type Department Care Team (Late st Contact Info) Description 08/19/2023 Telephone [facility] [address] [place], [place] [phone] Minerva Barraza FNP [address] [place] [address] Med Refill Social History Tobacco Use Types [...] Info) Description 10/13/2025 11:30 AM EST Telemedicine [facility] [address] [place] [phone] Rena Henriquez MD [address] [place] [address] 10/31/2025 2:00 PM EST Office Visit [facility] OPTOMETRY [address] [place] [address] Cielo Turner, OD [address] [place] [address] 11/28/2025 1:30 PM EST Clinical Support [facility] [address] [place] [address] Matilda Chisholm, RN documented as of this encounter Visit Diagnoses Not on filedocumented in this encounter Additional Health Concerns Assessment Noted Time PHQ-9 Depression Total Score: 16 05/19/ 023 10:31 AM EDT documented as of this encounter Care Teams Lap Checker Relationship Specialty Start Date End Date Minerva Barraza FNP [address] [place] [address] PCP - General Family Medicine 07/29/22 06/22/24 Rena Henriquez MD [address] [place] [address] PCP - General Internal Medicine 06/23/24 Krystal Joyner PharmD [address] [place] [address] Pharmacist Internal Medicine 10/15/24 03/04/25 documented as of this encounter
--- OUTSIDE RECORDS SUMMARY | 2025-09-07 17:13 | XMS_ITS | Encounter Summary ---
Author Organization [employer] Address [address] [facility] [address] [place] [address] Care Team Providers Care Irrigation Equipment Installer Name Role Phone Minerva Barraza Primary Care Provider [phone] Rena Henriquez MD Primary Care Provide r Krystal Joyner PharmD Unavailable [phone] Reason for Visit * Reason Comments Med Refill Encounter Details Date Type Department Care Team (Late Contact Info) Description 07/07/2023 Refill [facility] [address] [place] [phone] Minerva Barraza FNP [address] [place] [address] Tobacco abuse Social History Tobacco Use Types [...] Info) Description 10/13/2025 11:30 AM EST Telemedicine [facility] [address] [place] [phone] Rena Henriquez MD [address] [place] [address] 10/31/2025 2:00 PM EST Office Visit [facility] OPTOMETRY [address] [place] [address] Cielo Turner, OD [address] [place] [address] 11/28/2025 1:30 PM EST Clinical Support [facility] [address] [place] [address] Matilda Chisholm, LEO documented as of this encounter Visit Diagnoses Diagnosis Tobacco abuse Tobacco use disorder documented in this encounter Additional Health Concerns Assessment Noted Time PHQ-9 Depression Total Score: 16 023 10:31 AM EDT documented as of this encounter Care Teams Irrigation Equipment Installer Relationship Specialty Start Date End Date Minerva Barraza FNP [address] [place] [address] PCP - General Family Medicine 07/29/22 06/22/24 Rena Henriquez MD [address] [place] [address] PCP - General Internal Medicine 06/23/24 Krystal Joyner PharmD [address] [place] [address] Pharmacist Internal Medicine 10/15/24 03/04/25 documented as of this encounter
--- OUTSIDE RECORDS SUMMARY | 2025-09-07 17:13 | XMS_ITS | Encounter Summary ---
Author Organization [employer] Address 75 [facility] 7t [place] [address] Care Team Providers Care Biomedical Equipment Technician Name Role Phone Minerva Barraza Primary Care Provider +[phone] Rena Henriquez MD Primary Care Provide r Krystal Joyner PharmD Unavailable [phone] Reason for Visit * Reason Comments Med Change Request Encounter Details Date Type Department Care Team ([facility] st Contact Info) Description 09/19/2023 Refill [facility] MEDICINE [address] [place], [place] [phone] Minerva Barraza FNP 230 [place] [address] Type 2 diabetes mellitus without complication, with long-term current use of insulin ([facility]) Social History Tobacco Use Types Packs/Day Years [...] Info) Description 10/13/2025 11:30 AM EST Telemedicine [facility] MEDICINE [address] [place] [address] Rena Henriquez MD [address] [place] [address] 10/31/2025 2:00 PM EST Office Visit [facility] OPTOMETRY [address] [place] [address] Cielo Turner, OD [address] [place] [address] 11/28/2025 1:30 PM EST Clinical Support [facility] MEDICINE [address] [place] [address] Matilda Chisholm RN documented as of this encounter Visit Diagnoses Diagnosis Type 2 diabetes mellitus without complication, with long-term current use of insulin (HCC) documented in this encounter Additional Health Concerns Assessment Noted Time PHQ-9 Depression Total Score: 16 023 10:31 AM EDT documented as of this encounter Care Teams Biomedical Equipment Technician Relationship Specialty Start Date End Date Minerva Barraza FNP [address] [place] [address] PCP - General Family Medicine 07/29/22 06/22/24 Rena Henriquez MD 230 [place] [address] PCP - General Internal Medicine 06/23/24 Krystal Joyner, DamionD 230 [place] [address] Pharmacist Internal Medicine 10/15/24 03/04/25 documented as of this encounter
--- OUTSIDE RECORDS SUMMARY | 2025-09-07 17:13 | XMS_ITS | Encounter Summary ---
Author Organization [employer] Address 75 [facility] 7t [place] [address] Care Team Providers Care Flexographic Press Operator Name Role Phone Minerva Barraza Primary Care Provider +[phone] Rena Henriquez MD Primary Care Provide r Krystal Joyner PharmD Unavailable [phone] Reason for Visit * Reason Comments Med Refill Encounter Details Date Type Department Care Team (Late st Contact Info) Description 08/30/2023 Refill [facility] MEDICINE [address] [place], [place] [phone] Minerva Barraza FNP 230 [place] [address] Mild intermittent asthma without complication Social History [...] Info) Description 10/13/2025 11:30 AM EST Telemedicine [facility] MEDICINE [address] [place] [address] Rena Henriquez MD [address] [place] [address] 10/31/2025 2:00 PM EST Office Visit [facility] OPTOMETRY [address] [place] [address] Cielo Turner OD [address] [place] [address] 11/28/2025 1:30 PM EST Clinical Support [facility] MEDICINE [address] [place] [address] Matilda Chisholm, LEO documented as of this encounter Visit Diagnoses Diagnosis Mild intermittent asthma without complication documented in this encounter Additional Health Concerns Assessment Noted Time PHQ-9 Depression Total Score: 16 023 10:31 AM EDT documented as of this encounter Care Teams Flexographic Press Operator Relationship Specialty Start Date End Date Minerva Barraza FNP [address] [place] [address] PCP - General Family Medicine 07/29/22 06/22/24 Rena Henriquez MD [address] [place] [address] PCP - General Internal Medicine 06/23/24 Krystal Joyner, Johnna 230 [place] [address] Pharmacist Internal Medicine 10/15/24 03/04/25 documented as of this encounter
--- OUTSIDE RECORDS SUMMARY | 2025-09-07 17:13 | XMS_ITS | Encounter Summary ---
Author Organization [employer] Address 75 [facility] 7t [place] [address] Care Team Providers Care Supervisor Dried Yeast Name Role Phone Minerva Barraza Primary Care Provider [phone] Rena Henriquez MD Primary Care Provide r Krystal Joyner PharmD Unavailable [phone] Encounter Details Date Type Department Care Team (Late st Contact Info) Description 05/28/2023 Orders Only [facility] MEDICINE [address] [place] [address] Minerva Barraza FNP [address] [place], [place] [phone] Tobacco abuse (Primary Dx) Social History Tobacco [...] Info) Description 10/13/2025 11:30 AM EST Telemedicine [facility] MEDICINE [address] [place] [address] Rena Henriquez MD 230 [place] [address] 10/31/2025 2:00 PM EST Office Visit [facility] OPTOMETRY [address] [place] [address] Cielo Turner, OD 267 [place] [address] 11/28/2025 1:30 PM EST Clinical Support [facility] MEDICINE 230 [place] [address] Matilda Chisholm, RN documented as of this encounter Visit Diagnoses Diagnosis Tobacco abuse- Primary Tobacco use disorder documented in this encounter Additional Health Concerns Assessment Noted Time PHQ-9 Depression Total Score: 16 023 10:31 AM EDT documented as of this encounter Care Teams Supervisor Dried Yeast Relationship Specialty Start Date End Date Minerva Barraza FNP [address] [place] [address] PCP - General Family Medicine 07/29/22 06/22/24 Rena Henriquez MD [address] [place] [address] PCP - General Internal Medicine 06/23/24 Krystal Joyner PharmD [address] [place] [address] Pharmacist Internal Medicine 10/15/24 03/04/25 documented as of this encounter
--- OUTSIDE RECORDS SUMMARY | 2025-09-07 17:14 | XMS_ITS | Encounter Summary ---
Author Organization [employer] Address 75 [facility] 7t [place] [address] Care Team Providers Care Cyber Security Manager Name Role Phone Minerva Barraza BURIAL VAULT SETTER Primary Care Provider +1 Rena Henriquez MD Primary Care Provide r Krystal Joyner PharmD Unavailable [phone] Encounter Details Date Type Department Care Team (Late st Contact Info) Description 06/07/2024 Orders Only [facility] MEDICINE 230 [place] [address] Haleigh Perez MD 230 [place], [place] [phone] Social History Tobacco Use Types Packs/Day Years [...] Info) Description 10/13/2025 11:30 AM EST Telemedicine [facility] MEDICINE [address] [place] [address] Rena Henriquez MD [address] [place] [address] 10/31/2025 2:00 PM EST Office Visit [facility] OPTOMETRY [address] [place] [address] [phone] Cielo Turner, OD [address] [place] [address] 11/28/2025 1:30 PM EST Clinical Support [facility] MEDICINE [address] [place] [address] Matilda Chisholm, RN documented as of this encounter Visit Diagnoses Not on filedocumented in this encounter Additional Health Concerns Assessment Noted Time PHQ-9 Depression Total Score: 18 024 4:16 PM EDT documented as of this encounter Care Teams Cyber Security Manager Relationship Specialty Start Date End Date Minerva Barraza FNP [address] [place] [address] PCP - General Family Medicine 07/29/22 06/22/24 Rena Henriquez MD 230 [place] [address] PCP - General Internal Medicine 06/23/24 Krystal Joyner, Johnna 230 [place] [address] Pharmacist Internal Medicine 10/15/24 03/04/25 documented as of this encounter
--- OUTSIDE RECORDS SUMMARY | 2025-09-07 17:14 | XMS_ITS | Encounter Summary ---
Author Organization [employer] Address 75 [facility] 7t [place] [address] Care Team Providers Care Ocean Export Coordinator Name Role Phone Rena Henriquez MD Primary Care Provide r Reason for Visit * Reason Onset Date Comments Med Refill 08/01/2025 Encounter Details Date Type Department Care Team ([facility] st Contact Info) Description 08/01/2025 Telephone [facility] MEDICINE 230 [place], [place] [phone] Rena Henriquez MD 230 [place], [place] [phone] Med Refill Social History Tobacco Use Types [...] Telephone Encounter - Jaja Villa LPN - 08/01/2025 12:37 PM EDT Medication was sent to [facility] #[id number] on 07/04/25 #28 with 1 refill. * Telephone Encounter - Epifanio De La Rosa - 08/01/2025 12:25 PM EDT TC from pt requesting medication refill. Medications needing refill: zolpidem (Ambien) 10 MG tablet To be sent to: [facility]/pharmacy #[id number] - [place], [place] - [address] [place] [address] documented in this encounter Plan of Treatment Upcoming Encounters Date Type Department Care Team (Late st Contact Info) Description 10/13/2025 11:30 AM EST Telemedicine [facility] MEDICINE [address] [place], [place] [phone] Rena Henriquez MD 230 [place], [place] [phone] 10/31/2025 2:00 PM EST Office Visit [facility] OPTOMETRY [address] [place], [place] [phone] Cieol Turner OD [address] [place] [address] 11/28/2025 1:30 PM EST Clinical Support [facility] MEDICINE [address] [place] [address] Matilda Chisholm, LEO documented as of this encounter Visit Diagnoses Not on filedocumented in this encounter Additional Health Concerns Assessment Noted Time PHQ-9 Depression Total Score: 15 025 2:05 PM EST documented as of this encounter Care Teams Ocean Export Coordinator Relationship Specialty Start Date End Date Rena Henriquez MD 230 [place] [address] PCP - General Internal Medicine 06/23/24 documented as of this encounter
--- OUTSIDE RECORDS SUMMARY | 2025-09-07 17:14 | XMS_ITS | Encounter Summary ---
Author Organization [employer] Address 75 [facility] 7t [place] [address] Care Team Providers Care Digital Marketing Project Manager Name Role Phone Minerva Barraza Primary Care Provider +9 Rena Henriquez MD Primary Care Provide r Krystal Joyner PharmD Unavailable [phone] Reason for Visit * Reason Onset Date Comments Medication Question 12/25/2022 Encounter Details Date Type Department Care Team (Late st Contact Info) Description 12/25/2022 Telephone [facility] MEDICINE 230 [place] [address] Minerva Barraza FNP 230 [place] [address] Medication Question Social History Tobacco Use Types [...] today appt 12/25/22 Please contact pt at [phone] Pt speaks mongolian documented in this encounter Plan of Treatment Upcoming Encounters Date Type Department Care Team (Late st Contact Info) Description 10/13/2025 11:30 AM EST Telemedicine [facility] MEDICINE [address] [place] [address] Rena Henriquez MD 230 [place] [address] 10/31/2025 2:00 PM EST Office Visit [facility] OPTOMETRY 267 [place] [address] Cielo Turner, OD 267 [place] [address] 11/28/2025 1:30 PM EST Clinical Support [facility] MEDICINE 230 [place] [address] Matilda Chisholm, RN documented as of this encounter Visit Diagnoses Not on filedocumented in this encounter Additional Health Concerns Assessment Noted Time PHQ-9 Depression Total Score: 4 12/06/19 1:46 PM EST documented as of this encounter Care Teams Digital Marketing Project Manager Relationship Specialty Start Date End Date Minerva Barraza FNP [address] [place] [address] PCP - General Family Medicine 07/29/22 06/22/24 Rena Henriquez MD [address] [place] [address] PCP - General Internal Medicine 06/23/24 Krystal Joyner PharmD [address] [place] [address] Pharmacist Internal Medicine 10/15/24 03/04/25 documented as of this encounter
--- OUTSIDE RECORDS SUMMARY | 2025-09-07 17:14 | XMS_ITS | Encounter Summary ---
Author Organization [email or web address] Address 75 [facility] 7t [place] [address] Care Team Providers Care Project Systems Engineer Name Role Phone Minerva Barraza Primary Care Provider +[phone] Rena Henriquez MD Primary Care Provide r Krystal Joyner PharmD Unavailable [phone] Reason for Visit * Reason Onset Date Comments Medication Problem 03/18/2024 Encounter Details Date Type Department Care Team (Late st Contact Info) Description 03/18/2024 Telephone [facility] MEDICINE 230 [place], [place] [phone] Minerva Barraza FNP [address] [place] [address] Medication Problem Social History Tobacco Use Types [...] Info) Description 10/13/2025 11:30 AM EST Telemedicine [facility] MEDICINE [address] [place], [place] [phone] Rena Henriquez MD 230 [place] [address] 10/31/2025 2:00 PM EST Office Visit [facility] OPTOMETRY 267 [place], [place] [phone] Cielo Turner, OD [address] [place] [address] 11/28/2025 1:30 PM EST Clinical Support [facility] MEDICINE [address] [place] [address] Matilda Chisholm, RN documented as of this encounter Visit Diagnoses Not on filedocumented in this encounter Additional Health Concerns Assessment Noted Time PHQ-9 Depression Total Score: 18 024 4:16 PM EDT documented as of this encounter Care Teams Project Systems Engineer Relationship Specialty Start Date End Date Minerva Barraza FNP [address] [place] [address] PCP - General Family Medicine 07/29/22 06/22/24 Rena Henriquez MD 230 [place] [address] PCP - General Internal Medicine 06/23/24 Krystal Joyner PharmD 230 [place] [address] Pharmacist Internal Medicine 10/15/24 03/04/25 documented as of this encounter
--- OUTSIDE RECORDS SUMMARY | 2025-09-07 17:14 | XMS_ITS | Encounter Summary ---
Author Organization [employer] Address 75 [facility] 7t [place] [address] Care Team Providers Care Space Physicist Name Role Phone Rena Henriquez MD Primary Care Provide r Krystal Joyner PharmD Unavailable [phone] Reason for Visit * Reason Comments Med Refill Encounter Details Date Type Department Care Team ([facility] st Contact Info) Description 10/06/[address] [facility] MEDICINE 230 [place] [address] Minerva Barraza FNP 230 [place] [address] Depression with anxiety Social History Tobacco Use [...] Info) Description 10/13/2025 11:[address] [facility] MEDICINE [address] [place] [address] Rena Henriquez MD [address] [place] [address] 10/31/2025 2:00 PM EST Office Visit [facility] OPTOMETRY [address] [place] [address] Cielo Turner, OD 267 [place] [address] 11/28/2025 1:30 PM EST Clinical Support [facility] MEDICINE [address] [place] [address] Matilda Chisholm, LEO documented as of this encounter Visit Diagnoses Diagnosis Depression with anxiety Dysthymic disorder documented in this encounter Additional Health Concerns Assessment Noted Time PHQ-9 Depression Total Score: 18 024 4:16 PM EDT documented as of this encounter Care Teams Space Physicist Relationship Specialty Start Date End Date Rena Henriquez MD [address] [place] [address] PCP - General Internal Medicine 8/28/24 Krystal Joyner, Johnna [address] [place] [address] Pharmacist Internal Medicine 10/15/24 03/04/25 documented as of this encounter
--- OUTSIDE RECORDS SUMMARY | 2025-09-07 17:14 | XMS_ITS | Encounter Summary ---
Author Organization [employer] Address 75 [facility] 7t [place] [address] Care Team Providers Care Complaint Adjuster Name Role Phone Rena Henriquez MD Primary Care Provide r Reason for Visit * Reason Comments Med Refill Encounter Details Date Type Department Care Team (Late st Contact Info) Description 05/17/2025 Refill [facility] MEDICINE 230 [place], [place] [phone] Rena Henriquez MD 230 [place] [address] Chronic migraine with aura without status migrainosus, [...] Info) Description 10/13/2025 11:30 AM EST Telemedicine [facility] MEDICINE 230 [place] [address] Rena Henriquez MD 230 [place] [address] 10/31/2025 2:00 PM EST Office Visit [facility] OPTOMETRY [address] [place] [address] Johnny Cielo, OD 267 [place] [address] 11/28/2025 1:30 PM EST Clinical Support [facility] MEDICINE 230 [place] [address] Matilda Chisholm RN documented as of this encounter Visit Diagnoses Diagnosis Chronic migraine with aura without status migrainosus, not intractable documented in this encounter Additional Health Concerns Assessment Noted Time PHQ-9 Depression Total Score: 15 12/21/ 025 2:05 PM EST documented as of this encounter Care Teams Complaint Adjuster Relationship Specialty Start Date End Date Rena Henriquez MD [address] [place] [address] PCP - General Internal Medicine 06/23/24 documented as of this encounter
--- OUTSIDE RECORDS SUMMARY | 2025-09-07 17:14 | XMS_ITS | Encounter Summary ---
Author Organization [employer] Address 75 [facility] 7t [place] [address] Care Team Providers Care Service Coordinator Name Role Phone Rena Henriquez MD Primary Care Provide r Krystal Joyner PharmD Unavailable [phone] Reason for Visit * Reason Comments Med Refill Encounter Details Date Type Department Care Team ([facility] st Contact Info) Description 11/25/2024 Refill [facility] MEDICINE 230 [place] [address] Minerva Barraza FNP 230 [place] [address] Depression with anxiety Social History Tobacco Use [...] AM EST Telemedicine [facility] MEDICINE [address] [place] [address] Rena Henriquez MD [address] [place] [address] 10/31/2025 2:00 PM EST Office Visit [facility] OPTOMETRY [address] [place] [address] Cielo Turner, OD [address] [place] [address] 11/28/2025 1:30 PM EST Clinical Support [facility] MEDICINE [address] [place] [address] Matilda Chisholm, LEO documented as of this encounter Visit Diagnoses Diagnosis Depression with anxiety Dysthymic disorder documented in this encounter Additional Health Concerns Assessment Noted Time PHQ-9 Depression Total Score: 18 024 4:16 PM EDT documented as of this encounter Care Teams Service Coordinator Relationship Specialty Start Date End Date Rena Henriquez MD [address] [place] [address] PCP - General Internal Medicine 8/28/24 Krystal Joyner, Johnna [address] [place] [address] Pharmacist Internal Medicine 10/15/24 03/04/25 documented as of this encounter
--- OUTSIDE RECORDS SUMMARY | 2025-09-07 17:14 | XMS_ITS | Encounter Summary ---
Author Organization [employer] Address 75 [facility] 7t [place] [address] Care Team Providers Care Pacu Rn Name Role Phone Rena Henriquez MD Primary Care Provide r Krystal Joyner PharmD Unavailable [phone] Reason for Visit * Reason Comments Med Refill Encounter Details Date Type Department Care Team ([facility] st Contact Info) Description 09/22/2024 Refill [facility] MEDICINE [address] [place] [address] Minerva Barraza FNP [address] [place] [address] Lumbar radiculopathy Social History Tobacco Use Types [...] EST Telemedicine [facility] MEDICINE [address] [place] [address] Rena Henriquez MD [address] [place] [address] 10/31/2025 2:00 PM EST Office Visit [facility] OPTOMETRY [address] [place] [address] Tinrosalba Cielo, OD [address] [place] [address] 11/28/2025 1:30 PM EST Clinical Support [facility] MEDICINE [address] [place] [address] Matilda Chisholm, LEO documented as of this encounter Visit Diagnoses Diagnosis Lumbar radiculopathy Thoracic or lumbosacral neuritis or radiculitis, unspecified documented in this encounter Additional Health Concerns Assessment Noted Time PHQ-9 Depression Total Score: 18 024 4:16 PM EDT documented as of this encounter Care Teams Pacu Rn Relationship Specialty Start Date End Date Rena Henriquez MD [address] [place] [address] PCP - General Internal Medicine 06/23/24 Krystal Joyner, Johnna [address] [place] [address] [place] [address] Pharmacist Internal Medicine 10/15/24 03/04/25 documented as of this encounter
--- OUTSIDE RECORDS SUMMARY | 2025-09-07 17:14 | XMS_ITS | Encounter Summary ---
Author Organization [employer] Address 75 [facility] 7t [place] [address] Care Team Providers Care Soaping Department Supervisor Name Role Phone Rena Henriquez MD Primary Care Provide r Encounter Details Date Type Department Care Team (Late st Contact Info) Description 05/17/2025 Orders [address] [facility] MEDICINE 230 [place], [place] [phone] Rena Henriquez MD [address] [place], [place] [phone] Social History Tobacco Use Types Packs/Day Years [...] AM EST Telemedicine [facility] MEDICINE 230 [place] [address] Rena Henriquez MD [address] [place] [address] 10/31/2025 2:00 PM EST Office Visit [facility] OPTOMETRY [address] [place], [place] [phone] Johnny Cielo, OD 267 [place], [place] [phone] 11/28/2025 1:30 PM EST Clinical Support [facility] MEDICINE 230 [place], [place] [phone] Matilda Chisholm, LEO documented as of this encounter Visit Diagnoses Not on filedocumented in this encounter Additional Health Concerns Assessment Noted Time PHQ-9 Depression Total Score: 15 025 2:05 PM EST documented as of this encounter Care Teams Soaping Department Supervisor Relationship Specialty Start Date End Date Rena Henriquez MD [address] [place], [place] [phone] PCP - General Internal Medicine 06/23/24 documented as of this encounter
--- OUTSIDE RECORDS SUMMARY | 2025-09-07 17:14 | XMS_ITS | Encounter Summary ---
Author Organization [employer] Address 75 [facility] 7t [place] [address] Care Team Providers Care Dietary Manager Name Role Phone Rena Henriquez MD Primary Care Provide r Reason for Visit * Reason Onset Date Comments Med Refill 09/02/2025 Encounter Details Date Type Department Care Team ([facility] st Contact Info) Description 09/02/2025 Telephone [facility] MEDICINE 230 [place], [place] [phone] Rena Henriquez MD [address] [place], [place] [phone] Med Refill Social History Tobacco Use Types [...] encounter Miscellaneous Notes * Telephone Encounter - Rosa Matias - 09/02/2025 11:48 AM EST TC from pt requesting medication refill. Medications needing refill : - oxyCODONE (Roxicodone) 5 MG immediate release tablet To be sent to: - [facility]/pharmacy #[id number] [place] [address] documented in this encounter Plan of Treatment Upcoming Encounters Date Type Department Care Team ([facility] st Contact Info) Description 10/13/2025 11:30 AM EST Telemedicine [facility] MEDICINE [address] [place] [address] Rena Henriquez MD [address] [place] [address] 10/31/2025 2:00 PM EST Office Visit [facility] OPTOMETRY [address] [place] [address] Cielo Turner, REILLY [address] [place] [address] 11/28/2025 1:30 PM EST Clinical Support [facility] MEDICINE [address] [place] [address] Matilda Chisholm, RN documented as of this encounter Visit Diagnoses Not on filedocumented in this encounter Additional Health Concerns Assessment Noted Time PHQ-9 Depression Total Score: 15 025 2:05 PM EST documented as of this encounter Care Teams Dietary Manager Relationship Specialty Start Date End Date Rena Henriquez MD [address] [place] [address] PCP - General Internal Medicine 06/23/24 documented as of this encounter
--- OUTSIDE RECORDS SUMMARY | 2025-09-07 17:14 | XMS_ITS | Encounter Summary ---
Author Organization [employer] Address 75 [facility] 7t [place] [address] Care Team Providers Care Drafter Topographical Name Role Phone Rena Henriquez MD Primary Care Provide r Krystal Joyner PharmD Unavailable [phone] Reason for Visit * Reason Comments Med Refill Encounter Details Date Type Department Care Team ([facility] st Contact Info) Description 06/30/2024 Refill [facility] MEDICINE [address] [place] [address] Minerva Barraza FNP [address] [place] [address] Insomnia, unspecified type Social History Tobacco Use [...] 10/13/2025 11:30 AM EST Telemedicine [facility] MEDICINE [address] [place] [address] Rena Henriquez MD [address] [place] [address] 10/31/2025 2:00 PM EST Office Visit [facility] OPTOMETRY [address] [place] [address] Tinrosalba Cielo, OD [address] [place] [address] 11/28/2025 1:30 PM EST Clinical Support [facility] MEDICINE [address] [place] [address] Matilda Chisholm, LEO documented as of this encounter Visit Diagnoses Diagnosis Insomnia, unspecified type documented in this encounter Additional Health Concerns Assessment Noted Time PHQ-9 Depression Total Score: 18 024 4:16 PM EDT documented as of this encounter Care Teams Drafter Topographical Relationship Specialty Start Date End Date Rena Henriquez MD [address] [place] [phone] PCP - General Internal Medicine 8/28/24 Krystal Joyner, Johnna [address] [place] [address] Pharmacist Internal Medicine 10/15/24 03/04/25 documented as of this encounter
--- OUTSIDE RECORDS SUMMARY | 2025-09-07 17:14 | XMS_ITS | Encounter Summary ---
Author Organization [employer] Address 75 [facility] 7t [place] [address] Care Team Providers Care Lead Refiner Name Role Phone Minerva Barraza Primary Care Provider +1 Rena Henriquez MD Primary Care Provide r Krystal Joyner PharmD Unavailable [phone] Reason for Visit * Reason Comments Med Change Request Encounter Details Date Type Department Care Team (Late Contact Info) Description 03/18/[address] [facility] MEDICINE [address] [place] [address] Minerva Barraza FNP [address] [place] [address] Mild intermittent asthma without complication Social History [...] Upcoming Encounters Date Type Department Care Team ([facility] Contact Info) Description 10/13/2025 11:[address] [facility] MEDICINE [address] [place] [address] Rena Henriquez MD 230 [place] [address] 10/31/2025 2:00 PM EST Office [address] [facility] OPTOMETRY [address] [place] [address] Cielo Turner, OD [address] [place] [address] 11/28/2025 1:30 PM EST Clinical Support [facility] MEDICINE [address] [place] [address] Matilda Chisholm RN documented as of this encounter Visit Diagnoses Diagnosis Mild intermittent asthma without complication documented in this encounter Additional Health Concerns Assessment Noted Time PHQ-9 Depression Total Score: 4 12/06/19 23 1:46 PM EST documented as of this encounter Care Teams Lead Refiner Relationship Specialty Start Date End Date Minerva Barraza FNP [address] [place] [address] PCP - General Family Medicine 07/29/22 06/22/24 Rena Henriquez MD [address] [place] [address] PCP - General Internal Medicine 06/23/24 Krystal Joyner PharmD [address] [place] [address] Pharmacist Internal Medicine 10/15/24 03/04/25 documented as of this encounter
--- OUTSIDE RECORDS SUMMARY | 2025-09-07 17:14 | XMS_ITS | Encounter Summary ---
Author Organization [employer] Address 75 [facility] 7t [place] [address] Care Team Providers Care Kindergartner Name Role Phone Minerva Barraza Primary Care Provider +[phone] Rena Henriquez MD Primary Care Provide r Krystal Joyner PharmD Unavailable [phone] Reason for Visit * Reason Onset Date Comments Lab Orders 06/11/2024 Encounter Details Date Type Department Care Team (Late st Contact Info) Description 06/11/2024 Telephone [facility] MEDICINE [address] [place], [place] [phone] Minerva Barraza FNP [address] [place] [address] Lab Orders Social History Tobacco Use Types [...] Info) Description 10/13/2025 11:30 AM EST Telemedicine [facility] MEDICINE [address] [place] [address] Rena Henriquez MD 230 [place] [address] 10/31/2025 2:00 PM EST Office Visit [facility] OPTOMETRY [address] [place] [address] Cielo Turner, OD 267 [place] [address] 11/28/2025 1:30 PM EST Clinical Support [facility] MEDICINE [address] [place] [address] Matilda Chisholm, RN documented as of this encounter Visit Diagnoses Not on filedocumented in this encounter Additional Health Concerns Assessment Noted Time PHQ-9 Depression Total Score: 18 024 4:16 PM EDT documented as of this encounter Care Teams Kindergartner Relationship Specialty Start Date End Date Minerva Barraza FNP [address] [place] [address] PCP - General Family Medicine 07/29/22 06/22/24 Rena Henriquez MD [address] [place] [address] [phone] PCP - General Internal Medicine 06/23/24 Krystal Joyner PharmD [address] [place] [address] Pharmacist Internal Medicine 10/15/24 03/04/25 documented as of this encounter
--- OUTSIDE RECORDS SUMMARY | 2025-09-07 17:14 | XMS_ITS | Encounter Summary ---
Author Organization [employer] Address 75 [facility] 7t [place] [address] Care Team Providers Care Wireless Technician Name Role Phone Minerva Barraza Primary Care Provider [phone] Rena Henriquez MD Primary Care Provide r Krystal Joyner PharmD Unavailable [phone] Reason for Visit * Reason Onset Date Comments Nurse Triage 02/17/2024 Encounter Details Date Type Department Care Team (Late st Contact Info) Description 02/17/2024 Telephone [facility] MEDICINE 230 [place], [place] [phone] Minerva Barraza FNP [address] [place] [address] Nurse Triage Social History Tobacco Use Types [...] 02/17/2024 12:28 PM EDT Called pt. Via ERN language interpreter [id number] [place]. Pt. States that she has been having chest painsand lung pain x 3 weeks. Pt also had right hip pain that traveled down her leg. Pt went to [facility] ED last week and had Xrays done and a EEG. Ambulance had to go to pt. Home to bring her to [facility] ED on 02/13/24. Pt. Is not experiencing chest pain at present. Pt. Does have a cough- congested. Pt. States that she has someone coming from her insurance company to assess her breathing and fu on [facility] ED visit. Pt. Also wants to let PCP know that Trulicity is not available at her Pharmacy at [facility]. Pt.Wants to know how she is going to get her RX. Pt is due to give herself the Trulicity on Friday02/18/24 (tomorrow) and does not have it. She states her pharmacy told her that the closest Pharmacy that might have it is 20 miles away? Will send this note to PCP and also to [facility] Pharm[facility] to see if th ey [...] Info) Description 10/13/2025 11:30 AM EST Telemedicine [facility] MEDICINE 230 [place] [address] Rena Henriquez MD [address] [place] [address] 10/31/2025 2:00 PM EST Office Visit [facility] OPTOMETRY [address] [place] [address] Cielo Turner, OD 267 [place] [address] 11/28/2025 1:30 PM EST Clinical Support [facility] MEDICINE [address] [place] [address] Matilda Chisholm, LEO documented as of this encounter Visit Diagnoses Diagnosis Type 2 diabetes mellitus with hyperosmolarity without coma, without long-term current use of insulin (HCC) documented in this encounter Additional Health Concerns Assessment Noted Time PHQ-9 Depression Total Score: 18 024 4:16 PM EDT documented as of this encounter Care Teams Wireless Technician Relationship Specialty Start Date End Date Minerva Barraza FNP [address] [place] [address] [phone] PCP - General Family Medicine 07/29/22 06/22/24 Rena Henriquez MD [address] [place] [address] PCP - General Internal Medicine 06/23/24 Krystal Joyner PharmD [address] [place] [address] Pharmacist Internal Medicine 10/15/24 03/04/25 documented as of this encounter
--- OUTSIDE RECORDS SUMMARY | 2025-09-07 17:14 | XMS_ITS | Encounter Summary ---
Author Organization [employer] Address 75 [facility] 7t [place] [address] Care Team Providers Care Personnel Security Specialist Name Role Phone Rena Henriquez MD Primary Care Provide r Krystal Joyner PharmD Unavailable [phone] Reason for Visit * Reason Comments Med Refill Encounter Details Date Type Department Care Team ([facility] st Contact Info) Description 07/05/2024 Refill [facility] MEDICINE 230 [place] [address] Minerva Barraza FNP [address] [place] [address] Depression with anxiety; Insomnia, unspecified type Social [...] Info) Description 10/13/2025 11:30 AM EST Telemedicine [facility] MEDICINE [address] [place] [address] Rena Henriquez MD 230 [place] [address] 10/31/2025 2:00 PM EST Office Visit [facility] OPTOMETRY [address] [place] [address] Cielo Turner, REILLY [address] [place] [address] 11/28/2025 1:30 PM EST Clinical Support [facility] MEDICINE [address] [place] [address] Matilda Chisholm, RN documented as of this encounter Visit Diagnoses Diagnosis Depression with anxiety Dysthymic disorder Insomnia, unspecified type documented in this encounter Additional Health Concerns Assessment Noted Time PHQ-9 Depression Total Score: 18 024 4:16 PM EDT documented as of this encounter Care Teams Personnel Security Specialist Relationship Specialty Start Date End Date Rena Henriquez MD [address] [place] [address] PCP - General Internal Medicine 06/23/24 Krystal Joyner, Johnna [address] [place] [address] Pharmacist Internal Medicine 10/15/24 03/04/25 documented as of this encounter
--- OUTSIDE RECORDS SUMMARY | 2025-09-07 17:14 | XMS_ITS | Encounter Summary ---
Author Organization [employer] Address 75 [facility] 7t [place] [address] Care Team Providers Care Roll Plugger Name Role Phone Rena Henriquez MD Primary Care Provide r Krystal Joyner PharmD Unavailable [phone] Reason for Visit * Reason Comments Med Refill Encounter Details Date Type Department Care Team ([facility] st Contact Info) Description 07/04/2024 Refill [facility] MEDICINE [address] [place] [address] Minerva Barraza FNP [address] [place] [address] Depression with anxiety; Insomnia, unspecified type Social [...] Info) Description 10/13/2025 11:30 AM EST Telemedicine [facility] MEDICINE [address] [place] [address] Rena Henriquez MD [address] [place] [address] 10/31/2025 2:00 PM EST Office Visit [facility] OPTOMETRY [address] [place] [address] Cielo Turner, OD [address] [place] [address] 11/28/2025 1:30 PM EST Clinical Support [facility] MEDICINE [address] [place] [address] Matilda Chisholm, LEO documented as of this encounter Visit Diagnoses Diagnosis Depression with anxiety Dysthymic disorder Insomnia, unspecified type documented in this encounter Additional Health Concerns Assessment Noted Time PHQ-9 Depression Total Score: 18 024 4:16 PM EDT documented as of this encounter Care Teams Roll Plugger Relationship Specialty Start Date End Date Rena Henriquez MD [address] [place] [address] PCP - General Internal Medicine 06/23/24 Krystal Joyner, Johnna [address] [place] [address] Pharmacist Internal Medicine 10/15/24 03/04/25 documented as of this encounter
--- OUTSIDE RECORDS SUMMARY | 2025-09-07 17:14 | XMS_ITS | Encounter Summary ---
Author Organization [employer] Address 75 [facility] 7t [place] [address] Care Team Providers Care Fruit I Farmworker Name Role Phone Minerva Barraza Primary Care Provider +[phone] Rena Henriquez MD Primary Care Provide r Krystal Joyner PharmD Unavailable [phone] Reason for Visit * Reason Onset Date Comments Lab Orders 06/11/2024 Encounter Details Date Type Department Care Team (Late st Contact Info) Description 06/11/2024 Telephone [facility] MEDICINE 230 [place], [place] [phone] Minerva Barraza FNP [address] [place] [address] Lab Orders Social History Tobacco Use Types [...] 06/11/2024 10:44 AM EDT Return T/C to [phone] for below message, Message states the number you are calling is not in service, Not able to LVM. * Telephone Encounter - Epifanio De La Rosa - 06/11/2024 10:10 AM EDT Nolan from [facility] with [facility] requesting for lab orders to be faxed over. If any questions you can contact Mio at [phone]. documented in this encounter Plan of Treatment Upcoming Encounters Date Type Department Care Team (Late st Contact Info) Description 10/13/2025 11:30 AM EST Telemedicine [facility] MEDICINE [address] [place] [address] Rena Henriquez MD 230 [place] [address] 10/31/2025 2:00 PM EST Office Visit [facility] OPTOMETRY [address] [place], [place] [phone] Cielo Turner, OD [address] [place] [address] 11/28/2025 1:30 PM EST Clinical Support [facility] MEDICINE [address] [place] [address] Matilda Chisholm, RN documented as of this encounter Visit Diagnoses Not on filedocumented in this encounter Additional Health Concerns Assessment Noted Time PHQ-9 Depression Total Score: 18 024 4:16 PM EDT documented as of this encounter Care Teams Fruit I Farmworker Relationship Specialty Start Date End Date Minerva Barraza FNP [address] [place] [address] PCP - General Family Medicine 07/29/22 06/22/24 Rena Henriquez MD [address] [place] [address] PCP - General Internal Medicine 06/23/24 Krystal Joyner PharmD [address] [place] [address] Pharmacist Internal Medicine 10/15/24 03/04/25 documented as of this encounter
--- OUTSIDE RECORDS SUMMARY | 2025-09-07 17:14 | XMS_ITS | Encounter Summary ---
Author Organization [employer] Address 75 [facility] 7t [place] [address] Care Team Providers Care Health Services Coordinator Name Role Phone Rena Henriquez MD Primary Care Provide r Reason for Visit * Reason Onset Date Comments Med Refill 09/02/2025 Encounter Details Date Type Department Care Team (Late st Contact Info) Description 09/02/2025 Refill [facility] MEDICINE [address] [place], [place] [phone] Rena Henriquez MD 230 [place] [address] Anxiety; Chronic pain of both shoulders; Insomnia, unspecified type Social History Tobacco Use [...] Telephone Encounter - Rosa Matias - 09/02/2025 11:45 AM EST TC from pt requesting medication refill. Medications needing refill : - zolpidem (Ambien) 10 MG tablet - ALPRAZolam (Xanax) 1 MG tablet To be sent to: - [facility]/pharmacy #[id number] documented in this encounter Plan of Treatment Upcoming Encounters Date Type Department Care Team (Late st Contact Info) Description 10/13/2025 11:30 AM EST Telemedicine [facility] MEDICINE [address] [place] [address] Rena Henriquez MD [address] [place] [address] 10/31/2025 2:00 PM EST Office Visit [facility] OPTOMETRY [address] [place] [address] Cielo Turner, OD [address] [place] [address] 11/28/2025 1:30 PM EST Clinical Support [facility] MEDICINE [address] [place] [address] Matilda Chisholm RN documented as of this encounter Visit Diagnoses Diagnosis Anxiety Anxiety state, unspecified Chronic pain of both shoulders Insomnia, unspecified type documented in this encounter Additional Health Concerns Assessment Noted Time PHQ-9 Depression Total Score: 15 025 2:05 PM EST documented as of this encounter Care Teams Health Services Coordinator Relationship Specialty Start Date End Date Rena Henriquez MD [address] [place] [address] PCP - General Internal Medicine 06/23/24 documented as of this encounter
--- OUTSIDE RECORDS SUMMARY | 2025-09-07 17:14 | XMS_ITS | Encounter Summary ---
Author Organization [employer] Address 75 [facility] 7t [place] [address] Care Team Providers Care Spinning And Winding Supervisor Name Role Phone Minerva Barraza RHYS Primary Care Provider [phone] Rena Henriquez MD Primary Care Provide r Krystal Joyner PharmD Unavailable [phone] Reason for Visit * Reason Comments Med Refill Encounter Details Date Type Department Care Team ([facility] Contact Info) Description 02/24/2023 Refill [facility] 230 [place], [place] [phone] Everett Wood, RHYS garay Social History Tobacco [...] Upcoming Encounters Date Type Department Care Team ([facility] Contact Info) Description 10/13/2025 11:30 AM EST Telemedicine [facility] MEDICINE [address] [place], [place] [phone] Rena Henriquez MD [address] [place] [address] 10/31/2025 2:00 PM EST Office Visit [facility] OPTOMETRY [address] [place] [address] Cielo Turner, OD [address] [place] [address] 11/28/2025 1:30 PM EST Clinical Support [facility] MEDICINE [address] [place] [address] Matilda Chisholm, LEO documented as of this encounter Visit Diagnoses Diagnosis Tinea cruris Dermatophytosis of groin and perianal area documented in this encounter Additional Health Concerns Assessment Noted Time PHQ-9 Depression Total Score: 4 12/06/19 23 1:46 PM EST documented as of this encounter Care Teams Spinning And Winding Supervisor Relationship Specialty Start Date End Date Minerva Barraza FNP [address] [place] [address] PCP - General Family Medicine 07/29/22 06/22/24 Rena Henriquez MD [address] [place] [address] PCP - General Internal Medicine 06/23/24 Krystal Joyner PharmD [address] [place] [address] Pharmacist Internal Medicine 10/15/24 03/04/25 documented as of this encounter
== END 2025-09-07 15:18 | disposition home or self-care (01) ==
LOC: HO.HSM 14:00
PROVIDERS: PCP Internal Medicine; Visit Provider Nurse Practitioner
DX: G47.33 Obstructive sleep apnea (adult) (pediatric) (principal); G43.709 Chronic migraine without aura, not intractable, without status migrainosus
CPT/HCPCS: 99213

== ENCOUNTER → 2025-09-07 13:59 | Outpatient (BNVA) | payer OTHER, SELFPAY | PROVIDERS: PCP Internal Medicine; Visit Provider Nurse Practitioner | DX: G43.709 Chronic migraine without aura, not intractable, without status migrainosus (principal); G47.33 Obstructive sleep apnea (adult) (pediatric) | CPT/HCPCS: 99212 ==